=== PATIENT | female | born 1985 | race Caucasian/White ===

== ENCOUNTER 2021-01-28 11:09 | Emergency (ER) | payer MEDICARE, SELFPAY ==
[2021-01-28 11:13] VITALS: BP 116/69; PULSE 72; RESP 16; TEMP 36.6; O2SAT 100; BMI 24.5
--- NOTE | 2021-01-28 11:20 | ECG_ITS ---
Test Reason : cp Blood Pressure : / mmHG Vent. Rate : 057 BPM Atrial Rate : 057 BPM P-R Int : 178 ms QRS Dur : 120 ms QT Int : 482 ms P-R-T Axes : 035 061 063 degrees QTc Int : 469 ms Sinus bradycardia Non-specific intra-ventricular conduction delay Minimal voltage criteria for LVH, may be normal variant ( Spearman product ) Borderline ECG No previous ECGs available Referred By: Bozena Kinney Electronically Signed By:KENNETH BOLTON MD
[2021-01-28 12:08] LABS: COVID-19 Test Negative (Negative); IDNOW Serial# 9DD0AD1C
[2021-01-28 12:39] LABS: Amphetamine Screen Urine Not Detected (Not Detect); Barbiturates, Urine Not Detected (Not Detect); Benzodiazepines Screen Urine Not Detected (Not Detect); Cannabinoid Screen Urine Not Detected (Not Detect); Cocaine Screen Urine POSITIVE (Not Detect); Fentanyl, urine POSITIVE (Not Detect); Opiate Screen Urine Not Detected (Not Detect); Phencyclidine Screen Urine Not Detected (Not Detect)
--- NOTE | 2021-01-28 13:01 | ED_ITS ---
HPI - Medical Clearance General Chief complaint: Medical Clearance Stated complaint: medical clearance Time Seen by Provider: 01/28/21 11:20 Source: patient Mode of arrival: ambulatory History of Present Illness HPI Narrative: 35-year-old female presenting to the ED for medical clearance to return to her snf/program s/p leaving yesterday and using cocaine. Reports smoking about 1 g of cocaine. Denies other illicit substances and ETOH. Reports feeling fatigued at present secondary to staying out all night. Denies CP/SOB, abdominal pain, nausea/vomiting MD complaint: medical clearance requested Onset (ago): hour(s) Related Information Allergies Allergy/AdvReac Type Severity Reaction Status Date / Time No Known Allergies Allergy Unverified 11/29/19 19:31 [No Known Allergies*] Review of Systems Review of Systems: Constitutional: No Fever, No Chills, +fatigue ENT/Mouth: No Ear Pain, No Nasal Congestion, No Sinus Pain, No sore throat Cardiovascular: No Chest Pain, No SOB Respiratory: No Cough Gastrointestinal: No Nausea, No Vomiting, No Diarrhea, No Constipation, No Abdominal pain Genitourinary: No Dysuria, No Urinary Frequency, No Hematuria Musculoskeletal: No joint pain, No Myalgias, No Joint Swelling Skin: No Skin Lesions, No rash Neuro: No Weakness, No Numbness Yes all other systems are reviewed and are negative [facility] Past Medical History Attestation statement: The following information was validated with the patient. Social History Social History Advance Directives: No Advance Directives Information Provided: No Patient : No Physical Exam Vital Signs: Vital Signs: Last Vital Signs Temp 97.8 F 01/28/21 11:13 Pulse 72 01/28/21 11:13 Resp 16 01/28/21 11:13 BP 116/69 01/28/21 11:13 Pulse Ox 100 01/28/21 11:13 Body Mass Index 24.5 Const: General: cooperative, healthy appearing and no acute distress Orientation/consciousness: patient oriented x3 Limitations: no limitations HENMT: Head: Yes normal to inspection Ears: hearing grossly normal bilaterally General nose exam: Normal external nose present Face and sinus: Yes normal facial exam Eyes: General: appearance normal, both eyes and all related structures Pupils: Equal, round and reactive pupils present EOM: EOMs intact bilaterally Neck: Neck: Yes normal visual inspection, Yes no meningeal signs and Yes trachea midline Resp: Effort & Inspection: normal respiratory effort Auscultation: clear to auscultation bilaterally, no rales, no rhonchi and no wheezes Cardio: Rate: regular rate Heart sounds: S1 normal heart sound present and S2 normal heart sound present GI: Inspection: Yes normal to inspection Palpation (GI): Soft to palpation, nontender, no guarding and not rigid Skin: Rashes: no rashes Wounds: no wounds Neuro: General: patient oriented x3 and no meningeal signs Cranial nerves: Yes Equal, round and reactive pupils present Gait exam (Neuro): Normal gait present Extrem: General: Yes normal to inspection MDM - Medical Clearance MDM Narrative Medical decision making narrative: 35-year-old female presenting to the ED for medical clearance to return to her snf/program s/p leaving yesterday and using cocaine. On exam vital signs stable, NAD/nontoxic, lungs CTA, abdomen soft/nontender. Will obtain EKG, Trejo, and drug screen Medical Records Attestation: I reviewed the patient's medical records. Lab Data Attestation: I reviewed the patient's lab results. Labs: Lab Results 01/28/21 01/28/21 Range/Units 11:45 12:13 Urine Opiates Screen Not Detected (Not Detect) Urine Fentanyl Screen POSITIVE H (Not Detect) Ur Barbiturates Screen Not Detected (Not Detect) Ur Phencyclidine Scrn Not Detected (Not Detect) Ur Amphetamines Screen Not Detected (Not Detect) U Benzodiazepines Scrn Not Detected (Not Detect) Urine Cocaine Screen POSITIVE H (Not Detect) U Marijuana (THC) Screen Not Detected (Not Detect) COVID-19 (KATIE) Negative (Negative) COVID-19 Clin Com See Note ECG Data Attestation: I personally reviewed and interpreted this ECG as follows: ECG interpretation date: 01/28/21 ECG interpretation time: 11:51 Interpretation: EKG sinus bradycardia rate of 57. QTC 469. Nonischemic/no STEMI. IL interval 178 Discharge Plan Discharge Clinical Impression: Substance abuse, Normal exam Patient Disposition: Home, Self-Care Instructions: Normal Exam (ED), Polysubstance Abuse (ED) Additional Instructions: You are medically clear to go back to your snf You tested negative for COVID-19 Your drug screen was positive for cocaine and fentanyl Please do not use drugs or drink alcoholic until you Please follow-up with your doctor Referrals: Physician,None [Primary Care Provider] - 2 days
== END 2021-01-28 13:43 | disposition home or self-care (01) ==
PROVIDERS: Physician Assistant; Emergency Provider Emergency Medicine
DX: Z02.2 Encounter for examination for admission to residential institution (principal); F14.10 Cocaine abuse, uncomplicated; Z20.822 Contact with and (suspected) exposure to COVID-19
CPT/HCPCS: 36415; 80307; 87635; 93005; 99284

== ENCOUNTER 2021-05-20 14:35 | Emergency (ER) | payer MEDICARE, SELFPAY ==
--- NOTE | ~2021-05-20 | XR_ITS ---
EXAMINATION: XR HAND, RIGHT CLINICAL INFORMATION: Acute on chronic pain COMPARISON: None TECHNIQUE: PA, lateral, and oblique views of the right hand. FINDINGS: The bones and soft tissues are normal. No fracture. Alignment is anatomic. Joint spaces are maintained. No erosions or soft tissue calcifications. There is a 7 mm linear radiopaque density overlying the distal ulna of unclear etiology. XR/XR hand RT 2V IMPRESSION: 7 mm linear radiopaque density overlying the distal ulna. This is of unclear etiology. Recommend clinical correlation.
[2021-05-20 14:36] VITALS: BP 115/78; PULSE 71; RESP 19; TEMP 36.6; O2SAT 98; BMI 25.2
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
== END 2021-05-20 15:52 | disposition home or self-care (01) ==
PROVIDERS: Emergency Provider Emergency Medicine
DX: M79.641 Pain in right hand (principal); G89.29 Other chronic pain
CPT/HCPCS: 73120; 99283

== ENCOUNTER 2021-07-01 12:22 | Emergency (ER) | payer OTHER, SELFPAY ==
[2021-07-01 12:42] VITALS: BP 139/86; PULSE 100; O2SAT 99
[2021-07-01 13:00] VITALS: BP 100/69; PULSE 71; RESP 17; TEMP 36.7; O2SAT 96; BMI 23.8
--- NOTE | 2021-07-01 13:41 | ED.GENADULT ---
HPI - General Adult General Chief complaint: General Medical Stated complaint: ? choked on hamburger/overdose/ seizure Time Seen by Provider: 07/01/21 13:35 Source: patient and EMS Mode of arrival: EMS Limitations: no limitations History of Present Illness HPI narrative: Patient is a 36 year old female presenting to the emergency department today after a seizure. Patient states that she was eating a hamburger when she had a seizure. EMS states that they gave the patient narcan and she awoke immediately. Patient states that she has a history of seizures and is supposed to be taking seizure medication. 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 Patent states that she now feels fine and does not want further evaluation. Patient denies any dizziness, lightheadedness, abdominal pain, nausea, vomiting, fever, chills, blurry vision, double vision, loss of vision, chest pain, difficulty breathing, shortness of breath, back pain, night sweats, pain with urination, increased urinary frequency, increased urinary urgency, blood in her urine or stool, syncope or a near syncopal episode, recent trauma or falls, bowel incontinence, bladder incontinence, bowel retention, bladder retention, or any other complaints at this time. Related Data Previous Rx's Medication Instructions Recorded acetaminophen 500 mg tablet 500 mg PO Q6H PRN #20 tab 05/20/21 (Tylenol Extra Strength) ibuprofen 800 mg tablet 800 mg PO Q8H PRN #14 tab 05/20/21 levetiracetam 500 mg tablet 500 mg PO BID 30 Days #60 tab 07/01/21 (Keppra) Allergies Allergy/AdvReac Type Severity Reaction Status Date / Time No Known Allergies Allergy Unverified 11/29/19 19:31 [No Known Allergies*] Review of Systems Constitutional: Constitutional: Reports no additional constitutional complaints, Denies chills, Denies fever(s) and Denies night sweats Eyes: Eyes: Reports no additional eye complaints, Denies blurry vision, Denies change in vision, Denies diplopia, Denies eye discharge, Denies loss of vision and Denies eye pain ENT: Denies dizziness Cardiovascular: Cardiovascular: Reports no additional cardiovascular complaints, Denies chest pain, Denies lightheadedness, Denies Loss of Consciousness and Denies dyspnea Respiratory: Respiratory: Reports no additional respiratory complaints and Denies dyspnea Gastrointestinal: Gastrointestinal: Reports no additional gastrointestinal complaints, Denies abdominal pain, Denies melena, Denies hematochezia, Denies change in bowel habits and Denies change in stool character Genitourinary: Genitourinary: Denies hematuria, Denies urinary frequency, Denies dysuria, Denies urinary incontinence, Denies urinary hesitancy and Denies urinary urgency Musculoskeletal: Musculoskeletal: Reports no additional musculoskeletal complaints, Denies numbness and Denies tingling Neurologic: Denies dizziness, Denies loss of vision, Denies numbness and Denies tingling Psychiatric: Psychiatric: Reports no additional psychiatric complaints Endocrine: Endocrine: Reports no additional endocrine complaints Hematologic/Lymphatic: Hematologic/Lymphatic: Reports no additional hematologic/lymphatic complaints Allergic/Immunologic: Allergic/Immunologic: Reports no additional allergic/immunologic complaints PMFSH Past Medical History Attestation statement: The following information was validated with the patient. Source: old records reviewed Medical History ADHD Bipolar 1 disorder Depression Depression Social History Social History Advance Directives: No Advance Directives Information Provided: No Patient : No Physical Exam ED Vital Signs: Vital Signs - 24 hr 07/01/21 13:00 Temperature 98.1 F Pulse Rate 71 Respiratory Rate 17 Blood Pressure 100/69 Pulse Oximetry 96 BMI result Body Mass Index 23.8 Const General: cooperative, no acute distress, alert and awake Nutritional Appearance: well nourished Orientation/consciousness: patient oriented x3 Limitations: no limitations [facility] Head: Yes normal to inspection and Yes atraumatic Ears: hearing grossly normal bilaterally and external ears normal General nose exam: Normal external nose present, no nasal discharge noted and no epistaxis Face and sinus: Yes normal facial exam, No abrasion and No laceration Mouth: Normal oral and palatal mucosa present, no drooling and no muffled voice Eyes General: appearance normal, both eyes and all related structures Periorbital: periorbital findings normal Eyelids: Yes eyelids normal Conjunctivae: conjunctivae normal Pupils: Equal, round and reactive pupils present EOM: EOMs intact bilaterally Neck Neck: Yes normal visual inspection, Yes full ROM and Yes no lymphadenopathy Chest Chest palpation & inspection: normal inspection of the chest Resp Effort & Inspection: normal respiratory effort and able to speak in complete sentences Auscultation: clear to auscultation bilaterally Cardio Rate: regular rate Rhythm: regular rhythm GI Inspection: Yes normal to inspection Neuro General: patient oriented x3 and moves all extremities Cranial nerves: Yes Equal, round and reactive pupils present Cognition (Neuro): normal cognition Motor exam (neuro): 5/5 motor strength present throughout Sensory Exam: Normal double simultaneous stimulation for sensation Coordination: [id number]-[id number] test normal Extrem General: Yes normal to inspection, Yes full ROM and Yes capillary refill normal Psych Appearance: grossly normal Mental Status: mental status grossly normal Affect: normal affect Attitude: cooperative Thought process: Normal thought process present Thought content: Normal thought content present Insight: Good insight present (Psych) Medical Decision Making MDM Narrative Medical decision making narrative: Patient is a 36 year old female presenting to the emergency department today after a seizure. Patient's physical exam was unremarkable, including a normal neurologic exam. Patient's refused any type of work up, narcan, or a CARE team/BHN consult. Patient did request tylenol for some dental pain she's been having. I explained my physical exam findings to the patient. I answered all questions asked by the patient. I stressed the importance of the patient taking her medication as prescribed. I stressed the importance of the patient following up with her primary care provider. I stressed the importance of the patient returning to the emergency department immediately if her symptoms were to worsen or if she were to develop any dizziness, shortness of breath, difficulty breathing, chest pain, blurry vision, loss of vision, nausea, vomiting, abdominal pain, fever, chills, back pain, or any other complaints. Patient verbalized agreement and understanding with this treatment plan and discharge. Differential Diagnosis Differential Diagnosis: seizure, opioid overdose Medical Records Medical records reviewed: Yes I reviewed the patient's medical records. Discharge Plan Discharge Clinical Impression: Seizure, Opioid abuse Patient Disposition: Home, Self-Care Instructions: Epilepsy (DC) Additional Instructions: Follow up with your primary care provider. Return to the emergency department immediately if your symptoms worsen or if you develop any dizziness, shortness of breath, difficulty breathing, chest pain, blurry vision, loss of vision, nausea, vomiting, abdominal pain, fever, chills, back pain, or any other complaints. Prescriptions: New levetiracetam [Keppra] 500 mg tablet 500 mg PO BID 30 Days Qty: 60 0RF No Action ibuprofen 800 mg tablet 800 mg PO Q8H PRN (Reason: pain) Qty: 14 0RF acetaminophen [Tylenol Extra Strength] 500 mg tablet 500 mg PO Q6H PRN (Reason: pain or fever) Qty: 20 0RF Referrals: Yuliana Ortega MD [Physician] - (Follow up with a neurologist for continuation of seizure care. ) Physician,None [Primary Care Provider] - (Follow up with your PCP. ) Interventions: ED Discharge Assessment Last Done: 07/01/21 14:00 Discharge Date/Time: 07/01/21 14:00 Print Language: Burkinan
[2021-07-01] MEDS: Acetaminophen 325 MG TABLET 650 MG PO (13:55)
== END 2021-07-01 14:00 | disposition home or self-care (01) ==
PROVIDERS: Emergency Provider Emergency Medicine
DX: R56.9 Unspecified convulsions (principal); F11.10 Opioid abuse, uncomplicated; Z79.899 Other long term (current) drug therapy
CPT/HCPCS: 99283; 99284

== ENCOUNTER 2021-07-14 07:30 | Emergency (ER) | payer OTHER, SELFPAY ==
[2021-07-14 07:41] VITALS: BP 110/70; BP 115/58; PULSE 84; PULSE 90; RESP 16; TEMP 37; O2SAT 94; BMI 23.5
--- NOTE | 2021-07-14 07:48 | ED.SEIZURE ---
HPI - Seizure General Chief Complaint: ETOH/Substance Use Stated Complaint: DRUG USE,? SZ, ALERT AND ORIENTED PER EMS Time Seen by Provider: 07/14/21 07:47 Source: patient Mode of arrival: EMS Limitations: no limitations History of Present Illness HPI Narrative: missed her methadone dose this am didn't take seizure meds this AM walked to clinic with a girl this morning thought she was doing cocaine but then ?seizure vs something in cocaine MD complaint: possible seizure (also used cocaine but thinks something was in it) Onset (ago): minute(s) (prior to arrival ) Description of Episode: loss of consciousness -: second(s) Witnessed: Yes - by Bystander Trauma: No Seizure History: Yes Place: Outdoors Possible Precipitating Event: drug use and medication Associated symptoms: denies other symptoms Treatments prior to arrival: none Related Data Home Medications Medication Instructions Recorded Confirmed methadone 10 mg/mL oral concentrate 131 mg PO DAILY 07/14/21 07/14/21 Previous Rx's Medication Instructions Recorded acetaminophen 500 mg tablet 500 mg PO Q6H PRN #20 tab 05/20/21 (Tylenol Extra Strength) ibuprofen 800 mg tablet 800 mg PO Q8H PRN #14 tab 05/20/21 levetiracetam 500 mg tablet 500 mg PO BID 30 Days #60 tab 07/01/21 (Keppra) Allergies Allergy/AdvReac Type Severity Reaction Status Date / Time No Known Allergies Allergy Verified 07/14/21 07:46 [No Known Allergies*] Review of Systems Review of Systems: Constitutional : No Weight loss, No Fever, No Chills, No Fatigue, No Malaise ENT/Mouth : No sore throat, No Rhinorrhea Eyes: No Eye Pain, No Swelling, No Redness Cardiovascular : No Chest Pain, No SOB, No Dyspnea on Exertion, No Orthopnea, No Edema, No Palpitations Respiratory : No Cough, No Sputum, No Wheezing Gastrointestinal : No Nausea, No Vomiting, No Diarrhea, No Constipation, No abdominal Pain, No Hematochezia, No Melena Genitourinary : No Dysuria, No Urinary Frequency, No Hematuria, Musculoskeletal : No joint pain, No Myalgias, No Joint Swelling Skin : No Skin Lesions, No rash Neuro : No Weakness, No Numbness, No Dizziness, No Headache, possible seizure activity Psych : No Anxiety/Panic, No Depression Heme/Lymph: No Bruising, No Bleeding,No Lymphadenopathy Endocrine : No Polyuria, No Polydipsia All other systems reviewed and are negative [facility] Past Medical History Attestation statement: The following information was validated with the patient. Medical History ADHD Bipolar 1 disorder Depression Depression Seizure disorder Social History Social History (Updated 07/14/21 @ 08:25 by Imani Ruiz DO) Patient Tobacco Use Status: Never used Tobacco Use of substances other than those prescribed or required for medical reasons: No Substance Use Type: Crack/Cocaine Advance Directives: No Advance Directives Information Provided: No Physical Exam Vital Signs: Vital Signs: Last Vital Signs Temp 98.6 F 07/14/21 07:41 Pulse 58 07/14/21 09:49 Resp 18 07/14/21 09:49 BP 100/49 L 07/14/21 09:58 Pulse Ox 95 07/14/21 09:49 BMI result Body Mass Index 23.5 Appearance: Oriented X3. No acute distress. Somnolent and at times falls asleep during interview - easily woken to name Eyes: Pinpoint ENT: Pharynx normal. Neck: Normal inspection. Neck supple. CVS: Normal heart rate and rhythm. Pulses normal. Respiratory: No respiratory distress. Breath sounds normal. Abdomen: Soft and nontender. Skin: Skin warm and dry. Normal skin color. Normal skin turgor. Extremities: No lower extremity edema. No calf ttp Neuro: Oriented X 3. No motor deficit. No sensory deficit. Course Course Course Narrative: awake and alert walking around drinking MDM - Seizure MDM Narrative Medical decision making narrative: 36 yo female with hx of seizures getting tapered off wellbutrin, missed oxcarbamazepine dose this AM, here with c/o using with a friend on way to methadone clinic this AM thought it was cocaine possible seizure vs overdose no narcan given.Will dose with her seizure med this AM. observe and once more awake will give her her methadone dose. She declines suboxone/methadone or SUDE evaluation at this time. No SI. Discharge Plan Discharge Clinical Impression: Seizure Patient Disposition: Home, Self-Care Instructions: Recurrent Seizures in Adults (ED) Additional Instructions: return to ED for any worsening symptoms or concerns please follow up with your doctor to discuss your seizures and wellbutrin dosing - you were given your oxcarbazepine dose in the ED this morning you were given your methadone in the emergency department today Prescriptions: No Action levetiracetam [Keppra] 500 mg tablet 500 mg PO BID 30 Days Qty: 60 0RF ibuprofen 800 mg tablet 800 mg PO Q8H PRN (Reason: pain) Qty: 14 0RF acetaminophen [Tylenol Extra Strength] 500 mg tablet 500 mg PO Q6H PRN (Reason: pain or fever) Qty: 20 0RF methadone 10 mg/mL Concentrate 131 mg PO DAILY 0RF
[2021-07-14] MEDS: OXcarbazepine 300 MG TABLET 600 MG PO (08:30)
[2021-07-14 08:33] VITALS: BP 106/65; PULSE 68; RESP 18; O2SAT 93
[2021-07-14 08:35] VITALS: PULSE 67
[2021-07-14 09:49] VITALS: BP 88/46; PULSE 58; RESP 18; O2SAT 95
[2021-07-14 09:58] VITALS: BP 100/49
--- NOTE | 2021-07-14 10:55 | MHC.RECOVSUP ---
? Reason for consult:Recovery support o Current location:ED6 o Identified substance use concern:Cocaine/Heroin - Support ? Intervention: o MAT started or to be started o Harm reduction discussion ? Plan: o Follow up tomorrow o Patient to follow up with H after discharge ? 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
[2021-07-14] MEDS: methADONE HCl 20 MG/2 ML ORAL.CONC 130 MG PO (11:21)
== END 2021-07-14 11:45 | disposition home or self-care (01) ==
PROVIDERS: Emergency Provider Emergency Medicine
DX: R56.9 Unspecified convulsions (principal); F14.10 Cocaine abuse, uncomplicated; Z79.899 Other long term (current) drug therapy
CPT/HCPCS: 99283; 99285

== ENCOUNTER 2023-05-18 18:48 | Emergency (ER) | payer MEDICAID, SELFPAY ==
[2023-05-18 19:03] VITALS: BP 113/56; BP 120/76; PULSE 78; PULSE 85; RESP 18; TEMP 37.5; O2SAT 95; O2SAT 96; BMI 22.5
[2023-05-18 19:31] LABS: MANUAL DIFF FLAG NO
[2023-05-18 19:36] LABS: Basophils Percent Auto 0.2 % (0-2); Eosinophils Absolute Auto 0.1 X10*3/uL (0.0-0.4); Eosinophils Percent Auto 1.5 % (0-4); Hematocrit 33.7 % (37.0-47.0); Hemoglobin 10.9 g/dl (12.0-16.0); Imm Gran Abs Auto 0.02 X10*3/uL (0.00-0.03); Imm Gran Pct Auto 0.2 % (0.0-0.4); Lymphocytes Absolute Auto 3.5 X10*3/uL (1.2-4.9); Mean Corpuscular HGB Conc 32.3 g/dl (31.0-35.0); Mean Corpuscular Hemoglobin 27.1 pg (27.0-33.0); Mean Corpuscular Volume 83.8 fL (80.0-98.0); Mean Platelet Volume 8.8 fL (9.4-12.3); Monocytes Absolute Auto 0.7 X10*3/uL (0.1-1.2); Monocytes Percent Auto 8.9 % (2-11); Neutrophils Absolute Auto 3.7 x10*3/uL (2.0-8.3); Neutrophils Percent Auto 46.2 % (45-73); Platelet Count 298 X10*3/uL (160-400); Red Blood Count 4.02 X10*6/uL (4.20-5.50); Red Cell Distribution Width 13.4 % (11.0-16.0)
[2023-05-18 19:45] LABS: Amphetamine Screen Urine Not Detected (Not Detect); Barbiturates, Urine Not Detected (Not Detect); Benzodiazepines Screen Urine Not Detected (Not Detect); Cannabinoid Screen Urine Not Detected (Not Detect); Cocaine Screen Urine POSITIVE (Not Detect); Fentanyl, urine POSITIVE (Not Detect); Opiate Screen Urine POSITIVE (Not Detect); Phencyclidine Screen Urine Not Detected (Not Detect); UPreg QC Valid YES; Urine Pregnancy NEGATIVE (NEGATIVE)
[2023-05-18 19:48] LABS: IDNOW Serial# 08D9AD1C
[2023-05-18 19:49] LABS: COVID-19 Test Negative (Negative)
[2023-05-18 19:55] LABS: Alanine Aminotransferase 26 U/L (0-31); Albumin Level 3.9 g/dL (3.5-5.0); Alkaline Phosphatase 76 U/L (39-117); Anion Gap 13 (12-20); Aspartate Amino Transferase 23 U/L (5-31); Bilirubin Total 0.2 mg/dL (0.0-1.0); Blood Urea Nitrogen 21 mg/dL (9-16); Calcium 9.1 mg/dL (8.4-10.2); Carbon Dioxide 30 mmol/L (22-29); Chloride 101 mmol/L (96-108); Creatinine Clr Calc Pharmacy 100.4; Estimated Glomerular Filt Rate > 60; Ethanol < 10 mg/dL; Glucose Random 100 mg/dL (60-115); Potassium 3.6 mmol/L (3.3-5.1); Sodium 140 mmol/L (135-145); Total Protein 8.1 g/dL (6.5-8.0)
[2023-05-18 19:55] LABS: Appearance Urine Cloudy; Color Urine Yellow; Glucose Urine UA Negative (Negative); Leukocyte Esterase Urine Moderate (2+) (Negative); Nitrite Urine Negative (Negative); Specific Gravity - Urine >= 1.030 (1.005-1.025); UMIC TRIGGER UACC YES; Urine Blood Negative (Negative); Urine Ketones Trace mg/dL (Negative); Urine Protein 30 (1+) mg/dL (Neg-Trace)
[2023-05-18 19:57] LABS: Acetaminophen LAB < 3 mcg/mL (<30); Salicylate < 5.0 mg/dL (15-30)
[2023-05-18 20:07] LABS: Bacteria Urine None Seen (None Seen); Calcium Oxalate Crystals Urine Present; RBC Urine 0-2 /HPF (0-2); UACC Culture Trigger YES
--- NOTE | 2023-05-18 20:25 | ED_ITS ---
HPI - Psych General Chief Complaint: Psychiatric Symptoms Stated Complaint: SI, REQUESTING DETOX Time Seen by Provider: 05/18/23 19:12 Source: patient Mode of arrival: ambulatory Limitations: no limitations History of Present Illness HPI Narrative: Patient homeless with history of depression substance abuse used cocaine and heroin been feeling very depressed suicidal intent to use bunch of heroin denies any hallucination or delusions feels that she does not want to come to the hospital but today she was feeling very bad that is why she wanted to come to the hospital patient usually snorts 3-4 bundles of heroin a day today she used only 2 bundles feels anxious Related Data Home Medications Medication Instructions Recorded Confirmed methadone 10 mg/mL oral concentrate 131 mg PO DAILY 07/14/21 07/14/21 Previous Rx's Medication Instructions Recorded acetaminophen 500 mg tablet 500 mg PO Q6H PRN pain or fever 05/20/21 (Tylenol Extra Strength) #20 tabs ibuprofen 800 mg tablet 800 mg PO Q8H PRN pain #14 tabs 05/20/21 levetiracetam 500 mg tablet 500 mg PO BID 1 month #60 tabs 07/01/21 (Keppra) Allergies Allergy/AdvReac Type Severity Reaction Status Date / Time No Known Allergies Allergy Verified 07/14/21 07:46 [No Known Allergies*] Review of Systems 2 Review of Systems: Yes all other systems are reviewed and are negative [facility] Past Medical History Medical History Seizure disorder ADHD Bipolar 1 disorder Depression Depression Social History Social History Patient Tobacco Use Status: Never used Tobacco Substance Use Type: Crack/Cocaine Advance Directives: No Advance Directives Information Provided: No Physical Exam 2 Vital Signs: Vital Signs: Last Vital Signs Temp 99.5 F 05/18/23 19:03 Pulse 85 05/18/23 19:03 Resp 18 05/18/23 19:03 BP 113/56 L 05/18/23 19:03 Pulse Ox 95 05/18/23 19:03 O2 Del Method Room Air 05/18/23 19:03 BMI result Body Mass Index 22.5 Appearance: Alert. Oriented X3. No acute distress. Eyes: PERRLA, ENT: Pharynx normal. Oral Mucosa moist Neck: Normal inspection. Neck supple. CVS: Normal heart rate and rhythm. Pulses normal. Respiratory: No respiratory distress. Equal air entry bilateral, no wheezing/rales/rhonchi Abdomen: Soft and nontender. Bowel sounds are present, no mass palpable, no CVA tenderness Skin: Skin warm and dry. Normal skin color. Normal skin turgor. Extremities: No lower extremity edema. No calf tenderness IVDA track tan++ Psych; feels depressed, tearful Neuro: Oriented X 3. No motor deficit. No sensory deficit.No cerebellar signs , cranial nerves II-XII intact Medical Decision Making Medical Decision Making [facility] Narrative: Patient depression with polysubstance abuse sleeping in the ER waiting for care team involved for evaluation Differential Diagnosis Differential Diagnoses: The differential diagnosis associated with the presentation includes Lab Data [facility] Lab Attestation statement: I reviewed the patient's lab results. 05/18/23 19:19 05/18/23 19:19 Labs: Lab Results 05/18/23 05/18/23 05/18/23 Range/Units 19:06 19:17 19:19 WBC 8.0 (4.8-10.8) X10*3/uL RBC 4.02 L (4.20-5.50) X10*6/uL Hgb 10.9 L (12.0-16.0) g/dl Hct 33.7 L (37.0-47.0) % MCV 83.8 (80.0-98.0) fL MCH 27.1 (27.0-33.0) pg MCHC 32.3 (31.0-35.0) g/dl RDW 13.4 (11.0-16.0) % Plt Count 298 (160-400) X10*3/uL MPV 8.8 L (9.4-12.3) fL Immature Gran % (Auto) 0.2 (0.0-0.4) % Neut % (Auto) 46.2 (45-73) % Lymph % (Auto) 43.0 H (20-40) % [place] % (Auto) 8.9 (2-11) % Eos % (Auto) 1.5 (0-4) % Baso % (Auto) 0.2 (0-2) % Lymph # (Auto) 3.5 (1.2-4.9) X10*3/uL [place] # (Auto) 0.7 (0.1-1.2) X10*3/uL Eos # (Auto) 0.1 (0.0-0.4) X10*3/uL Baso # (Auto) 0.0 (0.0-0.2) X10*3/uL Abs Immat Gran (auto) 0.02 (0.00-0.03) X10*3/uL Absolute Neuts (auto) 3.7 (2.0-8.3) x10*3/uL Absolute Nucleated RBC 0.000 (0.0-0.012) X10*3/uL Nucleated RBC % (auto) 0.0 (0.0-0.2) /100WBC Hold Purple Top SEE NOTE Sodium 140 (135-145) mmol/L Potassium 3.6 (3.3-5.1) mmol/L Chloride 101 (96-108) mmol/L Carbon Dioxide 30 H (22-29) mmol/L Anion Gap 13 (12-20) BUN 21 H (9-16) mg/dL Creatinine 0.69 (0.5-1.4) mg/dL Estim Creat Clear Calc 100.4 Estimated GFR > 60 Random Glucose 100 (60-115) mg/dL Calcium 9.1 (8.4-10.2) mg/dL Total Bilirubin 0.2 (0.0-1.0) mg/dL AST 23 (5-31) U/L ALT 26 (0-31) U/L Alkaline Phosphatase 76 (39-117) U/L Total Protein 8.1 H (6.5-8.0) g/dL Albumin 3.9 (3.5-5.0) g/dL Urine Color Yellow Urine Appearance Cloudy Urine pH 5.0 (5.0-9.0) Ur Specific [place] >= 1.030 H (1.005-1.025) Urine Protein 30 (1+) H (Neg-Trace) mg/dL Urine Glucose (UA) Negative (Negative) mg/dL Urine Ketones Trace (Negative) mg/dL Urine Blood Negative (Negative) Urine Nitrite Negative (Negative) Ur Leukocyte Esterase Moderate (2+) H (Negative) Urine RBC 0-2 (0-2) /HPF Urine WBC 11-20 (0-5) /HPF Ur Squamous Epith Cells 3-5 (0-2) /HPF Calcium Oxalate Crystal Present Urine Bacteria None Seen (None Seen) Hyaline Casts 3-5 (0-2) /LPF Urine Test NEGATIVE (NEGATIVE) Salicylates < 5.0 L (15-30) mg/dL Urine Opiates Screen POSITIVE H (Not Detect) Urine Fentanyl Screen POSITIVE H (Not Detect) Acetaminophen < 3 (<30) mcg/mL Ur Barbiturates Screen Not Detected (Not Detect) Ur Phencyclidine Scrn Not Detected (Not Detect) Ur Amphetamines Screen Not Detected (Not Detect) U Benzodiazepines Scrn Not Detected (Not Detect) Urine Cocaine Screen POSITIVE H (Not Detect) U Marijuana (THC) Screen Not Detected (Not Detect) Ethyl Alcohol < 10 mg/dL COVID-19 (KATIE) Negative (Negative) COVID-19 Clin Com See Note Discharge Plan Discharge Clinical Impression: Depression, Polysubstance abuse Patient Disposition: Still a Patient Prescriptions: No Action levetiracetam [Keppra] 500 mg tablet 500 mg PO BID 30 Days Qty: 60 0RF ibuprofen 800 mg tablet 800 mg PO Q8H PRN (Reason: pain) Qty: 14 0RF acetaminophen [Tylenol Extra Strength] 500 mg tablet 500 mg PO Q6H PRN (Reason: pain or fever) Qty: 20 0RF methadone 10 mg/mL Concentrate 131 mg PO DAILY Interventions: [place]-Suicide Risk Severity Scale Last Done: 05/18/23 20:27
--- NOTE | 2023-05-18 20:54 | MHC.CARE ---
CARE Team attempted to meet with the pt, however, she could not participate in an assessment at this time. Pt was sleeping, could not open her eyes, speech was soft and low, and she could not put two words together. CARE Team will attempt to meet with the pt at a later time in the evening.
--- NOTE | 2023-05-18 23:21 | MHC.CARE ---
CARE Team made a second attempt to meet with the pt. She was still sleeping and not rouseable at this time. Pt requested that t/w come back later for the assessment after she has had more time to rest.
== END 2023-05-19 08:37 | disposition home or self-care (01) ==
PROVIDERS: Internal Medicine; Emergency Provider Emergency Medicine
DX: F33.9 Major depressive disorder, recurrent, unspecified (principal); F11.10 Opioid abuse, uncomplicated; F14.10 Cocaine abuse, uncomplicated; Z11.52 Encounter for screening for COVID-19
CPT/HCPCS: 36415; 80053; 80143; 80179; 80307; 81001; 81025; 85025; 87086; 87635; 99284

== ENCOUNTER 2023-12-26 21:10 | Inpatient (IN) | payer MEDICAID, SELFPAY ==
--- NOTE | ~2023-12-26 | CT_ITS ---
EXAMINATION: CT ABDOMEN AND PELVIS WITHOUT CONTRAST CLINICAL INFORMATION: Elevated creatinine and hematuria COMPARISON: None available. TECHNIQUE: Multidetector volumetric imaging was performed from the superior aspect of the liver through the pubic symphysis. Sagittal and coronal reformatted images were obtained on the technologist's workstation. This CT examination was performed using dose optimization techniques as appropriate, variously including the following: *Automated exposure control *Adjustment of mA and/or kV according to patient size (this includes techniques or standardized protocols for targeted exams where dose is matched to indication/reason for exam; i.e. extremities or head) *Use of iterative reconstruction technique DLP: 369 mGy-cm FINDINGS: LUNG BASES: Minor bibasilar linear opacities or atelectasis and subpleural scarring. I cannot exclude an early pneumonia. Follow-up advised. LIVER, GALLBLADDER, AND BILIARY TREE: The liver is prominent. No focal mass or intrahepatic biliary dilatation. The gallbladder is unremarkable with no evidence of radiopaque gallstones, gallbladder wall thickening, or obvious pericholecystic inflammatory changes. PANCREAS: Unremarkable. SPLEEN: Unremarkable. ADRENAL GLANDS: Unremarkable. KIDNEYS AND URETERS: There appears to be slight distention of the right collecting system in the right kidney does appear to be slightly engorged. I do not see a calculus or perinephric collection or mass. Left kidney unremarkable. No evidence for calcifications along the course of the ureters. The bladder however is quite distended. Consideration should be given to a follow-up ultrasound after the patient voids, with special attention to the right kidney. BLADDER: Distended. No focal mass seen. GASTROINTESTINAL TRACT: Large stool burden in the colon. No bowel obstruction or right or left lower quadrant inflammatory change. The vermiform appendix is not clearly seen. ABDOMINAL WALL: No significant hernia is appreciated. LYMPH NODES: Normal. VASCULAR: Unremarkable. PELVIC VISCERA: Unremarkable. OSSEOUS STRUCTURES: Hemangioma of bone observed L1. CT/CT abdomen pelvis wo IV con IMPRESSION: Slight distention of the right collecting system. Distended bladder. Recommend follow-up after voiding.. I would recommend a follow-up chest x-ray to exclude an early pneumonia. Fleischner guidelines were followed. Electronically signed by: Ken Alarcon MD 12/27/2023 08:21 AM EDT
--- NOTE | ~2023-12-26 | XR_ITS ---
EXAMINATION: XR CHEST 2 VIEW CLINICAL INFORMATION: Cough, question pneumonia COMPARISON: None TECHNIQUE: PA and lateral views of the chest obtained. FINDINGS: There are low lung volumes. Patchy airspace opacities are evident in the right upper lobe. The left lung is clear. There are no pleural effusions. The cardiomediastinal silhouette is normal. XR/XR chest 2V IMPRESSION: Patchy right upper lobe airspace opacities, suspicious for pneumonia. Follow-up is recommended to confirm clearing. Electronically signed by: Cory Larson MD 12/27/2023 09:36 AM EDT
--- NOTE | ~2023-12-26 | CT_ITS ---
EXAMINATION: CT CHEST WITHOUT CONTRAST CLINICAL INFORMATION: History of septic pulmonary emboli with question of recurrence COMPARISON: CT abdomen and pelvis along with chest radiograph yesterday TECHNIQUE: Multidetector volumetric CT imaging of the chest was done. Axial MIP volume rendering provided. Sagittal and coronal reformatted images were obtained. This CT examination was performed using dose optimization techniques as appropriate, variously including the following: *Automated exposure control *Adjustment of mA and/or kV according to patient size (this includes techniques or standardized protocols for targeted exams where dose is matched to indication/reason for exam; i.e. extremities or head) *Use of iterative reconstruction technique DLP: 185 mGy-cm FINDINGS: There is marked respiratory motion artifact limiting evaluation. LUNGS: There is patchy consolidation seen in the right upper lobe. A number of nodular densities are seen in size from under a centimeter to 1.9 cm. No cavitation is seen. MEDIASTINUM: The heart is enlarged. There is mediastinal lymphadenopathy although evaluation is limited by motion artifact lack of IV contrast. CORONARY ARTERY CALCIFICATION: None visualized on this study. PLEURA: A small left pleural effusion is present. There is no right-sided pleural effusion. No pleural mass or thickening. AXILLA: Bilateral axillary lymphadenopathy is seen with the largest nodes measuring about 1.4 cm in short axis dimension. UPPER ABDOMEN: Unremarkable. OSSEOUS STRUCTURES: Unremarkable. Hemangioma is present in the L1 vertebral body. CT/CT chest wo IV con IMPRESSION: 1. Limited exam due to respiratory motion artifact and lack of IV contrast. 2. Patchy consolidation right upper lobe with multiple nodular densities. No cavitary masses are seen. Findings are consistent with pneumonia. I would expect septic emboli to be more bilateral distribution. 3. Mediastinal and axillary lymphadenopathy. 4. Small left pleural effusion. 5. Cardiomegaly. Fleischner guidelines were followed. Electronically signed by: Andrei Sprague MD 12/28/2023 06:09 PM EDT
[2023-12-26 21:39] VITALS: BP 143/85; PULSE 84; RESP 22; TEMP 36.7; O2SAT 97; BMI 21.9
--- NOTE | 2023-12-26 21:56 | PC.NURSE ---
belongings in [place]
--- NOTE | 2023-12-26 22:00 | ED_ITS ---
HPI - General Adult General Chief complaint: Psychiatric Symptoms Stated complaint: crisis Time Seen by Provider: 12/26/23 21:51 Source: patient Mode of arrival: ambulatory Limitations: no limitations History of Present Illness ED Provider: Dr. Karen Ventura HPI narrative: Patient comes to the emergency room complaining of URI symptoms and feeling suicidal. Patient states that she was in ?coma? in [place] no to long ago, then she was sent to rehab, then she left and developed a URI. Patient states that she feels that her depression is getting worse, has plan to OD, feeling suicidal. Related Data Home Medications ?Medication ?Instructions ?Recorded ?Confirmed methadone 10 mg/mL oral concentrate 131 mg PO DAILY 07/14/21 07/14/21 Previous Rx's ?Medication ?Instructions ?Recorded acetaminophen 500 mg tablet 500 mg PO Q6H PRN pain or fever 05/20/21 (Tylenol Extra Strength) #20 tabs ibuprofen 800 mg tablet 800 mg PO Q8H PRN pain #14 tabs 05/20/21 levetiracetam 500 mg tablet 500 mg PO BID 1 month #60 tabs 07/01/21 (Keppra) Allergies Allergy/AdvReac Type Severity Reaction Status Date / Time No Known Allergies Allergy Verified 12/26/23 21:52 [No Known Allergies*] Review of Systems 2 Review of Systems: Constitutional : No Weight loss, No Fever, No Chills, No Night Sweats, complaining of fatigue and generalized malaise ENT/Mouth : No Hearing loss, No Ear Pain, No Nasal Congestion, No Sinus Pain, No Hoarseness, complaining of sore throat, No Rhinorrhea, No Swallowing Difficulty Eyes: No Eye Pain, No Swelling, No Redness, No Foreign Body, No Discharge, No Vision Changes Cardiovascular : No Chest Pain, No SOB, No Dyspnea on Exertion, No Orthopnea, No Edema, No Palpitations Respiratory : No Cough, No Sputum, No Wheezing, No Smoke Exposure, No Dyspnea Gastrointestinal : No Nausea, No Vomiting, No Diarrhea, No Constipation, No abdominal Pain, No Hematochezia, No Melena Genitourinary : no irregular bleeding, No Dysuria, No Urinary Frequency, No Hematuria, No Urinary Incontinence, No Urgency, No Flank Pain, No Urinary Flow Changes, No Hesitancy Musculoskeletal : No joint pain, No Myalgias, No Joint Swelling Skin : No Skin Lesions, No rash Neuro : No Weakness, No Numbness, No Paresthesias, No Loss of Consciousness, No Dizziness, No Headache Psych : Complaining of anxiety, depression, polysubstance abuse, SI planning to overdose Heme/Lymph: No Bruising, No Bleeding,No Lymphadenopathy Endocrine : No Polyuria, No Polydipsia, No Temperature Intolerance PMFSH Past Medical History Medical History Seizure disorder ADHD Bipolar 1 disorder Depression Depression Social History Social History Patient Tobacco Use Status: Never used Tobacco Substance Use Type: Crack/Cocaine Advance Directives: No Advance Directives Information Provided: No Do you have a plan to hurt others: No Plan Physical Exam ED Vital Signs: Vital Signs - 24 hr 12/26/23 21:39 12/27/23 01:03 12/27/23 03:16 Temperature 98.1 F 98.0 F Pulse Rate 84 70 87 Respiratory Rate 22 H 16 13 Blood Pressure 143/85 H 132/79 Pulse Oximetry 97 98 Oxygen Delivery Method Room Air Room Air BMI result Body Mass Index 21.9 Const Other: Appearance: Alert. Oriented X3. Crying Eyes: Pupils equal, round and reactive to light. ENT: Pharynx normal. Neck: Normal inspection. Neck supple. No lymph nodes noted. No crepitus CVS: Normal heart rate and rhythm. Pulses normal. Normal S1 and S2 Respiratory: No respiratory distress. Breath sounds normal. No Wheezing. No rales Abdomen: Soft and nontender. No rigidity. No distention. Skin: Skin warm and dry. Normal skin color. Normal skin turgor. Extremities: No lower extremity edema. No Lacerations. No Rash Neuro: Oriented X 3. No motor deficit. No sensory deficit. Moving all extremities. No slurred speech. CN 2 through 12 grossly intact Psych: calm, crying, cooperative Course Course Course Narrative: -records from [facility] have been requested -all of patient's labs pending -patient is on a Section 12 -care team consult pending Medications Administered Discontinued Medications Generic Name Dose Route Start Last Admin Trade Name Freq PRN Reason Stop Dose Admin Cefuroxime Axetil 250 mg 12/27/23 02:08 12/27/23 02:15 Cefuroxime Axetil 250 Mg Tablet PO 12/27/23 02:09 250 mg ONCE ONE Administration Sodium Chloride 1,000 mls @ 999 mls/hr 12/27/23 02:06 12/27/23 03:17 Ns IVCONT 12/27/23 03:06 Infused .Q1H1M ONE Infusion Lorazepam 2 mg 12/27/23 00:53 12/27/23 01:17 Lorazepam 1 Mg Tablet PO 12/27/23 00:54 2 mg ONCE ONE Administration Medical Decision Making Medical Decision Making [facility] Narrative: My interpretation of labs: Patient's hematology shows shows a hemoglobin of 8.8, slightly a bit lower than usual. Patient denies GI bleed. Patient has had anemia in the past. Creatinine shows to be a bit elevated, 1.64, baseline usually less than 1.0. Patient received IV fluids, creatinine was rechecked and unfortunately the creatinine actually increased. Patient is sleeping comfortably. On arrival, patient was very agitated, needed Ativan. -received records from [facility], patient was seen there yesterday, received IV fluids, seems that no labs were done? -patient has questionably a UTI, there is blood in the urine. Given the results of the urinalysis and an elevated creatinine, we will ordered a CT scan to rule out a kidney stone causing an obstruction. -I discussed the patient with Dr. Jimenez. Patient being admitted Differential Diagnosis Differential Diagnoses: The differential diagnosis associated with the presentation includes (Anxiety, depression, viral URI, strep pharyngitis, viral pharyngitis, polysubstance abuse) Admission/Observation Consideration of admission/observation: Escalation of care including admission/observation considered (Patient is on a section 12 waiting to be seen by the care team.) Lab Data 12/26/23 22:51 12/27/23 04:04 Labs: Lab Results 12/26/23 12/26/23 12/27/23 Range/Units 22:29 22:51 00:51 WBC 7.7 (4.8-10.8) X10*3/uL RBC 2.98 L D (4.20-5.50) X10*6/uL Hgb 8.8 L (12.0-16.0) g/dl Hct 26.2 L D (37.0-47.0) % MCV 87.9 (80.0-98.0) fL MCH 29.5 (27.0-33.0) pg MCHC 33.6 (31.0-35.0) g/dl RDW 15.0 (11.0-16.0) % Plt Count 223 D (160-400) X10*3/uL MPV 9.2 L (9.4-12.3) fL Immature Gran % (Auto) 0.3 (0.0-0.4) % Neut % (Auto) 52.5 (45-73) % Lymph % (Auto) 40.8 H (20-40) % [place] % (Auto) 5.2 (2-11) % Eos % (Auto) 0.9 (0-4) % Baso % (Auto) 0.3 (0-2) % Lymph # (Auto) 3.1 (1.2-4.9) X10*3/uL [place] # (Auto) 0.4 (0.1-1.2) X10*3/uL Eos # (Auto) 0.1 (0.0-0.4) X10*3/uL Baso # (Auto) 0.0 (0.0-0.2) X10*3/uL Abs Immat Gran (auto) 0.02 (0.00-0.03) X10*3/uL Absolute Neuts (auto) 4.0 (2.0-8.3) x10*3/uL Absolute Nucleated RBC 0.000 (0.0-0.012) X10*3/uL Nucleated RBC % (auto) 0.0 (0.0-0.2) /100WBC Sodium 140 (135-145) mmol/L Potassium 3.6 (3.3-5.1) mmol/L Chloride 107 (96-108) mmol/L Carbon Dioxide 22 (22-29) mmol/L Anion Gap 15 (12-20) BUN 31 H (9-16) mg/dL Creatinine 1.64 H (0.5-1.4) mg/dL Estim Creat Clear Calc 36.7 Estimated GFR 35 Random Glucose 70 (60-115) mg/dL Calcium 8.3 L D (8.4-10.2) mg/dL Magnesium 1.9 (1.6-2.6) mg/dL Total Bilirubin 0.2 (0.0-1.0) mg/dL Direct Bilirubin < 0.2 (0.0-0.5) mg/dL AST 19 (5-31) U/L ALT 23 (0-31) U/L Alkaline Phosphatase 89 (39-117) U/L Total Protein 8.0 (6.5-8.0) g/dL Albumin 3.7 (3.5-5.0) g/dL Beta HCG, Quant < 2 mIU/mL Urine Color Yellow Urine Appearance Clear Urine pH 5.5 (5.0-9.0) Ur Specific [place] 1.010 (1.005-1.025) Urine Protein 100 (2+) H (Neg-Trace) mg/dL Urine Glucose (UA) Negative (Negative) mg/dL Urine Ketones Negative (Negative) mg/dL Urine Blood Large (3+) H (Negative) Urine Nitrite Negative (Negative) Ur Leukocyte Esterase Small (1+) H (Negative) Urine RBC >20 H (0-2) /HPF Urine WBC 11-20 H (0-5) /HPF Ur Squamous Epith Cells 3-5 (0-2) /HPF Urine Bacteria None Seen (None Seen) Hyaline Casts 0-2 (0-2) /LPF Urine Opiates Screen (Not Detect) Ur Buprenorphine Scrn (Not Detect) ng/mL Ur Oxycodone Screen (Not Detect) ng/mL Urine Methadone Screen (Not Detect) ng/mL Urine Fentanyl Screen (Not Detect) Ur Barbiturates Screen (Not Detect) Ur Phencyclidine Scrn (Not Detect) Ur Amphetamines Screen (Not Detect) U Benzodiazepines Scrn (Not Detect) Urine Cocaine Screen (Not Detect) U Marijuana (THC) Screen (Not Detect) Ethyl Alcohol < 10 mg/dL Influenza Type A (PCR) NEGATIVE (Negative) Influenza Type B (PCR) NEGATIVE (Negative) RSV RNA Qual (PCR) NEGATIVE (Negative) SARS-CoV-2 RNA (RT-PCR) NEGATIVE (Negative) S. pyogenes GrpA JACKIE Negative (Negative) 12/27/23 12/27/23 Range/Units 00:53 04:04 WBC (4.8-10.8) X10*3/uL RBC (4.20-5.50) X10*6/uL Hgb (12.0-16.0) g/dl Hct (37.0-47.0) % MCV (80.0-98.0) fL MCH (27.0-33.0) pg MCHC (31.0-35.0) g/dl RDW (11.0-16.0) % Plt Count (160-400) X10*3/uL MPV (9.4-12.3) fL Immature Gran % (Auto) (0.0-0.4) % Neut % (Auto) (45-73) % Lymph % (Auto) (20-40) % [place] % (Auto) (2-11) % Eos % (Auto) (0-4) % Baso % (Auto) (0-2) % Lymph # (Auto) (1.2-4.9) X10*3/uL [place] # (Auto) (0.1-1.2) X10*3/uL Eos # (Auto) (0.0-0.4) X10*3/uL Baso # (Auto) (0.0-0.2) X10*3/uL Abs Immat Gran (auto) (0.00-0.03) X10*3/uL Absolute Neuts (auto) (2.0-8.3) x10*3/uL Absolute Nucleated RBC (0.0-0.012) X10*3/uL Nucleated RBC % (auto) (0.0-0.2) /100WBC Sodium 140 (135-145) mmol/L Potassium 4.0 (3.3-5.1) mmol/L Chloride 112 H (96-108) mmol/L Carbon Dioxide 20 L (22-29) mmol/L Anion Gap 12 (12-20) BUN 32 H (9-16) mg/dL Creatinine 2.01 H (0.5-1.4) mg/dL Estim Creat Clear Calc 30.0 Estimated GFR 28 Random Glucose 96 (60-115) mg/dL Calcium 8.0 L (8.4-10.2) mg/dL Magnesium (1.6-2.6) mg/dL Total Bilirubin (0.0-1.0) mg/dL Direct Bilirubin (0.0-0.5) mg/dL AST (5-31) U/L ALT (0-31) U/L Alkaline Phosphatase (39-117) U/L Total Protein (6.5-8.0) g/dL Albumin (3.5-5.0) g/dL Beta HCG, Quant mIU/mL Urine Color Urine Appearance Urine pH (5.0-9.0) Ur Specific [place] (1.005-1.025) Urine Protein (Neg-Trace) mg/dL Urine Glucose (UA) (Negative) mg/dL Urine Ketones (Negative) mg/dL Urine Blood (Negative) Urine Nitrite (Negative) Ur Leukocyte Esterase (Negative) Urine RBC (0-2) /HPF Urine WBC (0-5) /HPF Ur Squamous Epith Cells (0-2) /HPF Urine Bacteria (None Seen) Hyaline Casts (0-2) /LPF Urine Opiates Screen POSITIVE H (Not Detect) Ur Buprenorphine Scrn Not Detected (Not Detect) ng/mL Ur Oxycodone Screen Not Detected (Not Detect) ng/mL Urine Methadone Screen Positive H (Not Detect) ng/mL Urine Fentanyl Screen POSITIVE H (Not Detect) Ur Barbiturates Screen Not Detected (Not Detect) Ur Phencyclidine Scrn Not Detected (Not Detect) Ur Amphetamines Screen Not Detected (Not Detect) U Benzodiazepines Scrn Not Detected (Not Detect) Urine Cocaine Screen POSITIVE H (Not Detect) U Marijuana (THC) Screen Not Detected (Not Detect) Ethyl Alcohol mg/dL Influenza Type A (PCR) (Negative) Influenza Type B (PCR) (Negative) RSV RNA Qual (PCR) (Negative) SARS-CoV-2 RNA (RT-PCR) (Negative) S. pyogenes GrpA JACKIE (Negative) Discharge Plan Discharge Clinical Impression: Suicidal ideation, CHELITA (acute kidney injury), UTI (urinary tract infection) Patient Disposition: Admitted As Inpatient Prescriptions: No Action levetiracetam [Keppra] 500 mg tablet 500 mg PO BID 30 Days Qty: 60 0RF ibuprofen 800 mg tablet 800 mg PO Q8H PRN (Reason: pain) Qty: 14 0RF acetaminophen [Tylenol Extra Strength] 500 mg tablet 500 mg PO Q6H PRN (Reason: pain or fever) Qty: 20 0RF methadone 10 mg/mL Concentrate 131 mg PO DAILY Interventions: [place]-Suicide Risk Severity Scale Last Done: 12/27/23 01:03 Print Language: [place]ian
--- NOTE | 2023-12-26 22:15 | PC.NURSE ---
2 IV attempts for lab work, pt yelling at RNs that we are hurting her and to stop. aware
[2023-12-26 22:44] LABS: IDNOW Serial# 6674DD1D; Strep A Nucleic Acid Negative (Negative)
[2023-12-26 22:56] LABS: MANUAL DIFF FLAG NO
[2023-12-26 22:58] LABS: Basophils Percent Auto 0.3 % (0-2); Eosinophils Absolute Auto 0.1 X10*3/uL (0.0-0.4); Eosinophils Percent Auto 0.9 % (0-4); Hematocrit 26.2 % (37.0-47.0); Hemoglobin 8.8 g/dl (12.0-16.0); Imm Gran Abs Auto 0.02 X10*3/uL (0.00-0.03); Imm Gran Pct Auto 0.3 % (0.0-0.4); Lymphocytes Absolute Auto 3.1 X10*3/uL (1.2-4.9); Lymphocytes Percent Auto 40.8 % (20-40); Mean Corpuscular HGB Conc 33.6 g/dl (31.0-35.0); Mean Corpuscular Hemoglobin 29.5 pg (27.0-33.0); Mean Corpuscular Volume 87.9 fL (80.0-98.0); Mean Platelet Volume 9.2 fL (9.4-12.3); Monocytes Absolute Auto 0.4 X10*3/uL (0.1-1.2); Monocytes Percent Auto 5.2 % (2-11); Neutrophils Percent Auto 52.5 % (45-73); Platelet Count 223 X10*3/uL (160-400); Red Blood Count 2.98 X10*6/uL (4.20-5.50); White Blood Count 7.7 X10*3/uL (4.8-10.8)
[2023-12-26 23:12] LABS: Influenza A PCR NEGATIVE (Negative); Influenza B PCR NEGATIVE (Negative); Resp Syncy Virus RNA Qual PCR NEGATIVE (Negative); SARS COV2 PCR INHOUSE NEGATIVE (Negative)
[2023-12-26 23:19] LABS: Alanine Aminotransferase 23 U/L (0-31); Albumin Level 3.7 g/dL (3.5-5.0); Alkaline Phosphatase 89 U/L (39-117); Anion Gap 15 (12-20); Aspartate Amino Transferase 19 U/L (5-31); Bilirubin Direct < 0.2 mg/dL (0.0-0.5); Bilirubin Total 0.2 mg/dL (0.0-1.0); Blood Urea Nitrogen 31 mg/dL (9-16); Calcium 8.3 mg/dL (8.4-10.2); Carbon Dioxide 22 mmol/L (22-29); Chloride 107 mmol/L (96-108); Creatinine Clr Calc Pharmacy 36.7; Estimated Glomerular Filt Rate 35; Ethanol < 10 mg/dL; Glucose Random 70 mg/dL (60-115); HCG Quantitative < 2 mIU/mL; Magnesium 1.9 mg/dL (1.6-2.6); Potassium 3.6 mmol/L (3.3-5.1); Sodium 140 mmol/L (135-145)
--- NOTE | 2023-12-27 00:35 | PC.NURSE ---
attempt IV access again, pt yelling at staff, aware. pt given charley yu to drink per request. pt demanding ativan and methadone MD aware
[2023-12-27 00:59] LABS: Appearance Urine Clear; Color Urine Yellow; Glucose Urine UA Negative (Negative); Leukocyte Esterase Urine Small (1+) (Negative); Nitrite Urine Negative (Negative); PH 5.5 (5.0-9.0); UMIC TRIGGER UACC YES; Urine Blood Large (3+) (Negative); Urine Ketones Negative (Negative); Urine Protein 100 (2+) mg/dL (Neg-Trace)
[2023-12-27 01:03] VITALS: BP 132/79; PULSE 70; RESP 16; TEMP 36.7; O2SAT 98
[2023-12-27 01:08] LABS: Amphetamine Screen Urine Not Detected (Not Detect); Barbiturates, Urine Not Detected (Not Detect); Benzodiazepines Screen Urine Not Detected (Not Detect); Buprenorphine Scr Not Detected (Not Detect); Cannabinoid Screen Urine Not Detected (Not Detect); Cocaine Screen Urine POSITIVE (Not Detect); Fentanyl, urine POSITIVE (Not Detect); Methadone Screen, Urine Positive (Not Detect); Opiate Screen Urine POSITIVE (Not Detect); Oxycodone Screen Urine Not Detected (Not Detect); Phencyclidine Screen Urine Not Detected (Not Detect)
[2023-12-27 01:11] LABS: Bacteria Urine None Seen (None Seen); Hyaline Casts Urine 0-2 /LPF (0-2); RBC Urine >20 /HPF (0-2); UACC Culture Trigger YES
[2023-12-27] MEDS: LORazepam 1 MG TABLET 2 MG PO (01:17)
--- NOTE | 2023-12-27 01:35 | PC.NURSE ---
US IV 20g L upper arm
[2023-12-27] MEDS: 0.9 % Sodium Chloride 1,000 ML 999 ML IVCONT (02:15)
[2023-12-27] MEDS: cefuroxime axetiL 250 MG TABLET PO (02:15)
[2023-12-27 03:16] VITALS: PULSE 87; RESP 13
[2023-12-27 04:32] LABS: Anion Gap 12 (12-20); Blood Urea Nitrogen 32 mg/dL (9-16); Carbon Dioxide 20 mmol/L (22-29); Chloride 112 mmol/L (96-108); Estimated Glomerular Filt Rate 28; Glucose Random 96 mg/dL (60-115); Sodium 140 mmol/L (135-145)
[2023-12-27 06:24] VITALS: BP 126/77; PULSE 70; RESP 15; TEMP 36.8; O2SAT 97
--- NOTE | 2023-12-27 06:38 | PC.NURSE ---
walked pt to bathroom, slightly unsteady on feet
--- NOTE | 2023-12-27 06:57 | PC.NURSE ---
Resumed care of patient at 0700, she is currently resting comfortably at this time, awaiting careteam at this time. Pt call drake within reach. 1:[address]
--- NOTE | 2023-12-27 09:48 | MHC.RECOVRN ---
Met with pt in ED17 after pt reported to RN hx methadone and requesting methadone dose. Pt sitting in bed, awake, alert, engages in conversation, appears diaphoretic. Pt reports she had been receiving methadone, 100 mg x 4 months, while at [facility] and [facility]. Pt reports she last received 100 mg on 12/18. Pt reports she was not connected with an OTP so had a recurrence this past week. Pt reports she had been using 4-5 bundles heroin/fentanyl, INH, as well as cocaine, IV, 2-3 grams daily. Pt reports she presented to [facility] ED yesterday to receive methadone, however, was only dosed with 30 mg. Pt reports she would like to restart methadone and titrate back to 100 mg. Pt reports current withdrawal symptoms including loose stool, hot/cold flashes, and restlessness. Pt denies other questions or concerns at this time. Discussed with RN and ED provider.
--- NOTE | 2023-12-27 09:52 | PM.IMHP ---
History of Present Illness Date of Service: 12/27/23 Attending physician on admission: Wai Fuentes Chief Complaint: cough, SI 38-year-old female with a past medical history significant for seizure disorder, ADHD, bipolar 1,IVDU, MSSA bacteremia, endocarditis, septic pulmonary embolism, who presented to the ED last night with cough x1 week and suicidal ideation with a plan to OD. She describes her cough is nonproductive but has lost her voice. No fever or sick contacts. Does report chills. Does not wish to talk as she does not feel well. Minimal history given. Review of Systems Review of Systems: Minimally obtained as patient does not wish to talk because she does not feel well. Constitutional: Constitutional: Reports chills and Denies fever(s) ENT: Denies nasal congestion and Denies nasal discharge Cardiovascular: Cardiovascular: Denies rapid heart rate and Denies leg edema Respiratory: Respiratory: Reports cough Gastrointestinal: Gastrointestinal: Denies melena, Denies hematochezia, Denies constipation, Denies diarrhea, Denies nausea and Denies hematemesis Genitourinary: Genitourinary: Denies dysuria Integumentary/Breasts: Skin/Breast: Denies rash Psychiatric: Psychiatric: Reports depression and Reports suicidal ideation [facility] Medical History (Updated 12/27/23 @ 10:20 by Daja Sanon PA-C) Septic pulmonary embolism MSSA bacteremia Seizure disorder ADHD Bipolar 1 disorder Depression Depression Functional capacity: independent ambulation Social History Patient Tobacco Use Status: Never used Tobacco Smoked in Last 30 Days: Yes Use of substances other than those prescribed or required for medical reasons: Refusing to respond Substance Use Type: Crack/Cocaine Advance Directives: No Advance Directives Information Provided: No Do you have a plan to hurt others: No Plan Patient : No Meds Allergies Allergy/AdvReac Type Severity Reaction Status Date / Time No Known Allergies Allergy Verified 12/26/23 21:52 [No Known Allergies*] Home Medications ?Medication ?Instructions ?Recorded ?Confirmed ?Last Taken ?Type methadone 10 mg/mL oral concentrate 131 mg PO DAILY 07/14/21 07/14/21 Unknown History Physical Exam Vital Signs and Narrative: Vital Signs: Last Vital Signs Temp 98.3 F 12/27/23 06:24 Pulse 70 12/27/23 06:24 Resp 15 12/27/23 06:24 BP 126/77 12/27/23 06:24 Pulse Ox 97 12/27/23 06:24 O2 Del Method Room Air 12/27/23 06:24 BMI result Body Mass Index 21.9 General: AOx3, diaphoretic, lying in position, whispering due to loss of voice, states multiple times she does not want to talk Resp: CTA bilaterally CVS: S1, S2, RRR Skin: Warm, diaphoretic Extremities: No edema Psych: Depressed affect Results Labs 12/26/23 22:51 12/27/23 04:04 Labs: Laboratory Results - last 24 hr 12/26/23 12/26/23 12/27/23 22:29 22:51 00:51 MCV 87.9 MCH 29.5 MCHC 33.6 RDW 15.0 Plt Count 223 D MPV 9.2 L Immature Gran % (Auto) 0.3 Neut % (Auto) 52.5 Lymph % (Auto) 40.8 H [place] % (Auto) 5.2 Eos % (Auto) 0.9 Baso % (Auto) 0.3 Lymph # (Auto) 3.1 [place] # (Auto) 0.4 Eos # (Auto) 0.1 Baso # (Auto) 0.0 Abs Immat Gran (auto) 0.02 Absolute Neuts (auto) 4.0 Absolute Nucleated RBC 0.000 Nucleated RBC % (auto) 0.0 Anion Gap 15 Estim Creat Clear Calc 36.7 Estimated GFR 35 Random Glucose 70 Calcium 8.3 L D Magnesium 1.9 Total Bilirubin 0.2 Direct Bilirubin < 0.2 AST 19 ALT 23 Alkaline Phosphatase 89 Total Protein 8.0 Albumin 3.7 Beta HCG, Quant < 2 Urine Color Yellow Urine Appearance Clear Urine pH 5.5 Ur Specific [place] 1.010 Urine Protein 100 (2+) H Urine Glucose (UA) Negative Urine Ketones Negative Urine Blood Large (3+) H Urine Nitrite Negative Ur Leukocyte Esterase Small (1+) H Urine RBC >20 H Urine WBC 11-20 H Ur Squamous Epith Cells 3-5 Urine Bacteria None Seen Hyaline Casts 0-2 Urine Opiates Screen Ur Buprenorphine Scrn Ur Oxycodone Screen Urine Methadone Screen Urine Fentanyl Screen Ur Barbiturates Screen Ur Phencyclidine Scrn Ur Amphetamines Screen U Benzodiazepines Scrn Urine Cocaine Screen U Marijuana (THC) Screen Ethyl Alcohol < 10 Influenza Type A (PCR) NEGATIVE Influenza Type B (PCR) NEGATIVE RSV RNA Qual (PCR) NEGATIVE SARS-CoV-2 RNA (RT-PCR) NEGATIVE S. pyogenes GrpA JACKIE Negative 12/27/23 12/27/23 00:53 04:04 MCV MCH MCHC RDW Plt Count MPV Immature Gran % (Auto) Neut % (Auto) Lymph % (Auto) [place] % (Auto) Eos % (Auto) Baso % (Auto) Lymph # (Auto) [place] # (Auto) Eos # (Auto) Baso # (Auto) Abs Immat Gran (auto) Absolute Neuts (auto) Absolute Nucleated RBC Nucleated RBC % (auto) Anion Gap 12 Estim Creat Clear Calc 30.0 Estimated GFR 28 Random Glucose 96 Calcium 8.0 L Magnesium Total Bilirubin Direct Bilirubin AST ALT Alkaline Phosphatase Total Protein Albumin Beta HCG, Quant Urine Color Urine Appearance Urine pH Ur Specific [place] Urine Protein Urine Glucose (UA) Urine Ketones Urine Blood Urine Nitrite Ur Leukocyte Esterase Urine RBC Urine WBC Ur Squamous Epith Cells Urine Bacteria Hyaline Casts Urine Opiates Screen POSITIVE H Ur Buprenorphine Scrn Not Detected Ur Oxycodone Screen Not Detected Urine Methadone Screen Positive H Urine Fentanyl Screen POSITIVE H Ur Barbiturates Screen Not Detected Ur Phencyclidine Scrn Not Detected Ur Amphetamines Screen Not Detected U Benzodiazepines Scrn Not Detected Urine Cocaine Screen POSITIVE H U Marijuana (THC) Screen Not Detected Ethyl Alcohol Influenza Type A (PCR) Influenza Type B (PCR) RSV RNA Qual (PCR) SARS-CoV-2 RNA (RT-PCR) S. pyogenes GrpA JACKIE Imaging Radiologist's Impressions: Impressions Abdomen/Pelvis CT 12/27/23 05:38 IMPRESSION: Slight distention of the right collecting system. Distended bladder. Recommend follow-up after voiding.. I would recommend a follow-up chest x-ray to exclude an early pneumonia. Fleischner guidelines were followed. Electronically signed by: Ken Alarcon MD 12/27/2023 08:21 AM EDT Chest X-Ray 12/27/23 09:20 IMPRESSION: Patchy right upper lobe airspace opacities, suspicious for pneumonia. Follow-up is recommended to confirm clearing. Electronically signed by: Cory Larson MD 12/27/2023 09:36 AM EDT RP Assessment and Plan (1) Pneumonia: Status: Acute (2) CHELITA (acute kidney injury): Status: Acute (3) Suicidal ideation: Status: Acute Plan 38-year-old female with a past medical history significant for seizure disorder, ADHD, bipolar 1, IVDU, MSSA bacteremia, endocarditis, septic pulmonary emboli, who presented to the ED last night with cough x1 week and suicidal ideation with a plan to OD. In ED w/u significant for possible septic pulmonary emboli given hx. Urine cx also pending. pneumonia vs septic pulmonary emboli - lactate and blood cx x2 pending - chest CT pending - CXR with ? RUL pneumonia - no leukocytosis - RSV/COVID/flu negative - continue ceftriaxone, add doxy CHELITA - LR 100ml/hr - monitor CMP - urine cx pending hx of seizure disorder - last seizure years ago per pt, no meds at home mood disorder/SI - CARE team consult in IVDU - continue methadone 40mg QD per recovery clinician full code VTE prophy: penumoboots and lovenox Pt with pnuemonia vs recurrence of septic pulmonary emboli due to hx of MSSA bacteremia and IVDU, complicated by an CHELITA and SI requiring IV abx, fluids and monitoring, therefore will need admission for at least 2 midnights stay. Quality Stroke Does the patient have a stroke diagnosis?: No VTE Prior VTE?: No VTE Risk Level:: Medical - moderate - high VTE Device Contraindication: N/A - Device Ordered VTE Drug Contraindication: N/A - Med Ordered
--- NOTE | 2023-12-27 10:13 | ECG_ITS ---
Test Reason : multiple qt prolonging meds Blood Pressure : / mmHG Vent. Rate : 076 BPM Atrial Rate : 076 BPM P-R Int : 162 ms QRS Dur : 106 ms QT Int : 404 ms P-R-T Axes : 044 003 072 degrees QTc Int : 454 ms Normal sinus rhythm Minimal voltage criteria for LVH, may be normal variant ( [place] product ) Borderline ECG When compared with ECG of 28-JAN-2021 11:51, No significant changes seen Referred By: Daja Sanon Electronically Signed By:MICHEAL MENDES
--- NOTE | 2023-12-27 10:38 | MHC.RECOVRN ---
Called Tammie ([facility]) to find [facility], per nursing there is not a record of pt.
[2023-12-27] MEDS: methADONE HCl 20 MG/2 ML ORAL.CONC 40 MG PO (10:48)
[2023-12-27] MEDS: Enoxaparin Sodium 30 MG/0.3 ML SYRINGE SUBCUT (10:49)
--- NOTE | 2023-12-27 11:16 | PHA.MEDREC ---
Pharmacy Consult ? Medication Reconciliation Pharmacy has completed the medication reconciliation. Using med list from [facility] and [facility] spoke to patient to confirm meds. Notably, pt says she gets methadone from [facility] but they don't have a record of her. Pt also states they take trazodone and ativan but these weren't on their med list.
[2023-12-27] MEDS: Azithromycin 500 MG in 0.9 % Sodium Chloride 250 ML 125 MG IV (11:20)
[2023-12-27] MEDS: cefTRIAXone sodium 1 GM VIAL IVPUSH (11:20)
[2023-12-27] MEDS: Lactated Ringers 1,000 ML 100 ML IVCONT (11:21)
[2023-12-27] MEDS: LORazepam 2 MG/ML VIAL 0.5 MG IVPUSH (12:05)
--- NOTE | 2023-12-27 12:10 | PC.NURSE ---
patient stating she is aggrivated that she is so uncomfortable. asked for coffee, multiple snacks provided and breakfast this morning with lunch tray on the way. patient hyperverbal and constantly requesting things. Pt recieved IV ativan per request and is angry its only 0.5mg MD made aware. Patient reports aches and pains generalized. will continue to monitor. Pt remains on 1:1 observation for SI.
[2023-12-27 12:17] LABS: Estimated Average Glucose 82 mg/dL; Hemoglobin A1C 58.4384 umol/L; Hemoglobin A1c % 4.5 % (<6.0); Total Hemoglobin (HGBA1C) 2273.1537 umol/L
--- NOTE | 2023-12-27 13:20 | PM.EVENT ---
Event Note Date of Service: 12/27/23 Event Note: pt with worsening anxiety and agitation, withdrawing from opiates. nurse reports COWs score 7. pt reports 2mg lorazepam at home but unable to find in [place] [facility]. increased lorazepam to 1mg PO Q6H PRN for anxiety and addiction med consult put in. Time Spent With Patient Time: Total time managing care of this patient today ____ minutes.
[2023-12-27] MEDS: LORazepam 0.5 MG TABLET PO (13:31)
--- NOTE | 2023-12-27 14:12 | PC.NURSE ---
called [facility] for patient methadone hx. [facility] 5th floor ANA Matias confirms last dose with them of 12/19/23 100mg prior to discharge with a last dose letter for clinic. patient states she went to program and brought her letter to [facility] clinic in [place] who has been having issues getting information that need to provide pt her methadone. patient stated yesterday d/t the delay she had to go to [facility] ER to obtain methadone dose because clinic was taking too long to verify and she relapsed as well.
[2023-12-27] MEDS: Doxycycline Hyclate 100 MG in 0.9 % Sodium Chloride 250 ML 166.67 MG IV ×2 (14:52→22:49)
[2023-12-27 15:09] VITALS: BP 129/74; PULSE 80; RESP 18; TEMP 36.7; O2SAT 96
[2023-12-27 15:22] VITALS: BMI 22.7
--- NOTE | 2023-12-27 15:38 | HO.SKINPHOTO ---
Location: right leg Location: left leg
[2023-12-27 16:00] VITALS: PULSE 80
[2023-12-27] MEDS: Sevelamer Carbonate Tablet 800 MG TABLET PO (17:09)
[2023-12-27] MEDS: hydrOXYzine HCL 25 MG TABLET PO (17:09)
[2023-12-27 17:42] LABS: Glucose, Whole Blood 125 mg/dL (60-115)
[2023-12-27] MEDS: LORazepam 1 MG TABLET PO (18:10)
[2023-12-27] MEDS: methADONE HCl 20 MG/2 ML ORAL.CONC PO (18:11)
[2023-12-27 19:08] VITALS: BP 139/67; PULSE 77; RESP 17; TEMP 37.1; O2SAT 97
[2023-12-27 19:24] LABS: Glucose, Whole Blood 114 mg/dL (60-115)
[2023-12-27] MEDS: levETIRAcetam 500 MG TABLET PO (20:34)
[2023-12-27] MEDS: Acetaminophen 325 MG TABLET 650 MG PO (22:50)
[2023-12-28] MEDS: Lactated Ringers 1,000 ML 100 ML IVCONT ×3 (00:52→23:11)
[2023-12-28 03:45] VITALS: BP 156/88; PULSE 67; RESP 20; TEMP 36; O2SAT 99
[2023-12-28] MEDS: LORazepam 1 MG TABLET PO ×3 (03:52→18:03)
[2023-12-28 06:28] LABS: MANUAL DIFF FLAG NO
[2023-12-28 06:40] LABS: Basophils Percent Auto 0.5 % (0-2); Eosinophils Absolute Auto 0.1 X10*3/uL (0.0-0.4); Eosinophils Percent Auto 1.9 % (0-4); Hematocrit 25.8 % (37.0-47.0); Hemoglobin 7.9 g/dl (12.0-16.0); Imm Gran Abs Auto 0.02 X10*3/uL (0.00-0.03); Imm Gran Pct Auto 0.4 % (0.0-0.4); Lymphocytes Absolute Auto 3.3 X10*3/uL (1.2-4.9); Lymphocytes Percent Auto 58.5 % (20-40); Mean Corpuscular HGB Conc 30.6 g/dl (31.0-35.0); Mean Corpuscular Hemoglobin 28.6 pg (27.0-33.0); Mean Corpuscular Volume 93.5 fL (80.0-98.0); Mean Platelet Volume 9.5 fL (9.4-12.3); Monocytes Absolute Auto 0.3 X10*3/uL (0.1-1.2); Neutrophils Absolute Auto 1.9 x10*3/uL (2.0-8.3); Neutrophils Percent Auto 32.7 % (45-73); Platelet Count 247 X10*3/uL (160-400); Red Blood Count 2.76 X10*6/uL (4.20-5.50); Red Cell Distribution Width 14.9 % (11.0-16.0); White Blood Count 5.7 X10*3/uL (4.8-10.8)
[2023-12-28 06:53] LABS: Anion Gap 11 (12-20); Blood Urea Nitrogen 36 mg/dL (9-16); Calcium 8.2 mg/dL (8.4-10.2); Carbon Dioxide 21 mmol/L (22-29); Chloride 114 mmol/L (96-108); Creatinine Clr Calc Pharmacy 38.6; Estimated Glomerular Filt Rate 37; Glucose Random 77 mg/dL (60-115); Potassium 4.5 mmol/L (3.3-5.1); Sodium 141 mmol/L (135-145)
[2023-12-28 07:16] LABS: Glucose, Whole Blood 89 mg/dL (60-115)
[2023-12-28 07:25] VITALS: BP 126/65; PULSE 69; RESP 16; TEMP 36; O2SAT 98
[2023-12-28] MEDS: levETIRAcetam 500 MG TABLET PO ×2 (07:51→20:20)
[2023-12-28] MEDS: Sevelamer Carbonate Tablet 800 MG TABLET PO ×3 (07:51→15:59)
[2023-12-28] MEDS: Thiamine HCL 100 MG TABLET PO (07:51)
[2023-12-28] MEDS: methADONE HCl 20 MG/2 ML ORAL.CONC 40 MG PO (07:53)
[2023-12-28 08:00] VITALS: PULSE 69
[2023-12-28] MEDS: hydrOXYzine HCL 25 MG TABLET PO ×3 (08:21→21:37)
--- NOTE | 2023-12-28 08:29 | PC.NURSE ---
Pt. is crying, agitated, stating she needs her Methadone 100mg not the 40mg ordered, MD notified and addiction is been asked to come see the pt. Previous report there were no indication of 100mg Methadone she's claiming, this Nurse to look more into it.
--- NOTE | 2023-12-28 08:48 | PC.NURSE ---
Addendum entered by En Wood RN 12/28/23 08:48: Addiction Med RN messaged to come see patient r/t mathadone use. Original Note: Pt being emotional and irrational behavior, security called to come see patient.
[2023-12-28] MEDS: methADONE HCl 20 MG/2 ML ORAL.CONC 30 MG PO ×2 (08:56→12:21)
--- NOTE | 2023-12-28 09:06 | MHC.CLN ---
NUTRITION REVIEW OF WEIGHT HX SHOWS WEIGHT LOSS X 7 MONTHS -7.8%, APPROX 11#. WEIGHT LOSS NOT SIGNIFICANT.
[2023-12-28] MEDS: Enoxaparin Sodium 30 MG/0.3 ML SYRINGE SUBCUT (10:20)
[2023-12-28] MEDS: cefTRIAXone sodium 1 GM VIAL IVPUSH (10:22)
[2023-12-28] MEDS: Doxycycline Hyclate 100 MG in 0.9 % Sodium Chloride 250 ML 166.67 MG IV ×2 (10:31→23:37)
--- NOTE | 2023-12-28 10:38 | PC.NURSE ---
Pt continues to be irrational and irratic emotional. Security called again and Addiction team called.
[2023-12-28 10:59] LABS: Glucose, Whole Blood 100 mg/dL (60-115)
--- NOTE | 2023-12-28 11:17 | P.PNIM_ITS ---
Subjective Subjective Date of Service: 12/28/23 Interval History: pt tearful and agitated beside with security present multiple times already this morning cough has improved very anxious minimal hx given from pt as she only wanted to discuss her methadone, did not answer questions asked states that she was taking 100mg methadone and relapsed as her rx was not continued after rehab discharge Review of Systems limited due to mental status Cardiovascular Cardiovascular: Denies chest pain Respiratory Respiratory: Reports cough Integumentary/Breasts Skin/Breast: Denies rash Psychiatric Psychiatric: Reports anxiety and Reports irritability Physical Exam 2 Vital Signs: Vital Signs: Last Vital Signs Temp 96.8 F 12/28/23 07:25 Pulse 69 12/28/23 07:25 Resp 16 12/28/23 07:25 BP 126/65 12/28/23 07:25 Pulse Ox 98 12/28/23 07:25 O2 Del Method Room Air 12/28/23 07:25 BMI result Body Mass Index 22.7 General: AOx3, crying Resp: CTA bilaterally CVS: RRR, +murmur Skin: Warm, diaphoretic Extremities: No edema Psych: Anxious, hyperfixated on methadone dose, agitated Objective Data Active Medications Acetaminophen (Acetaminophen 325 Mg Tablet) 650 mg PO Q6H PRN PRN Reason: Pain, Mild (Pain Scale 1-3), fever or headache Last Admin: 12/27/23 22:50 Dose: 650 mg Documented By: LEN Comments: per pt request Calcium Carbonate (Calcium Carbonate 750 Mg Tab.Chew) 750 mg PO Q4H PRN PRN Reason: Heartburn Ceftriaxone Sodium (Ceftriaxone Sodium 1 Gm Vial) 1 gm IVPUSH Q24H [facility] Last Admin: 12/28/23 10:22 Dose: 1 gm Documented By: COOKIE Enoxaparin Sodium (Enoxaparin Sodium 30 Mg/0.3 Ml Syringe) 30 mg SUBCUT Q24H [facility] Last Admin: 12/28/23 10:20 Dose: 30 mg Documented By: COOKIE Hydroxyzine HCl (Hydroxyzine Hcl 25 Mg Tablet) 25 mg PO Q6H PRN PRN Reason: Anxiety Last Admin: 12/28/23 08:21 Dose: 25 mg Documented By: COOKIE Lactated Ringer's (Lr) 1,000 mls @ 100 mls/hr IVCONT .Q10H [facility] Last Infusion: 12/28/23 09:27 Dose: 100 mls/hr Documented By: COOKIE Doxycycline Hyclate 100 mg/ (Sodium Chloride) 250 mls @ 166.67 mls/hr IV Q12H [facility] Last Admin: 12/28/23 10:31 Dose: 166.67 mls/hr Documented By: COOKIE Levetiracetam (Levetiracetam 500 Mg Tablet) 500 mg PO BID [facility] Last Admin: 12/28/23 07:51 Dose: 500 mg Documented By: COOKIE Lorazepam (Lorazepam 1 Mg Tablet) 1 mg PO Q6H PRN PRN Reason: Anxiety Last Admin: 12/28/23 10:20 Dose: 1 mg Documented By: COOKIE Magnesium Hydroxide (Milk Of Magnesia 30 Ml Oral.Susp) 30 ml PO DAILY PRN PRN Reason: Constipation Melatonin (Melatonin 3 Mg Tablet) 6 mg PO BEDTIME PRN PRN Reason: Insomnia Methadone HCl (Methadone Hcl 20 Mg/2 Ml Oral.Conc) 40 mg PO DAILY [facility] Last Admin: 12/28/23 07:53 Dose: 40 mg Documented By: COOKIE Co-signed By: LUIS Polyethylene Glycol (Polyethylene Glycol 3350 17 Gm Powd.Pack) 17 gm PO DAILY [facility] Last Admin: 12/28/23 07:59 Dose: Not Given Documented By: COOKIE Non-Admin Reason: Patient Refused Senna (Sennosides 8.6 Mg Tablet) 8.6 mg PO DAILY [facility] Last Admin: 12/28/23 07:59 Dose: Not Given Documented By: COOKIE Non-Admin Reason: Patient Refused Sevelamer Carbonate (Sevelamer Carbonate Tablet 800 Mg Tablet) 800 mg PO TIDAC [facility] Last Admin: 12/28/23 07:51 Dose: 800 mg Documented By: COOKIE Sodium Chloride (0.9 % Sodium Chloride Flush 3 Ml Syringe) 3 ml IVFLUSH QSHIFT [facility] Last Admin: 12/28/23 07:52 Dose: Not Given Documented By: COOKIE Non-Admin Reason: IV Running Thiamine HCl (Thiamine Hcl 100 Mg Tablet) 100 mg PO DAILY [facility] Last Admin: 12/28/23 07:51 Dose: 100 mg Documented By: COOKIE Labs 12/28/23 05:56 12/28/23 05:56 Labs: Laboratory Results - last 24 hr 12/26/23 12/27/23 12/27/23 22:51 17:07 19:19 MCV MCH MCHC RDW Plt Count MPV Immature Gran % (Auto) Neut % (Auto) Lymph % (Auto) [place] % (Auto) Eos % (Auto) Baso % (Auto) Lymph # (Auto) [place] # (Auto) Eos # (Auto) Baso # (Auto) Abs Immat Gran (auto) Absolute Neuts (auto) Absolute Nucleated RBC Nucleated RBC % (auto) Anion Gap Estim Creat Clear Calc Estimated GFR POC Glucose 125 H 114 Random Glucose Estimat Average Glucose 82 Hemoglobin A1c % 4.5 Calcium 12/28/23 12/28/23 12/28/23 05:56 07:12 10:56 MCV 93.5 D MCH 28.6 MCHC 30.6 L RDW 14.9 Plt Count 247 MPV 9.5 Immature Gran % (Auto) 0.4 Neut % (Auto) 32.7 L Lymph % (Auto) 58.5 H [place] % (Auto) 6.0 Eos % (Auto) 1.9 Baso % (Auto) 0.5 Lymph # (Auto) 3.3 [place] # (Auto) 0.3 Eos # (Auto) 0.1 Baso # (Auto) 0.0 Abs Immat Gran (auto) 0.02 Absolute Neuts (auto) 1.9 L Absolute Nucleated RBC 0.000 Nucleated RBC % (auto) 0.0 Anion Gap 11 L Estim Creat Clear Calc 38.6 Estimated GFR 37 POC Glucose 89 100 Random Glucose 77 Estimat Average Glucose Hemoglobin A1c % Calcium 8.2 L Microbiology Microbiology Results: Microbiology 12/27/23 Unknown Urine Culture - Final Urine clean catch - Clean Catch Midstream No growth. Assessment and Plan (1) Pneumonia: Status: Acute (2) IVDU (intravenous drug user): Status: Acute (3) CHELITA (acute kidney injury): Status: Acute (4) Opiate withdrawal: Status: Acute Plan pneumonia vs septic pulmonary emboli - lactate normal, blood cx x2 pending - has not yet had chest CT, refusing until she gets more methadone and ativan. discussed the importance - CXR with ? RUL pneumonia - no leukocytosis - RSV/COVID/flu negative - continue ceftriaxone, add doxy CHELITA - LR 100ml/hr - Cr improving - urine cx negative hx of seizure disorder - last seizure years ago per pt - continue keppra mood disorder/SI - plan per CARE team IVDU - plan per addiction med, increased methadone dose full code VTE prophy: penumoboots and lovenox Pt with pneumonia vs recurrence of septic pulmonary emboli due to hx of MSSA bacteremia and IVDU in active opioid withdrawal, complicated by an CHELITA and SI still requiring IV abx, fluids and monitoring. still needs further w/u for pulmonary issues but pt is refusing. will require continued care with admission. Quality Stroke Does the patient have a stroke diagnosis?: No VTE Prior VTE?: No VTE Risk Level:: Medical - moderate - high VTE Device Contraindication: N/A - Device Ordered VTE Drug Contraindication: N/A - Med Ordered
--- NOTE | 2023-12-28 11:40 | PC.NURSE ---
Pt extremely disruptive, emotional and irrational at the start of the shift today. Security called on patient twice for disrupting the unit and screaming. Pt is unable to educate at this time. Requesting different doses of methadone, 100mg, 130mg, 135mg. Unable to provide proof of last dose and local facilities have no record that they can send. Addiction team notified and provider. Pt narc seeking for controlled substances. Unable to console. Refusing scans as ordered from provider. Obsessing about receiving controlled subspaces, History of IVDU. Sitter at bedside for SI. Lead BEHAVIORAL HEALTH AIDE tech also witness patients irrational and disruptive behavior.
[2023-12-28] MEDS: Acetaminophen 325 MG TABLET 650 MG PO ×2 (12:21→20:19)
--- NOTE | 2023-12-28 13:21 | PC.NURSE ---
Pt. continues to be argumentative, pick and choose care, yelling, refusing CT scan ordered, stating we don't know what we are doing, crying all at the same time. Unredirectable.
--- NOTE | 2023-12-28 13:23 | MHC.CM.PN ---
CM MET WITH PT AT BEDSIDE. PT AGITATED/TEARFUL AND UNWILLING TO PARTICIPATE FULLY WITH CM ASSESSMENT. UNCLEAR OF WHERE PT LIVES/STATES SHE CAME FROM [facility] BUT HADN'T STAYED THERE YET? PT STATES SHE HAS NO PCP OR HCP. DECLINED FURTHER QUESTIONS UNTIL HER MEDICATION WAS STRAIGHTENED OUT 1:1 SITTER AT BEDSIDE. CM WILL CONTINUE TO FOLLOW AND ASSESS FURTHER ONCE PT IS MORE STABILIZED.
--- NOTE | 2023-12-28 13:28 | PC.NURSE ---
Attempt to educate patient about why she is in the hospital, however she is inconsolable. Pt is rambling and not listening. Papers printed and handed to the patient because she is unable to understand verbal communications at this time.
--- NOTE | 2023-12-28 13:47 | PM.EVENT ---
Event Note Date of Service: 12/28/23 Event Note: multiple communications with addicition med and nursing staff today regarding pt's agitation has been refusing chest CT and requested to talk to provider. when I went to see pt she was on the phone and arguing with the nurse and did not want to get off. eventually she hung up and wanted to argue about her methadone dose again. reassured her this his been taken care of. discussed the importance of the CT again. she is agreeable now. nurse was notified. Time Spent With Patient Time: Total time managing care of this patient today ____ minutes.
--- NOTE | 2023-12-28 15:15 | HO.ADDICTPRO ---
Subjective Subjective Date of Service: 12/28/23 Reason For Visit: pneumonia, SI Interim History: Patient medically admitted with pneumonia Consult requested as patient was restarted on methadone, but dose still needed to be titrated to outpatient dose. RN notes show dose has been verified at 100mg with last dose administered on 12/18. She received 60mg yesterday (12/26) and 70mg today. Patient crying and very emotional when expressing her frustration related to methadone dosing. She did not understand why she could not get 100mg as she previously had been. This health underwriter allowed patient to share frustrations, then provided some clarity around this decision, mainly that after that many days with no methadone, we restart at a lower dose, but can usually titrate back up much more quickly based on how she handles the titration. Patient verbalized understanding. She was quite hysterical when sharing what occurred prior to hospitalization, so it was difficult to follow the details. She was awake, alert, restless, anxious, tearful. She reported overall body aches and pain No sedation noted following 70mg dose. Review of Systems Acute medical concerns: Yes Review of Systems Constitutional: Reports as per HPI Mental Status Exam Mental Status Exam Level of Consciousness: Restless Patient Behavior: Talkative and Crying Diagnostics Vital Signs (24Hr): Vital Signs - 24 hr 12/27/23 19:08 12/28/23 03:45 12/28/23 07:25 Temperature 98.7 F 96.8 F 96.8 F Pulse Rate 77 67 69 Respiratory Rate 17 20 16 Blood Pressure 139/67 156/88 H 126/65 Pulse Oximetry 97 99 98 Oxygen Delivery Method Room Air Room Air Room Air BMI result Body Mass Index 22.7 Labs 12/28/23 05:56 12/28/23 05:56 Labs: Laboratory Results - last 48 hr 12/26/23 12/26/23 12/27/23 22:29 22:51 00:51 WBC 7.7 RBC 2.98 L D Hgb 8.8 L Hct 26.2 L D MCV 87.9 MCH 29.5 MCHC 33.6 RDW 15.0 Plt Count 223 D MPV 9.2 L Immature Gran % (Auto) 0.3 Neut % (Auto) 52.5 Lymph % (Auto) 40.8 H Rogers % (Auto) 5.2 Eos % (Auto) 0.9 Baso % (Auto) 0.3 Lymph # (Auto) 3.1 Rogers # (Auto) 0.4 Eos # (Auto) 0.1 Baso # (Auto) 0.0 Abs Immat Gran (auto) 0.02 Absolute Neuts (auto) 4.0 Absolute Nucleated RBC 0.000 Nucleated RBC % (auto) 0.0 Sodium 140 Potassium 3.6 Chloride 107 Carbon Dioxide 22 Anion Gap 15 BUN 31 H Creatinine 1.64 H Estim Creat Clear Calc 36.7 Estimated GFR 35 POC Glucose Random Glucose 70 Estimat Average Glucose 82 Hemoglobin A1c % 4.5 Lactic Acid Calcium 8.3 L D Magnesium 1.9 Total Bilirubin 0.2 Direct Bilirubin < 0.2 AST 19 ALT 23 Alkaline Phosphatase 89 Total Protein 8.0 Albumin 3.7 Beta HCG, Quant < 2 Urine Color Yellow Urine Appearance Clear Urine pH 5.5 Ur Specific [place] 1.010 Urine Protein 100 (2+) H Urine Glucose (UA) Negative Urine Ketones Negative Urine Blood Large (3+) H Urine Nitrite Negative Ur Leukocyte Esterase Small (1+) H Urine RBC >20 H Urine WBC 11-20 H Ur Squamous Epith Cells 3-5 Urine Bacteria None Seen Hyaline Casts 0-2 Urine Opiates Screen Ur Buprenorphine Scrn Ur Oxycodone Screen Urine Methadone Screen Urine Fentanyl Screen Ur Barbiturates Screen Ur Phencyclidine Scrn Ur Amphetamines Screen U Benzodiazepines Scrn Urine Cocaine Screen U Marijuana (THC) Screen Ethyl Alcohol < 10 Influenza Type A (PCR) NEGATIVE Influenza Type B (PCR) NEGATIVE RSV RNA Qual (PCR) NEGATIVE SARS-CoV-2 RNA (RT-PCR) NEGATIVE S. pyogenes GrpA JACKIE Negative 12/27/23 12/27/23 12/27/23 00:53 04:04 10:46 WBC RBC Hgb Hct MCV MCH MCHC RDW Plt Count MPV Immature Gran % (Auto) Neut % (Auto) Lymph % (Auto) Rogers % (Auto) Eos % (Auto) Baso % (Auto) Lymph # (Auto) Rogers # (Auto) Eos # (Auto) Baso # (Auto) Abs Immat Gran (auto) Absolute Neuts (auto) Absolute Nucleated RBC Nucleated RBC % (auto) Sodium 140 Potassium 4.0 Chloride 112 H Carbon Dioxide 20 L Anion Gap 12 BUN 32 H Creatinine 2.01 H Estim Creat Clear Calc 30.0 Estimated GFR 28 POC Glucose Random Glucose 96 Estimat Average Glucose Hemoglobin A1c % Lactic Acid 2.0 Calcium 8.0 L Magnesium Total Bilirubin Direct Bilirubin AST ALT Alkaline Phosphatase Total Protein Albumin Beta HCG, Quant Urine Color Urine Appearance Urine pH Ur Specific [place] Urine Protein Urine Glucose (UA) Urine Ketones Urine Blood Urine Nitrite Ur Leukocyte Esterase Urine RBC Urine WBC Ur Squamous Epith Cells Urine Bacteria Hyaline Casts Urine Opiates Screen POSITIVE H Ur Buprenorphine Scrn Not Detected Ur Oxycodone Screen Not Detected Urine Methadone Screen Positive H Urine Fentanyl Screen POSITIVE H Ur Barbiturates Screen Not Detected Ur Phencyclidine Scrn Not Detected Ur Amphetamines Screen Not Detected U Benzodiazepines Scrn Not Detected Urine Cocaine Screen POSITIVE H U Marijuana (THC) Screen Not Detected Ethyl Alcohol Influenza Type A (PCR) Influenza Type B (PCR) RSV RNA Qual (PCR) SARS-CoV-2 RNA (RT-PCR) S. pyogenes GrpA JACKIE 12/27/23 12/27/23 12/28/23 17:07 19:19 05:56 WBC 5.7 RBC 2.76 L Hgb 7.9 L Hct 25.8 L MCV 93.5 D MCH 28.6 MCHC 30.6 L RDW 14.9 Plt Count 247 MPV 9.5 Immature Gran % (Auto) 0.4 Neut % (Auto) 32.7 L Lymph % (Auto) 58.5 H Rogers % (Auto) 6.0 Eos % (Auto) 1.9 Baso % (Auto) 0.5 Lymph # (Auto) 3.3 Rogers # (Auto) 0.3 Eos # (Auto) 0.1 Baso # (Auto) 0.0 Abs Immat Gran (auto) 0.02 Absolute Neuts (auto) 1.9 L Absolute Nucleated RBC 0.000 Nucleated RBC % (auto) 0.0 Sodium 141 Potassium 4.5 Chloride 114 H Carbon Dioxide 21 L Anion Gap 11 L BUN 36 H Creatinine 1.56 H Estim Creat Clear Calc 38.6 Estimated GFR 37 POC Glucose 125 H 114 Random Glucose 77 Estimat Average Glucose Hemoglobin A1c % Lactic Acid Calcium 8.2 L Magnesium Total Bilirubin Direct Bilirubin AST ALT Alkaline Phosphatase Total Protein Albumin Beta HCG, Quant Urine Color Urine Appearance Urine pH Ur Specific [place] Urine Protein Urine Glucose (UA) Urine Ketones Urine Blood Urine Nitrite Ur Leukocyte Esterase Urine RBC Urine WBC Ur Squamous Epith Cells Urine Bacteria Hyaline Casts Urine Opiates Screen Ur Buprenorphine Scrn Ur Oxycodone Screen Urine Methadone Screen Urine Fentanyl Screen Ur Barbiturates Screen Ur Phencyclidine Scrn Ur Amphetamines Screen U Benzodiazepines Scrn Urine Cocaine Screen U Marijuana (THC) Screen Ethyl Alcohol Influenza Type A (PCR) Influenza Type B (PCR) RSV RNA Qual (PCR) SARS-CoV-2 RNA (RT-PCR) S. pyogenes GrpA JACKIE 12/28/23 12/28/23 07:12 10:56 WBC RBC Hgb Hct MCV MCH MCHC RDW Plt Count MPV Immature Gran % (Auto) Neut % (Auto) Lymph % (Auto) Rogers % (Auto) Eos % (Auto) Baso % (Auto) Lymph # (Auto) Rogers # (Auto) Eos # (Auto) Baso # (Auto) Abs Immat Gran (auto) Absolute Neuts (auto) Absolute Nucleated RBC Nucleated RBC % (auto) Sodium Potassium Chloride Carbon Dioxide Anion Gap BUN Creatinine Estim Creat Clear Calc Estimated GFR POC Glucose 89 100 Random Glucose Estimat Average Glucose Hemoglobin A1c % Lactic Acid Calcium Magnesium Total Bilirubin Direct Bilirubin AST ALT Alkaline Phosphatase Total Protein Albumin Beta HCG, Quant Urine Color Urine Appearance Urine pH Ur Specific [place] Urine Protein Urine Glucose (UA) Urine Ketones Urine Blood Urine Nitrite Ur Leukocyte Esterase Urine RBC Urine WBC Ur Squamous Epith Cells Urine Bacteria Hyaline Casts Urine Opiates Screen Ur Buprenorphine Scrn Ur Oxycodone Screen Urine Methadone Screen Urine Fentanyl Screen Ur Barbiturates Screen Ur Phencyclidine Scrn Ur Amphetamines Screen U Benzodiazepines Scrn Urine Cocaine Screen U Marijuana (THC) Screen Ethyl Alcohol Influenza Type A (PCR) Influenza Type B (PCR) RSV RNA Qual (PCR) SARS-CoV-2 RNA (RT-PCR) S. pyogenes GrpA JACKIE Imaging Radiology Impressions: ITS Impressions Abdomen/Pelvis CT 12/27/23 05:38 IMPRESSION: Slight distention of the right collecting system. Distended bladder. Recommend follow-up after voiding.. I would recommend a follow-up chest x-ray to exclude an early pneumonia. Fleischner guidelines were followed. Electronically signed by: Ken Alarcon MD 12/27/2023 08:21 AM EDT Chest X-Ray 12/27/23 09:20 IMPRESSION: Patchy right upper lobe airspace opacities, suspicious for pneumonia. Follow-up is recommended to confirm clearing. Electronically signed by: Cory Larson MD 12/27/2023 09:36 AM EDT RP Medications Medications Current Medications Acetaminophen (Acetaminophen 325 Mg Tablet) 650 mg PO Q6H PRN PRN Reason: Pain, Mild (Pain Scale 1-3), fever or headache Last Admin: 12/28/23 12:21 Dose: 650 mg Calcium Carbonate (Calcium Carbonate 750 Mg Tab.Chew) 750 mg PO Q4H PRN PRN Reason: Heartburn Ceftriaxone Sodium (Ceftriaxone Sodium 1 Gm Vial) 1 gm IVPUSH Q24H [facility] Last Admin: 12/28/23 10:22 Dose: 1 gm Enoxaparin Sodium (Enoxaparin Sodium 30 Mg/0.3 Ml Syringe) 30 mg SUBCUT Q24H [facility] Last Admin: 12/28/23 10:20 Dose: 30 mg Hydroxyzine HCl (Hydroxyzine Hcl 25 Mg Tablet) 25 mg PO Q6H PRN PRN Reason: Anxiety Last Admin: 12/28/23 08:21 Dose: 25 mg Lactated Ringer's (Lr) 1,000 mls @ 100 mls/hr IVCONT .Q10H [facility] Last Infusion: 12/28/23 12:27 Dose: 100 mls/hr Doxycycline Hyclate 100 mg/ (Sodium Chloride) 250 mls @ 166.67 mls/hr IV Q12H [facility] Last Infusion: 12/28/23 12:27 Dose: Infused Levetiracetam (Levetiracetam 500 Mg Tablet) 500 mg PO BID [facility] Last Admin: 12/28/23 07:51 Dose: 500 mg Lorazepam (Lorazepam 1 Mg Tablet) 1 mg PO Q6H PRN PRN Reason: Anxiety Last Admin: 12/28/23 10:20 Dose: 1 mg Magnesium Hydroxide (Milk Of Magnesia 30 Ml Oral.Susp) 30 ml PO DAILY PRN PRN Reason: Constipation Melatonin (Melatonin 3 Mg Tablet) 6 mg PO BEDTIME PRN PRN Reason: Insomnia Methadone HCl (Methadone Hcl 20 Mg/2 Ml Oral.Conc) 100 mg PO DAILY@0800 [facility] Polyethylene Glycol (Polyethylene Glycol 3350 17 Gm Powd.Pack) 17 gm PO DAILY [facility] Last Admin: 12/28/23 07:59 Dose: Not Given Senna (Sennosides 8.6 Mg Tablet) 8.6 mg PO DAILY [facility] Last Admin: 12/28/23 07:59 Dose: Not Given Sevelamer Carbonate (Sevelamer Carbonate Tablet 800 Mg Tablet) 800 mg PO TIDAC [facility] Last Admin: 12/28/23 12:21 Dose: 800 mg Sodium Chloride (0.9 % Sodium Chloride Flush 3 Ml Syringe) 3 ml IVFLUSH QSHIFT [facility] Last Admin: 12/28/23 07:52 Dose: Not Given Thiamine HCl (Thiamine Hcl 100 Mg Tablet) 100 mg PO DAILY [facility] Last Admin: 12/28/23 07:51 Dose: 100 mg Allergies Allergies Allergy/AdvReac Type Severity Reaction Status Date / Time No Known Allergies Allergy Verified 12/26/23 21:52 [No Known Allergies*] Assessment & Plan Assessment & Plan (1) Opioid use disorder: Status: Acute Code(s): F11.90 - Opioid use, unspecified, uncomplicated Assessment and Plan: methadone dose back to 100mg daily 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
[2023-12-28 15:17] VITALS: BP 141/74; PULSE 69; RESP 16; TEMP 36.5; O2SAT 97
[2023-12-28 16:00] VITALS: PULSE 69
[2023-12-28 16:15] LABS: Glucose, Whole Blood 100 mg/dL (60-115)
--- NOTE | 2023-12-28 16:18 | PC.NURSE ---
Education that patient was given, she threw away in the trash.
[2023-12-28 19:39] VITALS: BP 147/85; PULSE 73; RESP 16; TEMP 36.6; O2SAT 96
[2023-12-28 19:49] LABS: Glucose, Whole Blood 110 mg/dL (60-115)
[2023-12-28] MEDS: Melatonin 3 MG TABLET 6 MG PO (20:18)
[2023-12-28] MEDS: Benzonatate 100 MG CAPSULE 200 MG PO (21:37)
[2023-12-29] MEDS: LORazepam 1 MG TABLET PO ×4 (00:17→22:26)
[2023-12-29 01:10] VITALS: PULSE 71
[2023-12-29 04:00] VITALS: BP 140/77; PULSE 69; RESP 14; TEMP 36.4; O2SAT 98
[2023-12-29] MEDS: Benzonatate 100 MG CAPSULE 200 MG PO ×2 (05:20→18:03)
[2023-12-29] MEDS: hydrOXYzine HCL 25 MG TABLET PO ×2 (05:21→18:32)
[2023-12-29] MEDS: Acetaminophen 325 MG TABLET 650 MG PO ×2 (05:21→18:04)
[2023-12-29 07:03] VITALS: BP 131/84; PULSE 71; RESP 16; TEMP 36.4; O2SAT 97
[2023-12-29 07:07] LABS: Glucose, Whole Blood 82 mg/dL (60-115)
[2023-12-29] MEDS: methADONE HCl 20 MG/2 ML ORAL.CONC 100 MG PO (07:59)
[2023-12-29] MEDS: Thiamine HCL 100 MG TABLET PO (08:02)
[2023-12-29] MEDS: Sennosides 8.6 MG TABLET PO (08:02)
[2023-12-29] MEDS: levETIRAcetam 500 MG TABLET PO ×2 (08:02→20:02)
[2023-12-29] MEDS: Sevelamer Carbonate Tablet 800 MG TABLET PO ×3 (08:02→15:57)
[2023-12-29 10:03] LABS: MANUAL DIFF FLAG NO
[2023-12-29 10:18] LABS: Anion Gap 14 (12-20); Blood Urea Nitrogen 45 mg/dL (9-16); Calcium 8.6 mg/dL (8.4-10.2); Carbon Dioxide 21 mmol/L (22-29); Chloride 110 mmol/L (96-108); Creatinine Clr Calc Pharmacy 39.1; Estimated Glomerular Filt Rate 38; Glucose Random 97 mg/dL (60-115); Potassium 4.5 mmol/L (3.3-5.1); Sodium 140 mmol/L (135-145)
[2023-12-29 10:28] LABS: Basophils Percent Auto 0.3 % (0-2); Eosinophils Absolute Auto 0.2 X10*3/uL (0.0-0.4); Eosinophils Percent Auto 2.9 % (0-4); Hematocrit 23.2 % (37.0-47.0); Hemoglobin 7.8 g/dl (12.0-16.0); Imm Gran Abs Auto 0.07 X10*3/uL (0.00-0.03); Lymphocytes Percent Auto 58.1 % (20-40); Mean Corpuscular HGB Conc 33.6 g/dl (31.0-35.0); Mean Corpuscular Volume 92.1 fL (80.0-98.0); Mean Platelet Volume 9.5 fL (9.4-12.3); Monocytes Absolute Auto 0.4 X10*3/uL (0.1-1.2); Monocytes Percent Auto 5.1 % (2-11); Neutrophils Absolute Auto 2.3 x10*3/uL (2.0-8.3); Neutrophils Percent Auto 32.6 % (45-73); Platelet Count 280 X10*3/uL (160-400); Red Blood Count 2.52 X10*6/uL (4.20-5.50); Red Cell Distribution Width 14.6 % (11.0-16.0); White Blood Count 6.9 X10*3/uL (4.8-10.8)
--- NOTE | 2023-12-29 10:51 | HO.PM.IMPN ---
Subjective Subjective Date of Service: 12/29/23 Interval History: pt feeling better, mood much better, no agitation or issues overnight. cough has improved but still chest congestion. tired as brittani just got methadone dose. no abd pain, fever, chills, nausea. Constitutional Constitutional: Denies chills and Denies fever(s) Eyes Eyes: Denies change in vision ENT Ears, Nose, Mouth, and Throat: Denies nasal congestion and Denies nasal discharge Cardiovascular Cardiovascular: Denies chest pain and Denies dyspnea Respiratory Respiratory: Reports chest congestion, Reports cough and Denies dyspnea Gastrointestinal Gastrointestinal: Denies diarrhea, Denies nausea and Denies vomiting Genitourinary Genitourinary: Denies dysuria Integumentary/Breasts Skin/Breast: Denies rash Physical Exam Vital Signs: Vital Signs: Last Vital Signs Temp 97.6 F 12/29/23 07:03 Pulse 71 12/29/23 07:03 Resp 16 12/29/23 07:03 BP 131/84 12/29/23 07:03 Pulse Ox 97 12/29/23 07:03 O2 Del Method Room Air 12/29/23 07:03 BMI result Body Mass Index 22.7 General: AOx3, no acute distress, slightly drowsy but easily arrousable Resp: rhonchi bilaterally CVS: RRR, +murmur GI: +BS, NT, no distention Skin: Warm, dry Extremities: No edema Psych: Appropriate affect Objective Data Active Medications Acetaminophen (Acetaminophen 325 Mg Tablet) 650 mg PO Q6H PRN PRN Reason: Pain, Mild (Pain Scale 1-3), fever or headache Last Admin: 12/29/23 05:21 Dose: 650 mg Documented By: GURJIT Benzonatate (Benzonatate 100 Mg Capsule) 200 mg PO TID PRN PRN Reason: Cough Last Admin: 12/29/23 05:20 Dose: 200 mg Documented By: GURJIT Calcium Carbonate (Calcium Carbonate 750 Mg Tab.Chew) 750 mg PO Q4H PRN PRN Reason: Heartburn Ceftriaxone Sodium (Ceftriaxone Sodium 1 Gm Vial) 1 gm IVPUSH Q24H [facility] Last Admin: 12/28/23 10:22 Dose: 1 gm Documented By: COOKIE Enoxaparin Sodium (Enoxaparin Sodium 30 Mg/0.3 Ml Syringe) 30 mg SUBCUT Q24H [facility] Last Admin: 12/28/23 10:20 Dose: 30 mg Documented By: COOKIE Hydroxyzine HCl (Hydroxyzine Hcl 25 Mg Tablet) 25 mg PO Q6H PRN PRN Reason: Anxiety Last Admin: 12/29/23 05:21 Dose: 25 mg Documented By: GURJIT Lactated Ringer's (Lr) 1,000 mls @ 100 mls/hr IVCONT .Q10H [facility] Last Admin: 12/28/23 23:11 Dose: 100 mls/hr Documented By: GURJIT Doxycycline Hyclate 100 mg/ (Sodium Chloride) 250 mls @ 166.67 mls/hr IV Q12H [facility] Last Infusion: 12/29/23 01:09 Dose: Infused Documented By: GURJIT Levetiracetam (Levetiracetam 500 Mg Tablet) 500 mg PO BID [facility] Last Admin: 12/29/23 08:02 Dose: 500 mg Documented By: NINA Lorazepam (Lorazepam 1 Mg Tablet) 1 mg PO Q6H PRN PRN Reason: Anxiety Last Admin: 12/29/23 08:02 Dose: 1 mg Documented By: NINA Magnesium Hydroxide (Milk Of Magnesia 30 Ml Oral.Susp) 30 ml PO DAILY PRN PRN Reason: Constipation Melatonin (Melatonin 3 Mg Tablet) 6 mg PO BEDTIME PRN PRN Reason: Insomnia Last Admin: 12/28/23 20:18 Dose: 6 mg Documented By: GURJIT Methadone HCl (Methadone Hcl 20 Mg/2 Ml Oral.Conc) 100 mg PO DAILY@0800 [facility] Last Admin: 12/29/23 07:59 Dose: 100 mg Documented By: NINA Co-signed By: LING Polyethylene Glycol (Polyethylene Glycol 3350 17 Gm Powd.Pack) 17 gm PO DAILY [facility] Last Admin: 12/29/23 08:05 Dose: Not Given Documented By: NINA Non-Admin Reason: Patient Refused Senna (Sennosides 8.6 Mg Tablet) 8.6 mg PO DAILY [facility] Last Admin: 12/29/23 08:02 Dose: 8.6 mg Documented By: NINA Sevelamer Carbonate (Sevelamer Carbonate Tablet 800 Mg Tablet) 800 mg PO TIDAC [facility] Last Admin: 12/29/23 08:02 Dose: 800 mg Documented By: NINA Sodium Chloride (0.9 % Sodium Chloride Flush 3 Ml Syringe) 3 ml IVFLUSH QSHIFT [facility] Last Admin: 12/29/23 08:04 Dose: Not Given Documented By: NINA Non-Admin Reason: IV Running Thiamine HCl (Thiamine Hcl 100 Mg Tablet) 100 mg PO DAILY [facility] Last Admin: 12/29/23 08:02 Dose: 100 mg Documented By: NINA Labs 12/29/23 09:38 12/29/23 09:38 Labs: Laboratory Results - last 24 hr 12/28/23 12/28/23 12/28/23 10:56 16:10 19:41 MCV MCH MCHC RDW Plt Count MPV Immature Gran % (Auto) Neut % (Auto) Lymph % (Auto) [place] % (Auto) Eos % (Auto) Baso % (Auto) Lymph # (Auto) [place] # (Auto) Eos # (Auto) Baso # (Auto) Abs Immat Gran (auto) Absolute Neuts (auto) Absolute Nucleated RBC Nucleated RBC % (auto) Anion Gap Estim Creat Clear Calc Estimated GFR POC Glucose 100 100 110 Random Glucose Calcium 12/29/23 12/29/23 06:57 09:38 MCV 92.1 MCH 31.0 MCHC 33.6 RDW 14.6 Plt Count 280 MPV 9.5 Immature Gran % (Auto) 1.0 H Neut % (Auto) 32.6 L Lymph % (Auto) 58.1 H [place] % (Auto) 5.1 Eos % (Auto) 2.9 Baso % (Auto) 0.3 Lymph # (Auto) 4.0 [place] # (Auto) 0.4 Eos # (Auto) 0.2 Baso # (Auto) 0.0 Abs Immat Gran (auto) 0.07 H Absolute Neuts (auto) 2.3 Absolute Nucleated RBC 0.000 Nucleated RBC % (auto) 0.0 Anion Gap 14 Estim Creat Clear Calc 39.1 Estimated GFR 38 POC Glucose 82 Random Glucose 97 Calcium 8.6 Microbiology Microbiology Results: Microbiology 12/27/23 10:46 Blood Culture - Preliminary Blood - Venous No growth after 24 hours. 12/27/23 10:46 Blood Culture - Preliminary Blood - Venous No growth after 24 hours. 12/27/23 Unknown Urine Culture - Final Urine clean catch - Clean Catch Midstream No growth. Assessment and Plan (1) Pneumonia: Status: Acute (2) CHELITA (acute kidney injury): Status: Acute (3) Opiate withdrawal: Status: Acute Plan pneumonia - lactate normal, blood cx x2 no growth x48 hours - chest CT - pneumonia, no septic pulm emboli - CBC stable - RSV/COVID/flu negative - continue ceftriaxone, add doxy CHELITA - LR 100ml/hr - Cr improved - urine cx negative hx of seizure disorder - last seizure years ago per pt - continue keppra mood disorder/SI - plan per CARE team IVDU - plan per addiction med, increased methadone dose full code VTE prophy: penumoboots and lovenox Pt with pneumonia and CHELITA complicated by a hx of septic pulmonary emboli due to hx of MSSA bacteremia and endocarditis. initially came to ED with SI, consult in with CARE team to discuss need for inpt psych. will continue care with admission for now. Quality Stroke Does the patient have a stroke diagnosis?: No VTE Prior VTE?: No VTE Risk Level:: Medical - moderate - high VTE Device Contraindication: N/A - Device Ordered VTE Drug Contraindication: N/A - Med Ordered
[2023-12-29] MEDS: cefTRIAXone sodium 1 GM VIAL IVPUSH (11:06)
[2023-12-29] MEDS: Enoxaparin Sodium 30 MG/0.3 ML SYRINGE SUBCUT (11:20)
[2023-12-29 11:38] LABS: Glucose, Whole Blood 64 mg/dL (60-115)
[2023-12-29] MEDS: Doxycycline Hyclate 100 MG in 0.9 % Sodium Chloride 250 ML 166.67 MG IV ×2 (12:26→22:26)
--- NOTE | 2023-12-29 13:10 | HO.WOUND ---
Wound Consult: Initial 38yr old?female admitted to [facility] on 12/27/23 - See progress notes and H&P for detailed history.? Wound consult placed for Bilateral Lower Leg wounds.? Patient agreeable to assessment and photo documentation.? Patient is very sleepy easily arousable but quickly returns to sleep. The wounds appears to be abrasions and suspect some are related to injections sites. All sites are stable and intact scabs noted. No s/s of infection at this time, no drainage, no fluctuance, no erythema noted. Discussed with direct care nurse no topical interventions are needed at this time. The right Achilles area is noted for a dry stable scab - the patient was able to report this is from friction in her shoe and pervious blister formation. There is no need for a topical dressing at this time however should patient return to wearing the same shoes recommend protecting with dressing such as hydroclloid or bandaid to protect from friction and opening of wound bed. No topical wound care recommendations needed at this time. Left Leg Right Heel Right Leg Right Posterior leg
[2023-12-29] MEDS: Lactated Ringers 1,000 ML 100 ML IVCONT ×2 (13:11→22:57)
--- NOTE | 2023-12-29 13:32 | PC.NURSE ---
D/C Sitter per provider for SI, Care team cleared patient from SI.
--- NOTE | 2023-12-29 14:47 | PM.EVENT ---
Event Note Date of Service: 12/29/23 Event Note: care team cleared pt for discharge. went to speak to pt regarding discharge and she told me that she would hurt herself if she leaves and she [facility] her [facility] health. spoke with care team, Trupti, again and she suggested INPT LOC and will discharge to psych when a bed becomes available. Time Spent With Patient Time: Total time managing care of this patient today ____ minutes.
[2023-12-29 15:35] VITALS: BP 117/62; PULSE 74; RESP 20; TEMP 36.9; O2SAT 96
[2023-12-29 16:43] LABS: Glucose, Whole Blood 94 mg/dL (60-115)
[2023-12-29 19:18] VITALS: BP 140/98; PULSE 82; RESP 20; TEMP 37.4; O2SAT 97
[2023-12-29 19:58] LABS: Glucose, Whole Blood 112 mg/dL (60-115)
[2023-12-29] MEDS: Melatonin 3 MG TABLET 6 MG PO (20:02)
[2023-12-30] MEDS: Benzonatate 100 MG CAPSULE 200 MG PO (01:05)
[2023-12-30] MEDS: Acetaminophen 325 MG TABLET 650 MG PO ×2 (01:06→07:58)
[2023-12-30 03:35] VITALS: BP 148/84; PULSE 69; RESP 16; TEMP 36.4; O2SAT 95
[2023-12-30] MEDS: LORazepam 1 MG TABLET PO ×2 (05:16→13:11)
[2023-12-30 07:23] VITALS: BP 146/94; PULSE 72; RESP 16; TEMP 36.5; O2SAT 98
[2023-12-30 07:46] LABS: Glucose, Whole Blood 75 mg/dL (60-115)
[2023-12-30] MEDS: Sennosides 8.6 MG TABLET PO (08:02)
[2023-12-30] MEDS: Thiamine HCL 100 MG TABLET PO (08:02)
[2023-12-30] MEDS: levETIRAcetam 500 MG TABLET PO (08:02)
[2023-12-30] MEDS: methADONE HCl 20 MG/2 ML ORAL.CONC 100 MG PO (08:02)
[2023-12-30] MEDS: Lactated Ringers 1,000 ML 100 ML IVCONT (08:03)
[2023-12-30] MEDS: Sevelamer Carbonate Tablet 800 MG TABLET PO ×2 (08:03→10:32)
--- NOTE | 2023-12-30 09:39 | P.PNIM_ITS ---
Subjective Subjective Date of Service: 12/30/23 Interval History: pt feeling better, mood much better, no agitation or issues overnight. cough and chest congestion improved. new sore throat and body aches. no abd pain, fever, chills, nausea. Constitutional Constitutional: Reports body ache(s), Denies chills and Denies fever(s) Eyes Eyes: Denies change in vision ENT Ears, Nose, Mouth, and Throat: Denies nasal congestion, Denies nasal discharge and Reports sore throat Cardiovascular Cardiovascular: Denies chest pain and Denies dyspnea Respiratory Respiratory: Denies dyspnea Gastrointestinal Gastrointestinal: Denies constipation, Denies diarrhea, Denies nausea and Denies vomiting Genitourinary Genitourinary: Denies dysuria Musculoskeletal Musculoskeletal: Reports myalgias Integumentary/Breasts Skin/Breast: Denies rash Psychiatric Psychiatric: Reports anxiety and Reports depression Physical Exam 2 Vital Signs: Vital Signs: Last Vital Signs Temp 97.7 F 12/30/23 07:23 Pulse 72 12/30/23 07:23 Resp 16 12/30/23 07:23 BP 146/94 H 12/30/23 07:23 Pulse Ox 98 12/30/23 07:23 O2 Del Method Room Air 12/30/23 07:23 BMI result Body Mass Index 22.7 General: AOx3, no acute distress, laying comfortably Resp: CTA bilaterally, no wheezing or rhonchi CVS: RRR, +murmur Skin: Warm, dry Extremities: No edema Psych: depressed affect Objective Data Active Medications Acetaminophen (Acetaminophen 325 Mg Tablet) 650 mg PO Q6H PRN PRN Reason: Pain, Mild (Pain Scale 1-3), fever or headache Last Admin: 12/30/23 07:58 Dose: 650 mg Documented By: JOSH Benzonatate (Benzonatate 100 Mg Capsule) 200 mg PO TID PRN PRN Reason: Cough Last Admin: 12/30/23 01:05 Dose: 200 mg Documented By: GURJIT Calcium Carbonate (Calcium Carbonate 750 Mg Tab.Chew) 750 mg PO Q4H PRN PRN Reason: Heartburn Ceftriaxone Sodium (Ceftriaxone Sodium 1 Gm Vial) 1 gm IVPUSH Q24H NAGA Last Admin: 12/29/23 11:06 Dose: 1 gm Documented By: NINA Doxycycline Monohydrate (Doxycycline Monohydrate 100 Mg Capsule) 100 mg PO Q12H [facility] Enoxaparin Sodium (Enoxaparin Sodium 30 Mg/0.3 Ml Syringe) 30 mg SUBCUT Q24H [facility] Last Admin: 12/29/23 11:20 Dose: 30 mg Documented By: NINA Hydroxyzine HCl (Hydroxyzine Hcl 25 Mg Tablet) 25 mg PO Q6H PRN PRN Reason: Anxiety Last Admin: 12/29/23 18:32 Dose: 25 mg Documented By: NINA Lactated Ringer's (Lr) 1,000 mls @ 100 mls/hr IVCONT .Q10H [facility] Last Admin: 12/30/23 08:03 Dose: 100 mls/hr Documented By: KATIE Levetiracetam (Levetiracetam 500 Mg Tablet) 500 mg PO BID [facility] Last Admin: 12/30/23 08:02 Dose: 500 mg Documented By: JOSH Lorazepam (Lorazepam 1 Mg Tablet) 1 mg PO Q6H PRN PRN Reason: Anxiety Last Admin: 12/30/23 05:16 Dose: 1 mg Documented By: GURJIT Magnesium Hydroxide (Milk Of Magnesia 30 Ml Oral.Susp) 30 ml PO DAILY PRN PRN Reason: Constipation Melatonin (Melatonin 3 Mg Tablet) 6 mg PO BEDTIME PRN PRN Reason: Insomnia Last Admin: 12/29/23 20:02 Dose: 6 mg Documented By: GURJIT Methadone HCl (Methadone Hcl 20 Mg/2 Ml Oral.Conc) 100 mg PO DAILY@0800 [facility] Last Admin: 12/30/23 08:02 Dose: 100 mg Documented By: AKTIE Co-signed By: NINA Polyethylene Glycol (Polyethylene Glycol 3350 17 Gm Powd.Pack) 17 gm PO DAILY [facility] Last Admin: 12/30/23 08:04 Dose: Not Given Documented By: JOSH Non-Admin Reason: Patient Refused Senna (Sennosides 8.6 Mg Tablet) 8.6 mg PO DAILY [facility] Last Admin: 12/30/23 08:02 Dose: 8.6 mg Documented By: JOSH Sevelamer Carbonate (Sevelamer Carbonate Tablet 800 Mg Tablet) 800 mg PO TIDAC [facility] Last Admin: 12/30/23 08:03 Dose: 800 mg Documented By: JOSH Sodium Chloride (0.9 % Sodium Chloride Flush 3 Ml Syringe) 3 ml IVFLUSH QSHIFT [facility] Last Admin: 12/30/23 09:13 Dose: Not Given Documented By: KATIE Non-Admin Reason: IV Running Thiamine HCl (Thiamine Hcl 100 Mg Tablet) 100 mg PO DAILY [facility] Last Admin: 12/30/23 08:02 Dose: 100 mg Documented By: JOSH Labs 12/30/23 10:47 12/30/23 10:47 Labs: Laboratory Results - last 24 hr 12/29/23 12/29/23 12/29/23 09:38 11:17 16:34 MCV 92.1 MCH 31.0 MCHC 33.6 RDW 14.6 Plt Count 280 MPV 9.5 Immature Gran % (Auto) 1.0 H Neut % (Auto) 32.6 L Lymph % (Auto) 58.1 H [place] % (Auto) 5.1 Eos % (Auto) 2.9 Baso % (Auto) 0.3 Lymph # (Auto) 4.0 [place] # (Auto) 0.4 Eos # (Auto) 0.2 Baso # (Auto) 0.0 Abs Immat Gran (auto) 0.07 H Absolute Neuts (auto) 2.3 Absolute Nucleated RBC 0.000 Nucleated RBC % (auto) 0.0 Anion Gap 14 Estim Creat Clear Calc 39.1 Estimated GFR 38 POC Glucose 64 94 Random Glucose 97 Calcium 8.6 12/29/23 12/30/23 19:49 07:29 MCV MCH MCHC RDW Plt Count MPV Immature Gran % (Auto) Neut % (Auto) Lymph % (Auto) [place] % (Auto) Eos % (Auto) Baso % (Auto) Lymph # (Auto) [place] # (Auto) Eos # (Auto) Baso # (Auto) Abs Immat Gran (auto) Absolute Neuts (auto) Absolute Nucleated RBC Nucleated RBC % (auto) Anion Gap Estim Creat Clear Calc Estimated GFR POC Glucose 112 75 Random Glucose Calcium Microbiology Microbiology Results: Microbiology 12/27/23 10:46 Blood Culture - Preliminary Blood - Venous No growth after 48 hours. 12/27/23 10:46 Blood Culture - Preliminary Blood - Venous No growth after 48 hours. Assessment and Plan (1) Pneumonia: Status: Acute (2) CHELITA (acute kidney injury): Status: Acute (3) Opioid use disorder: Status: Acute (4) Suicidal ideation: Status: Acute Plan pneumonia - lactate normal, blood cx x2 no growth x48 hours - chest CT - pneumonia, no septic pulm emboli - CBC stable - RSV/COVID/flu negative - switch to PO doxy and ceftin CHELITA - Cr improved, baseline CKD stage 3B - urine cx negative - d/c IVF hx of seizure disorder - last seizure years ago per pt - continue keppra mood disorder/SI - plan per CARE team - awaiting psych bed IVDU - plan per addiction med - continue methadone anemia - stable - possibly related to recent hospital stay at [facility] and/or 3B CKD, no obvious bleeding sources - monitor CBC again tomorrow then in 1 week or PRN full code VTE prophy: penumoboots and lovenox Pt with pneumonia and CHELITA complicated by a hx of septic pulmonary emboli due to hx of MSSA bacteremia and endocarditis. initially came to ED with SI. treated with IV abx and fluids, medically cleared to transfer to psych, awaiting bed. Quality Stroke Does the patient have a stroke diagnosis?: No VTE Prior VTE?: No VTE Risk Level:: Medical - moderate - high VTE Device Contraindication: N/A - Device Ordered VTE Drug Contraindication: N/A - Med Ordered
[2023-12-30] MEDS: Doxycycline Monohydrate 100 MG CAPSULE PO (10:29)
[2023-12-30] MEDS: Enoxaparin Sodium 30 MG/0.3 ML SYRINGE SUBCUT (10:32)
[2023-12-30] MEDS: cefuroxime axetiL 500 MG TABLET PO (10:32)
[2023-12-30 11:10] LABS: MANUAL DIFF FLAG NO
[2023-12-30 11:12] LABS: Basophils Percent Auto 0.6 % (0-2); Eosinophils Absolute Auto 0.2 X10*3/uL (0.0-0.4); Hematocrit 24.1 % (37.0-47.0); Hemoglobin 7.7 g/dl (12.0-16.0); Imm Gran Pct Auto 1.5 % (0.0-0.4); Lymphocytes Absolute Auto 3.2 X10*3/uL (1.2-4.9); Lymphocytes Percent Auto 47.2 % (20-40); Mean Corpuscular Hemoglobin 28.9 pg (27.0-33.0); Mean Corpuscular Volume 90.6 fL (80.0-98.0); Mean Platelet Volume 9.1 fL (9.4-12.3); Monocytes Absolute Auto 0.4 X10*3/uL (0.1-1.2); Monocytes Percent Auto 6.1 % (2-11); Neutrophils Absolute Auto 2.8 x10*3/uL (2.0-8.3); Neutrophils Percent Auto 41.6 % (45-73); Platelet Count 266 X10*3/uL (160-400); Red Blood Count 2.66 X10*6/uL (4.20-5.50); Red Cell Distribution Width 14.7 % (11.0-16.0); White Blood Count 6.7 X10*3/uL (4.8-10.8)
[2023-12-30 11:16] LABS: Glucose, Whole Blood 107 mg/dL (60-115)
[2023-12-30 11:33] LABS: Anion Gap 13 (12-20); Blood Urea Nitrogen 41 mg/dL (9-16); Calcium 8.7 mg/dL (8.4-10.2); Carbon Dioxide 25 mmol/L (22-29); Chloride 108 mmol/L (96-108); Creatinine Clr Calc Pharmacy 38.8; Estimated Glomerular Filt Rate 37; Glucose Random 107 mg/dL (60-115); Potassium 4.1 mmol/L (3.3-5.1); Sodium 142 mmol/L (135-145)
--- NOTE | 2023-12-30 11:49 | MHC.CM.PN ---
PER MD ROUNDS, PT IS MEDICALLY READY TO DC PT WILL BE TRANSFERRED TO [facility] ONCE A BED IS SECURED BY THE CARE TEAM
--- NOTE | 2023-12-30 12:45 | P.DS_ITS ---
DS: Providers Provider Date of Service: 12/30/23 Date of admission: 12/27/23 10:06 Date of discharge: 12/30/23 Primary care physician: None Physician Consults: 12/26/23 22:20 Consult to Care Team Routine Comment: Reason for consultation: si, polysubstance abuse 12/27/23 13:19 Addiction Medicine Routine Consulting Provider: Addiction Covering Reason for consultation: opiate withdrawal Has provider been notified: No 12/27/23 15:30 Consult to Care Team Routine Comment: Reason for consultation: IVDU 12/29/23 10:48 Consult to Care Team Routine Comment: Reason for consultation: pt came with SI, medically cleared DS: Transfer Hospital Acceptance Reason for Transfer: M5 adult psych Name of Facility[place] [facility] [place] Accepting Provider: Dr Vinny Nichole DS: Diagnosis Discharge Diagnosis (1) Pneumonia: Status: Acute (2) CHELITA (acute kidney injury): Status: Acute (3) Opioid use disorder: Status: Acute (4) Suicidal ideation: Status: Acute DS: Summary Hospital Course Hospital Course: Admission: 38-year-old female with a past medical history significant for seizure disorder, ADHD, bipolar 1,IVDU, MSSA bacteremia, endocarditis, septic pulmonary embolism, who presented to the ED last night with cough x1 week and suicidal ideation with a plan to OD. She describes her cough is nonproductive but has lost her voice. No fever or sick contacts. Does report chills. Does not wish to talk as she does not feel well. Minimal history given. Hospital course: Patient presented with worsening and suicidal ideation, when admitted diagnosed with pneumonia and CHELITA, treated with ceftriaxone and doxycycline for pneumonia and IV fluids for CHELITA. After initial admission was having difficulties with periodic withdrawal. Methadone dose was clarified and she was brought back up to her regular dose and has not had any further issues with withdrawal. Was also very agitated but again has improved with receiving her methadone. She has improved overall the last few days. No respiratory difficulty. Lungs clear and she feels stable medically. When discussing discharge patient reported that when she leaves she will likely harm herself. This was discussed with care team. Given SI and depression decision was made to admit to adult Psychiatry for inpatient management. We will continue doxycycline 100 mg b.i.d. x3 days and Ceftin 500 mg b.i.d. x3 days to complete treatment for community-acquired pneumonia. Hemoglobin and hematocrit low however stable. Creatinine stable. Patient does have stage IIIB CKD. Also recent hospital stay at [facility]. Status at Discharge Functional status at discharge: independent ambulation Overall status at discharge: patient is progressing back to baseline Time Attestation Discharge Coordination Time (in mins): 45 mins Quality: Safe Use of Opioids Does Pt have an Active Cancer Diagnosis on the Problem List?: No Quality: Stroke Does the patient have a stroke diagnosis?: No Physical Exam Vital Signs: Vital Signs: Last Vital Signs Temp 97.7 F 12/30/23 07:23 Pulse 72 12/30/23 07:23 Resp 16 12/30/23 07:23 BP 146/94 H 12/30/23 07:23 Pulse Ox 98 12/30/23 07:23 O2 Del Method Room Air 12/30/23 07:23 BMI result Body Mass Index 22.7 General: AOx3, no acute distress Resp: CTA bilaterally CVS: RRR, +murmur Skin: Warm, dry Extremities: No edema Psych: Appropriate affect DS: Data Data Completed and Pending Labs on day of discharge: Laboratory Results - last 24 hr 12/29/23 12/29/23 12/30/23 16:34 19:49 07:29 WBC RBC Hgb Hct MCV MCH MCHC RDW Plt Count MPV Immature Gran % (Auto) Neut % (Auto) Lymph % (Auto) [place] % (Auto) Eos % (Auto) Baso % (Auto) Lymph # (Auto) [place] # (Auto) Eos # (Auto) Baso # (Auto) Abs Immat Gran (auto) Absolute Neuts (auto) Absolute Nucleated RBC Nucleated RBC % (auto) Sodium Potassium Chloride Carbon Dioxide Anion Gap BUN Creatinine Estim Creat Clear Calc Estimated GFR POC Glucose 94 112 75 Random Glucose Calcium 12/30/23 12/30/23 10:47 11:12 WBC 6.7 RBC 2.66 L Hgb 7.7 L Hct 24.1 L MCV 90.6 MCH 28.9 MCHC 32.0 RDW 14.7 Plt Count 266 MPV 9.1 L Immature Gran % (Auto) 1.5 H Neut % (Auto) 41.6 L Lymph % (Auto) 47.2 H [place] % (Auto) 6.1 Eos % (Auto) 3.0 Baso % (Auto) 0.6 Lymph # (Auto) 3.2 [place] # (Auto) 0.4 Eos # (Auto) 0.2 Baso # (Auto) 0.0 Abs Immat Gran (auto) 0.10 H Absolute Neuts (auto) 2.8 Absolute Nucleated RBC 0.000 Nucleated RBC % (auto) 0.0 Sodium 142 Potassium 4.1 Chloride 108 Carbon Dioxide 25 Anion Gap 13 BUN 41 H Creatinine 1.55 H Estim Creat Clear Calc 38.8 Estimated GFR 37 POC Glucose 107 Random Glucose 107 Calcium 8.7 Preliminary micro results at discharge 12/27/23 10:46 Blood Culture - Preliminary Blood - Venous No growth after 48 hours. 12/27/23 10:46 Blood Culture - Preliminary Blood - Venous No growth after 48 hours. Discharge Plan Discharge Anticipated Discharge Date/Time: 12/30/23 12:30 Patient Disposition: Xfer Psychiatric Hosp Discharge Diagnosis: pneumonia, CHELITA, SI, depression, ROSANNA Referrals: Physician,Unknown J [Physician] - 1 Week Discharge Medications: New doxycycline monohydrate 100 mg Capsule 100 mg PO Q12H Qty: 6 0RF cefuroxime axetil 500 mg Tablet 500 mg PO Q12H Qty: 6 0RF Continued levetiracetam [Keppra] 500 mg tablet 500 mg PO BID 30 Days Qty: 60 0RF methadone 10 mg/mL Concentrate 100 mg PO DAILY sennosides [senna] 8.6 mg Tablet 8.6 mg PO DAILY polyethylene glycol 3350 17 gram Powder In Packet 17 g PO DAILY thiamine HCl (vitamin B1) 100 mg Tablet 100 mg PO DAILY insulin lispro 100 unit/mL Solution 1 sliding scale dose SUBCUT USEASDIRECTD sevelamer carbonate 800 mg Tablet 800 mg PO TIDAC Rx Instructions: must administer with a meal/food Discharge Orders: Discharge Order (Routine); Ordered 12/30/23 Ordered By: Daja Sanon Diet: Regular diet Activity on Discharge: As tolerated Stand Alone Forms: Patient Portal Discharge page Print Language: Indonesian Care Plan Goals: recovery from pneumonia and address mental health Health Concerns: pneumonia, CHELITA, SI, depression, ROSANNA Plan of Treatment: take ceftin 500mg BID x3 days take doxycycline 100mg BID x3 days encourage PO fluids check CBC and BMP tomorrow, then again in 1 week or PRN admit to adult psych for SI/depression Assessment: see above Patient Instructions: Acute Kidney Injury (GEN), Community Acquired Pneumonia (GEN), Relaxation and Meditation (GEN), Polysubstance Abuse (ED), Breathing Techniques (GEN), Suicide Prevention (GEN)
--- NOTE | 2024-01-21 00:13 | PC.NURSE ---
12/29/2023 0521 Patient requested Tylenol for a pain assessment of 5. Administered medication per patient request
== END 2023-12-30 14:09 | DRG 139 ==
LOC: HO.ED 12-27 09:51 → HO.EDOVER 12-27 10:17 → HO.S3 12-27 14:27
PROVIDERS: Emergency Medicine; Family Medicine; Admitting Provider Physician Assistant; Emergency Provider Emergency Medicine Emergency Medical Services; Visit Provider Physician Assistant
DX: J18.9 Pneumonia, unspecified organism (principal); N17.9 Acute kidney failure, unspecified; D63.1 Anemia in chronic kidney disease; R45.851 Suicidal ideations; G40.909 Epilepsy, unspecified, not intractable, without status epilepticus; F11.23 Opioid dependence with withdrawal; F17.210 Nicotine dependence, cigarettes, uncomplicated; N18.32 Chronic kidney disease, stage 3b; F32.A Depression, unspecified; F39 Unspecified mood [affective] disorder; Z20.822 Contact with and (suspected) exposure to COVID-19; Z59.02 Unsheltered homelessness; Z71.6 Tobacco abuse counseling; Z79.4 Long term (current) use of insulin; Z79.899 Other long term (current) drug therapy
CPT/HCPCS: 0241U; 36415; 71046; 71250; 74176; 80048; 80076; 80307; 81001; 81003; 82947; 83036; 83605; 83735; 84702; 85025; 87040; 87086; 87651; 93005; 99285; J0456; J0696; J1650; J2060; J7120; S9485

== ENCOUNTER 2023-12-27 10:06 | Outpatient (BNV) | payer MEDICAID, SELFPAY | END 2023-12-27 10:13 | PROVIDERS: Admitting Provider Physician Assistant; Emergency Provider Emergency Medicine Emergency Medical Services; Visit Provider Internal Medicine | DX: E87.5 Hyperkalemia (principal) | CPT/HCPCS: 93010 ==

== ENCOUNTER → 2023-12-27 10:06 | Outpatient (BNV) | payer MEDICAID, SELFPAY | PROVIDERS: Admitting Provider Physician Assistant; Emergency Provider Emergency Medicine Emergency Medical Services; Visit Provider Physician Assistant | DX: J18.9 Pneumonia, unspecified organism (principal); F19.90 Other psychoactive substance use, unspecified, uncomplicated; N17.9 Acute kidney failure, unspecified; F11.93 Opioid use, unspecified with withdrawal | CPT/HCPCS: 99222; 99232; 99239; 99499 ==

== ENCOUNTER → 2023-12-27 10:06 | Outpatient (BNV) | payer MEDICAID, SELFPAY | PROVIDERS: Admitting Provider Physician Assistant; Emergency Provider Emergency Medicine Emergency Medical Services; Visit Provider Nurse Practitioner Psychiatric/Mental Health | DX: F11.90 Opioid use, unspecified, uncomplicated (principal) | CPT/HCPCS: 99232 ==

== ENCOUNTER 2023-12-30 14:15 | Inpatient (IN) | payer OTHER, SELFPAY ==
--- NOTE | ~2023-12-30 | CT_ITS ---
EXAMINATION: CT ABDOMEN AND PELVIS WITHOUT CONTRAST CLINICAL INFORMATION: Abdominal pain and distention. COMPARISON: December 27, 2023 TECHNIQUE: Multidetector volumetric imaging was performed from the superior aspect of the liver through the pubic symphysis. Sagittal and coronal reformatted images were obtained on the technologist's workstation. This CT examination was performed using dose optimization techniques as appropriate, variously including the following: *Automated exposure control *Adjustment of mA and/or kV according to patient size (this includes techniques or standardized protocols for targeted exams where dose is matched to indication/reason for exam; i.e. extremities or head) *Use of iterative reconstruction technique DLP: 433 mGy-cm FINDINGS: LUNG BASES: Small left pleural effusion and dependent atelectasis. LIVER, GALLBLADDER, AND BILIARY TREE: The noncontrast liver measures 21.3 cm in sagittal dimension. No biliary ductal dilatation is present. The gallbladder is contracted. PANCREAS: Unremarkable. SPLEEN: Enlarged. Measures 13.5 cm in sagittal dimension. ADRENAL GLANDS: No adrenal mass. KIDNEYS AND URETERS: The right kidney appears slightly edematous with fullness of the collecting system. No hydronephrosis or perinephric fluid collection. BLADDER: Unremarkable. GASTROINTESTINAL TRACT: Gastric distention. Marked fecal retention in the colon. No small bowel obstruction. Appendix is within normal limits. ABDOMINAL WALL: No significant hernia is appreciated. LYMPH NODES: Enlarged bilateral inguinal lymph nodes. Right inguinal lymph node 1.3 x 1.6 cm. Left inguinal lymph node measures 1.0 x 1.5 cm. 1.2 x 1.9 cm. Left lymph node measures 1.4 x 2.1 cm. Enlarged left external iliac lymph node measures 2.6 x 2.0 cm. Enlarged right external iliac lymph node measures 2.1 x 1.2 cm. VASCULAR: Normal caliber abdominal aorta. PELVIC VISCERA: Unremarkable. OSSEOUS STRUCTURES: No destructive bone lesions. Multiple vertebral body hemangiomas are suspected. CT/CT abdomen pelvis wo IV con IMPRESSION: Enlarged bilateral inguinal and external iliac lymph nodes. Hepatosplenomegaly. No change and slightly edematous right kidney with fullness of the collecting system. Severe constipation. Gastric distention. Small left pleural effusion and dependent atelectasis. The possibility of a lymphoproliferative disorder should be considered. Electronically signed by: Denilson Drake MD 01/05/2024 11:10 AM EDT [facility]
[2023-12-30 14:40] VITALS: BP 126/87; PULSE 88; RESP 14; TEMP 36.4; O2SAT 96; BMI 20.5
[2023-12-30] MEDS: LORazepam 1 MG TABLET PO ×2 (15:10→20:48)
[2023-12-30] MEDS: Acetaminophen 325 MG TABLET 650 MG PO (16:44)
[2023-12-30] MEDS: Sevelamer Carbonate Tablet 800 MG TABLET PO (17:40)
[2023-12-30] MEDS: cefuroxime axetiL 500 MG TABLET PO (17:40)
[2023-12-30] MEDS: Doxycycline Monohydrate 100 MG CAPSULE PO (17:40)
[2023-12-30 18:07] LABS: UPreg QC Valid YES; Urine Pregnancy NEGATIVE (NEGATIVE)
--- NOTE | 2023-12-30 18:35 | PC.ADMIT ---
Pt admitted to [facility] on a CV from [place] [address] medical unit after undergoing treatment for pneumonia and CHELITA. During medical admission pt endorsed SI with plan to overdose on medications. On arrival to unit pt denied SI, and stated I don't want to . I just need help with my meds. Pt's mood is labile. Pt anxious and irritable. Pt had low frustration tolerance during admission process, and did not participate in the majority of the admission process. Pt expressed that she was unhappy with the appearance of the unit, and the lack of television in her room. Pt stated I sleep in crack houses so I am not that picky but stated I don't know how I am going to be able to stay here. Pt also focused on belief that she is not medically clear and should not have left the medical unit. Pt also reported she recognized several peers on the unit from the streets and felt triggered by seeing them on the unit. Pt is currently unhoused and has a long history with substance use that includes heroin and cocaine. Pt stated I shoot cocaine and I smoke dope . Per report, pt was recently at [facility] for endocarditis and sepsis. Pt stated she was admitted there for weeks and added I was even in a coma. Pt stated she was then discharged to [facility]. From there, pt stated she was sent to [facility] in [place]. Pt stated she left [facility] after one day due to not being able to obtain her Methadone from the clinic. Pt stated she presented to the clinic with her last dose letter, however pt stated the clinic informed her they needed more documentation including an EKG. Pt stated she became frustrated, left, and instead of returning to [facility], she returned to the streets and smoked dope and shot cocaine . Pt then presented to [facility] on 12/26 with c/o URI sx and was admitted to [place] [address] for pneumonia and CHELITA. Pt continues on PO antibiotics. Orders in place to continue with POC QID to start at HS. Urine test obtained and was negative. Pt denied ETOH use and said No I never drink, ever. Pt denied smoking cigarettes, but reported daily vape use. Pt declined NRT, however prn orders in place. Smoking cessation consult ordered. Pt declined Influenza vaccine. Tox screen positive for opiates, methadone, fentanyl, and cocaine. Methadone dose currently at 100mg after several doses increases on [place] [address]. Pt has a diagnosis hx that includes CKD, seizure DO, ADHD, and Bipolar 1. Pt identified joint Health Care Proxys that include her father En Joyner and her aunt Cassia Joyner. Pt signed releases for both and spoke to aunt on arrival. Pt placed on 15 minute checks.
[2023-12-30 20:00] VITALS: BP 138/79; PULSE 71; TEMP 2.7; TEMP 36.8; O2SAT 95
[2023-12-30 20:35] LABS: Glucose, Whole Blood 105 mg/dL (60-115)
[2023-12-30] MEDS: levETIRAcetam 500 MG TABLET PO (20:48)
[2023-12-30] MEDS: chlorproMAZINE HCl 25 MG TABLET 50 MG PO (20:49)
[2023-12-31] MEDS: Doxycycline Monohydrate 100 MG CAPSULE PO ×2 (06:31→17:45)
[2023-12-31] MEDS: cefuroxime axetiL 500 MG TABLET PO ×2 (06:31→17:45)
[2023-12-31] MEDS: LORazepam 1 MG TABLET PO ×3 (06:34→16:22)
[2023-12-31 08:00] VITALS: TEMP 36.9
[2023-12-31] MEDS: methADONE HCl 20 MG/2 ML ORAL.CONC 100 MG PO (08:07)
[2023-12-31 08:19] LABS: Glucose, Whole Blood 70 mg/dL (60-115)
[2023-12-31] MEDS: levETIRAcetam 500 MG TABLET PO ×2 (08:49→20:28)
[2023-12-31] MEDS: Thiamine HCL 100 MG TABLET PO (08:49)
[2023-12-31] MEDS: Sennosides 8.6 MG TABLET PO (08:49)
[2023-12-31] MEDS: Acetaminophen 325 MG TABLET 650 MG PO ×2 (08:49→14:17)
[2023-12-31] MEDS: Sevelamer Carbonate Tablet 800 MG TABLET PO ×3 (08:49→17:45)
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
[2023-12-31 12:28] LABS: Glucose, Whole Blood 128 mg/dL (60-115)
[2023-12-31 14:18] LABS: MANUAL DIFF FLAG NO
[2023-12-31 14:21] LABS: Basophils Percent Auto 0.3 % (0-2); Eosinophils Absolute Auto 0.2 X10*3/uL (0.0-0.4); Eosinophils Percent Auto 2.4 % (0-4); Hematocrit 26.2 % (37.0-47.0); Hemoglobin 8.4 g/dl (12.0-16.0); Imm Gran Abs Auto 0.15 X10*3/uL (0.00-0.03); Imm Gran Pct Auto 2.1 % (0.0-0.4); Lymphocytes Absolute Auto 2.8 X10*3/uL (1.2-4.9); Lymphocytes Percent Auto 38.8 % (20-40); Mean Corpuscular HGB Conc 32.1 g/dl (31.0-35.0); Mean Corpuscular Hemoglobin 29.4 pg (27.0-33.0); Mean Corpuscular Volume 91.6 fL (80.0-98.0); Mean Platelet Volume 8.6 fL (9.4-12.3); Monocytes Absolute Auto 0.5 X10*3/uL (0.1-1.2); Monocytes Percent Auto 6.8 % (2-11); Neutrophils Absolute Auto 3.6 x10*3/uL (2.0-8.3); Neutrophils Percent Auto 49.6 % (45-73); Platelet Count 322 X10*3/uL (160-400); Red Blood Count 2.86 X10*6/uL (4.20-5.50); Red Cell Distribution Width 14.7 % (11.0-16.0); White Blood Count 7.2 X10*3/uL (4.8-10.8)
[2023-12-31 14:32] LABS: Estimated Average Glucose 85 mg/dL; Hemoglobin A1C 59.9637 umol/L; Hemoglobin A1c % 4.6 % (<6.0); Total Hemoglobin (HGBA1C) 2196.2403 umol/L
[2023-12-31 14:35] LABS: Alanine Aminotransferase 16 U/L (0-31); Albumin Level 3.8 g/dL (3.5-5.0); Alkaline Phosphatase 84 U/L (39-117); Anion Gap 14 (12-20); Aspartate Amino Transferase 17 U/L (5-31); Bilirubin Total 0.2 mg/dL (0.0-1.0); Blood Urea Nitrogen 41 mg/dL (9-16); Calcium 9.3 mg/dL (8.4-10.2); Carbon Dioxide 26 mmol/L (22-29); Chloride 105 mmol/L (96-108); Cholesterol 192 mg/dL (<200); Creatinine Clr Calc Pharmacy 42.5; Estimated Glomerular Filt Rate 34; Glucose Random 97 mg/dL (60-115); HDL Cholesterol 59 mg/dL (>40); LDL Cholesterol Calculated 95 mg/dL (<100); Sodium 140 mmol/L (135-145); Total Protein 8.5 g/dL (6.5-8.0); Triglycerides 191 mg/dL (<150)
[2023-12-31 17:38] LABS: Glucose, Whole Blood 94 mg/dL (60-115)
[2023-12-31] MEDS: hydrOXYzine HCL 25 MG TABLET PO (18:49)
[2023-12-31] MEDS: chlorproMAZINE HCl 25 MG TABLET PO (18:49)
[2023-12-31 20:00] VITALS: BP 119/55; PULSE 78; TEMP 36.9; O2SAT 95
[2023-12-31] MEDS: chlorproMAZINE HCl 25 MG TABLET 50 MG PO (20:28)
[2023-12-31] MEDS: traZODone HCL 50 MG TABLET PO (20:28)
[2023-12-31 20:37] LABS: Glucose, Whole Blood 94 mg/dL (60-115)
[2024-01-01] MEDS: cefuroxime axetiL 500 MG TABLET PO ×2 (06:27→15:52)
[2024-01-01] MEDS: Doxycycline Monohydrate 100 MG CAPSULE PO ×2 (06:27→15:53)
[2024-01-01] MEDS: LORazepam 1 MG TABLET PO ×2 (06:35→12:54)
[2024-01-01] MEDS: methADONE HCl 20 MG/2 ML ORAL.CONC 100 MG PO (07:34)
[2024-01-01 07:50] LABS: Glucose, Whole Blood 108 mg/dL (60-115)
[2024-01-01 08:00] VITALS: BP 122/87; PULSE 101; RESP 14; TEMP 37.1; O2SAT 97
[2024-01-01 08:41] LABS: MANUAL DIFF FLAG NO
[2024-01-01 08:50] LABS: Basophils Percent Auto 0.5 % (0-2); Eosinophils Absolute Auto 0.2 X10*3/uL (0.0-0.4); Eosinophils Percent Auto 2.5 % (0-4); Hematocrit 29.5 % (37.0-47.0); Hemoglobin 9.4 g/dl (12.0-16.0); Imm Gran Abs Auto 0.24 X10*3/uL (0.00-0.03); Lymphocytes Absolute Auto 3.5 X10*3/uL (1.2-4.9); Lymphocytes Percent Auto 43.9 % (20-40); Mean Corpuscular HGB Conc 31.9 g/dl (31.0-35.0); Mean Corpuscular Hemoglobin 29.7 pg (27.0-33.0); Mean Corpuscular Volume 93.1 fL (80.0-98.0); Mean Platelet Volume 8.7 fL (9.4-12.3); Monocytes Absolute Auto 0.6 X10*3/uL (0.1-1.2); Neutrophils Absolute Auto 3.4 x10*3/uL (2.0-8.3); Neutrophils Percent Auto 43.1 % (45-73); Platelet Count 337 X10*3/uL (160-400); Red Blood Count 3.17 X10*6/uL (4.20-5.50); Red Cell Distribution Width 14.6 % (11.0-16.0); White Blood Count 7.9 X10*3/uL (4.8-10.8)
[2024-01-01] MEDS: Thiamine HCL 100 MG TABLET PO (08:52)
[2024-01-01] MEDS: Sevelamer Carbonate Tablet 800 MG TABLET PO ×3 (08:52→17:34)
[2024-01-01] MEDS: levETIRAcetam 500 MG TABLET PO ×2 (08:52→20:12)
--- NOTE | 2024-01-01 09:03 | HO.PSYCHPN ---
Subjective Subjective Date of Service: 01/01/24 Reason For Visit: depression/SI Subjective Notes: Conditional Voluntary Healthcare Proxy: No Guardianship: No Medical Problems Affecting Mental Status: No Interim History: Labile, with agitation, poor STM and medication focused. Several meetings with pt. I cannot stand being sick, and until you get it right, we will be changing things . Reports she is at 137 mg baseline with Methadone and is only at 100 mg. Increased to 105 mg. Reports Adderall she has taken for years and is not being offered this. 10mgXR initiated with some improvement in presentation. Ativan changed to Klonopin Wellbutrin to begin 01/01. A difficult day for pt, however, with significant improvement since admit 12/29. I am glad you think so. Needs almost constant intervention today. Medication Compliance: Yes Side effects from medications: No Attending Groups: No Review of Systems Acute medical concerns: No Daily labs Improving CBC BUN, Creatinine still high but with mild improvement-thus no Gabapentin until this is stabilized. Pt demanding 800 mg tid. Education provided several times. Medical Review of Systems: unchanged Review of Systems Review of Systems feeling discomfort with low methadone dosing Mental Status Exam Mental Status Exam Patient Appearance: Fatigued and Disheveled Patient Orientation: Person, Place, Time and Situation Level of Consciousness: Restless and Alert Patient Behavior: Talkative, Anxious, Fearful, Fatigued, Distractible and Crying Mood Description: Labile Affect Description: Labile Patient Cognition Impaired: No Ability to Follow Directions: Good Speech Pattern: Perseverating, Spontaneous Speech, Rapid and Pressured Hallucinations: None Delusions: Paranoid Ideation Perceptual Disturbances: Depersonalization and Derealization Thought Process: Rumination Thought Content: positive for Circumstantial, positive for Perseveration, positive for Preoccupation and positive for Suicidal Ideation Depressive Symptoms: Increased Fatigue, Thoughts of /Suicide and Difficulty Concentrating Abnormal Motor Activity Signs and Symptoms: Restlessness Judgement: Poor Diagnostics Vital Signs (24Hr): Vital Signs - 24 hr 12/31/23 20:00 Temperature 98.4 F Pulse Rate 78 Blood Pressure 119/55 L Pulse Oximetry 95 Oxygen Delivery Method Room Air BMI result Body Mass Index 20.5 Labs 01/01/24 08:26 01/01/24 08:26 Labs: Laboratory Results - last 48 hr 12/30/23 12/30/23 12/31/23 17:50 20:30 08:15 WBC RBC Hgb Hct MCV MCH MCHC RDW Plt Count MPV Immature Gran % (Auto) Neut % (Auto) Lymph % (Auto) [place] % (Auto) Eos % (Auto) Baso % (Auto) Lymph # (Auto) [place] # (Auto) Eos # (Auto) Baso # (Auto) Abs Immat Gran (auto) Absolute Neuts (auto) Absolute Nucleated RBC Nucleated RBC % (auto) Sodium Potassium Chloride Carbon Dioxide Anion Gap BUN Creatinine Estim Creat Clear Calc Estimated GFR POC Glucose 105 70 Random Glucose Estimat Average Glucose Hemoglobin A1c % Calcium Total Bilirubin AST ALT Alkaline Phosphatase Total Protein Albumin Triglycerides Cholesterol LDL Cholesterol, Calc HDL Cholesterol Urine Test NEGATIVE 12/31/23 12/31/23 12/31/23 12:11 14:13 17:34 WBC 7.2 RBC 2.86 L Hgb 8.4 L Hct 26.2 L MCV 91.6 MCH 29.4 MCHC 32.1 RDW 14.7 Plt Count 322 MPV 8.6 L Immature Gran % (Auto) 2.1 H Neut % (Auto) 49.6 Lymph % (Auto) 38.8 [place] % (Auto) 6.8 Eos % (Auto) 2.4 Baso % (Auto) 0.3 Lymph # (Auto) 2.8 [place] # (Auto) 0.5 Eos # (Auto) 0.2 Baso # (Auto) 0.0 Abs Immat Gran (auto) 0.15 H Absolute Neuts (auto) 3.6 Absolute Nucleated RBC 0.000 Nucleated RBC % (auto) 0.0 Sodium 140 Potassium 5.0 D Chloride 105 Carbon Dioxide 26 Anion Gap 14 BUN 41 H Creatinine 1.68 H Estim Creat Clear Calc 42.5 Estimated GFR 34 POC Glucose 128 H 94 Random Glucose 97 Estimat Average Glucose 85 Hemoglobin A1c % 4.6 Calcium 9.3 D Total Bilirubin 0.2 AST 17 ALT 16 Alkaline Phosphatase 84 Total Protein 8.5 H Albumin 3.8 Triglycerides 191 H Cholesterol 192 LDL Cholesterol, Calc 95 HDL Cholesterol 59 Urine Test 12/31/23 01/01/24 01/01/24 20:33 07:46 08:26 WBC 7.9 RBC 3.17 L Hgb 9.4 L Hct 29.5 L MCV 93.1 MCH 29.7 MCHC 31.9 RDW 14.6 Plt Count 337 MPV 8.7 L Immature Gran % (Auto) 3.0 H Neut % (Auto) 43.1 L Lymph % (Auto) 43.9 H [place] % (Auto) 7.0 Eos % (Auto) 2.5 Baso % (Auto) 0.5 Lymph # (Auto) 3.5 [place] # (Auto) 0.6 Eos # (Auto) 0.2 Baso # (Auto) 0.0 Abs Immat Gran (auto) 0.24 H Absolute Neuts (auto) 3.4 Absolute Nucleated RBC 0.000 Nucleated RBC % (auto) 0.0 Sodium Potassium Chloride Carbon Dioxide Anion Gap BUN Creatinine Estim Creat Clear Calc Estimated GFR POC Glucose 94 108 Random Glucose Estimat Average Glucose Hemoglobin A1c % Calcium Total Bilirubin AST ALT Alkaline Phosphatase Total Protein Albumin Triglycerides Cholesterol LDL Cholesterol, Calc HDL Cholesterol Urine Test Medications Medications Current Medications Acetaminophen (Acetaminophen 325 Mg Tablet) 650 mg PO Q6H PRN PRN Reason: Headache/Pain Mild Scale (1-3) Last Admin: 12/31/23 14:17 Dose: 650 mg Al Hydroxide/Mg Hydroxide (Magnesium Hydrox/Alum Hydrox 30 Ml Oral.Susp) 30 ml PO Q6H PRN PRN Reason: Heartburn/Nausea Cefuroxime Axetil (Cefuroxime Axetil 500 Mg Tablet) 500 mg PO Q12H NAGA Stop: 01/02/24 18:01 Last Admin: 01/01/24 06:27 Dose: 500 mg Chlorpromazine HCl (Chlorpromazine Hcl 25 Mg Tablet) 50 mg PO BEDTIME NAGA Last Admin: 12/31/23 20:28 Dose: 50 mg Chlorpromazine HCl (Chlorpromazine Hcl 25 Mg Tablet) 25 mg PO Q4H PRN PRN Reason: agitation Last Admin: 12/31/23 18:49 Dose: 25 mg Doxycycline Monohydrate (Doxycycline Monohydrate 100 Mg Capsule) 100 mg PO Q12H NAGA Stop: 01/02/24 18:01 Last Admin: 01/01/24 06:27 Dose: 100 mg Glucose (Glucose Gel 15 Gm Gel..Gram.) 15 gm PO Q15M PRN; Protocol PRN Reason: per Hypoglycemia Standing Ord. Hydroxyzine HCl (Hydroxyzine Hcl 25 Mg Tablet) 25 mg PO Q6H PRN PRN Reason: Anxiety Last Admin: 12/31/23 18:49 Dose: 25 mg Insulin Human Lispro (Insulin Lispro 100 Unit/Ml 3 Ml Vial) 0 unit SUBCUT QIDACHS [facility]; Protocol Last Admin: 01/01/24 07:57 Dose: Not Given Levetiracetam (Levetiracetam 500 Mg Tablet) 500 mg PO BID [facility] Last Admin: 01/01/24 08:52 Dose: 500 mg Lorazepam (Lorazepam 1 Mg Tablet) 1 mg PO Q4H PRN PRN Reason: Anxiety Last Admin: 01/01/24 06:35 Dose: 1 mg Magnesium Hydroxide (Milk Of Magnesia 30 Ml Oral.Susp) 30 ml PO DAILY PRN PRN Reason: Constipation Melatonin (Melatonin 3 Mg Tablet) 3 mg PO BEDTIME PRN PRN Reason: Insomnia Methadone HCl (Methadone Hcl 20 Mg/2 Ml Oral.Conc) 100 mg PO DAILY@0800 [facility] Last Admin: 01/01/24 07:34 Dose: 100 mg Nicotine (Nicotine 21 Mg Patch.Td24) 21 mg TRANSDERMA DAILY PRN PRN Reason: smoking cessation Nicotine Polacrilex (Nicotine Polacrilex 2 Mg Gum) 4 mg BUCCAL Q2H PRN PRN Reason: Nicotine Cravings Polyethylene Glycol (Polyethylene Glycol 3350 17 Gm Powd.Pack) 17 gm PO DAILY [facility] Last Admin: 01/01/24 08:54 Dose: Not Given Senna (Sennosides 8.6 Mg Tablet) 8.6 mg PO DAILY [facility] Last Admin: 01/01/24 08:54 Dose: Not Given Sevelamer Carbonate (Sevelamer Carbonate Tablet 800 Mg Tablet) 800 mg PO TIDAC [facility] Last Admin: 01/01/24 08:52 Dose: 800 mg Thiamine HCl (Thiamine Hcl 100 Mg Tablet) 100 mg PO DAILY [facility] Last Admin: 01/01/24 08:52 Dose: 100 mg Trazodone HCl (Trazodone Hcl 50 Mg Tablet) 50 mg PO BEDTIME MRX1 PRN PRN Reason: Insomnia Last Admin: 12/31/23 20:28 Dose: 50 mg Allergies Allergies Allergy/AdvReac Type Severity Reaction Status Date / Time No Known Allergies Allergy Verified 12/26/23 21:52 [No Known Allergies*] Assessment & Plan Assessment & Plan (1) Opioid use disorder: Status: Acute Code(s): F11.90 - Opioid use, unspecified, uncomplicated (2) Cocaine use disorder: Status: Acute Code(s): F14.10 - Cocaine abuse, uncomplicated (3) Bipolar disorder: Status: Acute Code(s): F31.9 - Bipolar disorder, unspecified (4) PTSD (post-traumatic stress disorder): Status: Acute Code(s): F43.10 - Post-traumatic stress disorder, unspecified Plan Opiate Use Disorder, Cocaine Use Disorder, PTSD, Bipolar Disorder, ADHD with recent pneumonia, CHELITA. Plan: Admit, CV, 15 minute checks Collateral contact Addiction Medicine Consult- pt on 100 mg Methadone daily, reports it should be 137 mg Daily labs, cbcd, bmp, monitor for medication re-introduction B12, Folate, TSH, Iron Profile Chlorpromazine 50 mg HS and 25 mg prn 12/31: Increase Methadone to 110 mg daily 01/01. No evidence of sedation today. Adderall XR 10 mg daily. Will reassess on 01/02 for increase DC Ativan Klonopin 1 mg bid Wellbutrin 75 mg to begin 01/01 Daily labs JUNO signed for [facility] Reason for continued inpatient stay Substantial Risk for: rapid decompensation and med/psych decompensation Time Spent With Patient Time: Total time managing care of this patient today ____ minutes.
[2024-01-01 09:05] LABS: Anion Gap 14 (12-20); Blood Urea Nitrogen 49 mg/dL (9-16); Calcium 9.2 mg/dL (8.4-10.2); Carbon Dioxide 21 mmol/L (22-29); Chloride 106 mmol/L (96-108); Creatinine Clr Calc Pharmacy 44.1; Estimated Glomerular Filt Rate 36; Glucose Random 129 mg/dL (60-115); Iron 73 mcg/dL (30-160); Percent Iron Saturation 33 % (15-50); Sodium 136 mmol/L (135-145); Total Iron Binding Capacity 224 mcg/dL (228-428); Unsaturated Iron Binding 151 ug/dL
[2024-01-01 09:20] LABS: Thyroid Stimulating Hormone 1.68 uIU/mL (0.32-4.0)
[2024-01-01 09:34] LABS: Folate 9.4 ng/mL (> or = 4.0); Vitamin B12 521 pg/mL (200-900)
[2024-01-01] MEDS: Dextroamphetamine/Amphetamine XR 10 MG CAP.ER.24H PO (10:32)
[2024-01-01] MEDS: methADONE HCl 20 MG/2 ML ORAL.CONC 5 MG PO (11:28)
--- NOTE | 2024-01-01 11:31 | PM.EVENT ---
Event Note Date of Service: 01/01/24 Event Note: Addiction consult placed for methadone dose titration Chart reviewed, patient reporting previous methadone dose was 137mg. She is unsure where she recieved that dose --[facility] OTP or inpatient unit RN note from 12/30 noted that patient appeared sedated. Requested RN today document level of sedation (if any) throughout the day Will assess patient in AM (Tuesday) Time Spent With Patient Time: Total time managing care of this patient today ____ minutes.
[2024-01-01 12:22] LABS: Glucose, Whole Blood 224 mg/dL (60-115)
[2024-01-01] MEDS: Insulin Lispro 100 UNIT/ML 3 ML VIAL SUBCUT (12:55)
[2024-01-01] MEDS: Perphenazine 2 MG TABLET PO ×2 (15:56→20:19)
[2024-01-01 17:35] LABS: Glucose, Whole Blood 89 mg/dL (60-115)
[2024-01-01 20:00] VITALS: BP 113/60; PULSE 80; RESP 16; TEMP 36.4; O2SAT 96
[2024-01-01] MEDS: chlorproMAZINE HCl 25 MG TABLET 50 MG PO (20:12)
[2024-01-01] MEDS: traZODone HCL 50 MG TABLET PO (20:12)
[2024-01-01] MEDS: clonazePAM 1 MG TABLET PO (20:12)
[2024-01-01 20:15] LABS: Glucose, Whole Blood 84 mg/dL (60-115)
[2024-01-01 20:15] LABS: Glucose, Whole Blood 57 mg/dL (60-115)
[2024-01-01] MEDS: Acetaminophen 325 MG TABLET 650 MG PO (20:18)
--- NOTE | 2024-01-02 | ECG_ITS ---
Test Reason : HYPERKALEMIA Blood Pressure : / mmHG Vent. Rate : 083 BPM Atrial Rate : 083 BPM P-R Int : 154 ms QRS Dur : 100 ms QT Int : 386 ms P-R-T Axes : 041 -09 066 degrees QTc Int : 453 ms Normal sinus rhythm Minimal voltage criteria for LVH, may be normal variant ( [place] product ) Borderline ECG When compared with ECG of 27-DEC-2023 10:30, No significant change was found Referred By: Vinny Nichole Electronically Signed By:Jame Rudolph
[2024-01-02] MEDS: methADONE HCl 20 MG/2 ML ORAL.CONC 110 MG PO (07:39)
[2024-01-02 08:00] VITALS: BP 117/76; PULSE 105; RESP 18; TEMP 36.1; O2SAT 98
[2024-01-02 08:16] LABS: Glucose, Whole Blood 91 mg/dL (60-115)
[2024-01-02] MEDS: buPROPion HCL 75 MG TABLET PO (08:16)
[2024-01-02] MEDS: clonazePAM 1 MG TABLET PO ×2 (08:16→19:56)
[2024-01-02] MEDS: Sevelamer Carbonate Tablet 800 MG TABLET PO ×3 (08:18→16:43)
[2024-01-02] MEDS: Doxycycline Monohydrate 100 MG CAPSULE PO ×2 (08:18→14:37)
[2024-01-02] MEDS: Thiamine HCL 100 MG TABLET PO (08:18)
[2024-01-02] MEDS: levETIRAcetam 500 MG TABLET PO ×2 (08:18→19:55)
[2024-01-02] MEDS: cefuroxime axetiL 500 MG TABLET PO ×2 (08:18→14:36)
[2024-01-02] MEDS: Dextroamphetamine/Amphetamine XR 10 MG CAP.ER.24H PO (08:19)
[2024-01-02 08:29] LABS: MANUAL DIFF FLAG NO
[2024-01-02 08:32] LABS: Basophils Absolute Auto 0.1 X10*3/uL (0.0-0.2); Basophils Percent Auto 0.6 % (0-2); Eosinophils Absolute Auto 0.2 X10*3/uL (0.0-0.4); Eosinophils Percent Auto 1.8 % (0-4); Hematocrit 32.9 % (37.0-47.0); Hemoglobin 10.5 g/dl (12.0-16.0); Imm Gran Abs Auto 0.38 X10*3/uL (0.00-0.03); Imm Gran Pct Auto 4.2 % (0.0-0.4); Lymphocytes Absolute Auto 4.1 X10*3/uL (1.2-4.9); Lymphocytes Percent Auto 44.7 % (20-40); Mean Corpuscular HGB Conc 31.9 g/dl (31.0-35.0); Mean Corpuscular Hemoglobin 30.3 pg (27.0-33.0); Mean Corpuscular Volume 94.8 fL (80.0-98.0); Mean Platelet Volume 9.2 fL (9.4-12.3); Monocytes Absolute Auto 0.6 X10*3/uL (0.1-1.2); Monocytes Percent Auto 6.3 % (2-11); Neutrophils Absolute Auto 3.9 x10*3/uL (2.0-8.3); Neutrophils Percent Auto 42.4 % (45-73); Platelet Count 325 X10*3/uL (160-400); Red Blood Count 3.47 X10*6/uL (4.20-5.50); Red Cell Distribution Width 14.9 % (11.0-16.0); White Blood Count 9.1 X10*3/uL (4.8-10.8)
[2024-01-02 08:54] LABS: Alanine Aminotransferase 19 U/L (0-31); Albumin Level 3.9 g/dL (3.5-5.0); Alkaline Phosphatase 86 U/L (39-117); Anion Gap 15 (12-20); Aspartate Amino Transferase 21 U/L (5-31); Bilirubin Total 0.2 mg/dL (0.0-1.0); Blood Urea Nitrogen 54 mg/dL (9-16); Calcium 9.7 mg/dL (8.4-10.2); Carbon Dioxide 22 mmol/L (22-29); Chloride 105 mmol/L (96-108); Creatinine Clr Calc Pharmacy 52.2; Estimated Glomerular Filt Rate 43; Glucose Random 83 mg/dL (60-115); Potassium 5.5 mmol/L (3.3-5.1); Sodium 136 mmol/L (135-145); Total Protein 9.1 g/dL (6.5-8.0)
[2024-01-02] MEDS: Acetaminophen 325 MG TABLET 650 MG PO ×2 (09:15→16:43)
[2024-01-02 09:22] LABS: HBc Num1 0.14 S/CO (0.00-0.79); HBsAGNum1 0.34 S/CO (0.00-0.99); Hepatitis A Antibody IgM 0.17 Index (0-0.79); Hepatitis B Core Antibody Nonreactive (Nonreactive); Hepatitis B Surface Antigen Negative (Negative); ~HepC Num1 15.97 S/CO (0.00-0.79); ~Hepatitis A Antibody IgM Nonreactive (Nonreactive); ~Hepatitis C Antibody Reactive (Nonreactive)
--- NOTE | 2024-01-02 09:40 | P.PNPSI_ITS ---
Subjective Subjective Date of Service: 01/02/24 Reason For Visit: depression/SI Interim History: Met with patient; discussed with team; reviewed chart pt emotional, sometimes tearful, saying she feels overwhelmed. Pt is verbose and with mildly pressured speech. She talks about challenge of last 4 months which include dealing w/ mulitple serious illness treated at [facility], including endocarditis. She says she used to be sober, even for several years and wants methadone increased; also asks for Adderall to be increased. Focusing Machine Operator tried to assess for hx of Bipolar do, which she carries. Pt could not identify any discrete manic episodes and instead talked about mood lability that is situational triggered, flares daily and resolves on it's own within minutes to an hour. Pt has tried lithium in past, but did not tolerate it; seem no other hx of mood stabilizers Mental Status Exam Mental Status Exam Patient Appearance: Fatigued and Disheveled Patient Orientation: Person, Place, Time and Situation Level of Consciousness: Restless and Alert Patient Behavior: Talkative, Anxious, Fearful, Fatigued, Distractible and Crying Mood Description: Labile Affect Description: Labile Patient Cognition Impaired: No Ability to Follow Directions: Good Speech Pattern: Perseverating, Spontaneous Speech, Rapid and Pressured Hallucinations: None Delusions: Paranoid Ideation Perceptual Disturbances: Depersonalization and Derealization Thought Process: Rumination Thought Content: positive for Circumstantial, positive for Perseveration, positive for Preoccupation and positive for Suicidal Ideation Depressive Symptoms: Increased Fatigue, Thoughts of /Suicide and Difficulty Concentrating Abnormal Motor Activity Signs and Symptoms: Restlessness Judgement and Insight: impaired Diagnostics Vital Signs (24Hr): Vital Signs - 24 hr 01/01/24 20:00 Temperature 97.5 F Pulse Rate 80 Respiratory Rate 16 Blood Pressure 113/60 Pulse Oximetry 96 Oxygen Delivery Method Room Air BMI result Body Mass Index 20.5 Labs 01/02/24 08:01 01/02/24 08:01 Labs: Laboratory Results - last 48 hr 12/31/23 12/31/23 12/31/23 12:11 14:13 17:34 WBC 7.2 RBC 2.86 L Hgb 8.4 L Hct 26.2 L MCV 91.6 MCH 29.4 MCHC 32.1 RDW 14.7 Plt Count 322 MPV 8.6 L Immature Gran % (Auto) 2.1 H Neut % (Auto) 49.6 Lymph % (Auto) 38.8 [place] % (Auto) 6.8 Eos % (Auto) 2.4 Baso % (Auto) 0.3 Lymph # (Auto) 2.8 [place] # (Auto) 0.5 Eos # (Auto) 0.2 Baso # (Auto) 0.0 Abs Immat Gran (auto) 0.15 H Absolute Neuts (auto) 3.6 Absolute Nucleated RBC 0.000 Nucleated RBC % (auto) 0.0 Sodium 140 Potassium 5.0 D Chloride 105 Carbon Dioxide 26 Anion Gap 14 BUN 41 H Creatinine 1.68 H Estim Creat Clear Calc 42.5 Estimated GFR 34 POC Glucose 128 H 94 Random Glucose 97 Estimat Average Glucose 85 Hemoglobin A1c % 4.6 Calcium 9.3 D Iron TIBC % Saturation Unsat Iron Binding Total Bilirubin 0.2 AST 17 ALT 16 Alkaline Phosphatase 84 Total Protein 8.5 H Albumin 3.8 Triglycerides 191 H Cholesterol 192 LDL Cholesterol, Calc 95 HDL Cholesterol 59 Vitamin B12 Folate TSH 12/31/23 01/01/24 01/01/24 20:33 07:46 08:26 WBC 7.9 RBC 3.17 L Hgb 9.4 L Hct 29.5 L MCV 93.1 MCH 29.7 MCHC 31.9 RDW 14.6 Plt Count 337 MPV 8.7 L Immature Gran % (Auto) 3.0 H Neut % (Auto) 43.1 L Lymph % (Auto) 43.9 H [place] % (Auto) 7.0 Eos % (Auto) 2.5 Baso % (Auto) 0.5 Lymph # (Auto) 3.5 [place] # (Auto) 0.6 Eos # (Auto) 0.2 Baso # (Auto) 0.0 Abs Immat Gran (auto) 0.24 H Absolute Neuts (auto) 3.4 Absolute Nucleated RBC 0.000 Nucleated RBC % (auto) 0.0 Sodium 136 Potassium 5.0 Chloride 106 Carbon Dioxide 21 L Anion Gap 14 BUN 49 H Creatinine 1.62 H Estim Creat Clear Calc 44.1 Estimated GFR 36 POC Glucose 94 108 Random Glucose 129 H Estimat Average Glucose Hemoglobin A1c % Calcium 9.2 Iron 73 TIBC 224 L % Saturation 33 Unsat Iron Binding 151 Total Bilirubin AST ALT Alkaline Phosphatase Total Protein Albumin Triglycerides Cholesterol LDL Cholesterol, Calc HDL Cholesterol Vitamin B12 521 Folate 9.4 TSH 1.68 01/01/24 01/01/24 01/01/24 12:17 17:30 19:54 WBC RBC Hgb Hct MCV MCH MCHC RDW Plt Count MPV Immature Gran % (Auto) Neut % (Auto) Lymph % (Auto) [place] % (Auto) Eos % (Auto) Baso % (Auto) Lymph # (Auto) [place] # (Auto) Eos # (Auto) Baso # (Auto) Abs Immat Gran (auto) Absolute Neuts (auto) Absolute Nucleated RBC Nucleated RBC % (auto) Sodium Potassium Chloride Carbon Dioxide Anion Gap BUN Creatinine Estim Creat Clear Calc Estimated GFR POC Glucose 224 H 89 57 L* Random Glucose Estimat Average Glucose Hemoglobin A1c % Calcium Iron TIBC % Saturation Unsat Iron Binding Total Bilirubin AST ALT Alkaline Phosphatase Total Protein Albumin Triglycerides Cholesterol LDL Cholesterol, Calc HDL Cholesterol Vitamin B12 Folate TSH 01/01/24 01/02/24 01/02/24 20:07 08:01 08:12 WBC 9.1 RBC 3.47 L Hgb 10.5 L Hct 32.9 L MCV 94.8 MCH 30.3 MCHC 31.9 RDW 14.9 Plt Count 325 MPV 9.2 L Immature Gran % (Auto) 4.2 H Neut % (Auto) 42.4 L Lymph % (Auto) 44.7 H [place] % (Auto) 6.3 Eos % (Auto) 1.8 Baso % (Auto) 0.6 Lymph # (Auto) 4.1 [place] # (Auto) 0.6 Eos # (Auto) 0.2 Baso # (Auto) 0.1 Abs Immat Gran (auto) 0.38 H Absolute Neuts (auto) 3.9 Absolute Nucleated RBC 0.000 Nucleated RBC % (auto) 0.0 Sodium 136 Potassium 5.5 H Chloride 105 Carbon Dioxide 22 Anion Gap 15 BUN 54 H Creatinine 1.37 Estim Creat Clear Calc 52.2 Estimated GFR 43 POC Glucose 84 91 Random Glucose 83 Estimat Average Glucose Hemoglobin A1c % Calcium 9.7 Iron TIBC % Saturation Unsat Iron Binding Total Bilirubin 0.2 AST 21 ALT 19 Alkaline Phosphatase 86 Total Protein 9.1 H Albumin 3.9 Triglycerides Cholesterol LDL Cholesterol, Calc HDL Cholesterol Vitamin B12 Folate TSH Medications Medications Current Medications Acetaminophen (Acetaminophen 325 Mg Tablet) 650 mg PO Q6H PRN PRN Reason: Headache/Pain Mild Scale (1-3) Last Admin: 01/02/24 09:15 Dose: 650 mg Al Hydroxide/Mg Hydroxide (Magnesium Hydrox/Alum Hydrox 30 Ml Oral.Susp) 30 ml PO Q6H PRN PRN Reason: Heartburn/Nausea Amphetamine/Dextroamphetamine (Dextroamphetamine/Amphetamine Xr 10 Mg Cap.Er.24h) 10 mg PO DAILY COUNT [facility]CLUDES [facility] Last Admin: 01/02/24 08:19 Dose: 10 mg Bupropion HCl (Bupropion Hcl 75 Mg Tablet) 75 mg PO DAILY COUNT INCLUDES [facility] Last Admin: 01/02/24 08:16 Dose: 75 mg Cefuroxime Axetil (Cefuroxime Axetil 500 Mg Tablet) 500 mg PO BID@0800,1400 COUNT INCLUDES [facility] Last Admin: 01/02/24 08:18 Dose: 500 mg Chlorpromazine HCl (Chlorpromazine Hcl 25 Mg Tablet) 50 mg PO BEDTIME COUNT INCLUDES [facility] Last Admin: 01/01/24 20:12 Dose: 50 mg Clonazepam (Clonazepam 1 Mg Tablet) 1 mg PO BID COUNT INCLUDES [facility] Last Admin: 01/02/24 08:16 Dose: 1 mg Doxycycline Monohydrate (Doxycycline Monohydrate 100 Mg Capsule) 100 mg PO BID@0800,1400 COUNT [facility]CLUDES [facility] Last Admin: 01/02/24 08:18 Dose: 100 mg Glucose (Glucose Gel 15 Gm Gel..Gram.) 15 gm PO Q15M PRN; Protocol PRN Reason: per Hypoglycemia Standing Ord. Hydroxyzine HCl (Hydroxyzine Hcl 25 Mg Tablet) 25 mg PO Q6H PRN PRN Reason: Anxiety Last Admin: 12/31/23 18:49 Dose: 25 mg Insulin Human Lispro (Insulin Lispro 100 Unit/Ml 3 Ml Vial) 0 unit SUBCUT QIDACHS COUNT INCLUDES THE [facility]; Protocol Last Admin: 01/02/24 08:15 Dose: Not Given Levetiracetam (Levetiracetam 500 Mg Tablet) 500 mg PO BID COUNT INCLUDES [facility] Last Admin: 01/02/24 08:18 Dose: 500 mg Magnesium Hydroxide (Milk Of Magnesia 30 Ml Oral.Susp) 30 ml PO DAILY PRN PRN Reason: Constipation Melatonin (Melatonin 3 Mg Tablet) 3 mg PO BEDTIME PRN PRN Reason: Insomnia Methadone HCl (Methadone Hcl 20 Mg/2 Ml Oral.Conc) 110 mg PO DAILY@0800 COUNT INCLUDES [facility] Last Admin: 01/02/24 07:39 Dose: 110 mg Nicotine (Nicotine 21 Mg Patch.Td24) 21 mg TRANSDERMA DAILY PRN PRN Reason: smoking cessation Nicotine Polacrilex (Nicotine Polacrilex 2 Mg Gum) 4 mg BUCCAL Q2H PRN PRN Reason: Nicotine Cravings Perphenazine (Perphenazine 2 Mg Tablet) 2 mg PO TID PRN PRN Reason: agitation, Last Admin: 01/01/24 20:19 Dose: 2 mg Polyethylene Glycol (Polyethylene Glycol 3350 17 Gm Powd.Pack) 17 gm PO DAILY COUNT INCLUDES [facility] Last Admin: 01/02/24 08:19 Dose: Not Given Senna (Sennosides 8.6 Mg Tablet) 8.6 mg PO DAILY COUNT INCLUDES [facility] Last Admin: 01/02/24 08:19 Dose: Not Given Sevelamer Carbonate (Sevelamer Carbonate Tablet 800 Mg Tablet) 800 mg PO TIDAC COUNT INCLUDES THE [facility] Last Admin: 01/02/24 08:18 Dose: 800 mg Thiamine HCl (Thiamine Hcl 100 Mg Tablet) 100 mg PO DAILY COUNT INCLUDES [facility] Last Admin: 01/02/24 08:18 Dose: 100 mg Trazodone HCl (Trazodone Hcl 50 Mg Tablet) 50 mg PO BEDTIME MRX1 PRN PRN Reason: Insomnia Last Admin: 01/01/24 20:12 Dose: 50 mg Allergies Allergies Allergy/AdvReac Type Severity Reaction Status Date / Time No Known Allergies Allergy Verified 12/26/23 21:52 [No Known Allergies*] Assessment & Plan Assessment & Plan (1) Bipolar disorder: Status: Acute Code(s): F31.9 - Bipolar disorder, unspecified (2) Opioid use disorder: Status: Acute Code(s): F11.90 - Opioid use, unspecified, uncomplicated (3) PTSD (post-traumatic stress disorder): Status: Acute Code(s): F43.10 - Post-traumatic stress disorder, unspecified (4) Cocaine use disorder: Status: Acute Code(s): F14.10 - Cocaine abuse, uncomplicated Plan HPI: 38 yo female, admitted from medicine, history of Opiate Use Disorder, Cocaine Use Disorder, Bipolar Disorder, depressed with SI, Pneumonia, Acute Kidney Injury, Seizure Disorder, ADHD, MSSA bacteremia, Endocarditis, Septic Pulmonary Embolism. Pt is labile and a poor historian. She reports relapse due to being unable to receive methadone prior to admission. Reports being clean for 4 months [employer]. Reports recent admit to [facility] in coma due to endocarditis, sepsis. Told she may which has caused significant anxiety. 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 She relapsed on 12/25, left [facility] and continues treatment with [facility]. Pt reports my methadone should be 137, I need gabapentin 800 mg tid (unable to initiate as Creatinine is increased today). I am worried I could , I need to cut all of the unhealthy people out of my life . I have never been as sick as this . I hate taking meds . I cannot focus on doing an intake until you do all of this to correct the meds. Hospital course: On admission, Labile, with agitation, poor STM and medication focused. 12/31 Several meetings with pt. I cannot stand being sick, and until you get it right, we will be changing things . Reports she is at 137 mg baseline with Methadone and is only at 100 mg. Increased to 105 mg. -Reports Adderall she has taken for years and is not being offered this. 10mgXR initiated with some improvement in presentation. -Ativan changed to Klonopin -Wellbutrin to begin 01/01. -A difficult day for pt, however, with significant improvement since admit 12/29. I am glad you think so. 01/01 pt emotional, sometimes tearful, saying she feels overwhelmed. Pt is verbose and with mildly pressured speech. She talks about challenge of last 4 months which include dealing w/ mulitple serious illness treated at [facility], including endocarditis. She says she used to be sober, even for several years and wants methadone increased; also asks for Adderall to be increased. Focusing Machine Operator tried to assess for hx of Bipolar do, which she carries. Pt could not identify any discrete manic episodes and instead talked about mood lability that is situational triggered, flares daily and resolves on it's own within minutes to an hour. Pt has tried lithium in past, but did not tolerate it; seem no other hx of mood stabilizers Reviewed labs: Hyperkalemic; possibly hemodialysis; EKG shows mildly increased height T-waves however consistent with patients most recent EKG; KS interval < 200; reviewed with Cardiology who agreed hemolysis cause of elevated K lab value and no Peaked T waves on EKG H&H improved and remains stabilized Creatinine WNL HIV nonreactive Hep C reactive; will get follow-up labs Plan: Admit, CV, 15 minute checks Addiction Medicine Consult- pt on 100 mg Methadone daily, reports it should be 137 mg Chlorpromazine 50 mg HS and 25 mg prn Increase Methadone to 110 mg daily 01/01. No evidence of sedation today. started on Adderall XR 10 mg daily. Will reassess on 01/02 for increase DC Ativan Started on Klonopin 1 mg bid Started on Wellbutrin 75 mg to begin on 01/01 Patient educated on: diagnosis, medication risk/benefits, substance abuse, therapeutic strategies and medical condition Informed Consent: understands and further education needed Reason for continued inpatient stay Substantial Risk for: inability to function Time Spent With Patient Time: Total time managing care of this patient today ____ minutes.
[2024-01-02 09:53] LABS: HIV AB/AG Nonreactive (Nonreactive); HIV Num 1 0.07 S/CO (0.00-0.99)
[2024-01-02 09:59] LABS: HBS Num1 137.03 mIU/mL (0-7.99); ~Hepatitis B Surface Antibody REACTIVE (Nonreactive)
--- NOTE | 2024-01-02 10:58 | P.PNADD_ITS ---
Subjective Subjective Date of Service: 01/02/24 Reason For Visit: depression/SI Interim History: Patient seen in follow up on unit. consult requested to address methadone dose titration. Patient seen on M5. She is awake, alert, pleasant and engaged in interview. Methadone dose increased from 100mg to 110mg --with 110mg dose started today (01/01) Patient appears comfortable, somewhat pressured and tangential, but easily redirectable. She reports that she would like to return to her previous dose of 137mg, or somewhere around the 130's' . She states she was last on this dose (137mg) over a year ago, but identifies this dose with her Diagnostics Vital Signs (24Hr): Vital Signs - 24 hr 01/01/24 20:00 01/02/24 08:00 Temperature 97.5 F 97 F Pulse Rate 80 105 H Respiratory Rate 16 18 Blood Pressure 113/60 117/76 Pulse Oximetry 96 98 Oxygen Delivery Method Room Air Room Air BMI result Body Mass Index 20.5 Labs 01/04/24 08:44 01/05/24 09:44 Labs: Laboratory Results - last 48 hr 12/31/23 12/31/23 12/31/23 12:11 14:13 17:34 WBC 7.2 RBC 2.86 L Hgb 8.4 L Hct 26.2 L MCV 91.6 MCH 29.4 MCHC 32.1 RDW 14.7 Plt Count 322 MPV 8.6 L Immature Gran % (Auto) 2.1 H Neut % (Auto) 49.6 Lymph % (Auto) 38.8 [place] % (Auto) 6.8 Eos % (Auto) 2.4 Baso % (Auto) 0.3 Lymph # (Auto) 2.8 [place] # (Auto) 0.5 Eos # (Auto) 0.2 Baso # (Auto) 0.0 Abs Immat Gran (auto) 0.15 H Absolute Neuts (auto) 3.6 Absolute Nucleated RBC 0.000 Nucleated RBC % (auto) 0.0 Sodium 140 Potassium 5.0 D Chloride 105 Carbon Dioxide 26 Anion Gap 14 BUN 41 H Creatinine 1.68 H Estim Creat Clear Calc 42.5 Estimated GFR 34 POC Glucose 128 H 94 Random Glucose 97 Estimat Average Glucose 85 Hemoglobin A1c % 4.6 Calcium 9.3 D Iron TIBC % Saturation Unsat Iron Binding Total Bilirubin 0.2 AST 17 ALT 16 Alkaline Phosphatase 84 Total Protein 8.5 H Albumin 3.8 Triglycerides 191 H Cholesterol 192 LDL Cholesterol, Calc 95 HDL Cholesterol 59 Vitamin B12 Folate TSH Hepatitis A IgM Ab Hep Bs Antigen Hep Bs Antibody Hep B Core Total Ab Hepatitis C Ab (EIA) HIV 1&2 Ab/P24 Ag 4thGn 12/31/23 01/01/24 01/01/24 20:33 07:46 08:26 WBC 7.9 RBC 3.17 L Hgb 9.4 L Hct 29.5 L MCV 93.1 MCH 29.7 MCHC 31.9 RDW 14.6 Plt Count 337 MPV 8.7 L Immature Gran % (Auto) 3.0 H Neut % (Auto) 43.1 L Lymph % (Auto) 43.9 H [place] % (Auto) 7.0 Eos % (Auto) 2.5 Baso % (Auto) 0.5 Lymph # (Auto) 3.5 [place] # (Auto) 0.6 Eos # (Auto) 0.2 Baso # (Auto) 0.0 Abs Immat Gran (auto) 0.24 H Absolute Neuts (auto) 3.4 Absolute Nucleated RBC 0.000 Nucleated RBC % (auto) 0.0 Sodium 136 Potassium 5.0 Chloride 106 Carbon Dioxide 21 L Anion Gap 14 BUN 49 H Creatinine 1.62 H Estim Creat Clear Calc 44.1 Estimated GFR 36 POC Glucose 94 108 Random Glucose 129 H Estimat Average Glucose Hemoglobin A1c % Calcium 9.2 Iron 73 TIBC 224 L % Saturation 33 Unsat Iron Binding 151 Total Bilirubin AST ALT Alkaline Phosphatase Total Protein Albumin Triglycerides Cholesterol LDL Cholesterol, Calc HDL Cholesterol Vitamin B12 521 Folate 9.4 TSH 1.68 Hepatitis A IgM Ab Hep Bs Antigen Hep Bs Antibody Hep B Core Total Ab Hepatitis C Ab (EIA) HIV 1&2 Ab/P24 Ag 4thGn 01/01/24 01/01/24 01/01/24 12:17 17:30 19:54 WBC RBC Hgb Hct MCV MCH MCHC RDW Plt Count MPV Immature Gran % (Auto) Neut % (Auto) Lymph % (Auto) [place] % (Auto) Eos % (Auto) Baso % (Auto) Lymph # (Auto) [place] # (Auto) Eos # (Auto) Baso # (Auto) Abs Immat Gran (auto) Absolute Neuts (auto) Absolute Nucleated RBC Nucleated RBC % (auto) Sodium Potassium Chloride Carbon Dioxide Anion Gap BUN Creatinine Estim Creat Clear Calc Estimated GFR POC Glucose 224 H 89 57 L* Random Glucose Estimat Average Glucose Hemoglobin A1c % Calcium Iron TIBC % Saturation Unsat Iron Binding Total Bilirubin AST ALT Alkaline Phosphatase Total Protein Albumin Triglycerides Cholesterol LDL Cholesterol, Calc HDL Cholesterol Vitamin B12 Folate TSH Hepatitis A IgM Ab Hep Bs Antigen Hep Bs Antibody Hep B Core Total Ab Hepatitis C Ab (EIA) HIV 1&2 Ab/P24 Ag 4thGn 01/01/24 01/02/24 01/02/24 20:07 08:01 08:12 WBC 9.1 RBC 3.47 L Hgb 10.5 L Hct 32.9 L MCV 94.8 MCH 30.3 MCHC 31.9 RDW 14.9 Plt Count 325 MPV 9.2 L Immature Gran % (Auto) 4.2 H Neut % (Auto) 42.4 L Lymph % (Auto) 44.7 H [place] % (Auto) 6.3 Eos % (Auto) 1.8 Baso % (Auto) 0.6 Lymph # (Auto) 4.1 [place] # (Auto) 0.6 Eos # (Auto) 0.2 Baso # (Auto) 0.1 Abs Immat Gran (auto) 0.38 H Absolute Neuts (auto) 3.9 Absolute Nucleated RBC 0.000 Nucleated RBC % (auto) 0.0 Sodium 136 Potassium 5.5 H Chloride 105 Carbon Dioxide 22 Anion Gap 15 BUN 54 H Creatinine 1.37 Estim Creat Clear Calc 52.2 Estimated GFR 43 POC Glucose 84 91 Random Glucose 83 Estimat Average Glucose Hemoglobin A1c % Calcium 9.7 Iron TIBC % Saturation Unsat Iron Binding Total Bilirubin 0.2 AST 21 ALT 19 Alkaline Phosphatase 86 Total Protein 9.1 H Albumin 3.9 Triglycerides Cholesterol LDL Cholesterol, Calc HDL Cholesterol Vitamin B12 Folate TSH Hepatitis A IgM Ab Nonreactive Hep Bs Antigen Negative Hep Bs Antibody REACTIVE Hep B Core Total Ab Nonreactive Hepatitis C Ab (EIA) Reactive H HIV 1&2 Ab/P24 Ag 4thGn Nonreactive Medications Medications Current Medications Acetaminophen (Acetaminophen 325 Mg Tablet) 650 mg PO Q6H PRN PRN Reason: Headache/Pain Mild Scale (1-3) Last Admin: 01/02/24 09:15 Dose: 650 mg Al Hydroxide/Mg Hydroxide (Magnesium Hydrox/Alum Hydrox 30 Ml Oral.Susp) 30 ml PO Q6H PRN PRN Reason: Heartburn/Nausea Amphetamine/Dextroamphetamine (Dextroamphetamine/Amphetamine Xr 10 Mg Cap.Er.24h) 10 mg PO DAILY [facility] Last Admin: 01/02/24 08:19 Dose: 10 mg Bupropion HCl (Bupropion Hcl 75 Mg Tablet) 75 mg PO DAILY [facility] Last Admin: 01/02/24 08:16 Dose: 75 mg Cefuroxime Axetil (Cefuroxime Axetil 500 Mg Tablet) 500 mg PO BID@0800,1400 [facility] Last Admin: 01/02/24 08:18 Dose: 500 mg Chlorpromazine HCl (Chlorpromazine Hcl 25 Mg Tablet) 50 mg PO BEDTIME [facility] Last Admin: 01/01/24 20:12 Dose: 50 mg Clonazepam (Clonazepam 1 Mg Tablet) 1 mg PO BID [facility] Last Admin: 01/02/24 08:16 Dose: 1 mg Doxycycline Monohydrate (Doxycycline Monohydrate 100 Mg Capsule) 100 mg PO BID@0800,1400 [facility] Last Admin: 01/02/24 08:18 Dose: 100 mg Glucose (Glucose Gel 15 Gm Gel..Gram.) 15 gm PO Q15M PRN; Protocol PRN Reason: per Hypoglycemia Standing Ord. Hydroxyzine HCl (Hydroxyzine Hcl 25 Mg Tablet) 25 mg PO Q6H PRN PRN Reason: Anxiety Last Admin: 12/31/23 18:49 Dose: 25 mg Insulin Human Lispro (Insulin Lispro 100 Unit/Ml 3 Ml Vial) 0 unit SUBCUT QIDACHS [facility]; Protocol Last Admin: 01/02/24 08:15 Dose: Not Given Levetiracetam (Levetiracetam 500 Mg Tablet) 500 mg PO BID [facility] Last Admin: 01/02/24 08:18 Dose: 500 mg Magnesium Hydroxide (Milk Of Magnesia 30 Ml Oral.Susp) 30 ml PO DAILY PRN PRN Reason: Constipation Melatonin (Melatonin 3 Mg Tablet) 3 mg PO BEDTIME PRN PRN Reason: Insomnia Methadone HCl (Methadone Hcl 20 Mg/2 Ml Oral.Conc) 110 mg PO DAILY@0800 [facility] Last Admin: 01/02/24 07:39 Dose: 110 mg Nicotine (Nicotine 21 Mg Patch.Td24) 21 mg TRANSDERMA DAILY PRN PRN Reason: smoking cessation Nicotine Polacrilex (Nicotine Polacrilex 2 Mg Gum) 4 mg BUCCAL Q2H PRN PRN Reason: Nicotine Cravings Perphenazine (Perphenazine 2 Mg Tablet) 2 mg PO TID PRN PRN Reason: agitation, Last Admin: 01/01/24 20:19 Dose: 2 mg Polyethylene Glycol (Polyethylene Glycol 3350 17 Gm Powd.Pack) 17 gm PO DAILY [facility] Last Admin: 01/02/24 08:19 Dose: Not Given Senna (Sennosides 8.6 Mg Tablet) 8.6 mg PO DAILY [facility] Last Admin: 01/02/24 08:19 Dose: Not Given Sevelamer Carbonate (Sevelamer Carbonate Tablet 800 Mg Tablet) 800 mg PO TIDAC [facility] Last Admin: 01/02/24 08:18 Dose: 800 mg Thiamine HCl (Thiamine Hcl 100 Mg Tablet) 100 mg PO DAILY [facility] Last Admin: 01/02/24 08:18 Dose: 100 mg Trazodone HCl (Trazodone Hcl 50 Mg Tablet) 50 mg PO BEDTIME MRX1 PRN PRN Reason: Insomnia Last Admin: 01/01/24 20:12 Dose: 50 mg Allergies Allergies Allergy/AdvReac Type Severity Reaction Status Date / Time No Known Allergies Allergy Verified 12/26/23 21:52 [No Known Allergies*] Assessment & Plan Assessment & Plan (1) Opioid use disorder: Status: Acute Code(s): F11.90 - Opioid use, unspecified, uncomplicated Assessment and Plan: * EKG prior to next increase * next dose increase should be in 3 days if warranted * encouraged patient to try and avoid focusing on dose and focus on how she is feeling as well as building additional recovery supports * encouraged to attend Recovery groups on unit Total time managing care of this patient today ____ minutes.
[2024-01-02 14:36] VITALS: BP 144/77
[2024-01-02] MEDS: cloNIDine HCL 0.1 MG TABLET PO ×2 (14:36→19:55)
[2024-01-02 18:36] LABS: Glucose, Whole Blood 92 mg/dL (60-115)
[2024-01-02 19:43] VITALS: BP 108/59; PULSE 74; TEMP 36.3; O2SAT 97
[2024-01-02] MEDS: chlorproMAZINE HCl 25 MG TABLET 50 MG PO (19:55)
[2024-01-02] MEDS: methADONE HCl 20 MG/2 ML ORAL.CONC 10 MG PO (19:56)
[2024-01-02 20:39] LABS: Glucose, Whole Blood 126 mg/dL (60-115)
[2024-01-03] MEDS: Acetaminophen 325 MG TABLET 650 MG PO ×3 (04:15→19:06)
[2024-01-03] MEDS: methADONE HCl 20 MG/2 ML ORAL.CONC 115 MG PO (07:50)
[2024-01-03 08:00] VITALS: BP 110/58; PULSE 78; RESP 16; TEMP 36.6; O2SAT 97
[2024-01-03 08:26] LABS: Glucose, Whole Blood 72 mg/dL (60-115)
[2024-01-03] MEDS: Sevelamer Carbonate Tablet 800 MG TABLET PO ×3 (09:18→17:32)
[2024-01-03] MEDS: levETIRAcetam 500 MG TABLET PO ×2 (09:18→20:49)
[2024-01-03] MEDS: cefuroxime axetiL 500 MG TABLET PO ×2 (09:18→14:37)
[2024-01-03] MEDS: Doxycycline Monohydrate 100 MG CAPSULE PO ×2 (09:18→14:37)
[2024-01-03] MEDS: clonazePAM 1 MG TABLET PO ×2 (09:18→20:49)
[2024-01-03] MEDS: Thiamine HCL 100 MG TABLET PO (09:18)
[2024-01-03] MEDS: Dextroamphetamine/Amphetamine XR 5 MG CAP.ER.24H 15 MG PO (09:18)
[2024-01-03] MEDS: buPROPion HCL 75 MG TABLET PO (09:18)
[2024-01-03] MEDS: Perphenazine 2 MG TABLET PO (10:45)
--- NOTE | 2024-01-03 10:52 | HO.PSYCHPN ---
Subjective Subjective Date of Service: 01/03/24 Reason For Visit: depression/SI Subjective Notes: Conditional Voluntary Healthcare Proxy: No Guardianship: No Medical Problems Affecting Mental Status: No Interim History: I want to be a person again. Denies SI, HI, AH, VH Improving. Visits from the community stopped today as contraband was brought in twice (vaping). 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 I am sorry. Methadone titration, Adderall titration. Review of mood stabilizers. Will DC Chlorpromazine and being Olanzapine at HS. Medication Compliance: Yes Side effects from medications: No Attending Groups: Intermittent Review of Systems Acute medical concerns: No Medical Review of Systems: unchanged Review of Systems Review of Systems Yes all other systems are reviewed and are negative Mental Status Exam Mental Status Exam Patient Appearance: Appropriate Patient Orientation: Person, Place, Time and Situation Level of Consciousness: Alert Patient Behavior: Talkative, Anxious and Distractible Mood Description: Labile Affect Description: Labile Patient Cognition Impaired: No Ability to Follow Directions: Good Speech Pattern: Perseverating and Spontaneous Speech Hallucinations: None Delusions: Not Present Perceptual Disturbances: Depersonalization and Derealization Thought Process: Rumination Thought Content: positive for Circumstantial and positive for Perseveration Depressive Symptoms: Difficulty Concentrating Judgement: Fair Judgement and Insight: impaired Diagnostics Vital Signs (24Hr): Vital Signs - 24 hr 01/02/24 14:36 01/02/24 19:43 01/03/24 08:00 Temperature 97.3 F 97.9 F Pulse Rate 74 78 Respiratory Rate 16 Blood Pressure 144/77 H 108/59 L 110/58 L Pulse Oximetry 97 97 Oxygen Delivery Method Room Air Room Air BMI result Body Mass Index 20.5 Labs 01/02/24 08:01 01/02/24 08:01 Labs: Laboratory Results - last 48 hr 01/01/24 01/01/24 01/01/24 12:17 17:30 19:54 WBC RBC Hgb Hct MCV MCH MCHC RDW Plt Count MPV Immature Gran % (Auto) Neut % (Auto) Lymph % (Auto) [place] % (Auto) Eos % (Auto) Baso % (Auto) Lymph # (Auto) [place] # (Auto) Eos # (Auto) Baso # (Auto) Abs Immat Gran (auto) Absolute Neuts (auto) Absolute Nucleated RBC Nucleated RBC % (auto) Sodium Potassium Chloride Carbon Dioxide Anion Gap BUN Creatinine Estim Creat Clear Calc Estimated GFR POC Glucose 224 H 89 57 L* Random Glucose Calcium Total Bilirubin AST ALT Alkaline Phosphatase Total Protein Albumin Hepatitis A IgM Ab Hep Bs Antigen Hep Bs Antibody Hep B Core Total Ab Hepatitis C Ab (EIA) HIV 1&2 Ab/P24 Ag 4thGn 01/01/24 01/02/24 01/02/24 20:07 08:01 08:12 WBC 9.1 RBC 3.47 L Hgb 10.5 L Hct 32.9 L MCV 94.8 MCH 30.3 MCHC 31.9 RDW 14.9 Plt Count 325 MPV 9.2 L Immature Gran % (Auto) 4.2 H Neut % (Auto) 42.4 L Lymph % (Auto) 44.7 H [place] % (Auto) 6.3 Eos % (Auto) 1.8 Baso % (Auto) 0.6 Lymph # (Auto) 4.1 [place] # (Auto) 0.6 Eos # (Auto) 0.2 Baso # (Auto) 0.1 Abs Immat Gran (auto) 0.38 H Absolute Neuts (auto) 3.9 Absolute Nucleated RBC 0.000 Nucleated RBC % (auto) 0.0 Sodium 136 Potassium 5.5 H Chloride 105 Carbon Dioxide 22 Anion Gap 15 BUN 54 H Creatinine 1.37 Estim Creat Clear Calc 52.2 Estimated GFR 43 POC Glucose 84 91 Random Glucose 83 Calcium 9.7 Total Bilirubin 0.2 AST 21 ALT 19 Alkaline Phosphatase 86 Total Protein 9.1 H Albumin 3.9 Hepatitis A IgM Ab Nonreactive Hep Bs Antigen Negative Hep Bs Antibody REACTIVE Hep B Core Total Ab Nonreactive Hepatitis C Ab (EIA) Reactive H HIV 1&2 Ab/P24 Ag 4thGn Nonreactive 01/02/24 01/02/24 01/03/24 12:18 20:36 08:21 WBC RBC Hgb Hct MCV MCH MCHC RDW Plt Count MPV Immature Gran % (Auto) Neut % (Auto) Lymph % (Auto) [place] % (Auto) Eos % (Auto) Baso % (Auto) Lymph # (Auto) [place] # (Auto) Eos # (Auto) Baso # (Auto) Abs Immat Gran (auto) Absolute Neuts (auto) Absolute Nucleated RBC Nucleated RBC % (auto) Sodium Potassium Chloride Carbon Dioxide Anion Gap BUN Creatinine Estim Creat Clear Calc Estimated GFR POC Glucose 92 126 H 72 Random Glucose Calcium Total Bilirubin AST ALT Alkaline Phosphatase Total Protein Albumin Hepatitis A IgM Ab Hep Bs Antigen Hep Bs Antibody Hep B Core Total Ab Hepatitis C Ab (EIA) HIV 1&2 Ab/P24 Ag 4thGn Medications Medications Current Medications Acetaminophen (Acetaminophen 325 Mg Tablet) 650 mg PO Q6H PRN PRN Reason: Headache/Pain Mild Scale (1-3) Last Admin: 01/03/24 04:15 Dose: 650 mg Al Hydroxide/Mg Hydroxide (Magnesium Hydrox/Alum Hydrox 30 Ml Oral.Susp) 30 ml PO Q6H PRN PRN Reason: Heartburn/Nausea Amphetamine/Dextroamphetamine (Dextroamphetamine/Amphetamine Xr 5 Mg Cap.Er.24h) 15 mg PO DAILY [facility] Last Admin: 01/03/24 09:18 Dose: 15 mg Benzocaine (Throat Lozenge, Medicated Lozenge) 1 lozenge MUCOUS MEM Q2H PRN PRN Reason: Sore Throat Benzocaine (Benzocaine 20 % Oral Gel 9 Gm Tube) 1 appl MUCOUS MEM QID PRN; Protocol PRN Reason: Mouth Sore Pain Bupropion HCl (Bupropion Hcl 75 Mg Tablet) 75 mg PO DAILY [facility] Last Admin: 01/03/24 09:18 Dose: 75 mg Cefuroxime Axetil (Cefuroxime Axetil 500 Mg Tablet) 500 mg PO BID@0800,1400 [facility] Last Admin: 01/03/24 09:18 Dose: 500 mg Chlorpromazine HCl (Chlorpromazine Hcl 25 Mg Tablet) 50 mg PO BEDTIME [facility] Last Admin: 01/02/24 19:55 Dose: 50 mg Clonazepam (Clonazepam 1 Mg Tablet) 1 mg PO BID [facility] Last Admin: 01/03/24 09:18 Dose: 1 mg Clonidine HCl (Clonidine Hcl 0.1 Mg Tablet) 0.1 mg PO BEDTIME [facility]; Protocol Last Admin: 01/02/24 19:55 Dose: 0.1 mg Doxycycline Monohydrate (Doxycycline Monohydrate 100 Mg Capsule) 100 mg PO BID@0800,1400 [facility] Last Admin: 01/03/24 09:18 Dose: 100 mg Glucose (Glucose Gel 15 Gm Gel..Gram.) 15 gm PO Q15M PRN; Protocol PRN Reason: per Hypoglycemia Standing Ord. Hydroxyzine HCl (Hydroxyzine Hcl 25 Mg Tablet) 25 mg PO Q6H PRN PRN Reason: Anxiety Last Admin: 12/31/23 18:49 Dose: 25 mg Insulin Human Lispro (Insulin Lispro 100 Unit/Ml 3 Ml Vial) 0 unit SUBCUT QIDACHS [facility]; Protocol Last Admin: 01/03/24 08:33 Dose: Not Given Levetiracetam (Levetiracetam 500 Mg Tablet) 500 mg PO BID [facility] Last Admin: 01/03/24 09:18 Dose: 500 mg Magnesium Hydroxide (Milk Of Magnesia 30 Ml Oral.Susp) 30 ml PO DAILY PRN PRN Reason: Constipation Melatonin (Melatonin 3 Mg Tablet) 3 mg PO BEDTIME PRN PRN Reason: Insomnia Methadone HCl (Methadone Hcl 20 Mg/2 Ml Oral.Conc) 115 mg PO DAILY@0800 [facility] Last Admin: 01/03/24 07:50 Dose: 115 mg Nicotine (Nicotine 21 Mg Patch.Td24) 21 mg TRANSDERMA DAILY PRN PRN Reason: smoking cessation Nicotine Polacrilex (Nicotine Polacrilex 2 Mg Gum) 4 mg BUCCAL Q2H PRN PRN Reason: Nicotine Cravings Perphenazine (Perphenazine 2 Mg Tablet) 2 mg PO TID PRN PRN Reason: agitation, Last Admin: 01/03/24 10:45 Dose: 2 mg Polyethylene Glycol (Polyethylene Glycol 3350 17 Gm Powd.Pack) 17 gm PO DAILY [facility] Last Admin: 01/03/24 09:19 Dose: Not Given Senna (Sennosides 8.6 Mg Tablet) 8.6 mg PO DAILY [facility] Last Admin: 01/03/24 09:19 Dose: Not Given Sevelamer Carbonate (Sevelamer Carbonate Tablet 800 Mg Tablet) 800 mg PO TIDAC [facility] Last Admin: 01/03/24 09:18 Dose: 800 mg Thiamine HCl (Thiamine Hcl 100 Mg Tablet) 100 mg PO DAILY [facility] Last Admin: 01/03/24 09:18 Dose: 100 mg Trazodone HCl (Trazodone Hcl 50 Mg Tablet) 50 mg PO BEDTIME MRX1 PRN PRN Reason: Insomnia Last Admin: 01/01/24 20:12 Dose: 50 mg Allergies Allergies Allergy/AdvReac Type Severity Reaction Status Date / Time No Known Allergies Allergy Verified 12/26/23 21:52 [No Known Allergies*] Assessment & Plan Assessment & Plan (1) Bipolar disorder: Status: Acute Code(s): F31.9 - Bipolar disorder, unspecified (2) Opioid use disorder: Status: Acute Code(s): F11.90 - Opioid use, unspecified, uncomplicated (3) PTSD (post-traumatic stress disorder): Status: Acute Code(s): F43.10 - Post-traumatic stress disorder, unspecified (4) Cocaine use disorder: Status: Acute Code(s): F14.10 - Cocaine abuse, uncomplicated Plan HPI: 38 yo female, admitted from medicine, history of Opiate Use Disorder, Cocaine Use Disorder, Bipolar Disorder, depressed with SI, Pneumonia, Acute Kidney Injury, Seizure Disorder, ADHD, MSSA bacteremia, Endocarditis, Septic Pulmonary Embolism. Pt is labile and a poor historian. She reports relapse due to being unable to receive methadone prior to admission. 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 Reports recent admit to [facility] in coma due to endocarditis, sepsis. Told she may which has caused significant anxiety. 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 She relapsed on 12/25, left [facility] and continues treatment with [facility]. Pt reports my methadone should be 137, I need gabapentin 800 mg tid (unable to initiate as Creatinine is increased today). I am worried I could , I need to cut all of the unhealthy people out of my life . I have never been as sick as this . I hate taking meds . I cannot focus on doing an intake until you do all of this to correct the meds. Hospital course: On admission, Labile, with agitation, poor STM and medication focused. 12/31 Several meetings with pt. I cannot stand being sick, and until you get it right, we will be changing things . Reports she is at 137 mg baseline with Methadone and is only at 100 mg. Increased to 105 mg. -Reports Adderall she has taken for years and is not being offered this. 10mgXR initiated with some improvement in presentation. -Ativan changed to Klonopin -Wellbutrin to begin 01/01. -A difficult day for pt, however, with significant improvement since admit 12/29. I am glad you think so. 01/01 pt emotional, sometimes tearful, saying she feels overwhelmed. Pt is verbose and with mildly pressured speech. She talks about challenge of last 4 months which include dealing w/ mulitple serious illness treated at [facility], including endocarditis. She says she used to be sober, even for several years and wants methadone increased; also asks for Adderall to be increased. Ticket Printer tried to assess for hx of Bipolar do, which she carries. Pt could not identify any discrete manic episodes and instead talked about mood lability that is situational triggered, flares daily and resolves on it's own within minutes to an hour. Pt has tried lithium in past, but did not tolerate it; seem no other hx of mood stabilizers. 01/02: DC Perphenazine Olanzapine 10 mg HS Increase Methadone to 120 mg 01/03 Increase Adderall to 20 mg 01/03. CBCD, CMP Await records from [facility] Reviewed labs: Hyperkalemic; possibly hemodialysis; EKG shows mildly increased height T-waves however consistent with patients most recent EKG; [place] interval < 200; reviewed with Cardiology who agreed hemolysis cause of elevated K lab value and no Peaked T waves on EKG H&H improved and remains stabilized Creatinine WNL HIV nonreactive Hep C reactive; will get follow-up labs Plan: Admit, CV, 15 minute checks Addiction Medicine Consult- pt on 100 mg Methadone daily, reports it should be 137 mg Chlorpromazine 50 mg HS and 25 mg prn Increase Methadone to 110 mg daily 01/01. No evidence of sedation today. started on Adderall XR 10 mg daily. Will reassess on 01/02 for increase DC Ativan Started on Klonopin 1 mg bid Started on Wellbutrin 75 mg to begin on 01/01 Reason for continued inpatient stay Substantial Risk for: rapid decompensation Time Spent With Patient Time: Total time managing care of this patient today ____ minutes.
[2024-01-03 12:04] LABS: Glucose, Whole Blood 99 mg/dL (60-115)
[2024-01-03] MEDS: Benzocaine 20 % Oral Gel 9 GM TUBE 1 APPL MUCOUS MEM (14:58)
[2024-01-03] MEDS: Perphenazine 4 MG TABLET PO (15:08)
[2024-01-03 17:18] LABS: Glucose, Whole Blood 113 mg/dL (60-115)
[2024-01-03 17:24] VITALS: BMI 21.6
[2024-01-03] MEDS: hydrOXYzine HCL 25 MG TABLET PO (19:06)
[2024-01-03 20:00] VITALS: BP 117/60; PULSE 74; TEMP 35.9; O2SAT 98
[2024-01-03 20:47] LABS: Glucose, Whole Blood 95 mg/dL (60-115)
[2024-01-03] MEDS: cloNIDine HCL 0.1 MG TABLET PO (20:49)
[2024-01-03] MEDS: traZODone HCL 100 MG TABLET PO (20:49)
[2024-01-03] MEDS: OLANZapine 10 MG TABLET PO (20:49)
[2024-01-04] MEDS: methADONE HCl 20 MG/2 ML ORAL.CONC 120 MG PO (07:43)
[2024-01-04 08:00] VITALS: BP 127/69; PULSE 84; RESP 16; TEMP 36.2; O2SAT 100
[2024-01-04 08:06] LABS: Glucose, Whole Blood 94 mg/dL (60-115)
[2024-01-04] MEDS: Sevelamer Carbonate Tablet 800 MG TABLET PO ×3 (08:47→17:39)
[2024-01-04] MEDS: buPROPion HCL 75 MG TABLET PO (08:47)
[2024-01-04] MEDS: levETIRAcetam 500 MG TABLET PO ×2 (08:47→20:34)
[2024-01-04] MEDS: clonazePAM 1 MG TABLET PO ×2 (08:47→20:34)
[2024-01-04] MEDS: Thiamine HCL 100 MG TABLET PO (08:48)
[2024-01-04] MEDS: Dextroamphetamine/Amphetamine XR 10 MG CAP.ER.24H 20 MG PO (08:48)
[2024-01-04] MEDS: Benzocaine 20 % Oral Gel 9 GM TUBE 1 APPL MUCOUS MEM ×2 (08:51→16:24)
[2024-01-04 08:54] LABS: MANUAL DIFF FLAG NO
[2024-01-04 08:58] LABS: Basophils Percent Auto 0.5 % (0-2); Eosinophils Absolute Auto 0.2 X10*3/uL (0.0-0.4); Hematocrit 31.4 % (37.0-47.0); Hemoglobin 9.7 g/dl (12.0-16.0); Imm Gran Abs Auto 0.41 X10*3/uL (0.00-0.03); Imm Gran Pct Auto 4.8 % (0.0-0.4); Lymphocytes Absolute Auto 3.6 X10*3/uL (1.2-4.9); Mean Corpuscular HGB Conc 30.9 g/dl (31.0-35.0); Mean Platelet Volume 9.2 fL (9.4-12.3); Monocytes Absolute Auto 0.6 X10*3/uL (0.1-1.2); Monocytes Percent Auto 7.3 % (2-11); Neutrophils Absolute Auto 3.6 x10*3/uL (2.0-8.3); Neutrophils Percent Auto 42.4 % (45-73); Platelet Count 339 X10*3/uL (160-400); Red Blood Count 3.34 X10*6/uL (4.20-5.50); Red Cell Distribution Width 14.9 % (11.0-16.0); White Blood Count 8.5 X10*3/uL (4.8-10.8)
[2024-01-04 09:27] LABS: Alanine Aminotransferase 25 U/L (0-31); Albumin Level 3.8 g/dL (3.5-5.0); Alkaline Phosphatase 84 U/L (39-117); Anion Gap 14 (12-20); Aspartate Amino Transferase 26 U/L (5-31); Bilirubin Total 0.2 mg/dL (0.0-1.0); Blood Urea Nitrogen 60 mg/dL (9-16); Calcium 9.8 mg/dL (8.4-10.2); Carbon Dioxide 23 mmol/L (22-29); Chloride 108 mmol/L (96-108); Creatinine Clr Calc Pharmacy 52.5; Estimated Glomerular Filt Rate 42; Glucose Random 116 mg/dL (60-115); Potassium 4.9 mmol/L (3.3-5.1); Sodium 140 mmol/L (135-145); Total Protein 8.6 g/dL (6.5-8.0)
[2024-01-04 12:25] LABS: Glucose, Whole Blood 120 mg/dL (60-115)
[2024-01-04] MEDS: Dextroamphetamine/Amphetamine XR 10 MG CAP.ER.24H PO (12:31)
--- NOTE | 2024-01-04 13:11 | HO.PSYCHPN ---
Subjective Subjective Date of Service: 01/04/24 Reason For Visit: depression/SI Subjective Notes: Conditional Voluntary Healthcare Proxy: No Guardianship: No Medical Problems Affecting Mental Status: No Interim History: Continues with lability of mood, reports feeling unwell, irritable, forgetful and medicine seeking. Overall, since admission, improved, however it is taking time. Methadone to 125 for 01/04 and will hold at that dose Adderall XR hold at 20 am. 10pm Tolerating Olanzapine Seen by hospitalist team x 2- ongoing BUN, Creatining elevations-encouraged to push fluids, repeat urine culture. Nephrology to consult, Constipation and will need OP lymph node biopsy post DC to rule out lymphoproliferative disorder. Discussed feeling very guilty about having friends bring in vaping materials. Concerned that we believe she is a criminal. Discussed and offered education and reassurance. Medication Compliance: Yes Side effects from medications: No Attending Groups: Intermittent Review of Systems as noted above Review of Systems: as noted above Review of Systems Review of Systems refer to HPI Mental Status Exam Mental Status Exam Patient Appearance: Appropriate Patient Orientation: Person, Place, Time and Situation Level of Consciousness: Alert Patient Behavior: Talkative, Anxious and Distractible Mood Description: Labile Affect Description: Labile Patient Cognition Impaired: No Ability to Follow Directions: Good Speech Pattern: Perseverating and Spontaneous Speech Hallucinations: None Delusions: Not Present Perceptual Disturbances: Depersonalization and Derealization Thought Process: Rumination Thought Content: positive for Circumstantial and positive for Perseveration Depressive Symptoms: Difficulty Concentrating Judgement: Fair Judgement and Insight: impaired Diagnostics Vital Signs (24Hr): Vital Signs - 24 hr 01/03/24 20:00 01/04/24 08:00 Temperature 96.6 F L 97.2 F Pulse Rate 74 84 Respiratory Rate 16 Blood Pressure 117/60 127/69 Pulse Oximetry 98 100 Oxygen Delivery Method Room Air Room Air BMI result Body Mass Index 21.6 Labs 01/04/24 08:44 01/05/24 09:44 Labs: Laboratory Results - last 48 hr 01/02/24 01/02/24 01/03/24 12:18 20:36 08:21 WBC RBC Hgb Hct MCV MCH MCHC RDW Plt Count MPV Immature Gran % (Auto) Neut % (Auto) Lymph % (Auto) [place] % (Auto) Eos % (Auto) Baso % (Auto) Lymph # (Auto) [place] # (Auto) Eos # (Auto) Baso # (Auto) Abs Immat Gran (auto) Absolute Neuts (auto) Absolute Nucleated RBC Nucleated RBC % (auto) Sodium Potassium Chloride Carbon Dioxide Anion Gap BUN Creatinine Estim Creat Clear Calc Estimated GFR POC Glucose 92 126 H 72 Random Glucose Calcium Total Bilirubin AST ALT Alkaline Phosphatase Total Protein Albumin 01/03/24 01/03/24 01/03/24 12:00 17:12 20:43 WBC RBC Hgb Hct MCV MCH MCHC RDW Plt Count MPV Immature Gran % (Auto) Neut % (Auto) Lymph % (Auto) [place] % (Auto) Eos % (Auto) Baso % (Auto) Lymph # (Auto) [place] # (Auto) Eos # (Auto) Baso # (Auto) Abs Immat Gran (auto) Absolute Neuts (auto) Absolute Nucleated RBC Nucleated RBC % (auto) Sodium Potassium Chloride Carbon Dioxide Anion Gap BUN Creatinine Estim Creat Clear Calc Estimated GFR POC Glucose 99 113 95 Random Glucose Calcium Total Bilirubin AST ALT Alkaline Phosphatase Total Protein Albumin 01/04/24 01/04/24 01/04/24 08:02 08:44 12:21 WBC 8.5 RBC 3.34 L Hgb 9.7 L Hct 31.4 L MCV 94.0 MCH 29.0 MCHC 30.9 L RDW 14.9 Plt Count 339 MPV 9.2 L Immature Gran % (Auto) 4.8 H Neut % (Auto) 42.4 L Lymph % (Auto) 43.0 H [place] % (Auto) 7.3 Eos % (Auto) 2.0 Baso % (Auto) 0.5 Lymph # (Auto) 3.6 [place] # (Auto) 0.6 Eos # (Auto) 0.2 Baso # (Auto) 0.0 Abs Immat Gran (auto) 0.41 H Absolute Neuts (auto) 3.6 Absolute Nucleated RBC 0.000 Nucleated RBC % (auto) 0.0 Sodium 140 Potassium 4.9 Chloride 108 Carbon Dioxide 23 Anion Gap 14 BUN 60 H Creatinine 1.41 H Estim Creat Clear Calc 52.5 Estimated GFR 42 POC Glucose 94 120 H Random Glucose 116 H Calcium 9.8 Total Bilirubin 0.2 AST 26 ALT 25 Alkaline Phosphatase 84 Total Protein 8.6 H Albumin 3.8 Medications Medications Current Medications Acetaminophen (Acetaminophen 325 Mg Tablet) 650 mg PO Q6H PRN PRN Reason: Headache/Pain Mild Scale (1-3) Last Admin: 01/03/24 19:06 Dose: 650 mg Al Hydroxide/Mg Hydroxide (Magnesium Hydrox/Alum Hydrox 30 Ml Oral.Susp) 30 ml PO Q6H PRN PRN Reason: Heartburn/Nausea Amphetamine/Dextroamphetamine (Dextroamphetamine/Amphetamine Xr 10 Mg Cap.Er.24h) 20 mg PO DAILY [facility] Last Admin: 01/04/24 08:48 Dose: 20 mg Amphetamine/Dextroamphetamine (Dextroamphetamine/Amphetamine Xr 10 Mg Cap.Er.24h) 10 mg PO 1300 [facility] Last Admin: 01/04/24 12:31 Dose: 10 mg Benzocaine (Throat Lozenge, Medicated Lozenge) 1 lozenge MUCOUS MEM Q2H PRN PRN Reason: Sore Throat Benzocaine (Benzocaine 20 % Oral Gel 9 Gm Tube) 1 appl MUCOUS MEM QID PRN; Protocol PRN Reason: dental pain Last Admin: 01/04/24 08:51 Dose: 1 appl Bupropion HCl (Bupropion Hcl 75 Mg Tablet) 75 mg PO DAILY [facility] Last Admin: 01/04/24 08:47 Dose: 75 mg Clonazepam (Clonazepam 1 Mg Tablet) 1 mg PO BID [facility] Last Admin: 01/04/24 08:47 Dose: 1 mg Clonidine HCl (Clonidine Hcl 0.1 Mg Tablet) 0.1 mg PO BEDTIME [facility]; Protocol Last Admin: 01/03/24 20:49 Dose: 0.1 mg Glucose (Glucose Gel 15 Gm Gel..Gram.) 15 gm PO Q15M PRN; Protocol PRN Reason: per Hypoglycemia Standing Ord. Hydroxyzine HCl (Hydroxyzine Hcl 25 Mg Tablet) 25 mg PO Q6H PRN PRN Reason: Anxiety Last Admin: 01/03/24 19:06 Dose: 25 mg Insulin Human Lispro (Insulin Lispro 100 Unit/Ml 3 Ml Vial) 0 unit SUBCUT QIDACHS [facility]; Protocol Last Admin: 01/04/24 12:33 Dose: Not Given Levetiracetam (Levetiracetam 500 Mg Tablet) 500 mg PO BID [facility] Last Admin: 01/04/24 08:47 Dose: 500 mg Magnesium Hydroxide (Milk Of Magnesia 30 Ml Oral.Susp) 30 ml PO DAILY PRN PRN Reason: Constipation Melatonin (Melatonin 3 Mg Tablet) 3 mg PO BEDTIME PRN PRN Reason: Insomnia Methadone HCl (Methadone Hcl 20 Mg/2 Ml Oral.Conc) 120 mg PO DAILY@0800 [facility] Last Admin: 01/04/24 07:43 Dose: 120 mg Nicotine (Nicotine 21 Mg Patch.Td24) 21 mg TRANSDERMA DAILY PRN PRN Reason: smoking cessation Nicotine Polacrilex (Nicotine Polacrilex 2 Mg Gum) 4 mg BUCCAL Q2H PRN PRN Reason: Nicotine Cravings Olanzapine (Olanzapine 10 Mg Tablet) 10 mg PO BEDTIME [facility] Last Admin: 01/03/24 20:49 Dose: 10 mg Polyethylene Glycol (Polyethylene Glycol 3350 17 Gm Powd.Pack) 17 gm PO DAILY [facility] Last Admin: 01/04/24 08:48 Dose: Not Given Senna (Sennosides 8.6 Mg Tablet) 8.6 mg PO DAILY [facility] Last Admin: 01/04/24 08:48 Dose: Not Given Sevelamer Carbonate (Sevelamer Carbonate Tablet 800 Mg Tablet) 800 mg PO TIDAC [facility] Last Admin: 01/04/24 12:31 Dose: 800 mg Thiamine HCl (Thiamine Hcl 100 Mg Tablet) 100 mg PO DAILY [facility] Last Admin: 01/04/24 08:48 Dose: 100 mg Trazodone HCl (Trazodone Hcl 100 Mg Tablet) 100 mg PO BEDTIME [facility] Last Admin: 01/03/24 20:49 Dose: 100 mg Allergies Allergies Allergy/AdvReac Type Severity Reaction Status Date / Time No Known Allergies Allergy Verified 12/26/23 21:52 [No Known Allergies*] Assessment & Plan Assessment & Plan (1) Bipolar disorder: Status: Acute Code(s): F31.9 - Bipolar disorder, unspecified (2) Opioid use disorder: Status: Acute Code(s): F11.90 - Opioid use, unspecified, uncomplicated (3) PTSD (post-traumatic stress disorder): Status: Acute Code(s): F43.10 - Post-traumatic stress disorder, unspecified (4) Cocaine use disorder: Status: Acute Code(s): F14.10 - Cocaine abuse, uncomplicated Plan HPI: 38 yo female, admitted from medicine, history of Opiate Use Disorder, Cocaine Use Disorder, Bipolar Disorder, depressed with SI, Pneumonia, Acute Kidney Injury, Seizure Disorder, ADHD, MSSA bacteremia, Endocarditis, Septic Pulmonary Embolism. Pt is labile and a poor historian. She reports relapse due to being unable to receive methadone prior to admission. 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 Reports recent admit to [facility] in coma due to endocarditis, sepsis. Told she may which has caused significant anxiety. 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 She relapsed on 12/25, left [facility] and continues treatment with [facility]. Pt reports my methadone should be 137, I need gabapentin 800 mg tid (unable to initiate as Creatinine is increased today). I am worried I could , I need to cut all of the unhealthy people out of my life . I have never been as sick as this . I hate taking meds . I cannot focus on doing an intake until you do all of this to correct the meds. Hospital course: On admission, Labile, with agitation, poor STM and medication focused. 12/31 Several meetings with pt. I cannot stand being sick, and until you get it right, we will be changing things . Reports she is at 137 mg baseline with Methadone and is only at 100 mg. Increased to 105 mg. -Reports Adderall she has taken for years and is not being offered this. 10mgXR initiated with some improvement in presentation. -Ativan changed to Klonopin -Wellbutrin to begin 01/01. -A difficult day for pt, however, with significant improvement since admit 12/29. I am glad you think so. 01/01 pt emotional, sometimes tearful, saying she feels overwhelmed. Pt is verbose and with mildly pressured speech. She talks about challenge of last 4 months which include dealing w/ mulitple serious illness treated at [facility], including endocarditis. She says she used to be sober, even for several years and wants methadone increased; also asks for Adderall to be increased. Scaffolder tried to assess for hx of Bipolar do, which she carries. Pt could not identify any discrete manic episodes and instead talked about mood lability that is situational triggered, flares daily and resolves on it's own within minutes to an hour. Pt has tried lithium in past, but did not tolerate it; seem no other hx of mood stabilizers. 01/02: DC Perphenazine Olanzapine 10 mg HS Increase Methadone to 120 mg 10/23 Increase Adderall to 20 mg 01/03. CBCD, CMP Await records from [facility] 01/03: Methadone 125 mg 01/04 and hold at this dose Adderall XR 20 mg a.m 10 mg noon and hold at this dose. Reviewed labs: Hyperkalemic; possibly hemodialysis; EKG shows mildly increased height T-waves however consistent with patients most recent EKG; [place] interval < 200; reviewed with Cardiology who agreed hemolysis cause of elevated K lab value and no Peaked T waves on EKG H&H improved and remains stabilized Creatinine WNL HIV nonreactive Hep C reactive; will get follow-up labs Plan: Admit, CV, 15 minute checks Addiction Medicine Consult- pt on 100 mg Methadone daily, reports it should be 137 mg Chlorpromazine 50 mg HS and 25 mg prn Increase Methadone to 110 mg daily 01/01. No evidence of sedation today. started on Adderall XR 10 mg daily. Will reassess on 01/02 for increase DC Ativan Started on Klonopin 1 mg bid Started on Wellbutrin 75 mg to begin on 01/01 Reason for continued inpatient stay Substantial Risk for: rapid decompensation and med/psych decompensation Time Spent With Patient Time: Total time managing care of this patient today ____ minutes.
[2024-01-04] MEDS: Acetaminophen 325 MG TABLET 650 MG PO (13:35)
--- NOTE | 2024-01-04 13:58 | PM.EVENT ---
Event Note Date of Service: 01/04/24 Event Note: Pt with elevated Cr, present throughout hospital stay and now minimally elevated on psych floor. Consult for persistent elevated creatinine and BUN. Creatinine was 2.01 on 12/26, decreasing afterwards down to 1.55. Mild increase on 12/30 to 1.68, back down to normal range of 1.37 on 01/01. Today creatinine is 1.41. Suggested for patient to push PO fluids. there was question of UTI in ED on 12/26, cx was neagtive. will repeat UA/cx to assure. Consider nephrology consult if creatinine continues to rise Time Spent With Patient Time: Total time managing care of this patient today 10 minutes.
[2024-01-04 14:41] LABS: Appearance Urine Clear; Color Urine Yellow; Glucose Urine UA Negative (Negative); Leukocyte Esterase Urine Negative (Negative); Nitrite Urine Negative (Negative); Specific Gravity - Urine 1.015 (1.005-1.025); UMIC TRIGGER UACC YES; Urine Blood Large (3+) (Negative); Urine Ketones Negative (Negative); Urine Protein 100 (2+) mg/dL (Neg-Trace)
[2024-01-04 14:48] LABS: Bacteria Urine None Seen (None Seen); Hyaline Casts Urine 0-2 /LPF (0-2); RBC Urine >20 /HPF (0-2); Squamous Epithelial Cell Urine 0-2 /HPF (0-2); WBC Urine 0-5 /HPF (0-5)
[2024-01-04 17:40] LABS: Glucose, Whole Blood 82 mg/dL (60-115)
--- NOTE | 2024-01-04 18:42 | PC.NURSE ---
Hospitalist consult ordered today for elevated BUN and creatinine. Pt c/o severe abdominal discomfort. Pt's abdomen is round, firm, and distended. Dr. Card - Hospitalist made aware.
--- NOTE | 2024-01-04 19:43 | P.EN_ITS ---
Event Note Date of Service: 01/04/24 Event Note: Patient is a 38-year-old female with a PMH significant for endocarditis, IVDU, CKD 3, hepatitis-C, PTSD, ADHD, and bipolar disorder who is admitted to Psychiatric unit with hospitalist consult for abdominal pain and distention. Patient reports noticed abdominal distention 3 days ago and developed diffuse abdominal pain earlier today. Some nausea but no vomiting. One episode of loose stool 3 days ago, otherwise has been having normal bowel movements with l ast one 3 hours ago. Reports has been eating and drinking normally. Has been voiding normally. Patient reports has a history of hepatitis-C that was treated 2 years ago. Also reports previous umbilical hernia that was surgically repaired. Pt notes has had significant hx of worsening kidney function, including having her kidneys shut down during recent stays at [facility] [place] and at [facility]. Nursing also report question of increased confusion and agitation, the patient appears AO x4 and not clearly encephalopathic. Abdomen is soft but mildly distended and diffusely tender, e specially in periumbilical region and RUQ. Incidental notice of diastasis recti. Will get dry CT of abd/pelvis to r/o acute process Will repeat BMP in the morning to evaluate kidney function and suggest nephrology consult if creatinine is worsening Time Spent With Patient Time: Total time managing care of this patient today ____ minutes.
[2024-01-04 20:00] VITALS: BP 130/77; PULSE 89; RESP 16; TEMP 36.6; O2SAT 99
[2024-01-04] MEDS: cloNIDine HCL 0.1 MG TABLET PO (20:34)
[2024-01-04] MEDS: traZODone HCL 100 MG TABLET PO (20:34)
[2024-01-04] MEDS: OLANZapine 10 MG TABLET PO (20:35)
[2024-01-04 20:45] LABS: Glucose, Whole Blood 103 mg/dL (60-115)
[2024-01-05 07:00] VITALS: BMI 21.3
[2024-01-05 07:40] LABS: Glucose, Whole Blood 116 mg/dL (60-115)
[2024-01-05] MEDS: methADONE HCl 20 MG/2 ML ORAL.CONC 125 MG PO (07:43)
[2024-01-05 08:00] VITALS: BP 113/57; PULSE 82; RESP 18; TEMP 36.7; O2SAT 98
[2024-01-05] MEDS: Dextroamphetamine/Amphetamine XR 10 MG CAP.ER.24H 20 MG PO (08:29)
[2024-01-05] MEDS: Thiamine HCL 100 MG TABLET PO (08:29)
[2024-01-05] MEDS: buPROPion HCL 75 MG TABLET PO (08:29)
[2024-01-05] MEDS: Sennosides 8.6 MG TABLET PO (08:29)
[2024-01-05] MEDS: clonazePAM 1 MG TABLET PO ×2 (08:29→20:16)
[2024-01-05] MEDS: Sevelamer Carbonate Tablet 800 MG TABLET PO ×3 (08:29→16:20)
[2024-01-05] MEDS: levETIRAcetam 500 MG TABLET PO ×2 (08:29→20:17)
[2024-01-05 10:09] LABS: Anion Gap 12 (12-20); Blood Urea Nitrogen 54 mg/dL (9-16); Calcium 9.5 mg/dL (8.4-10.2); Carbon Dioxide 26 mmol/L (22-29); Chloride 106 mmol/L (96-108); Creatinine Clr Calc Pharmacy 47.9; Estimated Glomerular Filt Rate 37; Glucose Random 121 mg/dL (60-115); Potassium 4.8 mmol/L (3.3-5.1); Sodium 139 mmol/L (135-145)
[2024-01-05 11:22] LABS: Ammonia 48 umol/L (13-55)
[2024-01-05] MEDS: Lactulose 20 GM/30 ML SOLUTION 30 GM PO (12:17)
[2024-01-05 12:27] LABS: Glucose, Whole Blood 127 mg/dL (60-115)
--- NOTE | 2024-01-05 12:28 | P.CONNP_ITS ---
History of Present Illness Reason for Consult Consult date: 01/05/24 Chief Complaint Chief complaint: depression/SI History of Present Illness Narrative: Pt is a 38 y/o female with a medical history of IVDU, CKD3, Hep C (viral load low in 2019), septic pulmonary emboli, endocarditis, MSSA bacteremia, PTSD, ADHD, bipolar disorder, seizures, pt reports also recent diagnosis of diabetes. She [place] [facility] [place] for [place], CHELITA and SI. Nephrology consulted for CHELITA Urine tox from 2020, May 2023 and Dec 2023 all positive for cocaine and fentanyl 01/04/24 CT abd/pelvis shows enlarged bilateral inguinal and external iliac lymph nodes (not present on 12/27/23 CT), as well as hepatoplenomegaly. She has a slightly edematous right kidney with fullness in collecting system (no hydro), present/unchanged from 12/27/23 CT. she has a chronic, normocytic anemia since May 2023 (no other blood work done prior in system); platelets normal Urine: dip shows moderate protein (persistent from 12/26, mild protein in May 2023) large amount of blood on dip, microscopy shows >20RBCs present, otherwise bland clean catch from 12/27/23 no growth Creatinine: 05/18/23 0.69 12/26/23 1.64 12/27/23 2.01 12/28/23 1.56 12/31/23 1.68 01/01/24 1.62 01/02/24 1.37 01/04/24 1.41 01/05/24 1.55 pt states she does not see a kidney doctor outside of the hospital patient denies chest pain, shortness of breath she denies rash, though points to many scars on her extremities she reports voiding urine comfortably/regularly reports abdominal pain bilaterally, lower abdomen Denies other complaints/concerns Review of Systems Constitutional: Reports fatigue and Denies headache(s) Denies dizziness and Denies headache(s) Cardiovascular: Denies chest pain, Denies lightheadedness and Denies dyspnea Respiratory: Denies cough and Denies dyspnea Gastrointestinal: Reports abdominal pain, Reports bloating and Reports constipation Genitourinary: Denies hematuria, Denies difficulty voiding, Denies dysuria and Denies flank pain Musculoskeletal: Denies back pain Skin/Breast: Denies rash Denies dizziness and Denies headache(s) Endocrine: Reports fatigue PMFSH Past Medical History Medical History (Updated 01/05/24 @ 12:47 by Ethel Carrillo, CRISTINA, JACQUARD LOOM HEDDLES TIER-BC) PTSD (post-traumatic stress disorder) Bipolar disorder Cocaine use disorder Septic pulmonary embolism MSSA bacteremia Seizure disorder ADHD Bipolar 1 disorder Depression Depression Social History Social History Household Members: None Housing: Homeless Do you presently have visiting nurse or other home services: No Comment: 1:1 sitter Patient Tobacco Use Status: Current everyday Tobacco user Smoked in Last 30 Days: No e-Cigarette/Vaping Use: Currently Using Frequency of e-Cigarette/Vaping Use: Pt reports daily vape use. Patient Interested in Nicotine Replacement: No Patient Given Instructions on How to Stop Smoking: No Use of substances other than those prescribed or required for medical reasons: Yes Substance Use Type: Crack/Cocaine, Heroin and Opiates Substance Use Type Other:: Methadone Substance Use Frequency: Chronic Longstanding Last Used Substance: Just Prior to Admission Currently Displaying Signs/Symptoms of Drug Intoxication Withdrawal: No Spiritual Healthcare Practices: Pt declined to discuss Advance Directives: No (Pt reported HCP) Advance Directives Information Provided: No (Pt reported father En Joyner and Aunt Cassia Joyner joint HCPs) Do you have thoughts of harming others: None Do you have a plan to hurt others: No Plan Recently lost weight without trying: Yes How much weight loss: Unsure Nutrition Risks: No Nutritional Risk : No service: No Sexual orientation: Straight/Heterosexual Meds Allergies Allergy/AdvReac Type Severity Reaction Status Date / Time No Known Allergies Allergy Verified 12/26/23 21:52 [No Known Allergies*] Active Medications: Current Medications Acetaminophen (Acetaminophen 325 Mg Tablet) 650 mg PO Q6H PRN PRN Reason: Headache/Pain Mild Scale (1-3) Last Admin: 01/04/24 13:35 Dose: 650 mg Al Hydroxide/Mg Hydroxide (Magnesium Hydrox/Alum Hydrox 30 Ml Oral.Susp) 30 ml PO Q6H PRN PRN Reason: Heartburn/Nausea Amphetamine/Dextroamphetamine (Dextroamphetamine/Amphetamine Xr 10 Mg Cap.Er.24h) 20 mg PO DAILY NAGA Last Admin: 01/05/24 08:29 Dose: 20 mg Amphetamine/Dextroamphetamine (Dextroamphetamine/Amphetamine Xr 10 Mg Cap.Er.24h) 10 mg PO 1300 [facility] Last Admin: 01/04/24 12:31 Dose: 10 mg Benzocaine (Throat Lozenge, Medicated Lozenge) 1 lozenge MUCOUS MEM Q2H PRN PRN Reason: Sore Throat Benzocaine (Benzocaine 20 % Oral Gel 9 Gm Tube) 1 appl MUCOUS MEM QID PRN; Protocol PRN Reason: dental pain Last Admin: 01/04/24 16:24 Dose: 1 appl Bupropion HCl (Bupropion Hcl 75 Mg Tablet) 75 mg PO DAILY [facility] Last Admin: 01/05/24 08:29 Dose: 75 mg Clonazepam (Clonazepam 1 Mg Tablet) 1 mg PO BID [facility] Last Admin: 01/05/24 08:29 Dose: 1 mg Clonidine HCl (Clonidine Hcl 0.1 Mg Tablet) 0.1 mg PO BEDTIME [facility]; Protocol Last Admin: 01/04/24 20:34 Dose: 0.1 mg Glucose (Glucose Gel 15 Gm Gel..Gram.) 15 gm PO Q15M PRN; Protocol PRN Reason: per Hypoglycemia Standing Ord. Hydroxyzine HCl (Hydroxyzine Hcl 25 Mg Tablet) 25 mg PO Q6H PRN PRN Reason: Anxiety Last Admin: 01/03/24 19:06 Dose: 25 mg Insulin Human Lispro (Insulin Lispro 100 Unit/Ml 3 Ml Vial) 0 unit SUBCUT QIDACHS [facility]; Protocol Last Admin: 01/05/24 12:26 Dose: Not Given Levetiracetam (Levetiracetam 500 Mg Tablet) 500 mg PO BID [facility] Last Admin: 01/05/24 08:29 Dose: 500 mg Magnesium Hydroxide (Milk Of Magnesia 30 Ml Oral.Susp) 30 ml PO DAILY PRN PRN Reason: Constipation Melatonin (Melatonin 3 Mg Tablet) 3 mg PO BEDTIME PRN PRN Reason: Insomnia Methadone HCl (Methadone Hcl 20 Mg/2 Ml Oral.Conc) 125 mg PO DAILY@0800 [facility] Last Admin: 01/05/24 07:43 Dose: 125 mg Nicotine (Nicotine 21 Mg Patch.Td24) 21 mg TRANSDERMA DAILY PRN PRN Reason: smoking cessation Nicotine Polacrilex (Nicotine Polacrilex 2 Mg Gum) 4 mg BUCCAL Q2H PRN PRN Reason: Nicotine Cravings Olanzapine (Olanzapine 10 Mg Tablet) 10 mg PO BEDTIME [facility] Last Admin: 01/04/24 20:35 Dose: 10 mg Polyethylene Glycol (Polyethylene Glycol 3350 17 Gm Powd.Pack) 17 gm PO DAILY [facility] Last Admin: 01/05/24 08:29 Dose: Not Given Senna (Sennosides 8.6 Mg Tablet) 8.6 mg PO DAILY [facility] Last Admin: 01/05/24 08:29 Dose: 8.6 mg Sevelamer Carbonate (Sevelamer Carbonate Tablet 800 Mg Tablet) 800 mg PO TIDAC [facility] Last Admin: 01/05/24 12:17 Dose: 800 mg Thiamine HCl (Thiamine Hcl 100 Mg Tablet) 100 mg PO DAILY [facility] Last Admin: 01/05/24 08:29 Dose: 100 mg Trazodone HCl (Trazodone Hcl 100 Mg Tablet) 100 mg PO BEDTIME [facility] Last Admin: 01/04/24 20:34 Dose: 100 mg Home Medications ?Medication ?Instructions ?Recorded ?Confirmed ?Last Taken ?Type methadone 10 mg/mL oral concentrate 100 mg PO DAILY 07/14/21 12/30/23 12/30/23 History insulin lispro 100 unit/mL 1 sliding scale dose subcut 12/27/23 12/30/23 Unknown History subcutaneous solution USEASDIRECTD polyethylene glycol 3350 17 gram 17 g PO DAILY 12/27/23 12/30/23 12/30/23 History oral powder packet sennosides 8.6 mg tablet (senna) 8.6 mg PO DAILY 12/27/23 12/30/23 12/30/23 History sevelamer carbonate 800 mg tablet 800 mg PO TIDAC 12/27/23 12/30/23 12/30/23 History thiamine HCl (vitamin B1) 100 mg 100 mg PO DAILY 12/27/23 12/30/23 Unknown History tablet Physical Exam Vital Signs: Last Vital Signs Temp 98.1 F 01/05/24 08:00 Pulse 82 01/05/24 08:00 Resp 18 01/05/24 08:00 BP 113/57 L 01/05/24 08:00 Pulse Ox 98 01/05/24 08:00 O2 Del Method Room Air 01/05/24 08:00 BMI result Body Mass Index 21.3 Const General: alert and awake Orientation/consciousness: oriented to person and oriented to place Neck Neck: Yes no JVD Resp Effort & Inspection: able to speak in complete sentences Auscultation: clear to auscultation bilaterally Cardio Jugular venous distension: no JVD Rate: regular rate Rhythm: regular rhythm Heart sounds: S1 normal heart sound present and S2 normal heart sound present GI Inspection: Yes distended Palpation (GI): Tenderness to palpation present (GI) and Ascites present General: Yes no CVA tenderness Back/Spine/Pelvis Back: no CVA tenderness Skin General skin exam: no petechiae and no purpura Rashes: no rashes Neuro General: oriented to person and oriented to place Extrem General: No edema Results Lab Results 01/04/24 08:44 01/05/24 09:44 Lab results: Chemistry 01/04/24 01/05/24 08:44 09:44 Sodium 140 139 Potassium 4.9 4.8 Carbon Dioxide 23 26 BUN 60 H 54 H Creatinine 1.41 H 1.55 H Calcium 9.8 9.5 Hematology 01/04/24 08:44 WBC 8.5 Hgb 9.7 L Plt Count 339 Urinalysis 01/04/24 14:20 Urine Color Yellow Urine Appearance Clear Urine pH 5.0 Ur Specific [place] 1.015 Urine Protein 100 (2+) H Urine Glucose (UA) Negative Urine Ketones Negative Urine Blood Large (3+) H Urine Nitrite Negative Ur Leukocyte Esterase Negative Urine RBC >20 H Urine WBC 0-5 Ur Squamous Epith Cells 0-2 Hyaline Casts 0-2 Assessment and Plan (1) CHELITA (acute kidney injury): Status: Acute (2) Cocaine use disorder: Status: Acute (3) IVDU (intravenous drug user): Status: Acute (4) Proteinuria: Qualifiers: Proteinuria type: persistent Qualified Code(s): R80.1 - Persistent proteinuria, unspecified Status: Acute (5) Hematuria: Qualifiers: Hematuria type: other microscopic Qualified Code(s): R31.29 - Other microscopic hematuria Status: Acute Plan CHELITA with persistent hematuria, proteinuria in setting of IVDU 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
[2024-01-05] MEDS: Dextroamphetamine/Amphetamine XR 10 MG CAP.ER.24H PO (13:06)
[2024-01-05] MEDS: Acetaminophen 325 MG TABLET 650 MG PO (13:07)
[2024-01-05 13:27] LABS: Lactate Dehydrogenase 226 U/L (122-220)
[2024-01-05 14:33] LABS: EOS QC POS YES; EOS Stain Quality OK YES; WBC, Counted 100 CELLS
[2024-01-05 14:34] LABS: EOS Counted 2 CELLS
[2024-01-05 14:47] LABS: Total Protein Urine Random 52 mg/dL (<12)
[2024-01-05] MEDS: Milk of Magnesia 30 ML ORAL.SUSP PO (16:20)
[2024-01-05 17:29] LABS: Glucose, Whole Blood 106 mg/dL (60-115)
--- NOTE | 2024-01-05 18:23 | HO.PSYCHPN ---
Subjective Subjective Date of Service: 01/05/24 Reason For Visit: depression/SI Subjective Notes: Conditional Voluntary Healthcare Proxy: No Guardianship: No Medical Problems Affecting Mental Status: Yes Interim History: Reports back and flank pain, insomnia. Seen by nephrology-pt with CHELITA, hematuria, proteinuria, they suggest daily renal panel, BP, I&O and possible renal biopsy post DC. Ammonia 48. Pt somewhat sedate today. Will hold Methadone titration. Poor STM, anxious, reports depressive sx. Continues with mood improvement since admission. Medication Compliance: Yes Side effects from medications: No Attending Groups: Intermittent Review of Systems Acute medical concerns: No Medical Review of Systems: unchanged Review of Systems Review of Systems as noted in HPI Mental Status Exam Mental Status Exam Patient Appearance: Appropriate Patient Orientation: Person, Place, Time and Situation Level of Consciousness: Alert Patient Behavior: Talkative, Anxious and Distractible Mood Description: Labile Affect Description: Labile Patient Cognition Impaired: No Ability to Follow Directions: Good Speech Pattern: Perseverating and Spontaneous Speech Hallucinations: None Delusions: Not Present Perceptual Disturbances: Depersonalization and Derealization Thought Process: Rumination Thought Content: positive for Circumstantial and positive for Perseveration Depressive Symptoms: Difficulty Concentrating Judgement: Fair Judgement and Insight: impaired Diagnostics Vital Signs (24Hr): Vital Signs - 24 hr 01/04/24 20:00 01/05/24 08:00 Temperature 97.8 F 98.1 F Pulse Rate 89 82 Respiratory Rate 16 18 Blood Pressure 130/77 113/57 L Pulse Oximetry 99 98 Oxygen Delivery Method Room Air Room Air BMI result Body Mass Index 21.3 Labs 01/04/24 08:44 01/05/24 09:44 Labs: Laboratory Results - last 48 hr 01/03/24 01/04/24 01/04/24 20:43 08:02 08:44 WBC 8.5 RBC 3.34 L Hgb 9.7 L Hct 31.4 L MCV 94.0 MCH 29.0 MCHC 30.9 L RDW 14.9 Plt Count 339 MPV 9.2 L Immature Gran % (Auto) 4.8 H Neut % (Auto) 42.4 L Lymph % (Auto) 43.0 H Kendall % (Auto) 7.3 Eos % (Auto) 2.0 Baso % (Auto) 0.5 Lymph # (Auto) 3.6 Kendall # (Auto) 0.6 Eos # (Auto) 0.2 Baso # (Auto) 0.0 Abs Immat Gran (auto) 0.41 H Absolute Neuts (auto) 3.6 Absolute Nucleated RBC 0.000 Nucleated RBC % (auto) 0.0 Sodium 140 Potassium 4.9 Chloride 108 Carbon Dioxide 23 Anion Gap 14 BUN 60 H Creatinine 1.41 H Estim Creat Clear Calc 52.5 Estimated GFR 42 POC Glucose 95 94 Random Glucose 116 H Calcium 9.8 Total Bilirubin 0.2 AST 26 ALT 25 Alkaline Phosphatase 84 Ammonia Lactate Dehydrogenase Total Protein 8.6 H Albumin 3.8 Urine Color Urine Appearance Urine pH Ur Specific [place] Urine Protein Urine Glucose (UA) Urine Ketones Urine Blood Urine Nitrite Ur Leukocyte Esterase Urine RBC Urine WBC Ur Squamous Epith Cells Urine Bacteria Hyaline Casts Urine Eosinophils % U Random Total Protein Urine Creatinine 01/04/24 01/04/24 01/04/24 12:21 14:20 17:36 WBC RBC Hgb Hct MCV MCH MCHC RDW Plt Count MPV Immature Gran % (Auto) Neut % (Auto) Lymph % (Auto) Kendall % (Auto) Eos % (Auto) Baso % (Auto) Lymph # (Auto) Kendall # (Auto) Eos # (Auto) Baso # (Auto) Abs Immat Gran (auto) Absolute Neuts (auto) Absolute Nucleated RBC Nucleated RBC % (auto) Sodium Potassium Chloride Carbon Dioxide Anion Gap BUN Creatinine Estim Creat Clear Calc Estimated GFR POC Glucose 120 H 82 Random Glucose Calcium Total Bilirubin AST ALT Alkaline Phosphatase Ammonia Lactate Dehydrogenase Total Protein Albumin Urine Color Yellow Urine Appearance Clear Urine pH 5.0 Ur Specific [place] 1.015 Urine Protein 100 (2+) H Urine Glucose (UA) Negative Urine Ketones Negative Urine Blood Large (3+) H Urine Nitrite Negative Ur Leukocyte Esterase Negative Urine RBC >20 H Urine WBC 0-5 Ur Squamous Epith Cells 0-2 Urine Bacteria None Seen Hyaline Casts 0-2 Urine Eosinophils % U Random Total Protein Urine Creatinine 01/04/24 01/05/24 01/05/24 20:39 07:36 09:44 WBC RBC Hgb Hct MCV MCH MCHC RDW Plt Count MPV Immature Gran % (Auto) Neut % (Auto) Lymph % (Auto) Kendall % (Auto) Eos % (Auto) Baso % (Auto) Lymph # (Auto) Kendall # (Auto) Eos # (Auto) Baso # (Auto) Abs Immat Gran (auto) Absolute Neuts (auto) Absolute Nucleated RBC Nucleated RBC % (auto) Sodium 139 Potassium 4.8 Chloride 106 Carbon Dioxide 26 Anion Gap 12 BUN 54 H Creatinine 1.55 H Estim Creat Clear Calc 47.9 Estimated GFR 37 POC Glucose 103 116 H Random Glucose 121 H Calcium 9.5 Total Bilirubin AST ALT Alkaline Phosphatase Ammonia Lactate Dehydrogenase 226 H Total Protein Albumin Urine Color Urine Appearance Urine pH Ur Specific [place] Urine Protein Urine Glucose (UA) Urine Ketones Urine Blood Urine Nitrite Ur Leukocyte Esterase Urine RBC Urine WBC Ur Squamous Epith Cells Urine Bacteria Hyaline Casts Urine Eosinophils % U Random Total Protein Urine Creatinine 01/05/24 01/05/24 01/05/24 11:03 12:23 13:24 WBC RBC Hgb Hct MCV MCH MCHC RDW Plt Count MPV Immature Gran % (Auto) Neut % (Auto) Lymph % (Auto) Kendall % (Auto) Eos % (Auto) Baso % (Auto) Lymph # (Auto) Kendall # (Auto) Eos # (Auto) Baso # (Auto) Abs Immat Gran (auto) Absolute Neuts (auto) Absolute Nucleated RBC Nucleated RBC % (auto) Sodium Potassium Chloride Carbon Dioxide Anion Gap BUN Creatinine Estim Creat Clear Calc Estimated GFR POC Glucose 127 H Random Glucose Calcium Total Bilirubin AST ALT Alkaline Phosphatase Ammonia 48 Lactate Dehydrogenase Total Protein Albumin Urine Color Urine Appearance Urine pH Ur Specific [place] Urine Protein Urine Glucose (UA) Urine Ketones Urine Blood Urine Nitrite Ur Leukocyte Esterase Urine RBC Urine WBC Ur Squamous Epith Cells Urine Bacteria Hyaline Casts Urine Eosinophils % 2.0 U Random Total Protein 52 H Urine Creatinine 52.60 01/05/24 17:25 WBC RBC Hgb Hct MCV MCH MCHC RDW Plt Count MPV Immature Gran % (Auto) Neut % (Auto) Lymph % (Auto) Kendall % (Auto) Eos % (Auto) Baso % (Auto) Lymph # (Auto) Kendall # (Auto) Eos # (Auto) Baso # (Auto) Abs Immat Gran (auto) Absolute Neuts (auto) Absolute Nucleated RBC Nucleated RBC % (auto) Sodium Potassium Chloride Carbon Dioxide Anion Gap BUN Creatinine Estim Creat Clear Calc Estimated GFR POC Glucose 106 Random Glucose Calcium Total Bilirubin AST ALT Alkaline Phosphatase Ammonia Lactate Dehydrogenase Total Protein Albumin Urine Color Urine Appearance Urine pH Ur Specific [place] Urine Protein Urine Glucose (UA) Urine Ketones Urine Blood Urine Nitrite Ur Leukocyte Esterase Urine RBC Urine WBC Ur Squamous Epith Cells Urine Bacteria Hyaline Casts Urine Eosinophils % U Random Total Protein Urine Creatinine Imaging Radiology Impressions: ITS Impressions Abdomen/Pelvis CT 01/04/24 20:30 IMPRESSION: Enlarged bilateral inguinal and external iliac lymph nodes. Hepatosplenomegaly. No change and slightly edematous right kidney with fullness of the collecting system. Severe constipation. Gastric distention. Small left pleural effusion and dependent atelectasis. The possibility of a lymphoproliferative disorder should be considered. Electronically signed by: Denilson Drake MD 01/05/2024 11:10 AM EDT RP Medications Medications Current Medications Acetaminophen (Acetaminophen 325 Mg Tablet) 650 mg PO Q6H PRN PRN Reason: Headache/Pain Mild Scale (1-3) Last Admin: 01/05/24 13:07 Dose: 650 mg Al Hydroxide/Mg Hydroxide (Magnesium Hydrox/Alum Hydrox 30 Ml Oral.Susp) 30 ml PO Q6H PRN PRN Reason: Heartburn/Nausea Amphetamine/Dextroamphetamine (Dextroamphetamine/Amphetamine Xr 10 Mg Cap.Er.24h) 20 mg PO DAILY [facility] Last Admin: 01/05/24 08:29 Dose: 20 mg Amphetamine/Dextroamphetamine (Dextroamphetamine/Amphetamine Xr 10 Mg Cap.Er.24h) 10 mg PO 1300 [facility] Last Admin: 01/05/24 13:06 Dose: 10 mg Benzocaine (Throat Lozenge, Medicated Lozenge) 1 lozenge MUCOUS MEM Q2H PRN PRN Reason: Sore Throat Benzocaine (Benzocaine 20 % Oral Gel 9 Gm Tube) 1 appl MUCOUS MEM QID PRN; Protocol PRN Reason: dental pain Last Admin: 01/04/24 16:24 Dose: 1 appl Bupropion HCl (Bupropion Hcl 75 Mg Tablet) 75 mg PO DAILY [facility] Last Admin: 01/05/24 08:29 Dose: 75 mg Clonazepam (Clonazepam 1 Mg Tablet) 1 mg PO BID [facility] Last Admin: 01/05/24 08:29 Dose: 1 mg Clonidine HCl (Clonidine Hcl 0.1 Mg Tablet) 0.1 mg PO BEDTIME [facility]; Protocol Last Admin: 01/04/24 20:34 Dose: 0.1 mg Glucose (Glucose Gel 15 Gm Gel..Gram.) 15 gm PO Q15M PRN; Protocol PRN Reason: per Hypoglycemia Standing Ord. Hydroxyzine HCl (Hydroxyzine Hcl 25 Mg Tablet) 25 mg PO Q6H PRN PRN Reason: Anxiety Last Admin: 01/03/24 19:06 Dose: 25 mg Insulin Human Lispro (Insulin Lispro 100 Unit/Ml 3 Ml Vial) 0 unit SUBCUT QIDACHS [facility]; Protocol Last Admin: 01/05/24 17:28 Dose: Not Given Levetiracetam (Levetiracetam 500 Mg Tablet) 500 mg PO BID [facility] Last Admin: 01/05/24 08:29 Dose: 500 mg Magnesium Hydroxide (Milk Of Magnesia 30 Ml Oral.Susp) 30 ml PO DAILY PRN PRN Reason: Constipation Last Admin: 01/05/24 16:20 Dose: 30 ml Melatonin (Melatonin 3 Mg Tablet) 3 mg PO BEDTIME PRN PRN Reason: Insomnia Methadone HCl (Methadone Hcl 20 Mg/2 Ml Oral.Conc) 125 mg PO DAILY@0800 [facility] Last Admin: 01/05/24 07:43 Dose: 125 mg Nicotine (Nicotine 21 Mg Patch.Td24) 21 mg TRANSDERMA DAILY PRN PRN Reason: smoking cessation Nicotine Polacrilex (Nicotine Polacrilex 2 Mg Gum) 4 mg BUCCAL Q2H PRN PRN Reason: Nicotine Cravings Olanzapine (Olanzapine 10 Mg Tablet) 10 mg PO BEDTIME [facility] Last Admin: 01/04/24 20:35 Dose: 10 mg Polyethylene Glycol (Polyethylene Glycol 3350 17 Gm Powd.Pack) 17 gm PO DAILY [facility] Last Admin: 01/05/24 08:29 Dose: Not Given Senna (Sennosides 8.6 Mg Tablet) 8.6 mg PO DAILY [facility] Last Admin: 01/05/24 08:29 Dose: 8.6 mg Sevelamer Carbonate (Sevelamer Carbonate Tablet 800 Mg Tablet) 800 mg PO TIDAC [facility] Last Admin: 01/05/24 16:20 Dose: 800 mg Thiamine HCl (Thiamine Hcl 100 Mg Tablet) 100 mg PO DAILY [facility] Last Admin: 01/05/24 08:29 Dose: 100 mg Trazodone HCl (Trazodone Hcl 100 Mg Tablet) 100 mg PO BEDTIME [facility] Last Admin: 01/04/24 20:34 Dose: 100 mg Allergies Allergies Allergy/AdvReac Type Severity Reaction Status Date / Time No Known Allergies Allergy Verified 12/26/23 21:52 [No Known Allergies*] Assessment & Plan Assessment & Plan (1) Bipolar disorder: Status: Acute Code(s): F31.9 - Bipolar disorder, unspecified (2) Opioid use disorder: Status: Acute Code(s): F11.90 - Opioid use, unspecified, uncomplicated (3) PTSD (post-traumatic stress disorder): Status: Acute Code(s): F43.10 - Post-traumatic stress disorder, unspecified (4) Cocaine use disorder: Status: Acute Code(s): F14.10 - Cocaine abuse, uncomplicated Plan HPI: 38 yo female, admitted from medicine, history of Opiate Use Disorder, Cocaine Use Disorder, Bipolar Disorder, depressed with SI, Pneumonia, Acute Kidney Injury, Seizure Disorder, ADHD, MSSA bacteremia, Endocarditis, Septic Pulmonary Embolism. Pt is labile and a poor historian. She reports relapse due to being unable to receive methadone prior to admission. Reports being clean for 4 months [employer]. Reports recent admit to [facility] in coma due to endocarditis, sepsis. Told she may which has caused significant anxiety. 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 She relapsed on 12/25, left [facility] and continues treatment with [facility]. Pt reports my methadone should be 137, I need gabapentin 800 mg tid (unable to initiate as Creatinine is increased today). I am worried I could , I need to cut all of the unhealthy people out of my life . I have never been as sick as this . I hate taking meds . I cannot focus on doing an intake until you do all of this to correct the meds. Hospital course: On admission, Labile, with agitation, poor STM and medication focused. 12/31 Several meetings with pt. I cannot stand being sick, and until you get it right, we will be changing things . Reports she is at 137 mg baseline with Methadone and is only at 100 mg. Increased to 105 mg. -Reports Adderall she has taken for years and is not being offered this. 10mgXR initiated with some improvement in presentation. -Ativan changed to Klonopin -Wellbutrin to begin 01/01. -A difficult day for pt, however, with significant improvement since admit 12/29. I am glad you think so. 01/01 pt emotional, sometimes tearful, saying she feels overwhelmed. Pt is verbose and with mildly pressured speech. She talks about challenge of last 4 months which include dealing w/ mulitple serious illness treated at [facility], including endocarditis. She says she used to be sober, even for several years and wants methadone increased; also asks for Adderall to be increased. Gambling Monitor tried to assess for hx of Bipolar do, which she carries. Pt could not identify any discrete manic episodes and instead talked about mood lability that is situational triggered, flares daily and resolves on it's own within minutes to an hour. Pt has tried lithium in past, but did not tolerate it; seem no other hx of mood stabilizers. 01/02: DC Perphenazine Olanzapine 10 mg HS Increase Methadone to 120 mg 01/03 Increase Adderall to 20 mg 01/03. CBCD, CMP Await records from [facility] 01/03: Methadone 125 mg 01/04 and hold at this dose Adderall XR 20 mg a.m 10 mg noon and hold at this dose. 01/04: Continue tx. Reviewed labs: Hyperkalemic; possibly hemodialysis; EKG shows mildly increased height T-waves however consistent with patients most recent EKG; GA interval < 200; reviewed with Cardiology who agreed hemolysis cause of elevated K lab value and no Peaked T waves on EKG H&H improved and remains stabilized Creatinine WNL HIV nonreactive Hep C reactive; will get follow-up labs Plan: Admit, CV, 15 minute checks Addiction Medicine Consult- pt on 100 mg Methadone daily, reports it should be 137 mg Chlorpromazine 50 mg HS and 25 mg prn Increase Methadone to 110 mg daily 01/01. No evidence of sedation today. started on Adderall XR 10 mg daily. Will reassess on 01/02 for increase DC Ativan Started on Klonopin 1 mg bid Started on Wellbutrin 75 mg to begin on 01/01 Reason for continued inpatient stay Substantial Risk for: med/psych decompensation Time Spent With Patient Time: Total time managing care of this patient today ____ minutes.
[2024-01-05 19:43] VITALS: BP 127/73; PULSE 101; RESP 20; TEMP 36.8; O2SAT 97
[2024-01-05] MEDS: OLANZapine 10 MG TABLET PO (20:17)
[2024-01-05] MEDS: cloNIDine HCL 0.1 MG TABLET PO (20:17)
[2024-01-05] MEDS: traZODone HCL 100 MG TABLET PO (20:17)
[2024-01-05] MEDS: hydrOXYzine HCL 25 MG TABLET PO (20:17)
[2024-01-05 22:20] LABS: Glucose, Whole Blood 89 mg/dL (60-115)
[2024-01-06] MEDS: methADONE HCl 20 MG/2 ML ORAL.CONC 125 MG PO (07:53)
[2024-01-06 08:00] VITALS: BP 116/63; PULSE 91; RESP 18; TEMP 36.4; O2SAT 97
[2024-01-06 08:13] LABS: Glucose, Whole Blood 83 mg/dL (60-115)
[2024-01-06] MEDS: levETIRAcetam 500 MG TABLET PO ×2 (08:31→20:08)
[2024-01-06] MEDS: buPROPion HCL 75 MG TABLET PO (08:31)
[2024-01-06] MEDS: Sennosides 8.6 MG TABLET PO (08:31)
[2024-01-06] MEDS: Dextroamphetamine/Amphetamine XR 10 MG CAP.ER.24H 20 MG PO (08:31)
[2024-01-06] MEDS: Thiamine HCL 100 MG TABLET PO (08:31)
[2024-01-06] MEDS: Sevelamer Carbonate Tablet 800 MG TABLET PO ×3 (08:31→17:29)
[2024-01-06] MEDS: clonazePAM 1 MG TABLET PO ×2 (08:31→20:08)
[2024-01-06] MEDS: polyethylene glycoL 3350 17 GM POWD.PACK PO (08:32)
--- NOTE | 2024-01-06 09:00 | PM.PNNEP ---
Subjective Subjective Date of Service: 01/06/24 Interval history: Pt is a 38 y/o female with a medical history of IVDU, CKD3, Hep C (viral load low in 2019), septic pulmonary emboli, endocarditis, MSSA bacteremia, PTSD, ADHD, bipolar disorder, seizures, pt reports also recent diagnosis of diabetes. She had an admission at [facility] 12/26-12/29 for pneumonia, CHELITA and SI. Nephrology consulted for CHELITA Urine tox from 2020, May 2023 and Dec 2023 all positive for cocaine and fentanyl 01/04/24 CT abd/pelvis shows enlarged bilateral inguinal and external iliac lymph nodes (not present on 12/27/23 CT), as well as hepatoplenomegaly. She has a slightly edematous right kidney with fullness in collecting system (no hydro), present/unchanged from 12/27/23 CT. she has a chronic, normocytic anemia since May 2023 (no other blood work done prior in system); platelets normal Urine: dip shows moderate protein (persistent from 12/26, mild protein in May 2023) large amount of blood on dip, microscopy shows >20RBCs present, otherwise bland clean catch from 12/27/23 no growth Creatinine: 05/18/23 0.69 12/26/23 1.64 12/27/23 2.01 12/28/23 1.56 12/31/23 1.68 01/01/24 1.62 01/02/24 1.37 01/04/24 1.41 01/05/24 1.55 1.45 pt states she does not see a kidney doctor outside of the hospital patient denies chest pain, shortness of breath she denies rash, though points to many scars on her extremities she reports voiding urine comfortably/regularly reports abdominal pain bilaterally, lower abdomen, states she is very contipated and taking laxative for this Denies other complaints/concerns Physical Exam Vital Signs: Vital Signs: Last Vital Signs Temp 97.5 F 01/06/24 08:00 Pulse 91 01/06/24 08:00 Resp 18 01/06/24 08:00 BP 116/63 01/06/24 08:00 Pulse Ox 97 01/06/24 08:00 O2 Del Method Room Air 01/06/24 08:00 BMI result Body Mass Index 21.3 Const: General: alert and awake Orientation/consciousness: oriented to person and oriented to place Neck: Neck: Yes no JVD Resp: Effort & Inspection: able to speak in complete sentences Auscultation: clear to auscultation bilaterally Cardio: Jugular venous distension: no JVD Rate: regular rate Rhythm: regular rhythm Heart sounds: S1 normal heart sound present and S2 normal heart sound present GI: Inspection: Yes distended Palpation (GI): Tenderness to palpation present (GI) and Ascites present : General: Yes no CVA tenderness Back/Spine/Pelvis: Back: no CVA tenderness Skin: General skin exam: no petechiae and no purpura Rashes: no rashes Neuro: General: oriented to person and oriented to place Extrem: General: No edema Objective Data Labs 01/04/24 08:44 01/06/24 08:55 Labs: Laboratory Results - last 24 hr 01/05/24 01/05/24 01/05/24 09:44 11:03 12:23 Sodium 139 Potassium 4.8 Chloride 106 Carbon Dioxide 26 Anion Gap 12 BUN 54 H Creatinine 1.55 H Estim Creat Clear Calc 47.9 Estimated GFR 37 POC Glucose 127 H Random Glucose 121 H Calcium 9.5 Ammonia 48 Lactate Dehydrogenase 226 H Total Creatine Kinase Urine Eosinophils % U Random Total Protein Urine Creatinine 01/05/24 01/05/24 01/05/24 13:24 17:25 22:13 Sodium Potassium Chloride Carbon Dioxide Anion Gap BUN Creatinine Estim Creat Clear Calc Estimated GFR POC Glucose 106 89 Random Glucose Calcium Ammonia Lactate Dehydrogenase Total Creatine Kinase Urine Eosinophils % 2.0 U Random Total Protein 52 H Urine Creatinine 52.60 01/06/24 01/06/24 08:10 08:55 Sodium 136 Potassium 4.8 Chloride 104 Carbon Dioxide 24 Anion Gap 13 BUN 40 H Creatinine 1.45 H Estim Creat Clear Calc 51.1 Estimated GFR 40 POC Glucose 83 Random Glucose 116 H Calcium 9.8 Ammonia Lactate Dehydrogenase Total Creatine Kinase 28 Urine Eosinophils % U Random Total Protein Urine Creatinine Microbiology Microbiology Results: Microbiology 01/05/24 13:24 Urine clean catch Urine Culture - Final Procedures Date of Service Date of Service: 01/06/24 Assessment & Plan Assessment and plan (1) Hematuria: Status: Acute (2) Proteinuria: Status: Acute (3) IVDU (intravenous drug user): Status: Acute (4) CHELITA (acute kidney injury): Status: Acute (5) Cocaine use disorder: Status: Acute Plan CHELITA with persistent hematuria, proteinuria in setting of IVDU 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
[2024-01-06 09:26] LABS: Anion Gap 13 (12-20); Blood Urea Nitrogen 40 mg/dL (9-16); Calcium 9.8 mg/dL (8.4-10.2); Carbon Dioxide 24 mmol/L (22-29); Chloride 104 mmol/L (96-108); Creatinine Clr Calc Pharmacy 51.1; Estimated Glomerular Filt Rate 40; Glucose Random 116 mg/dL (60-115); Potassium 4.8 mmol/L (3.3-5.1); Sodium 136 mmol/L (135-145)
--- NOTE | 2024-01-06 10:04 | P.PNPSI_ITS ---
Subjective Subjective Date of Service: 01/06/24 Reason For Visit: depression/SI Subjective Notes: Conditional Voluntary Healthcare Proxy: No Guardianship: No Medical Problems Affecting Mental Status: Yes Interim History: I feel better. Reports feeling bad upon awakening and after Methadone, breakfast, a.m. meds , then OK, good really . Daily meeting with nephrology Reports sleep was very good last night, up x 3 for bathroom use. Talked of her children today, Torie, 11, Carley 9, Kashifa 7 who live with her family. I need to be sober and OK for them. Pt becoming more organized. STM contiues impaired, however, cleared in presentation, and less labile. Medication Compliance: Yes Side effects from medications: No Attending Groups: Intermittent Review of Systems CHELITA Review of Systems Review of Systems Yes all other systems are reviewed and are negative Mental Status Exam Mental Status Exam Patient Appearance: Appropriate Patient Orientation: Person, Place, Time and Situation Level of Consciousness: Alert Patient Behavior: Talkative, Anxious and Distractible Mood Description: Labile Affect Description: Labile Patient Cognition Impaired: No Ability to Follow Directions: Good Speech Pattern: Perseverating and Spontaneous Speech Hallucinations: None Delusions: Not Present Perceptual Disturbances: Depersonalization and Derealization Thought Process: Rumination Thought Content: positive for Circumstantial and positive for Perseveration Depressive Symptoms: Difficulty Concentrating Judgement: Fair Diagnostics Vital Signs (24Hr): Vital Signs - 24 hr 01/05/24 19:43 01/06/24 08:00 Temperature 98.2 F 97.5 F Pulse Rate 101 H 91 Respiratory Rate 20 18 Blood Pressure 127/73 116/63 Pulse Oximetry 97 97 Oxygen Delivery Method Room Air Room Air BMI result Body Mass Index 21.3 Labs 01/04/24 08:44 01/06/24 08:55 Labs: Laboratory Results - last 48 hr 01/04/24 01/04/24 01/04/24 12:21 14:20 17:36 Sodium Potassium Chloride Carbon Dioxide Anion Gap BUN Creatinine Estim Creat Clear Calc Estimated GFR POC Glucose 120 H 82 Random Glucose Calcium Ammonia Lactate Dehydrogenase Total Creatine Kinase Urine Color Yellow Urine Appearance Clear Urine pH 5.0 Ur Specific [place] 1.015 Urine Protein 100 (2+) H Urine Glucose (UA) Negative Urine Ketones Negative Urine Blood Large (3+) H Urine Nitrite Negative Ur Leukocyte Esterase Negative Urine RBC >20 H Urine WBC 0-5 Ur Squamous Epith Cells 0-2 Urine Bacteria None Seen Hyaline Casts 0-2 Urine Eosinophils % U Random Total Protein Urine Creatinine 01/04/24 01/05/24 01/05/24 20:39 07:36 09:44 Sodium 139 Potassium 4.8 Chloride 106 Carbon Dioxide 26 Anion Gap 12 BUN 54 H Creatinine 1.55 H Estim Creat Clear Calc 47.9 Estimated GFR 37 POC Glucose 103 116 H Random Glucose 121 H Calcium 9.5 Ammonia Lactate Dehydrogenase 226 H Total Creatine Kinase Urine Color Urine Appearance Urine pH Ur Specific [place] Urine Protein Urine Glucose (UA) Urine Ketones Urine Blood Urine Nitrite Ur Leukocyte Esterase Urine RBC Urine WBC Ur Squamous Epith Cells Urine Bacteria Hyaline Casts Urine Eosinophils % U Random Total Protein Urine Creatinine 01/05/24 01/05/24 01/05/24 11:03 12:23 13:24 Sodium Potassium Chloride Carbon Dioxide Anion Gap BUN Creatinine Estim Creat Clear Calc Estimated GFR POC Glucose 127 H Random Glucose Calcium Ammonia 48 Lactate Dehydrogenase Total Creatine Kinase Urine Color Urine Appearance Urine pH Ur Specific [place] Urine Protein Urine Glucose (UA) Urine Ketones Urine Blood Urine Nitrite Ur Leukocyte Esterase Urine RBC Urine WBC Ur Squamous Epith Cells Urine Bacteria Hyaline Casts Urine Eosinophils % 2.0 U Random Total Protein 52 H Urine Creatinine 52.60 01/05/24 01/05/24 01/06/24 17:25 22:13 08:10 Sodium Potassium Chloride Carbon Dioxide Anion Gap BUN Creatinine Estim Creat Clear Calc Estimated GFR POC Glucose 106 89 83 Random Glucose Calcium Ammonia Lactate Dehydrogenase Total Creatine Kinase Urine Color Urine Appearance Urine pH Ur Specific [place] Urine Protein Urine Glucose (UA) Urine Ketones Urine Blood Urine Nitrite Ur Leukocyte Esterase Urine RBC Urine WBC Ur Squamous Epith Cells Urine Bacteria Hyaline Casts Urine Eosinophils % U Random Total Protein Urine Creatinine 01/06/24 08:55 Sodium 136 Potassium 4.8 Chloride 104 Carbon Dioxide 24 Anion Gap 13 BUN 40 H Creatinine 1.45 H Estim Creat Clear Calc 51.1 Estimated GFR 40 POC Glucose Random Glucose 116 H Calcium 9.8 Ammonia Lactate Dehydrogenase Total Creatine Kinase 28 Urine Color Urine Appearance Urine pH Ur Specific [place] Urine Protein Urine Glucose (UA) Urine Ketones Urine Blood Urine Nitrite Ur Leukocyte Esterase Urine RBC Urine WBC Ur Squamous Epith Cells Urine Bacteria Hyaline Casts Urine Eosinophils % U Random Total Protein Urine Creatinine Imaging Radiology Impressions: ITS Impressions Abdomen/Pelvis CT 01/04/24 20:30 IMPRESSION: Enlarged bilateral inguinal and external iliac lymph nodes. Hepatosplenomegaly. No change and slightly edematous right kidney with fullness of the collecting system. Severe constipation. Gastric distention. Small left pleural effusion and dependent atelectasis. The possibility of a lymphoproliferative disorder should be considered. Electronically signed by: Denilson Drake MD 01/05/2024 11:10 AM EDT Medications Medications Current Medications Acetaminophen (Acetaminophen 325 Mg Tablet) 650 mg PO Q6H PRN PRN Reason: Headache/Pain Mild Scale (1-3) Last Admin: 01/05/24 13:07 Dose: 650 mg Al Hydroxide/Mg Hydroxide (Magnesium Hydrox/Alum Hydrox 30 Ml Oral.Susp) 30 ml PO Q6H PRN PRN Reason: Heartburn/Nausea Amphetamine/Dextroamphetamine (Dextroamphetamine/Amphetamine Xr 10 Mg Cap.Er.24h) 20 mg PO DAILY [facility] Last Admin: 01/06/24 08:31 Dose: 20 mg Amphetamine/Dextroamphetamine (Dextroamphetamine/Amphetamine Xr 10 Mg Cap.Er.24h) 10 mg PO 1300 [facility] Last Admin: 01/05/24 13:06 Dose: 10 mg Benzocaine (Throat Lozenge, Medicated Lozenge) 1 lozenge MUCOUS MEM Q2H PRN PRN Reason: Sore Throat Benzocaine (Benzocaine 20 % Oral Gel 9 Gm Tube) 1 appl MUCOUS MEM QID PRN; Protocol PRN Reason: dental pain Last Admin: 01/04/24 16:24 Dose: 1 appl Bupropion HCl (Bupropion Hcl 75 Mg Tablet) 75 mg PO DAILY [facility] Last Admin: 01/06/24 08:31 Dose: 75 mg Clonazepam (Clonazepam 1 Mg Tablet) 1 mg PO BID [facility] Last Admin: 01/06/24 08:31 Dose: 1 mg Clonidine HCl (Clonidine Hcl 0.1 Mg Tablet) 0.1 mg PO BEDTIME [facility]; Protocol Last Admin: 01/05/24 20:17 Dose: 0.1 mg Glucose (Glucose Gel 15 Gm Gel..Gram.) 15 gm PO Q15M PRN; Protocol PRN Reason: per Hypoglycemia Standing Ord. Hydroxyzine HCl (Hydroxyzine Hcl 25 Mg Tablet) 25 mg PO Q6H PRN PRN Reason: Anxiety Last Admin: 01/05/24 20:17 Dose: 25 mg Insulin Human Lispro (Insulin Lispro 100 Unit/Ml 3 Ml Vial) 0 unit SUBCUT QIDACHS [facility]; Protocol Last Admin: 01/06/24 08:15 Dose: Not Given Levetiracetam (Levetiracetam 500 Mg Tablet) 500 mg PO BID [facility] Last Admin: 01/06/24 08:31 Dose: 500 mg Magnesium Hydroxide (Milk Of Magnesia 30 Ml Oral.Susp) 30 ml PO DAILY PRN PRN Reason: Constipation Last Admin: 01/05/24 16:20 Dose: 30 ml Melatonin (Melatonin 3 Mg Tablet) 3 mg PO BEDTIME PRN PRN Reason: Insomnia Methadone HCl (Methadone Hcl 20 Mg/2 Ml Oral.Conc) 125 mg PO DAILY@0800 [facility] Last Admin: 01/06/24 07:53 Dose: 125 mg Nicotine (Nicotine 21 Mg Patch.Td24) 21 mg TRANSDERMA DAILY PRN PRN Reason: smoking cessation Nicotine Polacrilex (Nicotine Polacrilex 2 Mg Gum) 4 mg BUCCAL Q2H PRN PRN Reason: Nicotine Cravings Olanzapine (Olanzapine 10 Mg Tablet) 10 mg PO BEDTIME [facility] Last Admin: 01/05/24 20:17 Dose: 10 mg Polyethylene Glycol (Polyethylene Glycol 3350 17 Gm Powd.Pack) 17 gm PO DAILY [facility] Last Admin: 01/06/24 08:32 Dose: 17 gm Senna (Sennosides 8.6 Mg Tablet) 8.6 mg PO DAILY [facility] Last Admin: 01/06/24 08:31 Dose: 8.6 mg Sevelamer Carbonate (Sevelamer Carbonate Tablet 800 Mg Tablet) 800 mg PO TIDAC [facility] Last Admin: 01/06/24 08:31 Dose: 800 mg Thiamine HCl (Thiamine Hcl 100 Mg Tablet) 100 mg PO DAILY [facility] Last Admin: 01/06/24 08:31 Dose: 100 mg Trazodone HCl (Trazodone Hcl 100 Mg Tablet) 100 mg PO BEDTIME [facility] Last Admin: 01/05/24 20:17 Dose: 100 mg Allergies Allergies Allergy/AdvReac Type Severity Reaction Status Date / Time No Known Allergies Allergy Verified 12/26/23 21:52 [No Known Allergies*] Assessment & Plan Assessment & Plan (1) CHELITA (acute kidney injury): Status: Acute Code(s): N17.9 - Acute kidney failure, unspecified (2) Cocaine use disorder: Status: Acute Code(s): F14.10 - Cocaine abuse, uncomplicated (3) PTSD (post-traumatic stress disorder): Status: Acute Code(s): F43.10 - Post-traumatic stress disorder, unspecified (4) Bipolar disorder: Status: Acute Code(s): F31.9 - Bipolar disorder, unspecified (5) Opioid use disorder: Status: Acute Code(s): F11.90 - Opioid use, unspecified, uncomplicated Plan 01/05 Increase Wellbutrin to 150 mg a.m. Increase Methadone to 130 mg a.m. Patient educated on: medication risk/benefits and therapeutic strategies Reason for continued inpatient stay Substantial Risk for: rapid decompensation and med/psych decompensation Time Spent With Patient Time: Total time managing care of this patient today ____ minutes.
[2024-01-06] MEDS: Milk of Magnesia 30 ML ORAL.SUSP PO (12:07)
[2024-01-06] MEDS: Dextroamphetamine/Amphetamine XR 10 MG CAP.ER.24H PO (13:29)
[2024-01-06 20:00] VITALS: BP 111/58; PULSE 79; TEMP 36.1; O2SAT 99
[2024-01-06] MEDS: OLANZapine 10 MG TABLET PO (20:07)
[2024-01-06] MEDS: Acetaminophen 325 MG TABLET 650 MG PO (20:08)
[2024-01-06 20:10] VITALS: BP 111/58
[2024-01-06] MEDS: cloNIDine HCL 0.1 MG TABLET PO (20:10)
[2024-01-06] MEDS: traZODone HCL 100 MG TABLET PO (20:10)
[2024-01-07] MEDS: Acetaminophen 325 MG TABLET 650 MG PO ×2 (03:56→20:39)
[2024-01-07] MEDS: methADONE HCl 20 MG/2 ML ORAL.CONC 130 MG PO (08:01)
[2024-01-07 08:18] VITALS: BP 135/69; PULSE 104; RESP 16; TEMP 36.2; O2SAT 97
[2024-01-07] MEDS: levETIRAcetam 500 MG TABLET PO ×2 (09:06→20:01)
[2024-01-07] MEDS: Sevelamer Carbonate Tablet 800 MG TABLET PO ×3 (09:07→17:07)
[2024-01-07] MEDS: Dextroamphetamine/Amphetamine XR 10 MG CAP.ER.24H 20 MG PO (09:07)
[2024-01-07] MEDS: Sennosides 8.6 MG TABLET PO (09:07)
[2024-01-07] MEDS: clonazePAM 1 MG TABLET PO ×2 (09:07→20:01)
[2024-01-07] MEDS: buPROPion HCL 75 MG TABLET 150 MG PO (09:07)
[2024-01-07] MEDS: Thiamine HCL 100 MG TABLET PO (09:07)
[2024-01-07] MEDS: polyethylene glycoL 3350 17 GM POWD.PACK PO (09:08)
--- NOTE | 2024-01-07 11:02 | HO.PSYCHPN ---
Subjective Subjective Date of Service: 01/07/24 Reason For Visit: depression/SI Interim History: Patient reports she is feeling depressed today. She is labile. Poor sleep. Ankle swelling. Abdominal discomfort. Somewhat pressured. Overinclusive. Circumstantial. Continues meeting with nephrology Overall more organized. Denies SI. Review of Systems Review of Systems as noted in HPI Yes all other systems are reviewed and are negative Constitutional: Reports fatigue and Denies headache(s) Denies dizziness and Denies headache(s) Cardiovascular: Denies chest pain, Denies lightheadedness and Denies dyspnea Respiratory: Denies cough and Denies dyspnea Gastrointestinal: Reports abdominal pain, Reports bloating and Reports constipation Musculoskeletal: Denies back pain Skin/Breast: Denies rash Denies dizziness and Denies headache(s) Endocrine: Reports fatigue Mental Status Exam Mental Status Exam Patient Appearance: Appropriate Patient Orientation: Person, Place, Time and Situation Level of Consciousness: Alert Patient Behavior: Talkative, Anxious and Distractible Mood Description: Labile Affect Description: Labile Patient Cognition Impaired: No Ability to Follow Directions: Good Speech Pattern: Perseverating and Spontaneous Speech Diagnostics Vital Signs (24Hr): Vital Signs - 24 hr 01/06/24 20:00 01/06/24 20:10 01/07/24 08:18 Temperature 96.9 F 97.2 F Pulse Rate 79 104 H Respiratory Rate 16 Blood Pressure 111/58 L 111/58 L 135/69 Pulse Oximetry 99 97 Oxygen Delivery Method Room Air Room Air BMI result Body Mass Index 21.3 Labs 01/04/24 08:44 01/06/24 08:55 Labs: Laboratory Results - last 48 hr 01/05/24 01/05/24 01/05/24 09:44 11:03 12:23 Sodium Potassium Chloride Carbon Dioxide Anion Gap BUN Creatinine Estim Creat Clear Calc Estimated GFR POC Glucose 127 H Random Glucose Calcium Ammonia 48 Lactate Dehydrogenase 226 H Total Creatine Kinase Urine Eosinophils % U Random Total Protein Urine Creatinine 01/05/24 01/05/24 01/05/24 13:24 17:25 22:13 Sodium Potassium Chloride Carbon Dioxide Anion Gap BUN Creatinine Estim Creat Clear Calc Estimated GFR POC Glucose 106 89 Random Glucose Calcium Ammonia Lactate Dehydrogenase Total Creatine Kinase Urine Eosinophils % 2.0 U Random Total Protein 52 H Urine Creatinine 52.60 01/06/24 01/06/24 08:10 08:55 Sodium 136 Potassium 4.8 Chloride 104 Carbon Dioxide 24 Anion Gap 13 BUN 40 H Creatinine 1.45 H Estim Creat Clear Calc 51.1 Estimated GFR 40 POC Glucose 83 Random Glucose 116 H Calcium 9.8 Ammonia Lactate Dehydrogenase Total Creatine Kinase 28 Urine Eosinophils % U Random Total Protein Urine Creatinine Imaging Radiology Impressions: ITS Impressions Abdomen/Pelvis CT 01/04/24 20:30 IMPRESSION: Enlarged bilateral inguinal and external iliac lymph nodes. Hepatosplenomegaly. No change and slightly edematous right kidney with fullness of the collecting system. Severe constipation. Gastric distention. Small left pleural effusion and dependent atelectasis. The possibility of a lymphoproliferative disorder should be considered. Electronically signed by: Denilson Drake MD 01/05/2024 11:10 AM EDT Medications Medications Current Medications Acetaminophen (Acetaminophen 325 Mg Tablet) 650 mg PO Q6H PRN PRN Reason: Headache/Pain Mild Scale (1-3) Last Admin: 01/07/24 03:56 Dose: 650 mg Al Hydroxide/Mg Hydroxide (Magnesium Hydrox/Alum Hydrox 30 Ml Oral.Susp) 30 ml PO Q6H PRN PRN Reason: Heartburn/Nausea Amphetamine/Dextroamphetamine (Dextroamphetamine/Amphetamine Xr 10 Mg Cap.Er.24h) 20 mg PO DAILY [facility] Last Admin: 01/07/24 09:07 Dose: 20 mg Amphetamine/Dextroamphetamine (Dextroamphetamine/Amphetamine Xr 10 Mg Cap.Er.24h) 10 mg PO 1300 [facility] Last Admin: 01/06/24 13:29 Dose: 10 mg Benzocaine (Throat Lozenge, Medicated Lozenge) 1 lozenge MUCOUS MEM Q2H PRN PRN Reason: Sore Throat Benzocaine (Benzocaine 20 % Oral Gel 9 Gm Tube) 1 appl MUCOUS MEM QID PRN; Protocol PRN Reason: dental pain Last Admin: 01/04/24 16:24 Dose: 1 appl Bupropion HCl (Bupropion Hcl 75 Mg Tablet) 150 mg PO DAILY [facility] Last Admin: 01/07/24 09:07 Dose: 150 mg Clonazepam (Clonazepam 1 Mg Tablet) 1 mg PO BID [facility] Last Admin: 01/07/24 09:07 Dose: 1 mg Clonidine HCl (Clonidine Hcl 0.1 Mg Tablet) 0.1 mg PO BEDTIME [facility]; Protocol Last Admin: 01/06/24 20:10 Dose: 0.1 mg Hydroxyzine HCl (Hydroxyzine Hcl 25 Mg Tablet) 25 mg PO Q6H PRN PRN Reason: Anxiety Last Admin: 01/05/24 20:17 Dose: 25 mg Levetiracetam (Levetiracetam 500 Mg Tablet) 500 mg PO BID [facility] Last Admin: 01/07/24 09:06 Dose: 500 mg Magnesium Hydroxide (Milk Of Magnesia 30 Ml Oral.Susp) 30 ml PO DAILY PRN PRN Reason: Constipation Last Admin: 01/06/24 12:07 Dose: 30 ml Melatonin (Melatonin 3 Mg Tablet) 3 mg PO BEDTIME PRN PRN Reason: Insomnia Methadone HCl (Methadone Hcl 20 Mg/2 Ml Oral.Conc) 130 mg PO DAILY@0800 [facility] Last Admin: 01/07/24 08:01 Dose: 130 mg Nicotine (Nicotine 21 Mg Patch.Td24) 21 mg TRANSDERMA DAILY PRN PRN Reason: smoking cessation Nicotine Polacrilex (Nicotine Polacrilex 2 Mg Gum) 4 mg BUCCAL Q2H PRN PRN Reason: Nicotine Cravings Olanzapine (Olanzapine 10 Mg Tablet) 10 mg PO BEDTIME [facility] Last Admin: 01/06/24 20:07 Dose: 10 mg Polyethylene Glycol (Polyethylene Glycol 3350 17 Gm Powd.Pack) 17 gm PO DAILY [facility] Last Admin: 01/07/24 09:08 Dose: 17 gm Senna (Sennosides 8.6 Mg Tablet) 8.6 mg PO DAILY [facility] Last Admin: 01/07/24 09:07 Dose: 8.6 mg Sevelamer Carbonate (Sevelamer Carbonate Tablet 800 Mg Tablet) 800 mg PO TIDAC [facility] Last Admin: 01/07/24 09:07 Dose: 800 mg Thiamine HCl (Thiamine Hcl 100 Mg Tablet) 100 mg PO DAILY [facility] Last Admin: 01/07/24 09:07 Dose: 100 mg Trazodone HCl (Trazodone Hcl 100 Mg Tablet) 100 mg PO BEDTIME [facility] Last Admin: 01/06/24 20:10 Dose: 100 mg Allergies Allergies Allergy/AdvReac Type Severity Reaction Status Date / Time No Known Allergies Allergy Verified 12/26/23 21:52 [No Known Allergies*] Assessment & Plan Assessment & Plan (1) CHELITA (acute kidney injury): Status: Resolved Code(s): N17.9 - Acute kidney failure, unspecified (2) Cocaine use disorder: Status: Acute Code(s): F14.10 - Cocaine abuse, uncomplicated (3) PTSD (post-traumatic stress disorder): Status: Acute Code(s): F43.10 - Post-traumatic stress disorder, unspecified (4) Bipolar disorder: Status: Acute Code(s): F31.9 - Bipolar disorder, unspecified (5) Opioid use disorder: Status: Acute Code(s): F11.90 - Opioid use, unspecified, uncomplicated Plan 01/05 Increase Wellbutrin to 150 mg a.m. Increase Methadone to 130 mg a.m. 01/06: Continue current management and treatment plan. Reason for continued inpatient stay Substantial Risk for: harm to self, inability to function and rapid decompensation Time Spent With Patient Time: Total time managing care of this patient today ____ minutes.
[2024-01-07] MEDS: Dextroamphetamine/Amphetamine XR 10 MG CAP.ER.24H PO (12:49)
[2024-01-07] MEDS: Milk of Magnesia 30 ML ORAL.SUSP PO (18:22)
[2024-01-07 20:00] VITALS: BP 124/58; PULSE 80; RESP 15; TEMP 36.8; O2SAT 96
[2024-01-07] MEDS: OLANZapine 10 MG TABLET PO (20:01)
[2024-01-07] MEDS: traZODone HCL 100 MG TABLET PO (20:01)
[2024-01-07] MEDS: cloNIDine HCL 0.1 MG TABLET PO (20:02)
[2024-01-08] MEDS: methADONE HCl 20 MG/2 ML ORAL.CONC 130 MG PO (07:43)
[2024-01-08] MEDS: Sennosides 8.6 MG TABLET PO (08:36)
[2024-01-08] MEDS: Dextroamphetamine/Amphetamine XR 10 MG CAP.ER.24H 20 MG PO (08:36)
[2024-01-08] MEDS: levETIRAcetam 500 MG TABLET PO ×2 (08:36→19:19)
[2024-01-08] MEDS: buPROPion HCL 75 MG TABLET 150 MG PO (08:36)
[2024-01-08] MEDS: polyethylene glycoL 3350 17 GM POWD.PACK PO (08:37)
[2024-01-08] MEDS: Sevelamer Carbonate Tablet 800 MG TABLET PO ×3 (08:37→15:28)
[2024-01-08] MEDS: Thiamine HCL 100 MG TABLET PO (08:37)
[2024-01-08] MEDS: clonazePAM 1 MG TABLET PO ×2 (08:37→19:21)
[2024-01-08] MEDS: Benzocaine 20 % Oral Gel 9 GM TUBE 1 APPL MUCOUS MEM (08:46)
[2024-01-08 09:10] VITALS: BP 125/73; PULSE 79; RESP 16; TEMP 36.7; O2SAT 95
--- NOTE | 2024-01-08 11:31 | P.PNPSI_ITS ---
Subjective Subjective Date of Service: 01/08/24 Reason For Visit: depression/SI Interim History: Patient reports she is feeling better today than yesterday. She is less labile. Somewhat pressured. Overinclusive. Circumstantial. Overall more organized. Denies SI. No cravings. Review of Systems Review of Systems as noted in HPI Yes all other systems are reviewed and are negative Constitutional: Reports fatigue and Denies headache(s) Denies dizziness and Denies headache(s) Cardiovascular: Denies chest pain, Denies lightheadedness and Denies dyspnea Respiratory: Denies cough and Denies dyspnea Gastrointestinal: Reports abdominal pain, Reports bloating and Reports constipation Musculoskeletal: Denies back pain Skin/Breast: Denies rash Denies dizziness and Denies headache(s) Endocrine: Reports fatigue Mental Status Exam Mental Status Exam Patient Appearance: Appropriate Patient Orientation: Person, Place, Time and Situation Level of Consciousness: Alert Patient Behavior: Talkative, Anxious and Distractible Mood Description: Labile Affect Description: Labile Patient Cognition Impaired: No Ability to Follow Directions: Good Speech Pattern: Perseverating and Spontaneous Speech Diagnostics Vital Signs (24Hr): Vital Signs - 24 hr 01/07/24 20:00 01/08/24 09:10 Temperature 98.3 F 98.1 F Pulse Rate 80 79 Respiratory Rate 15 16 Blood Pressure 124/58 L 125/73 Pulse Oximetry 96 95 Oxygen Delivery Method Room Air BMI result Body Mass Index 21.3 Labs 01/04/24 08:44 01/06/24 08:55 Imaging Radiology Impressions: ITS Impressions Abdomen/Pelvis CT 01/04/24 20:30 IMPRESSION: Enlarged bilateral inguinal and external iliac lymph nodes. Hepatosplenomegaly. No change and slightly edematous right kidney with fullness of the collecting system. Severe constipation. Gastric distention. Small left pleural effusion and dependent atelectasis. The possibility of a lymphoproliferative disorder should be considered. Electronically signed by: Denilson Drake MD 01/05/2024 11:10 AM EDT Medications Medications Current Medications Acetaminophen (Acetaminophen 325 Mg Tablet) 650 mg PO Q6H PRN PRN Reason: Headache/Pain Mild Scale (1-3) Last Admin: 01/07/24 20:39 Dose: 650 mg Al Hydroxide/Mg Hydroxide (Magnesium Hydrox/Alum Hydrox 30 Ml Oral.Susp) 30 ml PO Q6H PRN PRN Reason: Heartburn/Nausea Amphetamine/Dextroamphetamine (Dextroamphetamine/Amphetamine Xr 10 Mg Cap.Er.24h) 20 mg PO DAILY [facility] Last Admin: 01/08/24 08:36 Dose: 20 mg Amphetamine/Dextroamphetamine (Dextroamphetamine/Amphetamine Xr 10 Mg Cap.Er.24h) 10 mg PO 1300 [facility] Last Admin: 01/07/24 12:49 Dose: 10 mg Benzocaine (Throat Lozenge, Medicated Lozenge) 1 lozenge MUCOUS MEM Q2H PRN PRN Reason: Sore Throat Benzocaine (Benzocaine 20 % Oral Gel 9 Gm Tube) 1 appl MUCOUS MEM QID PRN; Protocol PRN Reason: dental pain Last Admin: 01/08/24 08:46 Dose: 1 appl Bupropion HCl (Bupropion Hcl 75 Mg Tablet) 150 mg PO DAILY [facility] Last Admin: 01/08/24 08:36 Dose: 150 mg Clonazepam (Clonazepam 1 Mg Tablet) 1 mg PO BID [facility] Last Admin: 01/08/24 08:37 Dose: 1 mg Clonidine HCl (Clonidine Hcl 0.1 Mg Tablet) 0.1 mg PO BEDTIME [facility]; Protocol Last Admin: 01/07/24 20:02 Dose: 0.1 mg Hydroxyzine HCl (Hydroxyzine Hcl 25 Mg Tablet) 25 mg PO Q6H PRN PRN Reason: Anxiety Last Admin: 01/05/24 20:17 Dose: 25 mg Levetiracetam (Levetiracetam 500 Mg Tablet) 500 mg PO BID [facility] Last Admin: 01/08/24 08:36 Dose: 500 mg Magnesium Hydroxide (Milk Of Magnesia 30 Ml Oral.Susp) 30 ml PO DAILY PRN PRN Reason: Constipation Last Admin: 01/07/24 18:22 Dose: 30 ml Melatonin (Melatonin 3 Mg Tablet) 3 mg PO BEDTIME PRN PRN Reason: Insomnia Methadone HCl (Methadone Hcl 20 Mg/2 Ml Oral.Conc) 130 mg PO DAILY@0800 [facility] Last Admin: 01/08/24 07:43 Dose: 130 mg Nicotine (Nicotine 21 Mg Patch.Td24) 21 mg TRANSDERMA DAILY PRN PRN Reason: smoking cessation Nicotine Polacrilex (Nicotine Polacrilex 2 Mg Gum) 4 mg BUCCAL Q2H PRN PRN Reason: Nicotine Cravings Olanzapine (Olanzapine 10 Mg Tablet) 10 mg PO BEDTIME [facility] Last Admin: 01/07/24 20:01 Dose: 10 mg Polyethylene Glycol (Polyethylene Glycol 3350 17 Gm Powd.Pack) 17 gm PO DAILY [facility] Last Admin: 01/08/24 08:37 Dose: 17 gm Senna (Sennosides 8.6 Mg Tablet) 8.6 mg PO DAILY [facility] Last Admin: 01/08/24 08:36 Dose: 8.6 mg Sevelamer Carbonate (Sevelamer Carbonate Tablet 800 Mg Tablet) 800 mg PO TIDAC [facility] Last Admin: 01/08/24 08:37 Dose: 800 mg Thiamine HCl (Thiamine Hcl 100 Mg Tablet) 100 mg PO DAILY [facility] Last Admin: 01/08/24 08:37 Dose: 100 mg Trazodone HCl (Trazodone Hcl 100 Mg Tablet) 100 mg PO BEDTIME [facility] Last Admin: 01/07/24 20:01 Dose: 100 mg Allergies Allergies Allergy/AdvReac Type Severity Reaction Status Date / Time No Known Allergies Allergy Verified 12/26/23 21:52 [No Known Allergies*] Assessment & Plan Assessment & Plan (1) CHELITA (acute kidney injury): Status: Resolved Code(s): N17.9 - Acute kidney failure, unspecified (2) Cocaine use disorder: Status: Acute Code(s): F14.10 - Cocaine abuse, uncomplicated (3) PTSD (post-traumatic stress disorder): Status: Acute Code(s): F43.10 - Post-traumatic stress disorder, unspecified (4) Bipolar disorder: Status: Acute Code(s): F31.9 - Bipolar disorder, unspecified (5) Opioid use disorder: Status: Acute Code(s): F11.90 - Opioid use, unspecified, uncomplicated Plan 01/05 Increase Wellbutrin to 150 mg a.m. Increase Methadone to 130 mg a.m. 01/06: Continue current management and treatment plan. 01/07: Continue current management and treatment plan. Reason for continued inpatient stay Substantial Risk for: harm to self, inability to function, rapid decompensation and med/psych decompensation Time Spent With Patient Time: Total time managing care of this patient today ____ minutes.
[2024-01-08] MEDS: Dextroamphetamine/Amphetamine XR 10 MG CAP.ER.24H PO (13:06)
[2024-01-08] MEDS: Acetaminophen 325 MG TABLET 650 MG PO (13:33)
[2024-01-08] MEDS: Milk of Magnesia 30 ML ORAL.SUSP PO (15:28)
[2024-01-08] MEDS: bisacodyL 5 MG TABLET.DR 10 MG PO (19:10)
[2024-01-08 19:15] VITALS: BP 132/74; PULSE 97
[2024-01-08] MEDS: traZODone HCL 100 MG TABLET PO (19:19)
[2024-01-08 19:20] VITALS: BP 132/74
[2024-01-08] MEDS: cloNIDine HCL 0.1 MG TABLET PO (19:20)
[2024-01-08] MEDS: OLANZapine 10 MG TABLET PO (19:20)
[2024-01-08] MEDS: Mineral OiL enema 133 ML ENEMA PR (19:25)
[2024-01-08 20:00] VITALS: BP 122/68; PULSE 95; TEMP 36.6; O2SAT 99
[2024-01-09] MEDS: Acetaminophen 325 MG TABLET 650 MG PO ×2 (04:10→18:45)
[2024-01-09] MEDS: hydrOXYzine HCL 25 MG TABLET PO ×2 (04:10→20:02)
--- NOTE | 2024-01-09 04:13 | PC.NURSE ---
Patient up at 0415 c/o R side pain. Medicated with Tylenol 650 mg and Hydroxyzine. Patient returned to bed. Will continue to monitor.
[2024-01-09] MEDS: methADONE HCl 20 MG/2 ML ORAL.CONC 130 MG PO (07:40)
[2024-01-09 08:00] VITALS: BP 107/58; PULSE 78; RESP 16; TEMP 36.9; O2SAT 96
[2024-01-09] MEDS: Sennosides 8.6 MG TABLET PO (08:26)
[2024-01-09] MEDS: Sevelamer Carbonate Tablet 800 MG TABLET PO ×3 (08:26→17:14)
[2024-01-09] MEDS: buPROPion HCL 75 MG TABLET 150 MG PO (08:26)
[2024-01-09] MEDS: Dextroamphetamine/Amphetamine XR 10 MG CAP.ER.24H 20 MG PO (08:26)
[2024-01-09] MEDS: clonazePAM 1 MG TABLET PO ×2 (08:26→20:03)
[2024-01-09] MEDS: Thiamine HCL 100 MG TABLET PO (08:26)
[2024-01-09] MEDS: levETIRAcetam 500 MG TABLET PO ×2 (08:27→20:03)
[2024-01-09 09:49] LABS: PEU-Protein Creat Ratio Rand 1.111 (0.024-0.184); PEU-Rand. Prot/Creat Ratio 1111 mg/g creat (24-184); PEU-Random Ur. Gamma Globulin 19 %; PEU-Random Urine A1 Globulin 6 %; PEU-Random Urine A2 Globulin 5 %; PEU-Random Urine Albumin 64 %; PEU-Random Urine Beta Globulin 6 %; PEU-Random Urine Creatinine 54 mg/dL (20-275); PEU-Random Urine Protein 60 mg/dL (5-24)
--- NOTE | 2024-01-09 09:57 | HO.PSYCHPN ---
Subjective Subjective Date of Service: 01/09/24 Reason For Visit: depression/SI Subjective Notes: Conditional Voluntary Healthcare Proxy: No Guardianship: No Medical Problems Affecting Mental Status: No Interim History: Reports poor sleep. Team report 7 hours of sleep. Gradual improvement. Memory remains poor for dates, numbers Reports constipation, miralax ordered. Planning discharge for this week-declines transfer to [facility] at this time. Discussed with pt the risks of not attending ongoing treatment, I will look for a program after I am out. Medication Compliance: Yes Side effects from medications: No Attending Groups: Intermittent Review of Systems CHELITA Medical Review of Systems: unchanged Review of Systems Review of Systems CHELITA Constipation Mental Status Exam Mental Status Exam Patient Appearance: Fatigued and Appropriate Patient Orientation: Person, Place, Time and Situation Level of Consciousness: Alert Patient Behavior: Talkative, Cooperative, Confused (at times) and Good Eye Contact Mood Description: Depressed and Labile Affect Description: Flat Patient Cognition Impaired: Yes Ability to Follow Directions: Good Speech Pattern: Perseverating and Spontaneous Speech Memory Description: Episodic Impaired Hallucinations: None Delusions: Not Present Perceptual Disturbances: Depersonalization Thought Process: Distracted, Rumination and Goal Oriented Thought Content: positive for Circumstantial, positive for Goal Oriented, positive for Disorganized (at times) and positive for Suicidal Ideation (denies) Depressive Symptoms: Increased Anxiety, Diff. Making Decisions, Increased Fatigue, Thoughts of /Suicide (denies) and Low Self Esteem Judgement: Fair Diagnostics Vital Signs (24Hr): Vital Signs - 24 hr 01/08/24 19:15 01/08/24 19:20 01/08/24 20:00 Temperature 97.8 F Pulse Rate 97 95 Respiratory Rate Blood Pressure 132/74 132/74 122/68 Pulse Oximetry 99 Oxygen Delivery Method Room Air 01/09/24 08:00 Temperature 98.5 F Pulse Rate 78 Respiratory Rate 16 Blood Pressure 107/58 L Pulse Oximetry 96 Oxygen Delivery Method Room Air BMI result Body Mass Index 21.3 Labs 01/10/24 09:31 01/10/24 09:31 Labs: Laboratory Results - last 48 hr 01/05/24 13:24 U [place] Prot/Creat Ratio 1.111 H Ur Creatinine mg/dL 54 U Total Protein mg/dL 60 H Protein/Creatinin Ratio 1111 H Urine Albumin (%) 64 U Mqang-4-Zrwzmsdy (%) 6 U Kgmef-0-Zepwjzbl (%) 5 U Beta Globulin (%) 6 U Gamma Globulin (%) 19 Urine PEP Interpret Imaging Radiology Impressions: ITS Impressions Abdomen/Pelvis CT 01/04/24 20:30 IMPRESSION: Enlarged bilateral inguinal and external iliac lymph nodes. Hepatosplenomegaly. No change and slightly edematous right kidney with fullness of the collecting system. Severe constipation. Gastric distention. Small left pleural effusion and dependent atelectasis. The possibility of a lymphoproliferative disorder should be considered. Electronically signed by: Denilson Drake MD 01/05/2024 11:10 AM EDT Medications Medications Current Medications Acetaminophen (Acetaminophen 325 Mg Tablet) 650 mg PO Q6H PRN PRN Reason: Headache/Pain Mild Scale (1-3) Last Admin: 01/09/24 04:10 Dose: 650 mg Al Hydroxide/Mg Hydroxide (Magnesium Hydrox/Alum Hydrox 30 Ml Oral.Susp) 30 ml PO Q6H PRN PRN Reason: Heartburn/Nausea Amphetamine/Dextroamphetamine (Dextroamphetamine/Amphetamine Xr 10 Mg Cap.Er.24h) 20 mg PO DAILY [facility] Last Admin: 01/09/24 08:26 Dose: 20 mg Amphetamine/Dextroamphetamine (Dextroamphetamine/Amphetamine Xr 10 Mg Cap.Er.24h) 10 mg PO 1300 [facility] Last Admin: 01/08/24 13:06 Dose: 10 mg Benzocaine (Throat Lozenge, Medicated Lozenge) 1 lozenge MUCOUS MEM Q2H PRN PRN Reason: Sore Throat Benzocaine (Benzocaine 20 % Oral Gel 9 Gm Tube) 1 appl MUCOUS MEM QID PRN; Protocol PRN Reason: dental pain Last Admin: 01/08/24 08:46 Dose: 1 appl Bupropion HCl (Bupropion Hcl 75 Mg Tablet) 150 mg PO DAILY [facility] Last Admin: 01/09/24 08:26 Dose: 150 mg Clonazepam (Clonazepam 1 Mg Tablet) 1 mg PO BID [facility] Last Admin: 01/09/24 08:26 Dose: 1 mg Clonidine HCl (Clonidine Hcl 0.1 Mg Tablet) 0.1 mg PO BEDTIME [facility]; Protocol Last Admin: 01/08/24 19:20 Dose: 0.1 mg Hydroxyzine HCl (Hydroxyzine Hcl 25 Mg Tablet) 25 mg PO Q6H PRN PRN Reason: Anxiety Last Admin: 01/09/24 04:10 Dose: 25 mg Levetiracetam (Levetiracetam 500 Mg Tablet) 500 mg PO BID [facility] Last Admin: 01/09/24 08:27 Dose: 500 mg Magnesium Hydroxide (Milk Of Magnesia 30 Ml Oral.Susp) 30 ml PO DAILY PRN PRN Reason: Constipation Last Admin: 01/08/24 15:28 Dose: 30 ml Melatonin (Melatonin 3 Mg Tablet) 3 mg PO BEDTIME PRN PRN Reason: Insomnia Methadone HCl (Methadone Hcl 20 Mg/2 Ml Oral.Conc) 130 mg PO DAILY@0800 [facility] Last Admin: 01/09/24 07:40 Dose: 130 mg Nicotine (Nicotine 21 Mg Patch.Td24) 21 mg TRANSDERMA DAILY PRN PRN Reason: smoking cessation Nicotine Polacrilex (Nicotine Polacrilex 2 Mg Gum) 4 mg BUCCAL Q2H PRN PRN Reason: Nicotine Cravings Olanzapine (Olanzapine 10 Mg Tablet) 10 mg PO BEDTIME [facility] Last Admin: 01/08/24 19:20 Dose: 10 mg Polyethylene Glycol (Polyethylene Glycol 3350 17 Gm Powd.Pack) 17 gm PO DAILY [facility] Last Admin: 01/09/24 08:28 Dose: Not Given Senna (Sennosides 8.6 Mg Tablet) 8.6 mg PO DAILY [facility] Last Admin: 01/09/24 08:26 Dose: 8.6 mg Sevelamer Carbonate (Sevelamer Carbonate Tablet 800 Mg Tablet) 800 mg PO TIDAC [facility] Last Admin: 01/09/24 08:26 Dose: 800 mg Thiamine HCl (Thiamine Hcl 100 Mg Tablet) 100 mg PO DAILY [facility] Last Admin: 01/09/24 08:26 Dose: 100 mg Trazodone HCl (Trazodone Hcl 100 Mg Tablet) 100 mg PO BEDTIME [facility] Last Admin: 01/08/24 19:19 Dose: 100 mg Allergies Allergies Allergy/AdvReac Type Severity Reaction Status Date / Time No Known Allergies Allergy Verified 12/26/23 21:52 [No Known Allergies*] Assessment & Plan Assessment & Plan (1) CHELITA (acute kidney injury): Status: Resolved Code(s): N17.9 - Acute kidney failure, unspecified (2) Cocaine use disorder: Status: Acute Code(s): F14.10 - Cocaine abuse, uncomplicated (3) PTSD (post-traumatic stress disorder): Status: Acute Code(s): F43.10 - Post-traumatic stress disorder, unspecified (4) Bipolar disorder: Status: Acute Code(s): F31.9 - Bipolar disorder, unspecified (5) Opioid use disorder: Status: Acute Code(s): F11.90 - Opioid use, unspecified, uncomplicated Plan 01/05 Increase Wellbutrin to 150 mg a.m. Increase Methadone to 130 mg a.m. 01/06: Continue current management and treatment plan. 01/07: Continue current management and treatment plan. 01/08: Continue current management and treatment plan. Patient educated on: therapeutic strategies and medical condition Informed Consent: understands Reason for continued inpatient stay Substantial Risk for: med/psych decompensation Time Spent With Patient Time: Total time managing care of this patient today ____ minutes.
--- NOTE | 2024-01-09 11:15 | P.PNNP_ITS ---
Subjective Subjective Date of Service: 01/09/24 Interval history: Pt is a 38 y/o female with a medical history of IVDU, CKD3, Hep C (viral load low in 2019), septic pulmonary emboli, endocarditis, MSSA bacteremia, PTSD, ADHD, bipolar disorder, seizures, pt reports also recent diagnosis of diabetes. She had an admission at [facility] 12/26-12/29 for pneumonia, CHELITA and SI. Nephrology consulted for CHELITA Urine tox from 2020, May 2023 and Dec 2023 all positive for cocaine and fentanyl 01/04/24 CT abd/pelvis shows enlarged bilateral inguinal and external iliac lymph nodes (not present on 12/27/23 CT), as well as hepatoplenomegaly. She has a slightly edematous right kidney with fullness in collecting system (no hydro), present/unchanged from 12/27/23 CT. she has a chronic, normocytic anemia since May 2023 (no other blood work done prior in system); platelets normal Urine: dip shows moderate protein (persistent from 12/26, mild protein in May 2023) large amount of blood on dip, microscopy shows >20RBCs present, otherwise bland clean catch from 12/27/23 no growth Creatinine: 05/18/23 0.69 12/26/23 1.64 12/27/23 2.01 12/28/23 1.56 12/31/23 1.68 01/01/24 1.62 01/02/24 1.37 01/04/24 1.41 01/05/24 1.55 01/05. 1.45 pt states she does not see a kidney doctor outside of the hospital patient denies chest pain, shortness of breath she denies rash, though points to many scars on her extremities she reports voiding urine comfortably/regularly reports abdominal pain bilaterally, lower abdomen, states she is very contipated and taking laxative for this Denies other complaints/concerns Physical Exam 2 Vital Signs: Vital Signs: Last Vital Signs Temp 98.5 F 01/09/24 08:00 Pulse 78 01/09/24 08:00 Resp 16 01/09/24 08:00 BP 107/58 L 01/09/24 08:00 Pulse Ox 96 01/09/24 08:00 O2 Del Method Room Air 01/09/24 08:00 BMI result Body Mass Index 21.3 Const: General: alert and awake Orientation/consciousness: oriented to person and oriented to place Neck: Neck: Yes no JVD Resp: Effort & Inspection: able to speak in complete sentences A uscultation: clear to auscultation bilaterally Cardio: Jugular venous distension: no JVD Rate: regular rate Rhythm: r egular rhythm Heart sounds: S1 normal heart sound present and S2 normal heart sound present GI: Inspection: Yes distended Palpation (GI): Tenderness to palpation present (GI) and Ascites present : General: Yes no CVA tenderness Back/Spine/Pelvis: Back: no CVA tenderness Skin: General skin exam: no petechiae and no purpura Rashes: no rashes Neuro: General: oriented to person and oriented to place Extrem: General: No edema Objective Data Labs 01/04/24 08:44 01/06/24 08:55 Labs: Laboratory Results - last 24 hr 01/05/24 13:24 U [place] Prot/Creat Ratio 1.111 H Ur Creatinine mg/dL 54 U Total Protein mg/dL 60 H Protein/Creatinin Ratio 1111 H Urine Albumin (%) 64 U Xiert-9-Ipipcnxt (%) 6 U Taewr-9-Obbzitpu (%) 5 U Beta Globulin (%) 6 U Gamma Globulin (%) 19 Urine PEP Interpret Microbiology Microbiology Results: Microbiology 01/05/24 13:24 Urine clean catch Urine Culture - Final Procedures Date of Service Date of Service: 01/09/24 Assessment & Plan Assessment and plan (1) Hematuria: Status: Acute (2) Proteinuria: Status: Acute (3) IVDU (intravenous drug user): Status: Acute (4) CHELITA (acute kidney injury): Status: Resolved (5) Cocaine use disorder: Status: Acute Plan CHELITA with persistent hematuria, proteinuria in setting of IVDU 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
[2024-01-09] MEDS: polyethylene glycoL 3350 17 GM POWD.PACK PO (11:22)
[2024-01-09] MEDS: Dextroamphetamine/Amphetamine XR 10 MG CAP.ER.24H PO (13:08)
[2024-01-09 18:56] LABS: Anion Gap 16 (12-20); Blood Urea Nitrogen 48 mg/dL (9-16); Calcium 9.6 mg/dL (8.4-10.2); Carbon Dioxide 26 mmol/L (22-29); Chloride 99 mmol/L (96-108); Creatinine Clr Calc Pharmacy 44.4; Estimated Glomerular Filt Rate 34; Glucose Random 123 mg/dL (60-115); Potassium 4.5 mmol/L (3.3-5.1); Sodium 136 mmol/L (135-145)
[2024-01-09 19:04] LABS: Complement C3 167 mg/dL (83-193)
[2024-01-09 19:48] VITALS: BP 108/60; PULSE 84; TEMP 36.4; O2SAT 99
[2024-01-09] MEDS: cloNIDine HCL 0.1 MG TABLET PO (20:02)
[2024-01-09] MEDS: Melatonin 3 MG TABLET PO (20:03)
[2024-01-09] MEDS: OLANZapine 10 MG TABLET PO (20:03)
[2024-01-09] MEDS: traZODone HCL 100 MG TABLET PO (20:03)
[2024-01-09] MEDS: Milk of Magnesia 30 ML ORAL.SUSP PO (20:06)
[2024-01-09 20:14] LABS: Myeloperoxidase Antibody <1.0 AI; Proteinase 3 PR3 Antibodies <1.0 AI
[2024-01-10] MEDS: Acetaminophen 325 MG TABLET 650 MG PO (06:35)
[2024-01-10] MEDS: methADONE HCl 20 MG/2 ML ORAL.CONC 130 MG PO (07:43)
[2024-01-10 07:58] VITALS: BP 122/68; PULSE 80; RESP 18; TEMP 36.8; O2SAT 98
[2024-01-10] MEDS: buPROPion HCL 75 MG TABLET 150 MG PO (08:19)
[2024-01-10] MEDS: Dextroamphetamine/Amphetamine XR 10 MG CAP.ER.24H 20 MG PO (08:19)
[2024-01-10] MEDS: levETIRAcetam 500 MG TABLET PO ×2 (08:20→18:41)
[2024-01-10] MEDS: Sevelamer Carbonate Tablet 800 MG TABLET PO ×3 (08:20→16:05)
[2024-01-10] MEDS: Sennosides 8.6 MG TABLET PO (08:20)
[2024-01-10] MEDS: polyethylene glycoL 3350 17 GM POWD.PACK PO (08:20)
[2024-01-10] MEDS: Thiamine HCL 100 MG TABLET PO (08:20)
[2024-01-10] MEDS: clonazePAM 1 MG TABLET PO (08:20)
[2024-01-10 09:46] LABS: MANUAL DIFF FLAG NO
[2024-01-10 09:48] LABS: Basophils Percent Auto 0.6 % (0-2); Eosinophils Absolute Auto 0.1 X10*3/uL (0.0-0.4); Eosinophils Percent Auto 1.6 % (0-4); Hematocrit 27.8 % (37.0-47.0); Hemoglobin 8.9 g/dl (12.0-16.0); Imm Gran Abs Auto 0.03 X10*3/uL (0.00-0.03); Imm Gran Pct Auto 0.4 % (0.0-0.4); Lymphocytes Absolute Auto 2.4 X10*3/uL (1.2-4.9); Lymphocytes Percent Auto 34.9 % (20-40); Mean Corpuscular Hemoglobin 29.7 pg (27.0-33.0); Mean Corpuscular Volume 92.7 fL (80.0-98.0); Mean Platelet Volume 9.5 fL (9.4-12.3); Monocytes Absolute Auto 0.6 X10*3/uL (0.1-1.2); Monocytes Percent Auto 8.2 % (2-11); Neutrophils Absolute Auto 3.7 x10*3/uL (2.0-8.3); Neutrophils Percent Auto 54.3 % (45-73); Platelet Count 274 X10*3/uL (160-400); Red Cell Distribution Width 14.6 % (11.0-16.0); White Blood Count 6.9 X10*3/uL (4.8-10.8)
[2024-01-10 10:23] LABS: Alanine Aminotransferase 71 U/L (0-31); Albumin Level 3.7 g/dL (3.5-5.0); Alkaline Phosphatase 93 U/L (39-117); Anion Gap 11 (12-20); Aspartate Amino Transferase 65 U/L (5-31); Bilirubin Total 0.2 mg/dL (0.0-1.0); Blood Urea Nitrogen 48 mg/dL (9-16); Calcium 9.4 mg/dL (8.4-10.2); Carbon Dioxide 29 mmol/L (22-29); Chloride 100 mmol/L (96-108); Creatinine Clr Calc Pharmacy 54.5; Estimated Glomerular Filt Rate 44; Glucose Random 121 mg/dL (60-115); Potassium 4.4 mmol/L (3.3-5.1); Sodium 136 mmol/L (135-145); Total Protein 8.3 g/dL (6.5-8.0)
[2024-01-10 12:48] LABS: Prot Elec - Albumin 3.9 g/dL (3.8-4.8); Prot Elec - Alpha1 0.3 g/dL (0.2-0.3); Prot Elec - Alpha2 0.7 g/dL (0.5-0.9); Prot Elec - Beta 1 0.4 g/dL (0.4-0.6); Prot Elec - Beta 2 0.4 g/dL (0.2-0.5); Prot Elec - Gamma 2.2 g/dL (0.8-1.7); Prot Elec - Total Protein 7.9 g/dL (6.1-8.1)
[2024-01-10] MEDS: Dextroamphetamine/Amphetamine XR 10 MG CAP.ER.24H PO (12:53)
--- NOTE | 2024-01-10 14:08 | PM.EVENT ---
Documented by User: Maddy Neri APRN 01/10/24 14:09 Event Note Date of Service: 01/10/24 Event Note: Reviewed with Dr. Alarcon [phone]. Last covered day 01/11/24 with discharge planned for 01/12/24. Time Spent With Patient Time: Total time managing care of this patient today ____ minutes. Documented by User: Shade Head MD 01/12/24 13:29 Event Note Date of Service: 01/12/24
--- NOTE | 2024-01-10 15:16 | PM.EVENT ---
Event Note Date of Service: 01/10/24 Event Note: Patient is a 38-year-old female with a PMH significant for endocarditis, IVDU, CKD 3, hepatitis-C, PTSD, ADHD, and bipolar disorder who was admitted to [facility] with hospitalist consult for anemia, SOB, and rib pain. Patient is seen and evaluated on the psych unit where she is seen ambulating without difficulty or obvious complaint. Patient denies SOB or difficulty breathing, but complains of right-sided rib pain with no clear alleviating or exacerbating features. Reports tripped over roommate's wheelchair at previous facility some weeks ago, falling on her right side. Unclear exactly when pain started, but imaging since then negative for acute fractures. Pt also reports continued abdominal distension. Has been having 1-2 small bowel movements daily. No SOB, MUNOZ. Nonproductive cough at baseline. Denies fever, chills, N/V. No chest pain/pressure or palpitations. Phical exam: General: AOx3, no acute distress Resp: CTA bilaterally CVS: S1, S2, RRR GI: +BS, abd NT, with some distention Skin: Warm, dry Neuro: Cranial nerves II-XII grossly intact bilaterally. Motor grossly intact bilaterally Extremities: No edema Musculoskeletal: Mild right-sided chest wall tenderness Right-sided chest wall tenderness Likely costochondritis secondary to pneumonia and cough CT of chest, CXR negative for acute fracture or subluxation NSAIDS, Tyelenol for pain Incentive spirometry for possible atelectasis Chronic constipation Pt continues to complain of abd distention, Likely secondary to methadone use Miralax 17g daily, Colace 100mg b.i.d. Encourage fluids, ambulation Anemia H&H 8.9/27.8, in line with current baseline CT of abd/pelvis found enlarged bilateral inguinal and external iliac lymph nodes and hepatosplenomegaly, concerning for possible lymphoproliferative disorder Unclear etiology: CKD 3 vs lymphoproliferative disease F/U outpatient for possible lymph node biopsy CKD 3 Creatinine 1.36, though has been elevated as high as 2.01 on 12/27/2023 while admitted to medicine Recent history of significant CHELITA on CKD 3 Will need follow-up outpatient with Nephrology for additional workup and possible renal biopsy Thank you for allowing us to participate in the care of this patient. Signing off at this time. Please re-consult if any acute complaints or issues arise. Time Spent With Patient Time: Total time managing care of this patient today ____ minutes.
--- NOTE | 2024-01-10 16:09 | HO.PSYCHPN ---
Subjective Subjective Date of Service: 01/10/24 Reason For Visit: depression/SI Subjective Notes: Conditional Voluntary Healthcare Proxy: No Guardianship: No Medical Problems Affecting Mental Status: No Interim History: Pt planning discharge for 01/11. Review of problem list, interventions, plan of care with pt and with insurance reviewer Dr. Alarcon [phone]. 1. Opiate Use Disorder- Methadone with 6 day absence until 12/24. Started with 30 mg to 130 mg titration to today. Pt is at times sedate. Will decrease to 125 mg on 01/10. 2.Bipolar Cgzrzvvidm-DQLG-GSOD. Wellbutrin, Klonopin 1 mg bid to decrease to 0.5 mg bid, Clonidine 0.1 mg hs, Olanzapine 10 mg HS, Trazodone 100 mg hs, Adderall XR 31/12, to decrease to XR 10 mg bid 01/10, XR 10 mg a.m. 01/11 and stop upon discharge. 3. Seizure D/O-Keppra, Klonopin 4. CKD-3- Sevelamer, possible need for renal biopsy, glomerulonephritis, edematous R kidney 5. Anemia 6. Constipation 7. Hepatosplenomegaly, Hep C 8. Enlarge bilateral inguinal/external Iliac Lymph Nodes. ?lymphoproliferative disorder Pt has asked her friend Mike and aunt to come in for a meeting on 01/10 1030am. Today, she reports SOB, rib pain, RBC, H&H are declining. Hospitalist consult ordered. Pt found to have costochondritis, constipation, anemia Pt will not consider CSS. As a result we are in the process of working on a PCP, Renal, GI referral, OP therapy/meds, case mgt, recovery coaching, and methadone clinic Medication Compliance: Yes Side effects from medications: No Attending Groups: Yes Review of Systems Acute medical concerns: No Medical Review of Systems: unchanged Review of Systems Review of Systems as noted Mental Status Exam Mental Status Exam Patient Appearance: Fatigued and Appropriate Patient Orientation: Person, Place, Time and Situation Level of Consciousness: Alert Patient Behavior: Talkative, Cooperative, Confused (at times) and Good Eye Contact Mood Description: Depressed and Labile Affect Description: Flat Patient Cognition Impaired: Yes Ability to Follow Directions: Good Speech Pattern: Perseverating and Spontaneous Speech Memory Description: Episodic Impaired Hallucinations: None Delusions: Not Present Perceptual Disturbances: Depersonalization Thought Process: Distracted, Rumination and Goal Oriented Thought Content: positive for Circumstantial, positive for Goal Oriented, positive for Disorganized (at times) and positive for Suicidal Ideation (denies) Depressive Symptoms: Increased Anxiety, Diff. Making Decisions, Increased Fatigue, Thoughts of /Suicide (denies) and Low Self Esteem Judgement: Fair Diagnostics Vital Signs (24Hr): Vital Signs - 24 hr 01/09/24 19:48 01/10/24 07:58 Temperature 97.6 F 98.3 F Pulse Rate 84 80 Respiratory Rate 18 Blood Pressure 108/60 122/68 Pulse Oximetry 99 98 Oxygen Delivery Method Room Air Room Air BMI result Body Mass Index 21.3 Labs 01/10/24 09:31 01/10/24 09:31 Labs: Laboratory Results - last 48 hr 01/05/24 01/06/24 01/09/24 13:24 08:55 18:13 WBC RBC Hgb Hct MCV MCH MCHC RDW Plt Count MPV Immature Gran % (Auto) Neut % (Auto) Lymph % (Auto) [place] % (Auto) Eos % (Auto) Baso % (Auto) Lymph # (Auto) [place] # (Auto) Eos # (Auto) Baso # (Auto) Abs Immat Gran (auto) Absolute Neuts (auto) Absolute Nucleated RBC Nucleated RBC % (auto) Hold Purple Top SEE NOTE Sodium 136 Potassium 4.5 Chloride 99 Carbon Dioxide 26 Anion Gap 16 BUN 48 H Creatinine 1.67 H Estim Creat Clear Calc 44.4 Estimated GFR 34 Random Glucose 123 H Calcium 9.6 Total Bilirubin AST ALT Alkaline Phosphatase Total Protein Total Protein (PEP) 7.9 Albumin Albumin (PEP) 3.9 Bpfxo-7-Othosfann 0.3 Ygdhf-6-Dwcksysag 0.7 Lqxb-7-Pyfkkkva 0.4 Qtog-7-Ekyluedp 0.4 Gamma Globulins 2.2 H Abnorm Protein Band 1 TNP Abnorm Protein Band 2 TNP Abnorm Protein Band 3 TNP PEP Interpretation SEE NOTE U [place] Prot/Creat Ratio 1.111 H Ur Creatinine mg/dL 54 U Total Protein mg/dL 60 H Protein/Creatinin Ratio 1111 H Urine Albumin (%) 64 U Ttmqi-2-Uywicfyd (%) 6 U Enwwq-3-Ltjwefoy (%) 5 U Beta Globulin (%) 6 U Gamma Globulin (%) 19 U Abnormal Prot Band 1 TNP U Abnormal Prot Band 2 TNP U Abnormal Prot Band 3 TNP Urine PEP Interpret Proteinase 3 (PR3) Ab <1.0 Myeloperoxidase Ab <1.0 Complement C3 167 Complement C4 25 01/10/24 09:31 WBC 6.9 RBC 3.00 L Hgb 8.9 L Hct 27.8 L MCV 92.7 MCH 29.7 MCHC 32.0 RDW 14.6 Plt Count 274 MPV 9.5 Immature Gran % (Auto) 0.4 Neut % (Auto) 54.3 Lymph % (Auto) 34.9 [place] % (Auto) 8.2 Eos % (Auto) 1.6 Baso % (Auto) 0.6 Lymph # (Auto) 2.4 [place] # (Auto) 0.6 Eos # (Auto) 0.1 Baso # (Auto) 0.0 Abs Immat Gran (auto) 0.03 Absolute Neuts (auto) 3.7 Absolute Nucleated RBC 0.000 Nucleated RBC % (auto) 0.0 Hold Purple Top Sodium 136 Potassium 4.4 Chloride 100 Carbon Dioxide 29 Anion Gap 11 L BUN 48 H Creatinine 1.36 Estim Creat Clear Calc 54.5 Estimated GFR 44 Random Glucose 121 H Calcium 9.4 Total Bilirubin 0.2 AST 65 H ALT 71 H Alkaline Phosphatase 93 Total Protein 8.3 H Total Protein (PEP) Albumin 3.7 Albumin (PEP) Emgbt-8-Ymlutcbgp Gzhgu-9-Jfheqdwsw Mvti-3-Ymewrmgq Arjb-8-Shbghzeg Gamma Globulins Abnorm Protein Band 1 Abnorm Protein Band 2 Abnorm Protein Band 3 PEP Interpretation U [place] Prot/Creat Ratio Ur Creatinine mg/dL U Total Protein mg/dL Protein/Creatinin Ratio Urine Albumin (%) U Ddeok-2-Qmxtbzez (%) U Rfitu-1-Tfljbtea (%) U Beta Globulin (%) U Gamma Globulin (%) U Abnormal Prot Band 1 U Abnormal Prot Band 2 U Abnormal Prot Band 3 Urine PEP Interpret Proteinase 3 (PR3) Ab Myeloperoxidase Ab Complement C3 Complement C4 Imaging Radiology Impressions: ITS Impressions Abdomen/Pelvis CT 01/04/24 20:30 IMPRESSION: Enlarged bilateral inguinal and external iliac lymph nodes. Hepatosplenomegaly. No change and slightly edematous right kidney with fullness of the collecting system. Severe constipation. Gastric distention. Small left pleural effusion and dependent atelectasis. The possibility of a lymphoproliferative disorder should be considered. Electronically signed by: Denilson Drake MD 01/05/2024 11:10 AM EDT RP Medications Medications Current Medications Acetaminophen (Acetaminophen 325 Mg Tablet) 650 mg PO Q6H PRN PRN Reason: Headache/Pain Mild Scale (1-3) Last Admin: 01/10/24 06:35 Dose: 650 mg Al Hydroxide/Mg Hydroxide (Magnesium Hydrox/Alum Hydrox 30 Ml Oral.Susp) 30 ml PO Q6H PRN PRN Reason: Heartburn/Nausea Amphetamine/Dextroamphetamine (Dextroamphetamine/Amphetamine Xr 10 Mg Cap.Er.24h) 10 mg PO 0900,1300 [facility] Benzocaine (Throat Lozenge, Medicated Lozenge) 1 lozenge MUCOUS MEM Q2H PRN PRN Reason: Sore Throat Benzocaine (Benzocaine 20 % Oral Gel 9 Gm Tube) 1 appl MUCOUS MEM QID PRN; Protocol PRN Reason: dental pain Last Admin: 01/08/24 08:46 Dose: 1 appl Bupropion HCl (Bupropion Hcl 75 Mg Tablet) 150 mg PO DAILY [facility] Last Admin: 01/10/24 08:19 Dose: 150 mg Clonazepam (Clonazepam 0.5 Mg Tablet) 0.5 mg PO BID [facility] Clonidine HCl (Clonidine Hcl 0.1 Mg Tablet) 0.1 mg PO BEDTIME [facility]; Protocol Last Admin: 01/09/24 20:02 Dose: 0.1 mg Docusate Sodium (Docusate Sodium 100 Mg Capsule) 100 mg PO BID [facility] Hydroxyzine HCl (Hydroxyzine Hcl 25 Mg Tablet) 25 mg PO Q6H PRN PRN Reason: Anxiety Last Admin: 01/09/24 20:02 Dose: 25 mg Levetiracetam (Levetiracetam 500 Mg Tablet) 500 mg PO BID [facility] Last Admin: 01/10/24 08:20 Dose: 500 mg Magnesium Hydroxide (Milk Of Magnesia 30 Ml Oral.Susp) 30 ml PO DAILY PRN PRN Reason: Constipation Last Admin: 01/09/24 20:06 Dose: 30 ml Melatonin (Melatonin 3 Mg Tablet) 3 mg PO BEDTIME PRN PRN Reason: Insomnia Last Admin: 01/09/24 20:03 Dose: 3 mg Methadone HCl (Methadone Hcl 20 Mg/2 Ml Oral.Conc) 130 mg PO DAILY@0800 [facility] Last Admin: 01/10/24 07:43 Dose: 130 mg Nicotine (Nicotine 21 Mg Patch.Td24) 21 mg TRANSDERMA DAILY PRN PRN Reason: smoking cessation Nicotine Polacrilex (Nicotine Polacrilex 2 Mg Gum) 4 mg BUCCAL Q2H PRN PRN Reason: Nicotine Cravings Olanzapine (Olanzapine 10 Mg Tablet) 10 mg PO BEDTIME [facility] Last Admin: 01/09/24 20:03 Dose: 10 mg Polyethylene Glycol (Polyethylene Glycol 3350 17 Gm Powd.Pack) 17 gm PO DAILY [facility] Last Admin: 01/10/24 08:20 Dose: 17 gm Sevelamer Carbonate (Sevelamer Carbonate Tablet 800 Mg Tablet) 800 mg PO TIDAC [facility] Last Admin: 01/10/24 16:05 Dose: 800 mg Thiamine HCl (Thiamine Hcl 100 Mg Tablet) 100 mg PO DAILY [facility] Last Admin: 01/10/24 08:20 Dose: 100 mg Trazodone HCl (Trazodone Hcl 100 Mg Tablet) 100 mg PO BEDTIME [facility] Last Admin: 01/09/24 20:03 Dose: 100 mg Allergies Allergies Allergy/AdvReac Type Severity Reaction Status Date / Time No Known Allergies Allergy Verified 12/26/23 21:52 [No Known Allergies*] Assessment & Plan Assessment & Plan (1) CHELITA (acute kidney injury): Status: Resolved Code(s): N17.9 - Acute kidney failure, unspecified (2) Cocaine use disorder: Status: Acute Code(s): F14.10 - Cocaine abuse, uncomplicated (3) PTSD (post-traumatic stress disorder): Status: Acute Code(s): F43.10 - Post-traumatic stress disorder, unspecified (4) Bipolar disorder: Status: Acute Code(s): F31.9 - Bipolar disorder, unspecified (5) Opioid use disorder: Status: Acute Code(s): F11.90 - Opioid use, unspecified, uncomplicated Plan 01/10/24 -Decrease Methadone to 125 mg -Decrease Klonopin to 0.5 mg bid -Meeting with friend and aunt on 01/10 1030am -Follow medical recommendations as noted. Reason for continued inpatient stay Substantial Risk for: med/psych decompensation Time Spent With Patient Time: Total time managing care of this patient today ____ minutes.
[2024-01-10] MEDS: Benzocaine 20 % Oral Gel 9 GM TUBE 1 APPL MUCOUS MEM (18:39)
[2024-01-10] MEDS: clonazePAM 0.5 MG TABLET PO (18:40)
[2024-01-10] MEDS: traZODone HCL 100 MG TABLET PO (18:40)
[2024-01-10] MEDS: Milk of Magnesia 30 ML ORAL.SUSP PO (18:40)
[2024-01-10] MEDS: Docusate Sodium 100 MG CAPSULE PO (18:40)
[2024-01-10 18:41] VITALS: BP 128/74
[2024-01-10] MEDS: cloNIDine HCL 0.1 MG TABLET PO (18:41)
[2024-01-10] MEDS: OLANZapine 10 MG TABLET PO (18:41)
[2024-01-10 20:00] VITALS: BP 117/60; PULSE 85; TEMP 36.2; O2SAT 96
[2024-01-11] MEDS: Acetaminophen 325 MG TABLET 650 MG PO ×2 (06:52→13:08)
[2024-01-11] MEDS: methADONE HCl 20 MG/2 ML ORAL.CONC 125 MG PO (07:41)
[2024-01-11 08:04] VITALS: BP 120/68; PULSE 85; RESP 18; TEMP 36.8; O2SAT 96
[2024-01-11] MEDS: Docusate Sodium 100 MG CAPSULE PO ×2 (08:15→18:48)
[2024-01-11] MEDS: clonazePAM 0.5 MG TABLET PO ×2 (08:15→18:48)
[2024-01-11] MEDS: Thiamine HCL 100 MG TABLET PO (08:15)
[2024-01-11] MEDS: Sevelamer Carbonate Tablet 800 MG TABLET PO ×3 (08:15→17:20)
[2024-01-11] MEDS: buPROPion HCL 75 MG TABLET 150 MG PO (08:15)
[2024-01-11] MEDS: Dextroamphetamine/Amphetamine XR 10 MG CAP.ER.24H PO ×2 (08:15→13:05)
[2024-01-11] MEDS: levETIRAcetam 500 MG TABLET PO ×2 (08:15→18:48)
[2024-01-11] MEDS: Milk of Magnesia 30 ML ORAL.SUSP PO (10:37)
--- NOTE | 2024-01-11 12:38 | PM.PNNEP ---
Subjective Subjective Date of Service: 01/11/24 Interval history: Pt is a 38 y/o female with a medical history of IVDU, CKD3, Hep C (viral load low in 2019), septic pulmonary emboli, endocarditis, MSSA bacteremia, PTSD, ADHD, bipolar disorder, seizures, pt reports also recent diagnosis of diabetes. She had an admission at [facility] 12/26-12/29 for pneumonia, CHELITA and SI. Nephrology consulted for CHELITA Urine tox from 2020, May 2023 and Dec 2023 all positive for cocaine and fentanyl 01/04/24 CT abd/pelvis shows enlarged bilateral inguinal and external iliac lymph nodes (not present on 12/27/23 CT), as well as hepatosplenomegaly. She has a slightly edematous right kidney with fullness in collecting system (no hydro), present/unchanged from 12/27/23 CT. she has a chronic, normocytic anemia since May 2023 (no other blood work done prior in system); platelets normal Urine: urine prot/cr elevated 1.11 on 01/04 (persistent from 12/26, mild protein in May 2023) large amount of blood on dip, microscopy shows >20RBCs present, otherwise bland clean catch from 12/27/23 no growth Creatinine: 05/18/23 0.69 12/26/23 1.64 12/27/23 2.01 12/28/23 1.56 12/31/23 1.68 01/01/24 1.62 01/02/24 1.37 01/04/24 1.41 01/05/24 1.55 01/05. 1.45 01/09/24 1.67 01/10/24 1.36 pt states she does not see a kidney doctor outside of the hospital patient denies chest pain, shortness of breath she denies rash she reports voiding urine comfortably/regularly reports continued/ongoing constipation/abdominal bloating Denies other complaints/concerns Physical Exam Vital Signs: Vital Signs: Last Vital Signs Temp 98.3 F 01/11/24 08:04 Pulse 85 01/11/24 08:04 Resp 18 01/11/24 08:04 BP 120/68 01/11/24 08:04 Pulse Ox 96 01/11/24 08:04 O2 Del Method Room Air 01/11/24 08:04 BMI result Body Mass Index 21.3 Const: General: alert and awake Orientation/consciousness: oriented to person and oriented to place Neck: Neck: Yes no JVD Resp: Effort & Inspection: able to speak in complete sentences Auscultation: clear to auscultation bilaterally Cardio: Jugular venous distension: no JVD Rate: regular rate Rhythm: regular rhythm Heart sounds: S1 normal heart sound present and S2 normal heart sound present GI: Inspection: Yes distended : General: Yes no CVA tenderness Back/Spine/Pelvis: Back: no CVA tenderness Skin: General skin exam: no petechiae and no purpura Rashes: no rashes Neuro: General: oriented to person and oriented to place Extrem: General: No edema Objective Data Labs 01/10/24 09:31 01/10/24 09:31 Labs: Laboratory Results - last 24 hr 01/06/24 08:55 Total Protein (PEP) 7.9 Albumin (PEP) 3.9 Fgeml-6-Ltgkevyoe 0.3 Nvlkp-2-Ysvrdkwwc 0.7 Gcwz-6-Axycssws 0.4 Tpmo-6-Oamuzvbl 0.4 Gamma Globulins 2.2 H Abnorm Protein Band 1 TNP Abnorm Protein Band 2 TNP Abnorm Protein Band 3 TNP PEP Interpretation SEE NOTE Microbiology Microbiology Results: Microbiology 01/05/24 13:24 Urine clean catch Urine Culture - Final Procedures Date of Service Date of Service: 01/11/24 Assessment & Plan Assessment and plan (1) Hematuria: Status: Acute (2) Proteinuria: Status: Acute (3) IVDU (intravenous drug user): Status: Acute (4) CHELITA (acute kidney injury): Status: Resolved (5) Cocaine use disorder: Status: Acute Plan CHELITA with persistent hematuria, proteinuria in setting of IVDU 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
[2024-01-11] MEDS: polyethylene glycoL 3350 17 GM POWD.PACK PO (13:08)
--- NOTE | 2024-01-11 16:53 | HO.PSYCHPN ---
Subjective Subjective Date of Service: 01/11/24 Reason For Visit: depression/SI Subjective Notes: Conditional Voluntary Healthcare Proxy: No Guardianship: No Medical Problems Affecting Mental Status: No Interim History: Meeting with pt and her friend, Mike [phone] whom she will be living with to review discharge planning. Pt feeling prepared to leave, asking appropriate questions, making appropriate list of tasks to continue her treatment. Friend appears to be a good, stable support. Aunt Cassia joined some of the meeting via phone and appears supportive as well. Pt is aware that klonopin is decreased and Adderall XR is discontinued until she is able to work with her OP team to establish their agreement with regime. Adderall XR has been effective and helpful during pt's admission and she has NOT been med seeking once dosages were properly adjusted. Gabapentin was not restarted due to renal compromise. Medication Compliance: Yes Side effects from medications: No Attending Groups: Yes Review of Systems chelita Medical Review of Systems: unchanged Review of Systems Review of Systems Denies today Mental Status Exam Mental Status Exam Patient Appearance: Appropriate Patient Orientation: Person, Place, Time and Situation Level of Consciousness: Alert Patient Behavior: Talkative, Cooperative and Good Eye Contact Mood Description: Anxious Affect Description: Anxious Patient Cognition Impaired: No Ability to Follow Directions: Good Speech Pattern: Spontaneous Speech Memory Description: Episodic Impaired Hallucinations: None Delusions: Not Present Perceptual Disturbances: Depersonalization Thought Process: Distracted and Goal Oriented Thought Content: positive for Circumstantial, positive for Goal Oriented and positive for Suicidal Ideation (denies) Depressive Symptoms: Increased Anxiety, Diff. Making Decisions, Thoughts of /Suicide (denies) and Low Self Esteem Judgement: Good Diagnostics Vital Signs (24Hr): Vital Signs - 24 hr 01/10/24 18:41 01/10/24 20:00 01/11/24 08:04 Temperature 97.2 F 98.3 F Pulse Rate 85 85 Respiratory Rate 18 Blood Pressure 128/74 117/60 120/68 Pulse Oximetry 96 96 Oxygen Delivery Method Room Air Room Air BMI result Body Mass Index 21.3 Labs 01/10/24 09:31 01/10/24 09:31 Labs: Laboratory Results - last 48 hr 01/06/24 01/09/24 01/10/24 08:55 18:13 09:31 WBC 6.9 RBC 3.00 L Hgb 8.9 L Hct 27.8 L MCV 92.7 MCH 29.7 MCHC 32.0 RDW 14.6 Plt Count 274 MPV 9.5 Immature Gran % (Auto) 0.4 Neut % (Auto) 54.3 Lymph % (Auto) 34.9 [place] % (Auto) 8.2 Eos % (Auto) 1.6 Baso % (Auto) 0.6 Lymph # (Auto) 2.4 [place] # (Auto) 0.6 Eos # (Auto) 0.1 Baso # (Auto) 0.0 Abs Immat Gran (auto) 0.03 Absolute Neuts (auto) 3.7 Absolute Nucleated RBC 0.000 Nucleated RBC % (auto) 0.0 Hold Purple Top SEE NOTE Sodium 136 136 Potassium 4.5 4.4 Chloride 99 100 Carbon Dioxide 26 29 Anion Gap 16 11 L BUN 48 H 48 H Creatinine 1.67 H 1.36 Estim Creat Clear Calc 44.4 54.5 Estimated GFR 34 44 Random Glucose 123 H 121 H Calcium 9.6 9.4 Total Bilirubin 0.2 AST 65 H ALT 71 H Alkaline Phosphatase 93 Total Protein 8.3 H Total Protein (PEP) 7.9 Albumin 3.7 Albumin (PEP) 3.9 Pppxi-1-Klzetwmjz 0.3 Erphr-3-Rlvyhroxj 0.7 Lzfx-9-Tbtzsfcq 0.4 Zdxu-4-Ogasxrcz 0.4 Gamma Globulins 2.2 H Abnorm Protein Band 1 TNP Abnorm Protein Band 2 TNP Abnorm Protein Band 3 TNP PEP Interpretation SEE NOTE Proteinase 3 (PR3) Ab <1.0 Myeloperoxidase Ab <1.0 Complement C3 167 Complement C4 25 Imaging Radiology Impressions: ITS Impressions Abdomen/Pelvis CT 01/04/24 20:30 IMPRESSION: Enlarged bilateral inguinal and external iliac lymph nodes. Hepatosplenomegaly. No change and slightly edematous right kidney with fullness of the collecting system. Severe constipation. Gastric distention. Small left pleural effusion and dependent atelectasis. The possibility of a lymphoproliferative disorder should be considered. Electronically signed by: Denilson Drake MD 01/05/2024 11:10 AM EDT Medications Medications Current Medications Acetaminophen (Acetaminophen 325 Mg Tablet) 650 mg PO Q6H PRN PRN Reason: Headache/Pain Mild Scale (1-3) Last Admin: 01/11/24 13:08 Dose: 650 mg Al Hydroxide/Mg Hydroxide (Magnesium Hydrox/Alum Hydrox 30 Ml Oral.Susp) 30 ml PO Q6H PRN PRN Reason: Heartburn/Nausea Amphetamine/Dextroamphetamine (Dextroamphetamine/Amphetamine Xr 10 Mg Cap.Er.24h) 10 mg PO 0900,1300 [facility] Last Admin: 01/11/24 13:05 Dose: 10 mg Benzocaine (Throat Lozenge, Medicated Lozenge) 1 lozenge MUCOUS MEM Q2H PRN PRN Reason: Sore Throat Benzocaine (Benzocaine 20 % Oral Gel 9 Gm Tube) 1 appl MUCOUS MEM QID PRN; Protocol PRN Reason: dental pain Last Admin: 01/10/24 18:39 Dose: 1 appl Bupropion HCl (Bupropion Hcl 75 Mg Tablet) 150 mg PO DAILY [facility] Last Admin: 01/11/24 08:15 Dose: 150 mg Clonazepam (Clonazepam 0.5 Mg Tablet) 0.5 mg PO BID [facility] Last Admin: 01/11/24 08:15 Dose: 0.5 mg Clonidine HCl (Clonidine Hcl 0.1 Mg Tablet) 0.1 mg PO BEDTIME [facility]; Protocol Last Admin: 01/10/24 18:41 Dose: 0.1 mg Docusate Sodium (Docusate Sodium 100 Mg Capsule) 100 mg PO BID [facility] Last Admin: 01/11/24 08:15 Dose: 100 mg Hydroxyzine HCl (Hydroxyzine Hcl 25 Mg Tablet) 25 mg PO Q6H PRN PRN Reason: Anxiety Last Admin: 01/09/24 20:02 Dose: 25 mg Levetiracetam (Levetiracetam 500 Mg Tablet) 500 mg PO BID [facility] Last Admin: 01/11/24 08:15 Dose: 500 mg Magnesium Hydroxide (Milk Of Magnesia 30 Ml Oral.Susp) 30 ml PO DAILY PRN PRN Reason: Constipation Last Admin: 01/11/24 10:37 Dose: 30 ml Melatonin (Melatonin 3 Mg Tablet) 3 mg PO BEDTIME PRN PRN Reason: Insomnia Last Admin: 01/09/24 20:03 Dose: 3 mg Methadone HCl (Methadone Hcl 20 Mg/2 Ml Oral.Conc) 125 mg PO DAILY@0800 [facility] Last Admin: 01/11/24 07:41 Dose: 125 mg Nicotine (Nicotine 21 Mg Patch.Td24) 21 mg TRANSDERMA DAILY PRN PRN Reason: smoking cessation Nicotine Polacrilex (Nicotine Polacrilex 2 Mg Gum) 4 mg BUCCAL Q2H PRN PRN Reason: Nicotine Cravings Olanzapine (Olanzapine 10 Mg Tablet) 10 mg PO BEDTIME [facility] Last Admin: 01/10/24 18:41 Dose: 10 mg Polyethylene Glycol (Polyethylene Glycol 3350 17 Gm Powd.Pack) 17 gm PO DAILY [facility] Last Admin: 01/11/24 13:08 Dose: 17 gm Sevelamer Carbonate (Sevelamer Carbonate Tablet 800 Mg Tablet) 800 mg PO TIDAC [facility] Last Admin: 01/11/24 10:37 Dose: 800 mg Thiamine HCl (Thiamine Hcl 100 Mg Tablet) 100 mg PO DAILY [facility] Last Admin: 01/11/24 08:15 Dose: 100 mg Trazodone HCl (Trazodone Hcl 100 Mg Tablet) 100 mg PO BEDTIME [facility] Last Admin: 01/10/24 18:40 Dose: 100 mg Allergies Allergies Allergy/AdvReac Type Severity Reaction Status Date / Time No Known Allergies Allergy Verified 12/26/23 21:52 [No Known Allergies*] Assessment & Plan Assessment & Plan (1) CHELITA (acute kidney injury): Status: Resolved Code(s): N17.9 - Acute kidney failure, unspecified (2) Cocaine use disorder: Status: Acute Code(s): F14.10 - Cocaine abuse, uncomplicated (3) PTSD (post-traumatic stress disorder): Status: Acute Code(s): F43.10 - Post-traumatic stress disorder, unspecified (4) Bipolar disorder: Status: Acute Code(s): F31.9 - Bipolar disorder, unspecified Assessment and Plan: 01/10: Discharge 01/11. 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
[2024-01-11 18:47] VITALS: BP 113/58
[2024-01-11] MEDS: cloNIDine HCL 0.1 MG TABLET PO (18:47)
[2024-01-11] MEDS: traZODone HCL 100 MG TABLET PO (18:48)
[2024-01-11] MEDS: OLANZapine 10 MG TABLET PO (18:48)
[2024-01-11 19:55] VITALS: BP 113/58; PULSE 87; RESP 16; TEMP 36.8; O2SAT 96
[2024-01-12] MEDS: Acetaminophen 325 MG TABLET 650 MG PO (04:45)
[2024-01-12 08:00] VITALS: BP 123/67; PULSE 78; TEMP 36.4; O2SAT 97
[2024-01-12] MEDS: methADONE HCl 20 MG/2 ML ORAL.CONC 125 MG PO (08:05)
[2024-01-12] MEDS: clonazePAM 0.5 MG TABLET PO (08:49)
[2024-01-12] MEDS: Thiamine HCL 100 MG TABLET PO (08:49)
[2024-01-12] MEDS: Sevelamer Carbonate Tablet 800 MG TABLET PO (08:49)
[2024-01-12] MEDS: buPROPion HCL 75 MG TABLET 150 MG PO (08:49)
[2024-01-12] MEDS: Dextroamphetamine/Amphetamine XR 10 MG CAP.ER.24H PO (08:49)
[2024-01-12] MEDS: levETIRAcetam 500 MG TABLET PO (08:49)
[2024-01-12] MEDS: Benzocaine 20 % Oral Gel 9 GM TUBE 1 APPL MUCOUS MEM (08:50)
--- NOTE | 2024-01-12 16:23 | PM.PSYDC ---
DS: Providers Provider Date of Service: 01/12/24 Date of admission: 12/30/23 14:15 Date of discharge: 01/12/24 Primary care physician: Unknown Physician Admitting clinician: Maddy Neri Attending physician on admission: [place] Consults: 12/31/23 11:12 Addiction Medicine Routine Consulting Provider: Addiction Covering Reason for consultation: Methadone titration to her baseline 01/04/24 11:27 Consult to Hospitalist Routine Comment: Consulting Provider: Hospitalist Reason For Exam: elevated BUN, Cr, not resolving since transfer 01/10/24 11:52 Consult to Hospitalist Routine Comment: Consulting Provider: Hospitalist Reason For Exam: Inc. anemia; SOB, Rib Pain Attending physician on discharge: Sh[place] Head Discharging clinician: Maddy Neri DS: Diagnosis Discharge Diagnosis (1) IVDU (intravenous drug user): Status: Acute (2) CHELITA (acute kidney injury): Status: Resolved (3) Cocaine use disorder: Status: Acute (4) PTSD (post-traumatic stress disorder): Status: Acute (5) Bipolar disorder: Status: Acute (6) Opioid use disorder: Status: Acute DS: Medications Discharge Medications Home Medications: Previous Rx's ?Medication ?Instructions ?Recorded acetaminophen 325 mg tablet 650 mg (2 x 325 mg) PO Q6H PRN 01/11/24 Headache/Pain Mild Scale (1-3) #60 tabs blood pressure monitor #1 ea 01/11/24 bupropion HCl 75 mg tablet 150 mg (2 x 75 mg) PO DAILY #60 01/11/24 tabs clonazepam 0.5 mg tablet 0.5 mg PO BID #30 tabs 01/11/24 clonidine HCl 0.1 mg tablet 0.1 mg PO BEDTIME #30 tabs 01/11/24 docusate sodium 100 mg capsule 100 mg PO BID #60 caps 01/11/24 levetiracetam 500 mg tablet 500 mg PO BID 1 month #60 tabs 01/11/24 (Keppra) melatonin 3 mg tablet 3 mg PO BEDTIME PRN Insomnia #30 01/11/24 tabs methadone 10 mg/mL oral 125 mg (12.5 mL) PO DAILY@0800 #0 01/11/24 concentrate (Methadose) mL multivitamin 1 tab PO DAILY #30 tabs 01/11/24 olanzapine 10 mg tablet 10 mg PO BEDTIME #30 tabs 01/11/24 polyethylene glycol 3350 17 gram 17 g PO DAILY #30 packets 01/11/24 oral powder packet sennosides 8.6 mg tablet (senna) 8.6 mg PO DAILY #30 tabs 01/11/24 sevelamer carbonate 800 mg tablet 800 mg PO TIDAC #90 tabs 01/11/24 thiamine HCl (vitamin B1) 100 mg 100 mg PO DAILY #30 tabs 01/11/24 tablet trazodone 100 mg tablet 100 mg PO BEDTIME #30 tabs 01/11/24 Mental Status Exam Mental Status Exam Patient Appearance: Appropriate Patient Orientation: Person, Place, Time and Situation Level of Consciousness: Alert Patient Behavior: Talkative, Cooperative and Good Eye Contact Mood Description: Anxious Affect Description: Anxious Patient Cognition Impaired: No Ability to Follow Directions: Good Speech Pattern: Spontaneous Speech Memory Description: Episodic Impaired Hallucinations: None Delusions: Not Present Perceptual Disturbances: Depersonalization Thought Process: Distracted and Goal Oriented Thought Content: positive for Circumstantial, positive for Goal Oriented and positive for Suicidal Ideation (denies) Depressive Symptoms: Increased Anxiety, Diff. Making Decisions, Thoughts of /Suicide (denies) and Low Self Esteem Judgement: Good Data Data Completed and Pending Completed studies during hospitalization [Text1]: 01/05/24 01/05/24 01/05/24 13:24 17:25 22:13 WBC RBC Hgb Hct MCV MCH MCHC RDW Plt Count MPV Immature Gran % (Auto) Neut % (Auto) Lymph % (Auto) [place] % (Auto) Eos % (Auto) Baso % (Auto) Lymph # (Auto) [place] # (Auto) Eos # (Auto) Baso # (Auto) Abs Immat Gran (auto) Absolute Neuts (auto) Absolute Nucleated RBC Nucleated RBC % (auto) Hold Purple Top Sodium Potassium Chloride Carbon Dioxide Anion Gap BUN Creatinine Estim Creat Clear Calc Estimated GFR POC Glucose 106 89 Random Glucose Calcium Total Bilirubin AST ALT Alkaline Phosphatase Total Creatine Kinase Total Protein Total Protein (PEP) Albumin Albumin (PEP) Colhc-7-Kwiovdncw Ewgbe-5-Qughwqbth Cnme-3-Uaoyjcrd Bpdn-1-Eaktcwvz Gamma Globulins Abnorm Protein Band 1 Abnorm Protein Band 2 Abnorm Protein Band 3 PEP Interpretation U [place] Prot/Creat Ratio 1.111 H Ur Creatinine mg/dL 54 U Total Protein mg/dL 60 H Protein/Creatinin Ratio 1111 H Urine Albumin (%) 64 U Lljer-2-Hfouppcn (%) 6 U Qhfld-7-Hkwtubmb (%) 5 U Beta Globulin (%) 6 U Gamma Globulin (%) 19 U Abnormal Prot Band 1 TNP U Abnormal Prot Band 2 TNP U Abnormal Prot Band 3 TNP Urine PEP Interpret Proteinase 3 (PR3) Ab Myeloperoxidase Ab Complement C3 Complement C4 01/06/24 01/06/24 01/09/24 08:10 08:55 18:13 WBC RBC Hgb Hct MCV MCH MCHC RDW Plt Count MPV Immature Gran % (Auto) Neut % (Auto) Lymph % (Auto) [place] % (Auto) Eos % (Auto) Baso % (Auto) Lymph # (Auto) [place] # (Auto) Eos # (Auto) Baso # (Auto) Abs Immat Gran (auto) Absolute Neuts (auto) Absolute Nucleated RBC Nucleated RBC % (auto) Hold Purple Top SEE NOTE Sodium 136 136 Potassium 4.8 4.5 Chloride 104 99 Carbon Dioxide 24 26 Anion Gap 13 16 BUN 40 H 48 H Creatinine 1.45 H 1.67 H Estim Creat Clear Calc 51.1 44.4 Estimated GFR 40 34 POC Glucose 83 Random Glucose 116 H 123 H Calcium 9.8 9.6 Total Bilirubin AST ALT Alkaline Phosphatase Total Creatine Kinase 28 Total Protein Total Protein (PEP) 7.9 Albumin Albumin (PEP) 3.9 Lcvmx-8-Ihskdbhyi 0.3 Wjasn-1-Utbesemiv 0.7 Cetp-7-Bzqznyri 0.4 Cyil-4-Xeloypxn 0.4 Gamma Globulins 2.2 H Abnorm Protein Band 1 TNP Abnorm Protein Band 2 TNP Abnorm Protein Band 3 TNP PEP Interpretation SEE NOTE U [place] Prot/Creat Ratio Ur Creatinine mg/dL U Total Protein mg/dL Protein/Creatinin Ratio Urine Albumin (%) U Asnkc-9-Gsvzknge (%) U Krzhd-0-Lxwlzsbe (%) U Beta Globulin (%) U Gamma Globulin (%) U Abnormal Prot Band 1 U Abnormal Prot Band 2 U Abnormal Prot Band 3 Urine PEP Interpret Proteinase 3 (PR3) Ab <1.0 Myeloperoxidase Ab <1.0 Complement C3 167 Complement C4 25 01/10/24 09:31 WBC 6.9 RBC 3.00 L Hgb 8.9 L Hct 27.8 L MCV 92.7 MCH 29.7 MCHC 32.0 RDW 14.6 Plt Count 274 MPV 9.5 Immature Gran % (Auto) 0.4 Neut % (Auto) 54.3 Lymph % (Auto) 34.9 [place] % (Auto) 8.2 Eos % (Auto) 1.6 Baso % (Auto) 0.6 Lymph # (Auto) 2.4 [place] # (Auto) 0.6 Eos # (Auto) 0.1 Baso # (Auto) 0.0 Abs Immat Gran (auto) 0.03 Absolute Neuts (auto) 3.7 Absolute Nucleated RBC 0.000 Nucleated RBC % (auto) 0.0 Hold Purple Top Sodium 136 Potassium 4.4 Chloride 100 Carbon Dioxide 29 Anion Gap 11 L BUN 48 H Creatinine 1.36 Estim Creat Clear Calc 54.5 Estimated GFR 44 POC Glucose Random Glucose 121 H Calcium 9.4 Total Bilirubin 0.2 AST 65 H ALT 71 H Alkaline Phosphatase 93 Total Creatine Kinase Total Protein 8.3 H Total Protein (PEP) Albumin 3.7 Albumin (PEP) Nnlzy-5-Iqlpzgzup Hqfjw-9-Nozprmleg Anmj-2-Lxicawjk Hzrn-6-Uzbkaflb Gamma Globulins Abnorm Protein Band 1 Abnorm Protein Band 2 Abnorm Protein Band 3 PEP Interpretation U [place] Prot/Creat Ratio Ur Creatinine mg/dL U Total Protein mg/dL Protein/Creatinin Ratio Urine Albumin (%) U Dvjny-5-Zdajjxbe (%) U Tnkdz-6-Ungdmcjr (%) U Beta Globulin (%) U Gamma Globulin (%) U Abnormal Prot Band 1 U Abnormal Prot Band 2 U Abnormal Prot Band 3 Urine PEP Interpret Proteinase 3 (PR3) Ab Myeloperoxidase Ab Complement C3 Complement C4 01/05/24 13:24 Urine clean catch Urine Culture - Final Imaging Diagnostic Imaging Impressions Abdomen/Pelvis CT 01/04/24 20:30 IMPRESSION: Enlarged bilateral inguinal and external iliac lymph nodes. Hepatosplenomegaly. No change and slightly edematous right kidney with fullness of the collecting system. Severe constipation. Gastric distention. Small left pleural effusion and dependent atelectasis. The possibility of a lymphoproliferative disorder should be considered. Electronically signed by: Denilson Drake MD 01/05/2024 11:10 AM EDT DS: Summary Hospital Course Hospital Course: 38 yo female, transfer s/p medical admit for pneumonia, CHELITA admitted for IVDU, Opiate Use Disorder-Methadone Maintenance, Cocaine Use Disorder, Bipolar Disorder, ADHD. Recent hx of [facility] admit for MSSA Bacteremia, Endocarditis, Septic Pulmonary Emboli and resulting coma. Medications were evaluated and adjusted. Pt improved on a regime of Keppra,Klonopin for seizure disorder, Bupropion, Adderall XR for ADHD, Olanzapine, Clonidine for mood regulation. Methadone was titrated during admission. Nephrology followed pt daily and will continue out pt services upon discharge. Pt was offered admission to [facility]. She declined, stating she needed to leave the hospital to attend to personal matters and would continue to call [facility] to request an available bed once these tasks were completed. Team met with pt and her friend, Mike with her aunt Cassia joining via phone to discuss plan of care. Pt will follow up with new PCP assigned by insurance, nephrology team, methadone maintenance and out patient psychiatry. She also will be in contact with [facility] to continue application for admission. Status at Discharge Functional status at discharge: independent ambulation Overall status at discharge: patient is progressing back to baseline Time Spent with Patient Time attestation: Total time managing care of this patient today ____ minutes. Time spent: Greater than 30 minutes Discharge Plan Discharge Anticipated Discharge Date/Time: 01/12/24 12:00 Patient Disposition: Xfer Other Discharge Diagnosis: Bipolar Disorder PTSD ADHD Cocaine Use Disorder Opiate Use Disorder- Methadone IVDU CHELITA Referrals: [facility] [Other] - 01/13/24 7:00 am (Please arrive at 7am or 8am to get your dosing ) [facility]- Dory Nur (Therapy Intake) [Other] - 01/17/24 9:00 am (Please arrive 15 mins prior to the appointment to complete intake paperwork. ) [facility]-Evelyn Denney (Psychiatric Evaluation) [Other] - 01/23/24 10:00 am (Telehealth ) [facility]- Evelyn Denney (Medication Management) [Other] - 02/20/24 10:00 am Jameel Day MD [Physician] - 02/01/24 2:45 pm Discharge Medications: New clonidine HCl 0.1 mg Tablet 0.1 mg PO BEDTIME Qty: 30 0RF Protocol: Hold for SBP< HOLD for SBP < : 90 acetaminophen 325 mg Tablet 650 mg PO Q6H PRN (Reason: Headache/Pain Mild Scale (1-3)) Qty: 60 0RF clonazepam 0.5 mg Tablet 0.5 mg PO BID Qty: 30 0RF olanzapine 10 mg Tablet 10 mg PO BEDTIME Qty: 30 0RF bupropion HCl 75 mg Tablet 150 mg PO DAILY Qty: 60 0RF methadone [Methadose] 10 mg/mL Concentrate 125 mg PO DAILY@0800 Qty: 0 0RF Rx Instructions: Partial Fill upon patient request. melatonin 3 mg Tablet 3 mg PO BEDTIME PRN (Reason: Insomnia) Qty: 30 0RF trazodone 100 mg Tablet 100 mg PO BEDTIME Qty: 30 0RF docusate sodium 100 mg Capsule 100 mg PO BID Qty: 60 0RF multivitamin Tablet 1 tab PO DAILY Qty: 30 0RF (DME) blood pressure monitor Kit See Rx Instructions .Route Qty: 1 0RF Rx Instructions: As directed Continued sennosides [senna] 8.6 mg Tablet 8.6 mg PO DAILY Qty: 30 0RF polyethylene glycol 3350 17 gram Powder In Packet 17 g PO DAILY Qty: 30 0RF levetiracetam [Keppra] 500 mg tablet 500 mg PO BID 30 Days Qty: 60 0RF thiamine HCl (vitamin B1) 100 mg Tablet 100 mg PO DAILY Qty: 30 0RF sevelamer carbonate 800 mg Tablet 800 mg PO TIDAC Qty: 90 0RF Rx Instructions: must administer with a meal/food Discontinued methadone 10 mg/mL Concentrate 100 mg PO DAILY insulin lispro 100 unit/mL Solution 1 sliding scale dose SUBCUT USEASDIRECTD doxycycline monohydrate 100 mg Capsule 100 mg PO Q12H Qty: 6 0RF cefuroxime axetil 500 mg Tablet 500 mg PO Q12H Qty: 6 0RF Discharge Orders: Discharge Order (Routine); Ordered 01/12/24 Ordered By: Maddy Neri Diet: Advance to usual diet Activity on Discharge: As tolerated Stand Alone Forms: Patient Portal Discharge page, Community Support Print Language: Malaysian Care Plan Goals: Abstinence from substances Mood and Behavioral Stabilization Follow up with primary care, [facility] [phone] Follow up with renal team Take medications as directed Attend scheduled appointments Practice good self care Health Concerns: Kidney injury Mood and Behavioral Stabilization Abstinence from substances Plan of Treatment: Attend scheduled appointments Primary Care Physician: [facility] [phone] This practice is assigned by your insurance company. They report they have never met you. They ask that you call them to do a telephone intake so they may schedule your first appt. Take medications as directed Follow treatment recommendations On the in pt unit, Kim did very well on Adderall XR 20 mg a.m. 10 mg XR 1300. Assessment: Pt will live with her friend Mike [phone] Her aunt Cassia is a support as well [phone] Denies SI/HI/AH/VH. No sx of psychosis Has applied to [facility] for admission Discharge Date/Time: 01/12/24 10:55
== END 2024-01-12 10:55 | disposition other institution (70) | DRG 753 ==
PROVIDERS: Nurse Practitioner Family; Psychiatry & Neurology Psychiatry; Student in an Organized Health Care Education/Training Program; Admitting Provider Physician Assistant; Visit Provider Clinical Nurse Specialist Psychiatric/Mental Health, Adult
DX: F31.9 Bipolar disorder, unspecified (principal); N17.9 Acute kidney failure, unspecified; D63.1 Anemia in chronic kidney disease; R45.851 Suicidal ideations; K59.09 Other constipation; F17.210 Nicotine dependence, cigarettes, uncomplicated; E87.5 Hyperkalemia; N18.30 Chronic kidney disease, stage 3 unspecified; B19.20 Unspecified viral hepatitis C without hepatic coma; F14.10 Cocaine abuse, uncomplicated; F11.20 Opioid dependence, uncomplicated; Z71.6 Tobacco abuse counseling; F43.10 Post-traumatic stress disorder, unspecified; F90.9 Attention-deficit hyperactivity disorder, unspecified type; Z59.02 Unsheltered homelessness; Z79.899 Other long term (current) drug therapy
CPT/HCPCS: 36415; 74176; 80048; 80053; 80061; 81001; 81025; 82140; 82550; 82570; 82607; 82746; 82947; 83036; 83540; 83615; 84156; 84165; 84166; 84443; 85025; 85999; 86021; 86160; 86704; 86706; 86709; 86803; 87086; 87340; 87389; 93005

== ENCOUNTER 2023-12-30 14:15 | Outpatient (BNV) | payer MEDICAID, SELFPAY | END 2024-01-02 11:16 | PROVIDERS: Admitting Provider Physician Assistant; Visit Provider Internal Medicine Cardiovascular Disease | DX: E87.5 Hyperkalemia (principal) | CPT/HCPCS: 93010 ==

== ENCOUNTER → 2023-12-30 14:15 | Outpatient (BNV) | payer MEDICAID, SELFPAY | PROVIDERS: Admitting Provider Physician Assistant; Visit Provider Nurse Practitioner Family | DX: R31.29 Other microscopic hematuria (principal); R80.1 Persistent proteinuria, unspecified; F19.90 Other psychoactive substance use, unspecified, uncomplicated; N17.9 Acute kidney failure, unspecified; F14.10 Cocaine abuse, uncomplicated | CPT/HCPCS: 99222; 99231; 99232 ==

== ENCOUNTER → 2023-12-30 14:15 | Outpatient (BNV) | payer MEDICAID, SELFPAY | PROVIDERS: Admitting Provider Physician Assistant; Visit Provider Nurse Practitioner Psychiatric/Mental Health | DX: F11.90 Opioid use, unspecified, uncomplicated (principal) | CPT/HCPCS: 99232; 99499 ==

== ENCOUNTER → 2023-12-30 14:15 | Outpatient (BNV) | payer OTHER, SELFPAY | PROVIDERS: Admitting Provider Physician Assistant; Visit Provider Clinical Nurse Specialist Psychiatric/Mental Health, Adult | DX: F31.4 Bipolar disorder, current episode depressed, severe, without psychotic features (principal); F14.10 Cocaine abuse, uncomplicated; N17.9 Acute kidney failure, unspecified; F43.11 Post-traumatic stress disorder, acute; F11.90 Opioid use, unspecified, uncomplicated | CPT/HCPCS: 99231; 99232; 99499 ==

== ENCOUNTER 2024-01-15 17:42 | Inpatient (IN) | payer MEDICAID, SELFPAY ==
--- NOTE | ~2024-01-15 | CT_ITS ---
EXAMINATION: CT CHEST WITHOUT CONTRAST CLINICAL INFORMATION: Follow-up pneumonia. COMPARISON: Most recent CT chest dated 12/28/2023. TECHNIQUE: Multidetector volumetric CT imaging of the chest was done. Axial MIP volume rendering provided. Sagittal and coronal reformatted images were obtained. This CT examination was performed using dose optimization techniques as appropriate, variously including the following: *Automated exposure control. *Adjustment of mA and/or kV according to patient size (this includes techniques or standardized protocols for targeted exams where dose is matched to indication/reason for exam; i.e. extremities or head). *Use of iterative reconstruction technique. DLP: 98 mGy-cm FINDINGS: WEB SEARCH EVALUATOR: Trace bilateral pleural effusions with bibasilar airspace opacities. LUNGS/PLEURA: Evaluation somewhat limited secondary to respiratory motion. There are areas of linear and nodular opacity within the anterior aspect of the right upper lobe, similar when compared to the prior examination. New bilateral areas of ground-glass airspace opacities throughout the lungs which may be artifactual. Small bilateral pleural effusions, increased on the left and new on the right with adjacent atelectasis versus infiltrates in the lung bases, new when compared to the prior examination. No pneumothorax. MEDIASTINUM: Stable cardiomegaly. No pericardial effusion. No thoracic aortic dilatation. Redemonstration of prominent mediastinal and hilar lymph nodes with the largest precarinal lymph node measuring up to 2.0 x 1.4 cm, similar when compared to the prior examination. Unremarkable thyroid. CORONARY ARTERY CALCIFICATION: None visualized on this study. AXILLA: Redemonstration of bilateral axillary lymph nodes, similar when compared to the prior examination. UPPER ABDOMEN: Unremarkable. OSSEOUS STRUCTURES: Unremarkable. CT/CT chest wo IV con IMPRESSION: 1. Small bilateral pleural effusions, increased on the left and new on the right with adjacent atelectasis versus infiltrates in the lung bases. 2. Linear and nodular opacities within the anterior aspect of the right upper lobe, similar when compared to the prior examination. New bilateral areas of ground-glass airspace opacities which may be artifactual. 3. Stable cardiomegaly. 4. Prominent mediastinal and hilar lymph nodes, similar when compared to the prior examination. Fleischner guidelines were followed. Electronically signed by: Jesse Wu MD 01/18/2024 08:41 PM EST
--- NOTE | ~2024-01-15 | XR_ITS ---
EXAMINATION: Left leg CLINICAL INFORMATION: ivdu, CELLULITIS, ? NEEDLE FB COMPARISON: None. TECHNIQUE: 2 views FINDINGS: No radiopaque foreign body. No air in the soft tissues. Bone and joints are normal. XR/XR tibia fibula LT 2V IMPRESSION: Normal left leg. Electronically signed by: Peña Alanis MD 01/15/2024 08:27 PM EST
[2024-01-15 17:47] VITALS: BP 171/109; PULSE 110; RESP 18; TEMP 36.9; O2SAT 98; BMI 21.8
--- NOTE | 2024-01-15 17:57 | ECG_ITS ---
Test Reason : DEPRESSION Blood Pressure : / mmHG Vent. Rate : 098 BPM Atrial Rate : 098 BPM P-R Int : 184 ms QRS Dur : 116 ms QT Int : 394 ms P-R-T Axes : 066 -17 056 degrees QTc Int : 503 ms Normal sinus rhythm Left atrial enlargement Left ventricular hypertrophy with QRS widening ( [place] product ) Prolonged QT Abnormal ECG When compared with ECG of 02-JAN-2024 11:16, T wave amplitude has decreased in Anterior leads Referred By: Marissa Jiang Electronically Signed By:PRESLEY QIU MD
--- NOTE | 2024-01-15 19:38 | ED.SKABFB ---
HPI - Skin/Abscess/Foreign Bdy General Chief complaint: General Medical Stated complaint: Crisis Time Seen by Provider: 01/15/24 19:10 History of Present Illness ED Provider: URIAH LOCKHART MD HPI narrative: THIRTY-EIGHT FEMALE POLYSUBSTANCE USE DISORDER RECENTLY REPORTS ADHERENCE WITH METHADONE BUT HAD BEGAN INJECTING IV COCAINE MOSTLY IN THE LEGS OVER THE PAST FEW DAYS. SHE WAS HOSPITALIZED UNTIL THE December SINCE THAT TIME SHE HAS DONE MULTIPLE COCAINE INJECTIONS PARTICULARLY IN THE LEFT LEG NOW FEELS REDNESS ALSO IN THE DORSUM OF THE RIGHT HAND. Related Data Previous Rx's ?Medication ?Instructions ?Recorded acetaminophen 325 mg tablet 650 mg (2 x 325 mg) PO Q6H PRN 01/11/24 Headache/Pain Mild Scale (1-3) #60 tabs blood pressure monitor #1 ea 01/11/24 bupropion HCl 75 mg tablet 150 mg (2 x 75 mg) PO DAILY #60 01/11/24 tabs clonazepam 0.5 mg tablet 0.5 mg PO BID #30 tabs 01/11/24 clonidine HCl 0.1 mg tablet 0.1 mg PO BEDTIME #30 tabs 01/11/24 docusate sodium 100 mg capsule 100 mg PO BID #60 caps 01/11/24 levetiracetam 500 mg tablet 500 mg PO BID 1 month #60 tabs 01/11/24 (Keppra) melatonin 3 mg tablet 3 mg PO BEDTIME PRN Insomnia #30 01/11/24 tabs methadone 10 mg/mL oral 125 mg (12.5 mL) PO DAILY@0800 #0 01/11/24 concentrate (Methadose) mL multivitamin 1 tab PO DAILY #30 tabs 01/11/24 olanzapine 10 mg tablet 10 mg PO BEDTIME #30 tabs 01/11/24 polyethylene glycol 3350 17 gram 17 g PO DAILY #30 packets 01/11/24 oral powder packet sennosides 8.6 mg tablet (senna) 8.6 mg PO DAILY #30 tabs 01/11/24 sevelamer carbonate 800 mg tablet 800 mg PO TIDAC #90 tabs 01/11/24 thiamine HCl (vitamin B1) 100 mg 100 mg PO DAILY #30 tabs 01/11/24 tablet trazodone 100 mg tablet 100 mg PO BEDTIME #30 tabs 01/11/24 Allergies Allergy/AdvReac Type Severity Reaction Status Date / Time No Known Allergies Allergy Verified 01/15/24 17:47 [No Known Allergies*] [facility] Past Medical History Medical History PTSD (post-traumatic stress disorder) Bipolar disorder Cocaine use disorder Septic pulmonary embolism MSSA bacteremia Seizure disorder ADHD Bipolar 1 disorder Depression Depression Social History Social History Household Members: None Housing: Homeless Do you presently have visiting nurse or other home services: No Comment: 1:1 sitter Patient Tobacco Use Status: Current everyday Tobacco user e-Cigarette/Vaping Use: Currently Using Substance Use Type: Crack/Cocaine, Heroin and Opiates Advance Directives: No Advance Directives Information Provided: No Do you have a plan to hurt others: No Plan service: No Sexual orientation: Straight/Heterosexual Physical Exam Vital Signs: Vital Signs: Last Vital Signs Temp 98.4 F 01/15/24 20:10 Pulse 72 01/15/24 20:10 Resp 16 01/15/24 20:10 BP 108/51 L 01/15/24 20:10 Pulse Ox 97 01/15/24 20:10 O2 Del Method Room Air 01/15/24 20:10 BMI result Body Mass Index 21.8 Const: Other: EXAM: Gen: Alert, anxious distressed and occasionally tearful Head: Atraumatic Eyes: Anicteric, Normal conjunctiva. ENT: Moist mucosa, no pallor. ? Neck: Supple. Respiratory: Breathing comfortably, No distress.Clear to auscultation bilaterally, symmetric chest expansion, No wheeze, rales, ronchi. Cardiovascular: Regular rate and rhythm. No murmurs or rub. Well perfused periphery, warm extremities. No edema. ? Abdominal: Soft, no objective distension. No palpable masses or obvious organomegaly. No focal tenderness, no guarding, no rebound tenderness or other peritoneal findings. Skin: Left lower extremity pretibial area and anteromedial and anterolateral sidhu with erythema and warmth. Track tan underlying this. No fluctuance. Soft muscular compartments well-perfused distally. Right dorsal hand with swelling tenderness over the dorsal 5th MCP region. Mild erythema medial right calf with 2 x 2 area of darkening/skin necrosis perhaps versus blistering Neuro: Alert. Gross movement of all extremities intact. ? Vital signs: See flowsheet Medications Administered Generic Name Dose Route Start Last Admin Trade Name Freq PRN Reason Stop Dose Admin Lactated Ringer's 1,000 mls @ 999 mls/hr 01/15/24 22:30 01/15/24 22:51 Lr IV 01/15/24 23:30 999 mls/hr .Q1H1M NAGA Administration Discontinued Medications Generic Name Dose Route Start Last Admin Trade Name Freq PRN Reason Stop Dose Admin Ceftriaxone Sodium 1 gm 01/15/24 19:37 01/15/24 20:23 Ceftriaxone Sodium 1 Gm Vial IVPUSH 01/15/24 19:38 1 gm ONCE ONE Administration Vancomycin HCl 1,000 mg/ 270 mls @ 270 mls/hr 01/15/24 19:32 01/15/24 20:25 Sodium Chloride IV 01/15/24 20:31 270 mls/hr ONCE ONE Administration Medical Decision Making Medical Decision Making [facility] Narrative: 38-year-old female with polysubstance use disorder, presenting with relapsing on injecting cocaine particularly in the legs and complains of left lower extremity redness pain all over. No fever. Stable hemodynamics. Clinical suggestion of anterior left leg cellulitis. No evidence of retained needle or subcutaneous gas on x-ray. CRP elevated. Less than of the lab work generally stable and reassuring Lab Data [facility] Lab Attestation statement: I reviewed the patient's lab results. 01/15/24 19:55 01/15/24 19:55 Labs: Lab Results 01/15/24 01/15/24 Range/Units 19:54 19:55 WBC 8.4 (4.8-10.8) X10*3/uL RBC 2.70 L (4.20-5.50) X10*6/uL Hgb 8.0 L (12.0-16.0) g/dl Hct 24.6 L (37.0-47.0) % MCV 91.1 (80.0-98.0) fL MCH 29.6 (27.0-33.0) pg MCHC 32.5 (31.0-35.0) g/dl RDW 14.6 (11.0-16.0) % Plt Count 224 (160-400) X10*3/uL MPV 9.2 L (9.4-12.3) fL Immature Gran % (Auto) 0.4 (0.0-0.4) % Neut % (Auto) 66.8 (45-73) % Lymph % (Auto) 24.9 (20-40) % [place] % (Auto) 7.1 (2-11) % Eos % (Auto) 0.4 (0-4) % Baso % (Auto) 0.4 (0-2) % Lymph # (Auto) 2.1 (1.2-4.9) X10*3/uL [place] # (Auto) 0.6 (0.1-1.2) X10*3/uL Eos # (Auto) 0.0 (0.0-0.4) X10*3/uL Baso # (Auto) 0.0 (0.0-0.2) X10*3/uL Abs Immat Gran (auto) 0.03 (0.00-0.03) X10*3/uL Absolute Neuts (auto) 5.6 (2.0-8.3) x10*3/uL Absolute Nucleated RBC 0.000 (0.0-0.012) X10*3/uL Nucleated RBC % (auto) 0.0 (0.0-0.2) /100WBC ESR 106 H (0-20) MM/HR PT 11.7 (10.9-12.4) SEC INR 1.0 (0.9-1.1) Sodium 138 (135-145) mmol/L Potassium 3.9 (3.3-5.1) mmol/L Chloride 102 (96-108) mmol/L Carbon Dioxide 28 (22-29) mmol/L Anion Gap 12 (12-20) BUN 26 H (9-16) mg/dL Creatinine 1.58 H (0.5-1.4) mg/dL Estim Creat Clear Calc 46.9 Estimated GFR 37 Random Glucose 93 (60-115) mg/dL Calcium 9.4 (8.4-10.2) mg/dL Magnesium 2.1 (1.6-2.6) mg/dL Total Bilirubin 0.2 (0.0-1.0) mg/dL Direct Bilirubin < 0.2 (0.0-0.5) mg/dL AST 74 H (5-31) U/L ALT 102 H (0-31) U/L Alkaline Phosphatase 85 (39-117) U/L Troponin I High Sens 14.2 (<3.5-17.0) ng/L C-Reactive Protein 4.96 H (< or = 0.50) mg/dL C-React Prot High Sens Cancelled Total Protein 8.2 H (6.5-8.0) g/dL Albumin 3.7 (3.5-5.0) g/dL Lipase 23 (8-78) U/L Hold Yellow Top See Note Ethyl Alcohol < 10 mg/dL Independent Interpretation I performed an independent interpretation of an: Plain X-Ray Interpretation: No gas or foreign body External Record Review External record reviewed: Inpatient record and Prior outpatient labs Discharge Plan Discharge Clinical Impression: Cellulitis of left leg Patient Disposition: Admitted As Inpatient Instructions: Cellulitis (ED) Prescriptions: No Action clonidine HCl 0.1 mg Tablet 0.1 mg PO BEDTIME Qty: 30 0RF Protocol: Hold for SBP< HOLD for SBP < : 90 acetaminophen 325 mg Tablet 650 mg PO Q6H PRN (Reason: Headache/Pain Mild Scale (1-3)) Qty: 60 0RF clonazepam 0.5 mg Tablet 0.5 mg PO BID Qty: 30 0RF olanzapine 10 mg Tablet 10 mg PO BEDTIME Qty: 30 0RF bupropion HCl 75 mg Tablet 150 mg PO DAILY Qty: 60 0RF methadone [Methadose] 10 mg/mL Concentrate 125 mg PO DAILY@0800 Qty: 0 0RF Rx Instructions: Partial Fill upon patient request. melatonin 3 mg Tablet 3 mg PO BEDTIME PRN (Reason: Insomnia) Qty: 30 0RF trazodone 100 mg Tablet 100 mg PO BEDTIME Qty: 30 0RF docusate sodium 100 mg Capsule 100 mg PO BID Qty: 60 0RF multivitamin Tablet 1 tab PO DAILY Qty: 30 0RF sennosides [senna] 8.6 mg Tablet 8.6 mg PO DAILY Qty: 30 0RF polyethylene glycol 3350 17 gram Powder In Packet 17 g PO DAILY Qty: 30 0RF levetiracetam [Keppra] 500 mg tablet 500 mg PO BID 30 Days Qty: 60 0RF thiamine HCl (vitamin B1) 100 mg Tablet 100 mg PO DAILY Qty: 30 0RF sevelamer carbonate 800 mg Tablet 800 mg PO TIDAC Qty: 90 0RF Rx Instructions: must administer with a meal/food (DME) blood pressure monitor Kit See Rx Instructions .Route Qty: 1 0RF Rx Instructions: As directed Print Language: Bangladeshi
[2024-01-15 20:01] LABS: MANUAL DIFF FLAG NO
[2024-01-15 20:02] LABS: Basophils Percent Auto 0.4 % (0-2); Eosinophils Percent Auto 0.4 % (0-4); Hematocrit 24.6 % (37.0-47.0); Imm Gran Abs Auto 0.03 X10*3/uL (0.00-0.03); Imm Gran Pct Auto 0.4 % (0.0-0.4); Lymphocytes Absolute Auto 2.1 X10*3/uL (1.2-4.9); Lymphocytes Percent Auto 24.9 % (20-40); Mean Corpuscular HGB Conc 32.5 g/dl (31.0-35.0); Mean Corpuscular Hemoglobin 29.6 pg (27.0-33.0); Mean Corpuscular Volume 91.1 fL (80.0-98.0); Mean Platelet Volume 9.2 fL (9.4-12.3); Monocytes Absolute Auto 0.6 X10*3/uL (0.1-1.2); Monocytes Percent Auto 7.1 % (2-11); Neutrophils Absolute Auto 5.6 x10*3/uL (2.0-8.3); Neutrophils Percent Auto 66.8 % (45-73); Platelet Count 224 X10*3/uL (160-400); Red Cell Distribution Width 14.6 % (11.0-16.0); White Blood Count 8.4 X10*3/uL (4.8-10.8)
[2024-01-15 20:10] VITALS: BP 108/51; PULSE 72; RESP 16; TEMP 36.9; O2SAT 97
[2024-01-15 20:10] LABS: Prothrombin Time 11.7 SEC (10.9-12.4)
[2024-01-15] MEDS: cefTRIAXone sodium 1 GM VIAL IVPUSH (20:23)
[2024-01-15] MEDS: vancomycin HCL 1,000 MG in 0.9 % Sodium Chloride 250 ML 270 MG IV (20:25)
[2024-01-15 20:28] LABS: Troponin-I High Sensitivity 14.2 ng/L (<3.5-17.0)
[2024-01-15 20:39] LABS: Alanine Aminotransferase 102 U/L (0-31); Albumin Level 3.7 g/dL (3.5-5.0); Alkaline Phosphatase 85 U/L (39-117); Anion Gap 12 (12-20); Aspartate Amino Transferase 74 U/L (5-31); Bilirubin Direct < 0.2 mg/dL (0.0-0.5); Bilirubin Total 0.2 mg/dL (0.0-1.0); Blood Urea Nitrogen 26 mg/dL (9-16); Calcium 9.4 mg/dL (8.4-10.2); Carbon Dioxide 28 mmol/L (22-29); Chloride 102 mmol/L (96-108); Creatinine Clr Calc Pharmacy 46.9; Estimated Glomerular Filt Rate 37; Ethanol < 10 mg/dL; Glucose Random 93 mg/dL (60-115); Lipase 23 U/L (8-78); Magnesium 2.1 mg/dL (1.6-2.6); Potassium 3.9 mmol/L (3.3-5.1); Sodium 138 mmol/L (135-145); Total Protein 8.2 g/dL (6.5-8.0)
[2024-01-15 20:49] LABS: Erythrocyte Sedimentation Rate 106 MM/HR (0-20)
[2024-01-15 20:50] LABS: C Reactive Protein 4.96 mg/dL (< or = 0.50)
--- NOTE | 2024-01-15 21:50 | P.HPHOSP_ITS ---
History of Present Illness Date of Service: 01/15/24 Attending physician on admission: Karine Townsend Chief Complaint: Lower leg pain, depression Pt is a 38-year-old female with a PMH significant for?endocarditis, IVDU, CKD 3, hepatitis-C, normocytic anemia, PTSD, ADHD, and bipolar disorder who presents to the ED complaining of lower leg swelling, pain, redness in the setting of IVDU. Patient was recently discharged from Psychiatric unit on 01/11?after a 2 week stay. Patient reports she almost immediately began using again upon discharge, injecting ?a lot of cocaine into both lower legs and hands. Earlier today patient noticed that her left leg was painful and began swelling and turning red. Patient is very tearful during interview and exam, stating that ?I know I am going to if I keep using and ?that is why came in today because I am scared I am going to . Patient reports she feels depressed but denies active or passive SI at this time. Also reports subjective fever and chills, as well as chronic abdominal pain around baseline. Last bowel movement 2-3 days ago. No chest pain/pressure, palpitations. Denies shortness or breath or difficulty breathing. Has been adherent with methadone, but not taking any other home meds. In the ED pt was tachycardic up to 110 and initially hypertensive at 171/109. Labs were significant for ESR of 106, creatinine 1.58, AST 74, ALT 102, and CRP 4.96. No leukocytosis. Normocytic anemia of 8.0/24.6, around baseline. X-ray of left tibia and fibula negative for acute process or osseous changes suggestive of osteomyelitis. EKG demonstrated showed normal sinus rhythm with likely left atrialc enlargement and QT of 503. Pt was treated with vancomycin and ceftriaxone. Pt will be admitted to the hospital for treatment and further evaluation of left leg cellulitis secondary to IVDU. Review of Systems 2 Review of Systems: Negative except for that stated in the HPI Yes all other systems are reviewed and are negative [facility] Medical History PTSD (post-traumatic stress disorder) Bipolar disorder Cocaine use disorder Septic pulmonary embolism MSSA bacteremia Seizure disorder ADHD Bipolar 1 disorder Depression Depression Social History Household Members: None Housing: Homeless Do you presently have visiting nurse or other home services: No Comment: 1:1 sitter Patient Tobacco Use Status: Current everyday Tobacco user e-Cigarette/Vaping Use: Currently Using Substance Use Type: Crack/Cocaine, Heroin and Opiates Advance Directives: No Advance Directives Information Provided: No Do you have a plan to hurt others: No Plan service: No Sexual orientation: Straight/Heterosexual Meds Allergies Allergy/AdvReac Type Severity Reaction Status Date / Time No Known Allergies Allergy Verified 01/15/24 17:47 [No Known Allergies*] Physical Exam 2 Vital Signs and Narrative: Vital Signs: Last Vital Signs Temp 98.4 F 01/15/24 20:10 Pulse 72 01/15/24 20:10 Resp 16 01/15/24 20:10 BP 108/51 L 01/15/24 20:10 Pulse Ox 97 01/15/24 20:10 O2 Del Method Room Air 01/15/24 20:10 BMI result Body Mass Index 21.8 General: AOx3, in no acute distress Resp: CTA bilaterally CVS: S1, S2, RRR GI: +BS, soft with mild distention and diffuse tenderness Skin: Warm, dry Neuro: Cranial nerves II-XII grossly intact bilaterally. Motor grossly intact bilaterally Extremities: Left lower leg swelling and erythema at injection sites. As pictured below. Multiple other track tan and superficial abrasions on lower leg and upper extremites. Psych: Emotionally labile Results Labs 01/15/24 19:55 01/15/24 19:55 Labs: Laboratory Results - last 24 hr 01/15/24 01/15/24 19:54 19:55 MCV 91.1 MCH 29.6 MCHC 32.5 RDW 14.6 Plt Count 224 MPV 9.2 L Immature Gran % (Auto) 0.4 Neut % (Auto) 66.8 Lymph % (Auto) 24.9 [place] % (Auto) 7.1 Eos % (Auto) 0.4 Baso % (Auto) 0.4 Lymph # (Auto) 2.1 [place] # (Auto) 0.6 Eos # (Auto) 0.0 Baso # (Auto) 0.0 Abs Immat Gran (auto) 0.03 Absolute Neuts (auto) 5.6 Absolute Nucleated RBC 0.000 Nucleated RBC % (auto) 0.0 ESR 106 H PT 11.7 INR 1.0 Anion Gap 12 Estim Creat Clear Calc 46.9 Estimated GFR 37 Random Glucose 93 Calcium 9.4 Magnesium 2.1 Total Bilirubin 0.2 Direct Bilirubin < 0.2 AST 74 H ALT 102 H Alkaline Phosphatase 85 Troponin I High Sens 14.2 C-Reactive Protein 4.96 H C-React Prot High Sens Cancelled Total Protein 8.2 H Albumin 3.7 Lipase 23 Hold Yellow Top See Note Ethyl Alcohol < 10 Imaging Radiologist's Impressions: Impressions Tibia/Fibula X-Ray 01/15/24 20:15 IMPRESSION: Normal left leg. Electronically signed by: Peña Alanis MD 01/15/2024 08:27 PM EST RP Assessment and Plan (1) Left leg cellulitis: Status: Acute Plan Pt is a 38-year-old female with a PMH significant for?endocarditis, IVDU, CKD 3, hepatitis-C, normocytic anemia, PTSD, ADHD, and bipolar disorder who presents to the ED complaining of lower leg swelling, pain, redness in the setting of IVDU. Pt will be admitted to the hospital for treatment and further evaluation of left leg cellulitis secondary to IVDU. Left leg cellulitis Secondary to IVDU No sepsis: Tachycardia secondary to cocaine; no fever, tachypnea, or leukocytosis Patient started on broad-spectrum antibiotics in the ED Will treat with vancomycin and ceftriaxone, started 01/15/2024 Follow blood cultures Mood disorder Pt reports feeling very depressed that she is killing herself with her IVDU Presented to the ED in part because of fear that she would if she continued to use in the community Denies current active or passive SI No need for a sitter at this time Care team consult once patient medically cleared for likely inpatient psychiatric hospitalization Continue home mood stabilizers Polysubstance use disorder with IVDU Has been injecting cocaine into legs and hands bilaterally Check tox screen Continue methadone Addiction medicine consult CKD 3 Creatinine 1.58 at time of presentation, baseline around 1.36 We will give 1 L IVF Monitor BMP Needs f/u outpatient with nephrology Chronic constipation Scheduled MiraLax, Colace Hx of seizure disorder Last seizure apparently years ago Not on home meds until last admission Continue Ander Full Code Attending:?Dr. Jimenez DVT Prophylaxis: Lovenox Pt will require a hospitalization of at least two nights for treatment of?left leg cellulitis secondary to IVDU requiring IV antibiotics. Patient will also require care team consultation with likely discharge into inpatient psychiatric care. Quality Stroke Does the patient have a stroke diagnosis?: No VTE Prior VTE?: No VTE Risk Level:: Medical - moderate - high VTE Device Contraindication: Treatment Not Indicated VTE Drug Contraindication: N/A - Med Ordered
[2024-01-15] MEDS: Lactated Ringers 1,000 ML 999 ML IV (22:51)
[2024-01-15 23:09] VITALS: BP 111/71; PULSE 72; RESP 13; TEMP 37.1; O2SAT 98
[2024-01-15 23:12] VITALS: BP 113/55; PULSE 71; RESP 12; TEMP 36.9; O2SAT 97
[2024-01-15] MEDS: OLANZapine 10 MG TABLET PO (23:35)
[2024-01-15] MEDS: Docusate Sodium 100 MG CAPSULE PO (23:35)
[2024-01-15] MEDS: clonazePAM 0.5 MG TABLET PO (23:35)
[2024-01-15] MEDS: Enoxaparin Sodium 40 MG/0.4 ML SYRINGE SUBCUT (23:35)
[2024-01-15] MEDS: traZODone HCL 100 MG TABLET PO (23:35)
[2024-01-15 23:36] VITALS: BP 111/71
[2024-01-15] MEDS: cloNIDine HCL 0.1 MG TABLET PO (23:36)
--- NOTE | 2024-01-15 23:44 | PC.NURSE ---
Took care of care from ANA Gomez, medicated per Mar, positive pedal pluses and cms. Iv fluids complete
[2024-01-16 00:46] VITALS: BP 135/64; PULSE 73; RESP 13; TEMP 37.2; O2SAT 95
--- NOTE | 2024-01-16 01:17 | PC.NURSE ---
pt ate sandwich and drinking well, pt vitals re-assessed
[2024-01-16] MEDS: Acetaminophen 325 MG TABLET 650 MG PO ×2 (01:26→17:47)
--- NOTE | 2024-01-16 01:28 | PC.NURSE ---
medicated for fever.
[2024-01-16] MEDS: 0.9 % Sodium Chloride Flush 3 ML SYRINGE IVFLUSH ×2 (01:29→09:29)
[2024-01-16 02:25] VITALS: BMI 21.2
[2024-01-16 02:28] VITALS: BMI 21.2
--- NOTE | 2024-01-16 03:09 | PC.NURSE ---
Pt arrived from ED via wc; no belongings. Pt ambulated from wc to bed, covered in blankets, wrapped herself up, did not want to answer admissions questions, did not want skin check done. Explained reasoning behind all of these issues to patient. I don't care, leave me alone. All day I've been asked questions, I just want to sleep . Pt was tearful. building components designer to do admission assessment and received same response. Pt declined flu vaccine. She did allow FAMILY PRACTICE DOCTOR to take vitals. Bed alarm is on, call drake within reach.
[2024-01-16 03:14] VITALS: BP 104/56; PULSE 70; RESP 17; TEMP 36.4; O2SAT 94
[2024-01-16 07:39] VITALS: BP 98/49; PULSE 60; TEMP 36.1; O2SAT 93
[2024-01-16] MEDS: vancomycin HCL 500 MG in 0.9 % Sodium Chloride 100 ML 110 MG IV (09:15)
[2024-01-16] MEDS: Docusate Sodium 100 MG CAPSULE PO ×2 (09:17→20:45)
[2024-01-16] MEDS: clonazePAM 0.5 MG TABLET PO ×2 (09:17→20:45)
[2024-01-16] MEDS: polyethylene glycoL 3350 17 GM POWD.PACK PO (09:17)
--- NOTE | 2024-01-16 09:43 | HE.PHANOTE ---
METHADONE CONFIRMATION FORM PATIENT TAKES 125MG FROM [facility]. LAST DOSE 01/14
--- NOTE | 2024-01-16 11:15 | MHC.CM.PN ---
Addendum entered by Ethel Cabrales RN 01/16/24 11:25: CLARIFICATION: MMT AT [facility] PT HAS FOLLOWING APPT: [facility] 01/16 AT 0900AM PSYCH EVAL W/JOAN HERNANDEZ 01/22 AT 10AM TELEHEALTH MED MANAGEMENT W/JOAN HERNANDEZ ON 02/19 10AM TELEHEALTH APPT. Original Note: EMR REVIEWED, PT W/CELLULITIS FROM IVDU, PT HOMELESS, REPORTS SHE WAS STAYING W/FRIENDS HOWEVER HAS NOWHERE TO GO AND WOULD LIKE HELP W/PLACEMENT AND THAT [place] [facility] [place], WENT TO A REHAB AND THEN TO , PT DOES VERIFY MMTP AT [facility] IN [place]. PT VERIFIES SHE DOES NOT HAVE A PCP AND THINKS SHE MAY NEED ONE, PT EDUCATED ON AND DECLINES TO COMPLETE A HCP AT THIS TIME.
--- NOTE | 2024-01-16 11:19 | PHA.MEDREC ---
Addendum entered by Samanta Clark RPh 01/16/24 11:43: Reviewed by [facility]. Confirmed medications match claims history, and we called pharmacy to confirm these medications were picked up. Nursing confirmed pt can be hit or miss, can have some luck at times but she gets agitated easily. She would not confirm meds with [employer] tech. Provider was made aware. Original Note: Pharmacy Consult ? Medication Reconciliation Pharmacy has completed the medication reconciliation. Went to speak to patient and she did not want to answer any questions stating I'm tired, I don't feel good, I don't want to talk right now . I called [facility] pharmacy in [place] since claims has that she filled a bunch of medications there 01/11. I called and confirmed she did picking tech the medications from [facility] 01/11. I went back to try and confirm if the patient is taking those medications, I told her about [facility] and she said I picked those up but I haven't taken anything really in a few days, I only want my Methadone right now I asked her her dosing of the Methadone and she confirmed 125mg daily.
[2024-01-16] MEDS: methADONE HCl 20 MG/2 ML ORAL.CONC 125 MG PO (12:09)
[2024-01-16] MEDS: 0.9 % Sodium Chloride 1,000 ML 100 ML IVCONT ×2 (12:12→22:04)
[2024-01-16] MEDS: Sevelamer Carbonate Tablet 800 MG TABLET PO ×2 (12:16→15:35)
[2024-01-16] MEDS: Multivitamin TABLET 1 TAB PO (12:16)
[2024-01-16] MEDS: levETIRAcetam 500 MG TABLET PO ×2 (12:16→20:44)
[2024-01-16] MEDS: Sennosides 8.6 MG TABLET PO (12:16)
[2024-01-16] MEDS: Thiamine HCL 100 MG TABLET PO (12:16)
[2024-01-16] MEDS: buPROPion HCL 75 MG TABLET 150 MG PO (12:16)
--- NOTE | 2024-01-16 13:57 | MHC.RECOVRN ---
Met with pt in 369 after consult placed to Addiction Medicine for IVDU. Pt had presented to the ED reporting abdominal distention and swollen legs after injection cocaine into extremities. Upon evaluation, pt admitted for left leg cellulitis. Pt laying in bed, awake, alert, easily engages in conversation. Pt reports she had recently been in [facility] x 2 months and then [facility] x 2 months to finish IV antibiotics. Pt reports after dc from [facility] she was back in the area and was eventually admitted to and discharged this past Tuesday. Pt reports she has not taken her health seriously in the past and now comes to the hospital if needed. Pt reports since discharge she has used cocaine, IV, a lot as well as heroin if someone else had it. Pt reports she typically uses heroin INH and cocaine IV. Pt reports she does not use heroin regularly anymore since she is on methadone. Pt currently receives 125 mg through [facility]. Pt reports her dose could go up a little. Reports diaphoresis last night as a result of withdrawal. Pt reports highest dose has been 135 mg. Pt reports pain in her leg as well as abdomen/ ribs. Becomes tearful when telling t/w about pain. Pt denies other questions or concerns for t/w. Notified pts RN of reported pain.
[2024-01-16 15:21] VITALS: BP 104/60; PULSE 84; RESP 18; TEMP 36.4; O2SAT 94
[2024-01-16 15:23] LABS: Amphetamine Screen Urine Not Detected (Not Detect); Barbiturates, Urine Not Detected (Not Detect); Benzodiazepines Screen Urine Not Detected (Not Detect); Buprenorphine Scr Not Detected (Not Detect); Cannabinoid Screen Urine Not Detected (Not Detect); Cocaine Screen Urine POSITIVE (Not Detect); Fentanyl, urine POSITIVE (Not Detect); Methadone Screen, Urine Positive (Not Detect); Opiate Screen Urine POSITIVE (Not Detect); Oxycodone Screen Urine Not Detected (Not Detect); Phencyclidine Screen Urine Not Detected (Not Detect)
[2024-01-16] MEDS: oxyCODONE HCl Immed Release 5 MG TABLET 10 MG PO (15:35)
[2024-01-16] MEDS: HYDROmorphone HCl 1 MG/ML SYRINGE IVPUSH ×2 (17:09→18:34)
[2024-01-16 19:34] LABS: Vancomycin Random 15.1 mcg/mL (15-20)
[2024-01-16 19:35] LABS: Anion Gap 14 (12-20); Blood Urea Nitrogen 19 mg/dL (9-16); Calcium 8.4 mg/dL (8.4-10.2); Carbon Dioxide 24 mmol/L (22-29); Chloride 107 mmol/L (96-108); Estimated Glomerular Filt Rate 39; Glucose Random 106 mg/dL (60-115); Potassium 3.6 mmol/L (3.3-5.1); Sodium 141 mmol/L (135-145)
--- NOTE | 2024-01-16 19:58 | HE.PHANOTE ---
ALLIE Changing dose 1000mg Q24H per trough on higher end after 2 doses. Renal function is trending downwards slightly. Predicted trough 15.6, predicted AUC 545, next trough 11/6 @0600, getting trough after one dose of 1000mg.
[2024-01-16] MEDS: cefTRIAXone sodium 1 GM VIAL IVPUSH (20:39)
[2024-01-16] MEDS: cloNIDine HCL 0.1 MG TABLET PO (20:44)
[2024-01-16] MEDS: traZODone HCL 100 MG TABLET PO (20:45)
[2024-01-16] MEDS: OLANZapine 10 MG TABLET PO (20:46)
[2024-01-16] MEDS: Enoxaparin Sodium 40 MG/0.4 ML SYRINGE SUBCUT (22:55)
[2024-01-16 23:22] VITALS: BP 115/62; PULSE 58; RESP 18; TEMP 36.2; O2SAT 96
[2024-01-17] MEDS: methADONE HCl 20 MG/2 ML ORAL.CONC 125 MG PO (07:19)
[2024-01-17 07:25] VITALS: BP 108/68; PULSE 67; RESP 16; TEMP 36.4; O2SAT 98
[2024-01-17] MEDS: vancomycin HCL 1,000 MG in 0.9 % Sodium Chloride 250 ML 270 MG IV (07:31)
[2024-01-17] MEDS: 0.9 % Sodium Chloride 1,000 ML 100 ML IVCONT ×2 (07:31→20:59)
--- NOTE | 2024-01-17 07:35 | P.PNIM_ITS ---
Subjective Subjective Date of Service: 01/16/24 Interval History: seen on 01/16/24 leg cellulitis Review of Systems leg erythema and pain similar Physical Exam 2 Vital Signs: Vital Signs: Last Vital Signs BMI result Body Mass Index 21.2 vitals reviewed from 01/16/24. General: AOx3, has pains Resp: CTA bilaterally CVS: S1, S2, RRR GI: +BS, soft with mild distention and diffuse tenderness Skin: Warm, dry Neuro: Cranial nerves II-XII grossly intact bilaterally. Motor grossly intact bilaterally Extremities: Left lower leg swelling and erythema at injection sites. Multiple other track tan and superficial abrasions on lower leg and upper extremites- see pic in h&P. Objective Data Active Medications Acetaminophen (Acetaminophen 325 Mg Tablet) 650 mg PO Q6H PRN PRN Reason: Pain, Mild (Pain Scale 1-3), fever or headache Last Admin: 01/16/24 17:47 Dose: 650 mg Documented By: PATT Benzonatate (Benzonatate 100 Mg Capsule) 100 mg PO TID PRN PRN Reason: Cough Bupropion HCl (Bupropion Hcl 75 Mg Tablet) 150 mg PO DAILY [facility] Last Admin: 01/16/24 12:16 Dose: 150 mg Documented By: PATT Calcium Carbonate (Calcium Carbonate 750 Mg Tab.Chew) 750 mg PO Q4H PRN PRN Reason: Heartburn Ceftriaxone Sodium (Ceftriaxone Sodium 1 Gm Vial) 1 gm IVPUSH Q24H [facility] Last Admin: 01/16/24 20:39 Dose: 1 gm Documented By: TAWANDA Clonazepam (Clonazepam 0.5 Mg Tablet) 0.5 mg PO BID [facility] Last Admin: 01/16/24 20:45 Dose: 0.5 mg Documented By: TAWANDA Clonidine HCl (Clonidine Hcl 0.1 Mg Tablet) 0.1 mg PO BEDTIME [facility]; Protocol Last Admin: 01/16/24 20:44 Dose: 0.1 mg Documented By: TAWANDA Docusate Sodium (Docusate Sodium 100 Mg Capsule) 100 mg PO BID [facility] Last Admin: 01/16/24 20:45 Dose: 100 mg Documented By: TAWANDA Enoxaparin Sodium (Enoxaparin Sodium 40 Mg/0.4 Ml Syringe) 40 mg SUBCUT Q24H [facility] Last Admin: 01/16/24 22:55 Dose: 40 mg Documented By: TAWANDA Hydromorphone HCl (Hydromorphone Hcl 1 Mg/Ml Syringe) 1 mg IVPUSH Q3H PRN; Protocol PRN Reason: Pain, Moderate(Pain Scale 4-6) Last Admin: 01/16/24 18:34 Dose: 1 mg Documented By: PATT Sodium Chloride (Ns) 1,000 mls @ 100 mls/hr IVCONT .Q10H [facility] Last Admin: 01/16/24 22:04 Dose: 100 mls/hr Documented By: TAWANDA Vancomycin HCl 1,000 mg/ (Sodium Chloride) 270 mls @ 270 mls/hr IV Q24H [facility] Levetiracetam (Levetiracetam 500 Mg Tablet) 500 mg PO BID [facility] Last Admin: 01/16/24 20:44 Dose: 500 mg Documented By: TAWANDA Magnesium Hydroxide (Milk Of Magnesia 30 Ml Oral.Susp) 30 ml PO DAILY PRN PRN Reason: Constipation Melatonin (Melatonin 3 Mg Tablet) 6 mg PO BEDTIME PRN PRN Reason: Insomnia Melatonin (Melatonin 3 Mg Tablet) 3 mg PO BEDTIME PRN PRN Reason: Insomnia Methadone HCl (Methadone Hcl 20 Mg/2 Ml Oral.Conc) 125 mg PO DAILY@0800 [facility] Last Admin: 01/16/24 12:09 Dose: 125 mg Documented By: PATT Co-signed By: SAQIB Multivitamins/Vitamin C (Multivitamin Tablet) 1 tab PO DAILY [facility] Last Admin: 01/16/24 12:16 Dose: 1 tab Documented By: PATT Olanzapine (Olanzapine 10 Mg Tablet) 10 mg PO BEDTIME [facility] Last Admin: 01/16/24 20:46 Dose: 10 mg Documented By: TAWANDA Pharmacy Consult (Consult Rx Vancomycin Dosing) 1 each MISCELLANE DAILY PRN PRN Reason: Consult order Polyethylene Glycol (Polyethylene Glycol 3350 17 Gm Powd.Pack) 17 gm PO DAILY [facility] Last Admin: 01/16/24 09:17 Dose: 17 gm Documented By: PATT Senna (Sennosides 8.6 Mg Tablet) 8.6 mg PO DAILY [facility] Last Admin: 01/16/24 12:16 Dose: 8.6 mg Documented By: PATT Sevelamer Carbonate (Sevelamer Carbonate Tablet 800 Mg Tablet) 800 mg PO TIDAC [facility] Last Admin: 01/16/24 15:35 Dose: 800 mg Documented By: PATT Sodium Chloride (0.9 % Sodium Chloride Flush 3 Ml Syringe) 3 ml IVFLUSH QSHIFT [facility] Last Admin: 01/17/24 07:09 Dose: Not Given Documented By: PATT Non-Admin Reason: IV Running Thiamine HCl (Thiamine Hcl 100 Mg Tablet) 100 mg PO DAILY [facility] Last Admin: 01/16/24 12:16 Dose: 100 mg Documented By: PATT Trazodone HCl (Trazodone Hcl 100 Mg Tablet) 100 mg PO BEDTIME [facility] Last Admin: 01/16/24 20:45 Dose: 100 mg Documented By: ODRISM Labs 01/15/24 19:55 01/16/24 19:03 Labs: Laboratory Results - last 24 hr 01/16/24 01/16/24 14:41 19:03 Anion Gap 14 Estim Creat Clear Calc 49.0 Estimated GFR 39 Random Glucose 106 Calcium 8.4 D Random Vancomycin 15.1 Urine Opiates Screen POSITIVE H Ur Buprenorphine Scrn Not Detected Ur Oxycodone Screen Not Detected Urine Methadone Screen Positive H Urine Fentanyl Screen POSITIVE H Ur Barbiturates Screen Not Detected Ur Phencyclidine Scrn Not Detected Ur Amphetamines Screen Not Detected U Benzodiazepines Scrn Not Detected Urine Cocaine Screen POSITIVE H U Marijuana (THC) Screen Not Detected Microbiology Microbiology Results: Microbiology 01/15/24 19:54 Blood Culture - Preliminary Blood - Venous No growth after 24 hours. 01/15/24 19:54 Blood Culture - Preliminary Blood - Venous No growth after 24 hours. Blood Culture - Preliminary No growth after 24 hours. Assessment and Plan (1) Cellulitis of left leg: Status: Acute Plan 38-year-old female with a PMH significant for?endocarditis, IVDU, CKD 3, hepatitis-C, normocytic anemia, PTSD, ADHD, and bipolar disorder who presents to the ED complaining of lower leg swelling, pain, redness in the setting of IVDU. Pt will be admitted to the hospital for treatment and further evaluation of left leg cellulitis secondary to IVDU. Left leg cellulitis possible Secondary to IVDU esr 106 and crp 4.96 vanco trough 15.1 on 01/15 0n vancomycin and ceftriaxone, started 01/15/2024 Follow blood cultures Mood disorder Pt reports feeling very depressed that she is killing herself with her IVDU Presented to the ED in part because of fear that she would if she continued to use in the community Denies current active or passive SI No need for a sitter at this time Care team consult once patient medically cleared for likely inpatient psychiatric hospitalization Continue home mood stabilizers Polysubstance use disorder with IVDU Has been injecting cocaine into legs and hands bilaterally Check tox screen positive for opiates,fentanyl, cocaine. Continue methadone Addiction medicine consult CKD 3 Creatinine seems similar , baseline around 1.36 s/p 1 L IVF Monitor BMP will consider nephrology eval. Chronic constipation Scheduled MiraLax, Colace Hx of seizure disorder Last seizure apparently years ago Not on home meds until last admission Continue Keppra Full Code DVT Prophylaxis: Lovenox ongoing need for hospitalization of at least two nights for treatment of?left leg cellulitis secondary to IVDU requiring IV antibiotics. Patient will also require care team consultation with likely discharge into inpatient psychiatric care Quality Stroke Does the patient have a stroke diagnosis?: No VTE Prior VTE?: No VTE Risk Level:: Medical - moderate - high VTE Device Contraindication: Treatment Not Indicated VTE Drug Contraindication: N/A - Med Ordered
--- NOTE | 2024-01-17 07:45 | P.PNIM_ITS ---
Subjective Subjective Date of Service: 01/17/24 Interval History: leg cellulitis some abd pain passing bm's Review of Systems she said has abd pain which is improved after passing bm has leg pains /erythema mild no fevers Physical Exam 2 Vital Signs: Vital Signs: Last Vital Signs Temp 97.5 F 01/17/24 07:25 Pulse 67 01/17/24 07:25 Resp 16 01/17/24 07:25 BP 108/68 01/17/24 07:25 Pulse Ox 98 01/17/24 07:25 O2 Del Method Room Air 01/17/24 07:25 BMI result Body Mass Index 21.2 General: AOx3, has pains Resp: CTA bilaterally CVS: S1, S2, RRR GI: +BS, soft with mild distention and diffuse tenderness Skin: Warm, dry Neuro: Cranial nerves II-XII grossly intact bilaterally. Motor grossly intact bilaterally Extremities: Left lower leg swelling and erythema at injection sites. Multiple other track tan and superficial abrasions on lower leg and upper extremites- see pic in h&P. Objective Data Active Medications Acetaminophen (Acetaminophen 325 Mg Tablet) 650 mg PO Q6H PRN PRN Reason: Pain, Mild (Pain Scale 1-3), fever or headache Last Admin: 01/16/24 17:47 Dose: 650 mg Documented By: PATT Benzonatate (Benzonatate 100 Mg Capsule) 100 mg PO TID PRN PRN Reason: Cough Bupropion HCl (Bupropion Hcl 75 Mg Tablet) 150 mg PO DAILY [facility] Last Admin: 01/16/24 12:16 Dose: 150 mg Documented By: PATT Calcium Carbonate (Calcium Carbonate 750 Mg Tab.Chew) 750 mg PO Q4H PRN PRN Reason: Heartburn Ceftriaxone Sodium (Ceftriaxone Sodium 1 Gm Vial) 1 gm IVPUSH Q24H [facility] Last Admin: 01/16/24 20:39 Dose: 1 gm Documented By: TAWANDA Clonazepam (Clonazepam 0.5 Mg Tablet) 0.5 mg PO BID [facility] Last Admin: 01/16/24 20:45 Dose: 0.5 mg Documented By: TAWANDA Clonidine HCl (Clonidine Hcl 0.1 Mg Tablet) 0.1 mg PO BEDTIME [facility]; Protocol Last Admin: 01/16/24 20:44 Dose: 0.1 mg Documented By: TAWANDA Docusate Sodium (Docusate Sodium 100 Mg Capsule) 100 mg PO BID [facility] Last Admin: 01/16/24 20:45 Dose: 100 mg Documented By: TAWANDA Enoxaparin Sodium (Enoxaparin Sodium 40 Mg/0.4 Ml Syringe) 40 mg SUBCUT Q24H [facility] Last Admin: 01/16/24 22:55 Dose: 40 mg Documented By: TAWANDA Hydromorphone HCl (Hydromorphone Hcl 1 Mg/Ml Syringe) 1 mg IVPUSH Q3H PRN; Protocol PRN Reason: Pain, Moderate(Pain Scale 4-6) Last Admin: 01/16/24 18:34 Dose: 1 mg Documented By: PATT Sodium Chloride (Ns) 1,000 mls @ 100 mls/hr IVCONT .Q10H [facility] Last Admin: 01/16/24 22:04 Dose: 100 mls/hr Documented By: TAWANDA Vancomycin HCl 1,000 mg/ (Sodium Chloride) 270 mls @ 270 mls/hr IV Q24H [facility] Last Admin: 01/17/24 07:31 Dose: 270 mls/hr Levetiracetam (Levetiracetam 500 Mg Tablet) 500 mg PO BID [facility] Last Admin: 01/16/24 20:44 Dose: 500 mg Documented By: TAWANDA Magnesium Hydroxide (Milk Of Magnesia 30 Ml Oral.Susp) 30 ml PO DAILY PRN PRN Reason: Constipation Melatonin (Melatonin 3 Mg Tablet) 6 mg PO BEDTIME PRN PRN Reason: Insomnia Melatonin (Melatonin 3 Mg Tablet) 3 mg PO BEDTIME PRN PRN Reason: Insomnia Methadone HCl (Methadone Hcl 20 Mg/2 Ml Oral.Conc) 125 mg PO DAILY@0800 [facility] Last Admin: 01/16/24 12:09 Dose: 125 mg Documented By: PATT Co-signed By: SAQIB Multivitamins/Vitamin C (Multivitamin Tablet) 1 tab PO DAILY [facility] Last Admin: 01/16/24 12:16 Dose: 1 tab Documented By: PATT Olanzapine (Olanzapine 10 Mg Tablet) 10 mg PO BEDTIME [facility] Last Admin: 01/16/24 20:46 Dose: 10 mg Documented By: TAWANDA Pharmacy Consult (Consult Rx Vancomycin Dosing) 1 each MISCELLANE DAILY PRN PRN Reason: Consult order Polyethylene Glycol (Polyethylene Glycol 3350 17 Gm Powd.Pack) 17 gm PO DAILY [facility] Last Admin: 01/16/24 09:17 Dose: 17 gm Documented By: PATT Senna (Sennosides 8.6 Mg Tablet) 8.6 mg PO DAILY [facility] Last Admin: 01/16/24 12:16 Dose: 8.6 mg Documented By: PATT Sevelamer Carbonate (Sevelamer Carbonate Tablet 800 Mg Tablet) 800 mg PO TIDAC [facility] Last Admin: 01/16/24 15:35 Dose: 800 mg Documented By: PATT Sodium Chloride (0.9 % Sodium Chloride Flush 3 Ml Syringe) 3 ml IVFLUSH QSHIFT [facility] Last Admin: 01/17/24 07:09 Dose: Not Given Documented By: PATT Non-Admin Reason: IV Running Thiamine HCl (Thiamine Hcl 100 Mg Tablet) 100 mg PO DAILY [facility] Last Admin: 01/16/24 12:16 Dose: 100 mg Documented By: PATT Trazodone HCl (Trazodone Hcl 100 Mg Tablet) 100 mg PO BEDTIME [facility] Last Admin: 01/16/24 20:45 Dose: 100 mg Documented By: ODRISM Labs 01/17/24 09:40 01/17/24 09:40 Labs: Laboratory Results - last 24 hr 01/16/24 01/16/24 14:41 19:03 Anion Gap 14 Estim Creat Clear Calc 49.0 Estimated GFR 39 Random Glucose 106 Calcium 8.4 D Random Vancomycin 15.1 Urine Opiates Screen POSITIVE H Ur Buprenorphine Scrn Not Detected Ur Oxycodone Screen Not Detected Urine Methadone Screen Positive H Urine Fentanyl Screen POSITIVE H Ur Barbiturates Screen Not Detected Ur Phencyclidine Scrn Not Detected Ur Amphetamines Screen Not Detected U Benzodiazepines Scrn Not Detected Urine Cocaine Screen POSITIVE H U Marijuana (THC) Screen Not Detected Microbiology Microbiology Results: Microbiology 01/15/24 19:54 Blood Culture - Preliminary Blood - Venous No growth after 24 hours. 01/15/24 19:54 Blood Culture - Preliminary Blood - Venous No growth after 24 hours. Blood Culture - Preliminary No growth after 24 hours. Assessment and Plan (1) Cellulitis of left leg: Status: Acute Plan 38-year-old female with a PMH significant for?endocarditis, IVDU, CKD 3, hepatitis-C, normocytic anemia, PTSD, ADHD, and bipolar disorder who presents to the ED complaining of lower leg swelling, pain, redness in the setting of IVDU. Pt will be admitted to the hospital for treatment and further evaluation of left leg cellulitis secondary to IVDU. Left leg cellulitis possible Secondary to IVDU esr 106 and crp 4.96 vanco trough 15.1 on 01/15 0n vancomycin and ceftriaxone, started 01/15/2024 Follow blood cultures Mood disorder Pt reports feeling very depressed that she is killing herself with her IVDU Presented to the ED in part because of fear that she would if she continued to use in the community Denies current active or passive SI No need for a sitter at this time Care team consult once patient medically cleared for likely inpatient psychiatric hospitalization Continue home mood stabilizers Polysubstance use disorder with IVDU Has been injecting cocaine into legs and hands bilaterally Check tox screen positive for opiates,fentanyl, cocaine. Continue methadone Addiction medicine consult CKD 3 vs patti Creatinine imrpoving s/p 1 L IVF Monitor BMP Chronic constipation passing bm's Scheduled MiraLax, Colace Hx of seizure disorder: Continue Keppra Full Code DVT Prophylaxis: Lovenox ongoing need for hospitalization of at least two nights for treatment of?left leg cellulitis secondary to IVDU requiring IV antibiotics. Patient will also require care team consultation with likely discharge into inpatient psychiatric care Quality Stroke Does the patient have a stroke diagnosis?: No VTE Prior VTE?: No VTE Risk Level:: Medical - moderate - high VTE Device Contraindication: Treatment Not Indicated VTE Drug Contraindication: N/A - Med Ordered
[2024-01-17] MEDS: clonazePAM 0.5 MG TABLET PO ×2 (09:02→21:08)
[2024-01-17] MEDS: Multivitamin TABLET 1 TAB PO (09:02)
[2024-01-17] MEDS: Thiamine HCL 100 MG TABLET PO (09:02)
[2024-01-17] MEDS: Sevelamer Carbonate Tablet 800 MG TABLET PO ×3 (09:02→17:23)
[2024-01-17] MEDS: HYDROmorphone HCl 1 MG/ML SYRINGE IVPUSH ×4 (09:03→20:55)
[2024-01-17] MEDS: buPROPion HCL 75 MG TABLET 150 MG PO (09:03)
[2024-01-17] MEDS: levETIRAcetam 500 MG TABLET PO ×2 (09:03→21:08)
--- NOTE | 2024-01-17 09:11 | P.CNGI_ITS ---
History of Present Illness Data of Consult Service Date: 01/17/24 Requesting physician: Vinicius Case Primary Care Provider: Unknown Physician HPI Reason for consult: abdominal pain 38-year-old female with h/o?endocarditis, IVDU, CKD 3, hepatitis-C, normocytic anemia, PTSD, ADHD, and bipolar disorder who I am seeing for assessment for abdominal pain She initially presented with left leg pain and swelling. She has hx of IVDA and had been injecting cocaine into hands and legs. She noted fevers and chills as well as chronic abdominal pain. She also has constipation. No chest pain/pressure, palpitations. Denies shortness or breath or difficulty breathing. On interview she denied any current abdominal pain as she said she had a good bowel motion and this relived it, she also stated once she eats food and moves her bowels she starts to feel normal. she has distention at baseline which she attributes to prolonged illness from prior endocarditis. She does admit to constipation and going every few days. when she does get abdominal pain can be mild to moderated and in the left flank towards the front and relived by passing stool. She is on methadone as well. She feels her leg pain is the main issue for her right now. she also admits to an pleuritic chest pain on and off for uncertain period of time worse with coughing and deep breathing. she denies melena or rectal bleeding. she does admit to depression but no SI and reuqests further psych assessment. LABS: ESR of 106, creatinine 1.58, AST 74, ALT 102, and CRP 4.96. No leukocytosis. Normocytic anemia of 8.0/24.6, Review of Systems 2 Review of Systems: Constitutional : fever + ENT/Mouth : No sore throat, No Rhinorrhea Eyes: No Swelling, No Redness Cardiovascular : + Chest Pain, No SOB, No Edema Respiratory : + Cough, No Sputum, No Wheezing Gastrointestinal : see HPI Genitourinary : NO Dysuria, No Urinary Frequency, No Hematuria, No Urgency Musculoskeletal : + joint pain, No Myalgias, No Joint Swelling Skin : No Skin Lesions, No rash Neuro : No Weakness, No Numbness, No Dizziness, No Headache Psych : No Anxiety/Panic, + Depression Heme/Lymph: No Bruising, No Lymphadenopathy Endocrine : No Polyuria, No Polydipsia All other systems reviewed and are negative. [facility] Past Medical History Medical History PTSD (post-traumatic stress disorder) Bipolar disorder Cocaine use disorder Septic pulmonary embolism MSSA bacteremia Seizure disorder ADHD Bipolar 1 disorder Depression Depression Family History Pertinent family history: denies FH of colon cancer, IBD Social History Social History Household Members: None Housing: Homeless Do you presently have visiting nurse or other home services: No Alcohol intake: current Alcohol intake frequency: does not drink Comment: 1:1 sitter Patient Tobacco Use Status: Current someday Tobacco user Smoked in Last 30 Days: Yes e-Cigarette/Vaping Use: Currently Using Patient Interested in Nicotine Replacement: No Patient Given Instructions on How to Stop Smoking: No Second Hand Smoke Exposure: No Use of substances other than those prescribed or required for medical reasons: Yes Substance Use Type: Crack/Cocaine and Heroin Substance Use Frequency: Chronic Longstanding Last Used Substance: Hours (ago) Currently Displaying Signs/Symptoms of Drug Intoxication Withdrawal: No Advance Directives: No Advance Directives Information Provided: No Do you have a plan to hurt others: No Plan Recently lost weight without trying: No Patient : No : No service: No Sexual orientation: Straight/Heterosexual Meds Allergies Allergy/AdvReac Type Severity Reaction Status Date / Time No Known Allergies Allergy Verified 01/15/24 17:47 [No Known Allergies*] Active Medications: Current Medications Acetaminophen (Acetaminophen 325 Mg Tablet) 650 mg PO Q6H PRN PRN Reason: Pain, Mild (Pain Scale 1-3), fever or headache Last Admin: 01/16/24 17:47 Dose: 650 mg Benzonatate (Benzonatate 100 Mg Capsule) 100 mg PO TID PRN PRN Reason: Cough Bupropion HCl (Bupropion Hcl 75 Mg Tablet) 150 mg PO DAILY [facility] Last Admin: 01/17/24 09:03 Dose: 150 mg Calcium Carbonate (Calcium Carbonate 750 Mg Tab.Chew) 750 mg PO Q4H PRN PRN Reason: Heartburn Ceftriaxone Sodium (Ceftriaxone Sodium 1 Gm Vial) 1 gm IVPUSH Q24H [facility] Last Admin: 01/16/24 20:39 Dose: 1 gm Clonazepam (Clonazepam 0.5 Mg Tablet) 0.5 mg PO BID [facility] Last Admin: 01/17/24 09:02 Dose: 0.5 mg Clonidine HCl (Clonidine Hcl 0.1 Mg Tablet) 0.1 mg PO BEDTIME [facility]; Protocol Last Admin: 01/16/24 20:44 Dose: 0.1 mg Docusate Sodium (Docusate Sodium 100 Mg Capsule) 100 mg PO BID [facility] Last Admin: 01/17/24 09:07 Dose: Not Given Enoxaparin Sodium (Enoxaparin Sodium 40 Mg/0.4 Ml Syringe) 40 mg SUBCUT Q24H [facility] Last Admin: 01/16/24 22:55 Dose: 40 mg Hydromorphone HCl (Hydromorphone Hcl 1 Mg/Ml Syringe) 1 mg IVPUSH Q3H PRN; Protocol PRN Reason: Pain, Moderate(Pain Scale 4-6) Last Admin: 01/17/24 09:03 Dose: 1 mg Sodium Chloride (Ns) 1,000 mls @ 100 mls/hr IVCONT .Q10H [facility] Last Admin: 01/17/24 07:31 Dose: 100 mls/hr Vancomycin HCl 1,000 mg/ (Sodium Chloride) 270 mls @ 270 mls/hr IV Q24H [facility] Last Infusion: 01/17/24 09:06 Dose: Infused Levetiracetam (Levetiracetam 500 Mg Tablet) 500 mg PO BID [facility] Last Admin: 01/17/24 09:03 Dose: 500 mg Magnesium Hydroxide (Milk Of Magnesia 30 Ml Oral.Susp) 30 ml PO DAILY PRN PRN Reason: Constipation Melatonin (Melatonin 3 Mg Tablet) 6 mg PO BEDTIME PRN PRN Reason: Insomnia Melatonin (Melatonin 3 Mg Tablet) 3 mg PO BEDTIME PRN PRN Reason: Insomnia Methadone HCl (Methadone Hcl 20 Mg/2 Ml Oral.Conc) 125 mg PO DAILY@0800 [facility] Last Admin: 01/17/24 07:19 Dose: 125 mg Multivitamins/Vitamin C (Multivitamin Tablet) 1 tab PO DAILY [facility] Last Admin: 01/17/24 09:02 Dose: 1 tab Olanzapine (Olanzapine 10 Mg Tablet) 10 mg PO BEDTIME [facility] Last Admin: 01/16/24 20:46 Dose: 10 mg Omeprazole (Omeprazole 20 Mg Capsule.Dr) 20 mg PO DAILY@0630 [facility] Pharmacy Consult (Consult Rx Vancomycin Dosing) 1 each MISCELLANE DAILY PRN PRN Reason: Consult order Polyethylene Glycol (Polyethylene Glycol 3350 17 Gm Powd.Pack) 17 gm PO DAILY [facility] Last Admin: 01/17/24 09:06 Dose: Not Given Senna (Sennosides 8.6 Mg Tablet) 8.6 mg PO DAILY [facility] Last Admin: 01/17/24 09:07 Dose: Not Given Sevelamer Carbonate (Sevelamer Carbonate Tablet 800 Mg Tablet) 800 mg PO TIDAC [facility] Last Admin: 01/17/24 09:02 Dose: 800 mg Sodium Chloride (0.9 % Sodium Chloride Flush 3 Ml Syringe) 3 ml IVFLUSH QSHIFT [facility] Last Admin: 01/17/24 07:09 Dose: Not Given Thiamine HCl (Thiamine Hcl 100 Mg Tablet) 100 mg PO DAILY [facility] Last Admin: 01/17/24 09:02 Dose: 100 mg Trazodone HCl (Trazodone Hcl 100 Mg Tablet) 100 mg PO BEDTIME [facility] Last Admin: 01/16/24 20:45 Dose: 100 mg Physical Exam 2 Vital Signs: Vital Signs: Last Vital Signs Temp 97.5 F 01/17/24 07:25 Pulse 67 01/17/24 07:25 Resp 16 01/17/24 07:25 BP 108/68 01/17/24 07:25 Pulse Ox 98 01/17/24 07:25 O2 Del Method Room Air 01/17/24 07:25 BMI result Body Mass Index 21.2 EXAM: GENERAL: The patient is irritable VITAL SIGNS:see workflow HEENT: Nonicteric sclerae, PERRLA, EOMI. Oropharynx clear. Moist mucous membranes. Conjunctivae appear well perfused. No thyroid mass. CHEST: Chest wall is nontender. HEART: Regular rate and rhythm without murmurs. LUNGS: Clear to auscultation bilaterally. ABDOMEN: Soft, positive bowel sounds, nontender, no organomegaly.no flank tenderness- distended and resonant SKIN: No rash, no excessive bruising, petechiae, or purpura. NEUROLOGIC: Cranial nerves II-XII intact without motor/sensory deficit. Psych: irritable, agitated Results Labs 01/17/24 09:40 01/17/24 09:40 Labs: BMP 01/16/24 19:03 Sodium 141 Potassium 3.6 Chloride 107 Carbon Dioxide 24 BUN 19 H Creatinine 1.51 H Calcium 8.4 D Microbiology Microbiology Results: Microbiology 01/15/24 19:54 Blood - Venous Blood Culture - Preliminary No growth after 24 hours. 01/15/24 19:54 Blood - Venous Blood Culture - Preliminary No growth after 24 hours. 01/15/24 19:54 Blood - Venous Blood Culture - Preliminary No growth after 24 hours. Assessment and Plan (1) Cocaine use disorder: Status: Acute Plan 1/ Abdominal pain and distention, relived with passing stool-prob constipation due to medications inlc methadone and olanzapine 2/ chronic anemia stable, prob ACD due to her CKD and cellulitis PLAN: 1/ can add colace, miralax, relistor 2/ if worsening anemia or overt GIB then consider EGD, colo 3/ plueritic chest pain, consider VQ scan to r/o PTE Procedures Date of Service Date of Service: 01/17/24
[2024-01-17 10:05] LABS: Hematocrit 24.3 % (37.0-47.0); Hemoglobin 7.8 g/dl (12.0-16.0); Mean Corpuscular HGB Conc 32.1 g/dl (31.0-35.0); Mean Corpuscular Hemoglobin 30.2 pg (27.0-33.0); Mean Corpuscular Volume 94.2 fL (80.0-98.0); Mean Platelet Volume 9.6 fL (9.4-12.3); Platelet Count 223 X10*3/uL (160-400); Red Blood Count 2.58 X10*6/uL (4.20-5.50); Red Cell Distribution Width 14.6 % (11.0-16.0); White Blood Count 5.6 X10*3/uL (4.8-10.8)
[2024-01-17 10:36] LABS: Alanine Aminotransferase 85 U/L (0-31); Albumin Level 3.1 g/dL (3.5-5.0); Alkaline Phosphatase 80 U/L (39-117); Anion Gap 12 (12-20); Aspartate Amino Transferase 64 U/L (5-31); Bilirubin Direct < 0.2 mg/dL (0.0-0.5); Bilirubin Total 0.2 mg/dL (0.0-1.0); Blood Urea Nitrogen 15 mg/dL (9-16); Calcium 8.8 mg/dL (8.4-10.2); Carbon Dioxide 22 mmol/L (22-29); Chloride 109 mmol/L (96-108); Creatinine Clr Calc Pharmacy 52.9; Estimated Glomerular Filt Rate 42; Glucose Random 106 mg/dL (60-115); Lipase 24 U/L (8-78); Potassium 3.9 mmol/L (3.3-5.1); Sodium 139 mmol/L (135-145); Total Protein 7.2 g/dL (6.5-8.0)
[2024-01-17 10:44] LABS: HBS Num1 143.67 mIU/mL (0-7.99); HBc Num1 0.25 S/CO (0.00-0.79); HBsAGNum1 0.27 S/CO (0.00-0.99); Hepatitis B Core Antibody Nonreactive (Nonreactive); Hepatitis B Surface Antigen Negative (Negative); ~HepC Num1 14.47 S/CO (0.00-0.79); ~Hepatitis A Antibody IgM Nonreactive (Nonreactive); ~Hepatitis B Surface Antibody REACTIVE (Nonreactive); ~Hepatitis C Antibody Reactive (Nonreactive)
[2024-01-17] MEDS: Acetaminophen 325 MG TABLET 650 MG PO ×2 (11:43→18:38)
[2024-01-17 14:58] VITALS: BP 111/62; PULSE 57; RESP 16; TEMP 35.8; O2SAT 95
--- NOTE | 2024-01-17 15:50 | MHC.RECOVRN ---
Attempted to meet with pt to check in and provide support. Pt sleeping, allowed to rest.
[2024-01-17] MEDS: cefTRIAXone sodium 1 GM VIAL IVPUSH (20:57)
[2024-01-17] MEDS: LORazepam 2 MG/ML VIAL 0.5 MG IVPUSH (21:06)
[2024-01-17] MEDS: cloNIDine HCL 0.1 MG TABLET PO (21:07)
[2024-01-17] MEDS: Docusate Sodium 100 MG CAPSULE PO (21:08)
[2024-01-17] MEDS: OLANZapine 10 MG TABLET PO (21:08)
[2024-01-17] MEDS: traZODone HCL 100 MG TABLET PO (21:08)
[2024-01-18] MEDS: HYDROmorphone HCl 1 MG/ML SYRINGE IVPUSH ×7 (00:49→19:50)
[2024-01-18 04:34] VITALS: RESP 18
[2024-01-18] MEDS: methADONE HCl 20 MG/2 ML ORAL.CONC 125 MG PO (07:32)
[2024-01-18] MEDS: Sevelamer Carbonate Tablet 800 MG TABLET PO ×3 (07:34→16:35)
[2024-01-18] MEDS: Omeprazole 20 MG CAPSULE.DR PO (07:34)
[2024-01-18] MEDS: clonazePAM 0.5 MG TABLET PO ×2 (07:34→19:51)
[2024-01-18] MEDS: buPROPion HCL 75 MG TABLET 150 MG PO (07:34)
[2024-01-18] MEDS: polyethylene glycoL 3350 17 GM POWD.PACK PO (07:34)
[2024-01-18] MEDS: Thiamine HCL 100 MG TABLET PO (07:34)
[2024-01-18] MEDS: Sennosides 8.6 MG TABLET PO (07:35)
[2024-01-18] MEDS: levETIRAcetam 500 MG TABLET PO ×2 (07:35→19:51)
[2024-01-18] MEDS: Multivitamin TABLET 1 TAB PO (07:35)
[2024-01-18] MEDS: Acetaminophen 325 MG TABLET 650 MG PO ×2 (07:35→13:45)
[2024-01-18] MEDS: Docusate Sodium 100 MG CAPSULE PO ×2 (07:35→19:51)
[2024-01-18] MEDS: 0.9 % Sodium Chloride 1,000 ML 100 ML IVCONT (07:40)
[2024-01-18] MEDS: vancomycin HCL 1,000 MG in 0.9 % Sodium Chloride 250 ML 270 MG IV (07:40)
[2024-01-18] MEDS: 0.9 % Sodium Chloride Flush 3 ML SYRINGE IVFLUSH ×3 (07:43→19:52)
[2024-01-18 08:00] VITALS: BP 131/78; PULSE 73; RESP 16; TEMP 36; O2SAT 91
[2024-01-18 09:51] VITALS: PULSE 72; RESP 12; TEMP 37.1; O2SAT 95
[2024-01-18 10:56] VITALS: BP 90/50; PULSE 79; RESP 18
--- NOTE | 2024-01-18 11:33 | HO.PM.IMPN ---
Subjective Subjective Date of Service: 01/18/24 Interval History: right chest pain Physical Exam Vital Signs: Vital Signs: Last Vital Signs Temp 98.7 F 01/18/24 09:51 Pulse 79 01/18/24 10:56 Resp 18 01/18/24 10:56 BP 90/50 L 01/18/24 10:56 Pulse Ox 95 01/18/24 09:51 O2 Del Method Room Air 01/18/24 09:51 BMI result Body Mass Index 21.2 EXAM: GENERAL: The patient is irritable VITAL SIGNS:see workflow HEENT: Nonicteric sclerae, PERRLA, EOMI. Oropharynx clear. Moist mucous membranes. Conjunctivae appear well perfused. No thyroid mass. CHEST: Chest wall is nontender. HEART: Regular rate and rhythm without murmurs. LUNGS: Clear to auscultation bilaterally. ABDOMEN: Soft, positive bowel sounds, nontender, no organomegaly.no flank tenderness- distended and resonant SKIN: No rash, no excessive bruising, petechiae, or purpura. NEUROLOGIC: Cranial nerves II-XII intact without motor/sensory deficit. Psych: irritable, agitated Objective Data Active Medications Acetaminophen (Acetaminophen 325 Mg Tablet) 650 mg PO Q6H PRN PRN Reason: Pain, Mild (Pain Scale 1-3), fever or headache Last Admin: 01/18/24 07:35 Dose: 650 mg Documented By: PAULY Benzonatate (Benzonatate 100 Mg Capsule) 100 mg PO TID PRN PRN Reason: Cough Bupropion HCl (Bupropion Hcl 75 Mg Tablet) 150 mg PO DAILY [facility] Last Admin: 01/18/24 07:34 Dose: 150 mg Documented By: PAULY Calcium Carbonate (Calcium Carbonate 750 Mg Tab.Chew) 750 mg PO Q4H PRN PRN Reason: Heartburn Ceftriaxone Sodium (Ceftriaxone Sodium 1 Gm Vial) 1 gm IVPUSH Q24H [facility] Last Admin: 01/17/24 20:57 Dose: 1 gm Documented By: JADON Clonazepam (Clonazepam 0.5 Mg Tablet) 0.5 mg PO BID [facility] Last Admin: 01/18/24 07:34 Dose: 0.5 mg Documented By: PAULY Clonidine HCl (Clonidine Hcl 0.1 Mg Tablet) 0.1 mg PO BEDTIME [facility]; Protocol Last Admin: 01/17/24 21:07 Dose: 0.1 mg Documented By: JADON Docusate Sodium (Docusate Sodium 100 Mg Capsule) 100 mg PO BID [facility] Last Admin: 01/18/24 07:35 Dose: 100 mg Documented By: PAULY Enoxaparin Sodium (Enoxaparin Sodium 40 Mg/0.4 Ml Syringe) 40 mg SUBCUT Q24H [facility] Last Admin: 01/17/24 23:20 Dose: Not Given Documented By: JADON Non-Admin Reason: Patient Refused Hydromorphone HCl (Hydromorphone Hcl 1 Mg/Ml Syringe) 1 mg IVPUSH Q3H PRN; Protocol PRN Reason: Pain, Moderate(Pain Scale 4-6) Last Admin: 01/18/24 10:38 Dose: 1 mg Documented By: PAULY Vancomycin HCl 1,000 mg/ (Sodium Chloride) 270 mls @ 270 mls/hr IV Q24H [facility] Last Infusion: 01/18/24 08:49 Dose: Infused Documented By: PAULY Levetiracetam (Levetiracetam 500 Mg Tablet) 500 mg PO BID [facility] Last Admin: 01/18/24 07:35 Dose: 500 mg Documented By: PAULY Magnesium Hydroxide (Milk Of Magnesia 30 Ml Oral.Susp) 30 ml PO DAILY PRN PRN Reason: Constipation Melatonin (Melatonin 3 Mg Tablet) 6 mg PO BEDTIME PRN PRN Reason: Insomnia Melatonin (Melatonin 3 Mg Tablet) 3 mg PO BEDTIME PRN PRN Reason: Insomnia Methadone HCl (Methadone Hcl 20 Mg/2 Ml Oral.Conc) 125 mg PO DAILY@0800 [facility] Last Admin: 01/18/24 07:32 Dose: 125 mg Documented By: PAULY Co-signed By: LUIS Multivitamins/Vitamin C (Multivitamin Tablet) 1 tab PO DAILY [facility] Last Admin: 01/18/24 07:35 Dose: 1 tab Documented By: PAULY Olanzapine (Olanzapine 10 Mg Tablet) 10 mg PO BEDTIME [facility] Last Admin: 01/17/24 21:08 Dose: 10 mg Documented By: JADON Omeprazole (Omeprazole 20 Mg Capsule.Dr) 20 mg PO DAILY@0630 [facility] Last Admin: 01/18/24 07:34 Dose: 20 mg Documented By: PAULY Pharmacy Consult (Consult Rx Vancomycin Dosing) 1 each MISCELLANE DAILY PRN PRN Reason: Consult order Polyethylene Glycol (Polyethylene Glycol 3350 17 Gm Powd.Pack) 17 gm PO DAILY [facility] Last Admin: 01/18/24 07:34 Dose: 17 gm Documented By: PAULY Senna (Sennosides 8.6 Mg Tablet) 8.6 mg PO DAILY [facility] Last Admin: 01/18/24 07:35 Dose: 8.6 mg Documented By: PAULY Sevelamer Carbonate (Sevelamer Carbonate Tablet 800 Mg Tablet) 800 mg PO TIDAC [facility] Last Admin: 01/18/24 10:38 Dose: 800 mg Documented By: PAULY Sodium Chloride (0.9 % Sodium Chloride Flush 3 Ml Syringe) 3 ml IVFLUSH QSHIFT [facility] Last Admin: 01/18/24 07:43 Dose: 3 ml Documented By: PAULY Thiamine HCl (Thiamine Hcl 100 Mg Tablet) 100 mg PO DAILY [facility] Last Admin: 01/18/24 07:34 Dose: 100 mg Documented By: PAULY Trazodone HCl (Trazodone Hcl 100 Mg Tablet) 100 mg PO BEDTIME [facility] Last Admin: 01/17/24 21:08 Dose: 100 mg Documented By: SEXK Labs 01/17/24 09:40 01/17/24 09:40 Microbiology Microbiology Results: Microbiology 01/15/24 19:54 Blood Culture - Preliminary Blood - Venous No growth after 48 hours. 01/15/24 19:54 Blood Culture - Preliminary Blood - Venous No growth after 48 hours. Blood Culture - Preliminary No growth after 48 hours. Assessment and Plan (1) Cellulitis of left leg: Status: Acute Plan 38F PMH significant for?endocarditis, IVDU, CKD 3, hepatitis-C, normocytic anemia, PTSD, ADHD, and bipolar disorder who presented to the ED complaining of lower leg swelling, pain, redness in the setting of IVDU. Left leg cellulitis possible Secondary to IVDU esr 106 and crp 4.96 vanco trough 15.1 on 01/15 0 vancomycin and ceftriaxone, started 01/15/2024 Follow blood cultures - negative so far Mood disorder Pt reports feeling very depressed that she is killing herself with her IVDU Presented to the ED in part because of fear that she would if she continued to use in the community Denies current active or passive SI No need for a sitter at this time Care team consult once patient medically cleared for likely inpatient psychiatric hospitalization Continue home mood stabilizers Polysubstance use disorder with IVDU Has been injecting cocaine into legs and hands bilaterally Check tox screen positive for opiates,fentanyl, cocaine. Continue methadone Addiction medicine consult right chest pain doubt pe, check CT non contrast, ?PNA CKD 3 vs patti Creatinine imrpoving s/p 1 L IVF Monitor BMP Chronic constipation passing bm's Scheduled MiraLax, Colace Hx of seizure disorder: Continue Keppra Full Code DVT Prophylaxis: Lovenox reason for continued hospitalization:iv abx, awaiting ct results Quality Stroke Does the patient have a stroke diagnosis?: No VTE Prior VTE?: No VTE Risk Level:: Medical - moderate - high VTE Device Contraindication: Treatment Not Indicated VTE Drug Contraindication: N/A - Med Ordered
[2024-01-18 15:24] VITALS: BP 127/74; PULSE 73; RESP 20; TEMP 37.1; O2SAT 94
[2024-01-18] MEDS: OLANZapine 10 MG TABLET PO (19:51)
[2024-01-18] MEDS: cefTRIAXone sodium 1 GM VIAL IVPUSH (19:51)
[2024-01-18] MEDS: traZODone HCL 100 MG TABLET PO (19:52)
[2024-01-18] MEDS: cloNIDine HCL 0.1 MG TABLET PO (19:52)
[2024-01-19] MEDS: HYDROmorphone HCl 1 MG/ML SYRINGE IVPUSH ×7 (00:18→21:53)
[2024-01-19] MEDS: Omeprazole 20 MG CAPSULE.DR PO (06:10)
--- NOTE | 2024-01-19 07:00 | CA_ITS ---
Transthoracic Echocardiogram Patient (Last, First, Middle): Kim Joyner, Gender: Female Date of : 1985 Age: 38 Procedure Date: 01/19/2024 Procedure Type: Transthoracic Echocardiogram [place] [facility] [place]: 170.18 cm Weight: 61.24 kg BSA: 1.71 m2 Heart Rate: 65 bpm BP: 127 / 74 mmHg Skates Operator: LAINEY Wylie MD: Mushtaq Boss MD Building Estimator: Jacky Molina MD Symptoms: cardiomegaly Study Quality: Adequate ECG Rhythm: Sinus Conclusions: - Essentially normal study with mild TR Findings Left Ventricle Normal left ventricular size, thickness, and systolic function. The visually estimated ejection fraction is between 60-65%. Spectral Doppler is indicative of a normal filling pattern. Right Ventricle Normal right ventricular cavity size and systolic function. Atria Both atria are normal in size. There is no evidence of interatrial shunt. Aortic Valve Normal aortic valve structure and function. There is no aortic valve stenosis. There is no aortic valve regurgitation. Mitral Valve Normal mitral valve structure and function. There is trace mitral valve regurgitation. There is no mitral valve stenosis. Pulmonic Valve The pulmonic valve is likely normal. Tricuspid Valve Normal tricuspid valve structure. There is mild tricuspid valve regurgitation. The right ventricular systolic pressure is normal. The right ventricular systolic pressure is 17 mmHg. Normal right atrial pressure. There is no evidence of pulmonary hypertension. Great Vessels All visible segments of the aorta are normal in size. The pulmonary artery was not well visualized. Venous The inferior vena cava is normal in size and collapses greater than 50% with inspiration. Pericardium/Pleural There is no evidence of pericardial effusion. Prior Study Comparison No prior study available for comparison. Measurements 2D Linear Measurements IVSd: 0.95 0.6-0.9/0.6-1.0 cm LVIDd: 5.56 3.9-5.3/4.2-5.9 cm LVIDd Index: 3.25 2.4-3.2/2.2-3.1 cm/m2 LVIDs: 3.74 2.0-3.6 cm LVPWd: 1.13 0.7-1.1 cm LA Diam: 4.40 2.7-3.8/3.0-4.0 cm LAIDs Index: 2.57 1.5-2.3 cm/m2 LV Mass: 285.21 67-162/88-224 g LV Mass Index: 166.79 43-95/49-115 g/m2 LVOT Diam: 2.10 3.0+(-)1.3 cm 2D Systolic Function EF 4C: 58.10 >55% EF 2C: 66.80 >55% Mitral Valve MV Pk E: 0.81 MV PK A: 0.56 MV Decel Time: 257.00 E/A: 1.50 E'Lateral: 12.50 E'Medial: 8.59 E/E' Med: 9.50 E/E' Lat: 6.50 PHT: 75.00 MVA PHT: 2.93 Decel Finney: 3.17 Aortic Valve AoV Pk Kermit: 1.42 AoV Mn Kermit: 1.16 AoV VTI: 0.34 AoV Pk Grad: 8.00 Aov Mn Grad: 6.00 NEEL Cont.VTI: 2.68 LVOT LVOT Pk Kermit: 1.27 LVOT Mn Kermit: 0.92 LVOT VTI: 0.26 LVOT Pk Grad: 6.00 LVOT Mn Grad: 4.00 LVOT Diam: 2.10 LVOT Area: 3.46 Diastolic Function MV Pk E: 0.81 MV Pk A: 0.56 E/A: 1.50 E'Medial: 8.59 E/E' Med: 9.50 E' Laterial: 12.50 E/E' Lat: 6.50 Right Ventricle TAPSE (mm): 23.90 TVS' Kermit: 14.50 Tricuspid Valve TR Pk Kermit: 1.87 TR Pk Grad: 14.00 RA Press: 3.00 RVSP: 17.00 Great Vessels Aorta Sinus of Valsalva: 3.20 2.0-3.5 cm Ao Asc: 3.10 2.1-3.4 cm Ao Arch: 2.90 Pulmonary Valve PV Pk Kermit: 0.94 Peak PV Grad: 4.00 Updated in Other Vendor System with Status of Final Jacky Molina MD electronically signed on 01/19/2024 11:39:50 AM with status of Final
[2024-01-19] MEDS: methADONE HCl 20 MG/2 ML ORAL.CONC 125 MG PO (07:29)
[2024-01-19] MEDS: Multivitamin TABLET 1 TAB PO (07:32)
[2024-01-19] MEDS: Thiamine HCL 100 MG TABLET PO (07:32)
[2024-01-19] MEDS: clonazePAM 0.5 MG TABLET PO ×2 (07:32→21:57)
[2024-01-19] MEDS: levETIRAcetam 500 MG TABLET PO ×2 (07:32→21:58)
[2024-01-19] MEDS: buPROPion HCL 75 MG TABLET 150 MG PO (07:32)
[2024-01-19] MEDS: Sevelamer Carbonate Tablet 800 MG TABLET PO ×3 (07:33→17:39)
[2024-01-19] MEDS: 0.9 % Sodium Chloride Flush 3 ML SYRINGE IVFLUSH ×2 (07:33→21:58)
[2024-01-19 08:00] VITALS: BP 126/86; PULSE 68; RESP 20; TEMP 36.1; O2SAT 92
[2024-01-19 09:39] LABS: Hematocrit 28.3 % (37.0-47.0); Hemoglobin 9.6 g/dl (12.0-16.0); Mean Corpuscular HGB Conc 33.9 g/dl (31.0-35.0); Mean Corpuscular Hemoglobin 30.2 pg (27.0-33.0); Mean Platelet Volume 8.9 fL (9.4-12.3); Platelet Count 264 X10*3/uL (160-400); Red Blood Count 3.18 X10*6/uL (4.20-5.50); White Blood Count 5.7 X10*3/uL (4.8-10.8)
--- NOTE | 2024-01-19 09:43 | HO.PM.IMPN ---
Subjective Subjective Date of Service: 01/19/24 Interval History: right sided chest pain Physical Exam Vital Signs: Vital Signs: Last Vital Signs Temp 97.0 F 01/19/24 08:00 Pulse 68 01/19/24 08:00 Resp 20 01/19/24 08:00 BP 126/86 01/19/24 08:00 Pulse Ox 92 01/19/24 08:00 O2 Del Method Room Air 01/19/24 08:00 BMI result Body Mass Index 21.2 EXAM: GENERAL: The patient is irritable VITAL SIGNS:see workflow HEENT: Nonicteric sclerae, PERRLA, EOMI. Oropharynx clear. Moist mucous membranes. Conjunctivae appear well perfused. No thyroid mass. CHEST: Chest wall is nontender. HEART: Regular rate and rhythm without murmurs. LUNGS: Clear to auscultation bilaterally. ABDOMEN: Soft, positive bowel sounds, nontender, no organomegaly.no flank tenderness- distended and resonant SKIN: No rash, no excessive bruising, petechiae, or purpura. NEUROLOGIC: Cranial nerves II-XII intact without motor/sensory deficit. Psych: irritable, agitated Objective Data Active Medications Acetaminophen (Acetaminophen 325 Mg Tablet) 650 mg PO Q6H PRN PRN Reason: Pain, Mild (Pain Scale 1-3), fever or headache Last Admin: 01/18/24 13:45 Dose: 650 mg Documented By: PAULY Benzonatate (Benzonatate 100 Mg Capsule) 100 mg PO TID PRN PRN Reason: Cough Bupropion HCl (Bupropion Hcl 75 Mg Tablet) 150 mg PO DAILY [facility] Last Admin: 01/19/24 07:32 Dose: 150 mg Documented By: JEANNE Calcium Carbonate (Calcium Carbonate 750 Mg Tab.Chew) 750 mg PO Q4H PRN PRN Reason: Heartburn Ceftriaxone Sodium (Ceftriaxone Sodium 1 Gm Vial) 1 gm IVPUSH Q24H [facility] Last Admin: 01/18/24 19:51 Dose: 1 gm Documented By: JUANA Clonazepam (Clonazepam 0.5 Mg Tablet) 0.5 mg PO BID [facility] Last Admin: 01/19/24 07:32 Dose: 0.5 mg Documented By: JEANNE Clonidine HCl (Clonidine Hcl 0.1 Mg Tablet) 0.1 mg PO BEDTIME [facility]; Protocol Last Admin: 01/18/24 19:52 Dose: 0.1 mg Documented By: JUANA Docusate Sodium (Docusate Sodium 100 Mg Capsule) 100 mg PO BID [facility] Last Admin: 01/19/24 08:13 Dose: Not Given Documented By: JEANNE Non-Admin Reason: Patient Refused Enoxaparin Sodium (Enoxaparin Sodium 40 Mg/0.4 Ml Syringe) 40 mg SUBCUT Q24H [facility] Last Admin: 01/18/24 19:59 Dose: Not Given Documented By: JUANA Non-Admin Reason: Patient Refused Hydromorphone HCl (Hydromorphone Hcl 1 Mg/Ml Syringe) 1 mg IVPUSH Q3H PRN; Protocol PRN Reason: Pain, Moderate(Pain Scale 4-6) Last Admin: 01/19/24 09:19 Dose: 1 mg Documented By: JEANNE Vancomycin HCl 1,000 mg/ (Sodium Chloride) 270 mls @ 270 mls/hr IV Q24H [facility] Last Infusion: 01/18/24 08:49 Dose: Infused Documented By: PAULY Levetiracetam (Levetiracetam 500 Mg Tablet) 500 mg PO BID [facility] Last Admin: 01/19/24 07:32 Dose: 500 mg Documented By: JEANNE Magnesium Hydroxide (Milk Of Magnesia 30 Ml Oral.Susp) 30 ml PO DAILY PRN PRN Reason: Constipation Melatonin (Melatonin 3 Mg Tablet) 6 mg PO BEDTIME PRN PRN Reason: Insomnia Melatonin (Melatonin 3 Mg Tablet) 3 mg PO BEDTIME PRN PRN Reason: Insomnia Methadone HCl (Methadone Hcl 20 Mg/2 Ml Oral.Conc) 125 mg PO DAILY@0800 [facility] Last Admin: 01/19/24 07:29 Dose: 125 mg Documented By: JEANNE Co-signed By: RICH Multivitamins/Vitamin C (Multivitamin Tablet) 1 tab PO DAILY [facility] Last Admin: 01/19/24 07:32 Dose: 1 tab Documented By: JEANNE Olanzapine (Olanzapine 10 Mg Tablet) 10 mg PO BEDTIME [facility] Last Admin: 01/18/24 19:51 Dose: 10 mg Documented By: JUANA Omeprazole (Omeprazole 20 Mg Capsule.Dr) 20 mg PO DAILY@0630 [facility] Last Admin: 01/19/24 06:10 Dose: 20 mg Documented By: JUANA Pharmacy Consult (Consult Rx Vancomycin Dosing) 1 each MISCELLANE DAILY PRN PRN Reason: Consult order Polyethylene Glycol (Polyethylene Glycol 3350 17 Gm Powd.Pack) 17 gm PO DAILY [facility] Last Admin: 01/19/24 08:14 Dose: Not Given Documented By: JEANNE Non-Admin Reason: Patient Refused Senna (Sennosides 8.6 Mg Tablet) 8.6 mg PO DAILY [facility] Last Admin: 01/19/24 08:14 Dose: Not Given Documented By: JEANNE Non-Admin Reason: Patient Refused Sevelamer Carbonate (Sevelamer Carbonate Tablet 800 Mg Tablet) 800 mg PO TIDAC [facility] Last Admin: 01/19/24 07:33 Dose: 800 mg Documented By: JEANNE Sodium Chloride (0.9 % Sodium Chloride Flush 3 Ml Syringe) 3 ml IVFLUSH QSHIFT [facility] Last Admin: 01/19/24 07:33 Dose: 3 ml Documented By: JEANNE Thiamine HCl (Thiamine Hcl 100 Mg Tablet) 100 mg PO DAILY [facility] Last Admin: 01/19/24 07:32 Dose: 100 mg Documented By: JEANNE Trazodone HCl (Trazodone Hcl 100 Mg Tablet) 100 mg PO BEDTIME [facility] Last Admin: 01/18/24 19:52 Dose: 100 mg Documented By: JUANA Labs 01/17/24 09:40 01/17/24 09:40 Assessment and Plan (1) Cellulitis of left leg: Status: Acute Plan 38F PMH significant for?endocarditis, IVDU, CKD 3, hepatitis-C, normocytic anemia, PTSD, ADHD, and bipolar disorder who presented to the ED complaining of lower leg swelling, pain, redness in the setting of IVDU. Left leg cellulitis possible Secondary to IVDU esr 106 and crp 4.96 patient not realiable in allowing labs, will continue rocephin, change vanc to doxy Mood disorder Pt reports feeling very depressed that she is killing herself with her IVDU Presented to the ED in part because of fear that she would if she continued to use in the community Denies current active or passive SI No need for a sitter at this time Care team consult once patient medically cleared for likely inpatient psychiatric hospitalization Continue home mood stabilizers Polysubstance use disorder with IVDU Has been injecting cocaine into legs and hands bilaterally Check tox screen positive for opiates,fentanyl, cocaine. Continue methadone Addiction medicine consult right chest pain due to right sided pna continue rocephin, doxy CKD 3 vs patti Creatinine imrpoving s/p 1 L IVF Monitor BMP Chronic constipation passing bm's Scheduled MiraLax, Colace Hx of seizure disorder: Continue Keppra Full Code DVT Prophylaxis: Lovenox reason for continued hospitalization:iv abx, pain control Quality Stroke Does the patient have a stroke diagnosis?: No VTE Prior VTE?: No VTE Risk Level:: Medical - moderate - high VTE Device Contraindication: Treatment Not Indicated VTE Drug Contraindication: N/A - Med Ordered
[2024-01-19 09:55] LABS: Vancomycin Random 10.7 mcg/mL (15-20)
[2024-01-19] MEDS: Doxycycline Hyclate 100 MG in 0.9 % Sodium Chloride 250 ML 166.67 MG IV (10:28)
[2024-01-19 15:19] VITALS: BP 133/72; PULSE 60; RESP 18; TEMP 36.3; O2SAT 96
[2024-01-19] MEDS: Acetaminophen 325 MG TABLET 650 MG PO (16:41)
[2024-01-19] MEDS: oxyCODONE HCl Immed Release 5 MG TABLET 10 MG PO (17:40)
[2024-01-19] MEDS: cefTRIAXone sodium 1 GM VIAL IVPUSH (21:52)
[2024-01-19] MEDS: Melatonin 3 MG TABLET 6 MG PO (21:56)
[2024-01-19] MEDS: cloNIDine HCL 0.1 MG TABLET PO (21:56)
[2024-01-19] MEDS: traZODone HCL 100 MG TABLET PO (21:56)
[2024-01-19] MEDS: OLANZapine 10 MG TABLET PO (21:57)
[2024-01-19] MEDS: Docusate Sodium 100 MG CAPSULE PO (21:57)
[2024-01-19] MEDS: Doxycycline Hyclate 100 MG in 0.9 % Sodium Chloride 250 ML 125 MG IV (22:04)
[2024-01-20] VITALS: BP 115/61; PULSE 57; RESP 18; TEMP 36.6; O2SAT 93
[2024-01-20] MEDS: HYDROmorphone HCl 1 MG/ML SYRINGE IVPUSH ×6 (02:53→22:41)
[2024-01-20] MEDS: oxyCODONE HCl Immed Release 5 MG TABLET 10 MG PO ×4 (04:49→20:49)
[2024-01-20] MEDS: Omeprazole 20 MG CAPSULE.DR PO (04:49)
--- NOTE | 2024-01-20 05:16 | MHC.PIE ---
p; pt refusing lab this AM. i; dr melendez notified e; will cont to monitor
[2024-01-20 07:13] VITALS: BP 123/80; PULSE 59; RESP 18; TEMP 36.6; O2SAT 96
[2024-01-20] MEDS: Sevelamer Carbonate Tablet 800 MG TABLET PO ×3 (07:43→19:45)
[2024-01-20] MEDS: 0.9 % Sodium Chloride Flush 3 ML SYRINGE IVFLUSH ×2 (07:43→23:52)
[2024-01-20] MEDS: methADONE HCl 20 MG/2 ML ORAL.CONC 125 MG PO (07:44)
[2024-01-20] MEDS: Lactated Ringers 1,000 ML 80 ML IVCONT (08:24)
[2024-01-20] MEDS: buPROPion HCL 75 MG TABLET 150 MG PO (08:47)
[2024-01-20] MEDS: levETIRAcetam 500 MG TABLET PO ×2 (08:48→20:50)
[2024-01-20] MEDS: Multivitamin TABLET 1 TAB PO (08:48)
[2024-01-20] MEDS: clonazePAM 0.5 MG TABLET PO ×2 (08:48→20:50)
[2024-01-20] MEDS: Docusate Sodium 100 MG CAPSULE PO ×2 (08:48→20:50)
[2024-01-20] MEDS: Thiamine HCL 100 MG TABLET PO (08:48)
[2024-01-20] MEDS: Sennosides 8.6 MG TABLET PO (08:48)
[2024-01-20] MEDS: Doxycycline Hyclate 100 MG in 0.9 % Sodium Chloride 250 ML 125 MG IV (08:49)
--- NOTE | 2024-01-20 09:43 | HO.PM.IMPN ---
Subjective Subjective Date of Service: 01/20/24 Interval History: Complaining of diffuse pain Physical Exam Vital Signs: Vital Signs: Last Vital Signs Temp 97.8 F 01/20/24 07:13 Pulse 59 01/20/24 07:13 Resp 18 01/20/24 07:13 BP 123/80 01/20/24 07:13 Pulse Ox 96 01/20/24 07:13 O2 Del Method Room Air 01/20/24 07:13 BMI result Body Mass Index 21.2 EXAM: GENERAL: The patient is irritable VITAL SIGNS:see workflow HEENT: Nonicteric sclerae, PERRLA, EOMI. Oropharynx clear. Moist mucous membranes. Conjunctivae appear well perfused. No thyroid mass. CHEST: Chest wall is nontender. HEART: Regular rate and rhythm without murmurs. LUNGS: Clear to auscultation bilaterally. ABDOMEN: Soft, positive bowel sounds, nontender, no organomegaly.no flank tenderness- distended and resonant SKIN: No rash, no excessive bruising, petechiae, or purpura. NEUROLOGIC: Cranial nerves II-XII intact without motor/sensory deficit. Psych: irritable, agitated Objective Data Active Medications Acetaminophen (Acetaminophen 325 Mg Tablet) 650 mg PO Q6H PRN PRN Reason: Pain, Mild (Pain Scale 1-3), fever or headache Last Admin: 01/19/24 16:41 Dose: 650 mg Documented By: JEANNE Benzonatate (Benzonatate 100 Mg Capsule) 100 mg PO TID PRN PRN Reason: Cough Bupropion HCl (Bupropion Hcl 75 Mg Tablet) 150 mg PO DAILY [facility] Last Admin: 01/20/24 08:47 Dose: 150 mg Documented By: SAQIB Calcium Carbonate (Calcium Carbonate 750 Mg Tab.Chew) 750 mg PO Q4H PRN PRN Reason: Heartburn Ceftriaxone Sodium (Ceftriaxone Sodium 1 Gm Vial) 1 gm IVPUSH Q24H [facility] Last Admin: 01/19/24 21:52 Dose: 1 gm Documented By: JUANA Clonazepam (Clonazepam 0.5 Mg Tablet) 0.5 mg PO BID [facility] Last Admin: 01/20/24 08:48 Dose: 0.5 mg Documented By: SAQIB Clonidine HCl (Clonidine Hcl 0.1 Mg Tablet) 0.1 mg PO BEDTIME [facility]; Protocol Last Admin: 01/19/24 21:56 Dose: 0.1 mg Documented By: JUANA Docusate Sodium (Docusate Sodium 100 Mg Capsule) 100 mg PO BID [facility] Last Admin: 01/20/24 08:48 Dose: 100 mg Documented By: SAQIB Enoxaparin Sodium (Enoxaparin Sodium 40 Mg/0.4 Ml Syringe) 40 mg SUBCUT Q24H [facility] Last Admin: 01/19/24 21:58 Dose: Not Given Documented By: JUANA Non-Admin Reason: Patient Refused Hydromorphone HCl (Hydromorphone Hcl 1 Mg/Ml Syringe) 1 mg IVPUSH Q3H PRN; Protocol PRN Reason: Pain, Moderate(Pain Scale 4-6) Last Admin: 01/20/24 07:43 Dose: 1 mg Documented By: SAQIB Doxycycline Hyclate 100 mg/ (Sodium Chloride) 250 mls @ 166.67 mls/hr IV Q12H [facility] Last Admin: 01/20/24 08:49 Dose: 125 mls/hr Documented By: SAQIB Lactated Ringer's (Lr) 1,000 mls @ 80 mls/hr IVCONT .[id number] [facility] Last Admin: 01/20/24 08:24 Dose: 80 mls/hr Documented By: SAQIB Levetiracetam (Levetiracetam 500 Mg Tablet) 500 mg PO BID [facility] Last Admin: 01/20/24 08:48 Dose: 500 mg Documented By: SAQIB Magnesium Hydroxide (Milk Of Magnesia 30 Ml Oral.Susp) 30 ml PO DAILY PRN PRN Reason: Constipation Melatonin (Melatonin 3 Mg Tablet) 6 mg PO BEDTIME PRN PRN Reason: Insomnia Last Admin: 01/19/24 21:56 Dose: 6 mg Documented By: JUANA Melatonin (Melatonin 3 Mg Tablet) 3 mg PO BEDTIME PRN PRN Reason: Insomnia Methadone HCl (Methadone Hcl 20 Mg/2 Ml Oral.Conc) 125 mg PO DAILY@0800 [facility] Last Admin: 01/20/24 07:44 Dose: 125 mg Documented By: SAQIB Co-signed By: QUAN Multivitamins/Vitamin C (Multivitamin Tablet) 1 tab PO DAILY [facility] Last Admin: 01/20/24 08:48 Dose: 1 tab Documented By: SAQBI Olanzapine (Olanzapine 10 Mg Tablet) 10 mg PO BEDTIME [facility] Last Admin: 01/19/24 21:57 Dose: 10 mg Documented By: JUANA Omeprazole (Omeprazole 20 Mg Capsule.Dr) 20 mg PO DAILY@0630 [facility] Last Admin: 01/20/24 04:49 Dose: 20 mg Documented By: JUANA Oxycodone HCl (Oxycodone Hcl Immed Release 5 Mg Tablet) 10 mg PO Q6H PRN PRN Reason: Pain, Moderate(Pain Scale 4-6) Last Admin: 01/20/24 04:49 Dose: 10 mg Documented By: JUANA Comments: given per pt request Polyethylene Glycol (Polyethylene Glycol 3350 17 Gm Powd.Pack) 17 gm PO DAILY [facility] Last Admin: 01/20/24 08:47 Dose: Not Given Documented By: SAQIB Non-Admin Reason: Patient Refused Senna (Sennosides 8.6 Mg Tablet) 8.6 mg PO DAILY [facility] Last Admin: 01/20/24 08:48 Dose: 8.6 mg Documented By: SAQIB Sevelamer Carbonate (Sevelamer Carbonate Tablet 800 Mg Tablet) 800 mg PO TIDAC [facility] Last Admin: 01/20/24 07:43 Dose: 800 mg Documented By: SAQIB Sodium Chloride (0.9 % Sodium Chloride Flush 3 Ml Syringe) 3 ml IVFLUSH QSHIFT [facility] Last Admin: 01/20/24 07:43 Dose: 3 ml Documented By: SAQIB Thiamine HCl (Thiamine Hcl 100 Mg Tablet) 100 mg PO DAILY [facility] Last Admin: 01/20/24 08:48 Dose: 100 mg Documented By: SAQIB Trazodone HCl (Trazodone Hcl 100 Mg Tablet) 100 mg PO BEDTIME [facility] Last Admin: 01/19/24 21:56 Dose: 100 mg Documented By: JUANA Labs 01/19/24 09:33 01/17/24 09:40 Labs: Laboratory Results - last 24 hr 01/19/24 09:33 MCV 89.0 D MCH 30.2 MCHC 33.9 RDW 14.0 Plt Count 264 MPV 8.9 L Absolute Nucleated RBC 0.000 Nucleated RBC % (auto) 0.0 Random Vancomycin 10.7 L Assessment and Plan (1) Cellulitis of left leg: Status: Acute Plan 38F PMH significant for?endocarditis, IVDU, CKD 3, hepatitis-C, normocytic anemia, PTSD, ADHD, and bipolar disorder who presented to the ED complaining of lower leg swelling, pain, redness in the setting of IVDU. Left leg cellulitis possible Secondary to IVDU esr 106 and crp 4.96, monitor patient not realiable in allowing labs, will continue rocephin, changed vanc to doxy Overall appears improved though continues to complain, cultures negative, we will follow inflammatory markers Mood disorder Pt reports feeling very depressed that she is killing herself with her IVDU Presented to the ED in part because of fear that she would if she continued to use in the community Denies current active or passive SI No need for a sitter at this time Care team consult once patient medically cleared for likely inpatient psychiatric hospitalization Continue home mood stabilizers Polysubstance use disorder with IVDU Has been injecting cocaine into legs and hands bilaterally Check tox screen positive for opiates,fentanyl, cocaine. Continue methadone Addiction medicine right chest pain due to right sided pna continue rocephin, doxy CKD 3 vs patti Creatinine improving s/p 1 L IVF Monitor BMP Chronic constipation passing bm's Scheduled MiraLax, Colace Hx of seizure disorder: Continue Keppra Full Code DVT Prophylaxis: Lovenox reason for continued hospitalization:iv abx, pain control Quality Stroke Does the patient have a stroke diagnosis?: No VTE Prior VTE?: No VTE Risk Level:: Medical - moderate - high VTE Device Contraindication: Treatment Not Indicated VTE Drug Contraindication: N/A - Med Ordered
--- NOTE | 2024-01-20 11:13 | MHC.CM.PN ---
PER MD ROUNDS, PT WILL LIKELY BE MEDICALLY CLEARED THIS WEEKEND DCP: [facility] PENDING CARE TEAM EVAL
[2024-01-20 15:03] VITALS: BP 112/65; PULSE 63; RESP 18; TEMP 36.7; O2SAT 93
[2024-01-20 19:42] VITALS: BP 140/90; PULSE 72; RESP 16; TEMP 36.3; O2SAT 95
[2024-01-20] MEDS: cefTRIAXone sodium 1 GM VIAL IVPUSH (20:47)
[2024-01-20] MEDS: traZODone HCL 100 MG TABLET PO (20:50)
[2024-01-20] MEDS: cloNIDine HCL 0.1 MG TABLET PO (20:50)
[2024-01-20] MEDS: OLANZapine 10 MG TABLET PO (20:50)
[2024-01-20] MEDS: Doxycycline Hyclate 100 MG in 0.9 % Sodium Chloride 250 ML 166.67 MG IV (20:58)
[2024-01-20] MEDS: Enoxaparin Sodium 40 MG/0.4 ML SYRINGE SUBCUT (22:41)
[2024-01-21] VITALS: RESP 16
[2024-01-21] MEDS: Lactated Ringers 1,000 ML 80 ML IVCONT (02:50)
[2024-01-21] MEDS: Omeprazole 20 MG CAPSULE.DR PO (05:14)
[2024-01-21] MEDS: HYDROmorphone HCl 1 MG/ML SYRINGE IVPUSH ×5 (05:14→21:58)
[2024-01-21 07:52] VITALS: BP 139/74; PULSE 59; RESP 17; TEMP 36.6; O2SAT 97
[2024-01-21] MEDS: methADONE HCl 20 MG/2 ML ORAL.CONC 125 MG PO (08:09)
[2024-01-21] MEDS: clonazePAM 0.5 MG TABLET PO ×2 (09:09→20:35)
[2024-01-21] MEDS: levETIRAcetam 500 MG TABLET PO ×2 (09:09→20:35)
[2024-01-21] MEDS: Thiamine HCL 100 MG TABLET PO (09:09)
[2024-01-21] MEDS: buPROPion HCL 75 MG TABLET 150 MG PO (09:09)
[2024-01-21] MEDS: Sevelamer Carbonate Tablet 800 MG TABLET PO ×3 (09:09→16:31)
[2024-01-21] MEDS: Multivitamin TABLET 1 TAB PO (09:09)
[2024-01-21] MEDS: Doxycycline Monohydrate 100 MG CAPSULE PO ×2 (09:50→20:35)
--- NOTE | 2024-01-21 10:38 | P.PNIM_ITS ---
Subjective Subjective Date of Service: 01/21/24 Interval History: Overall improved Physical Exam 2 Vital Signs: Vital Signs: Last Vital Signs Temp 97.8 F 01/21/24 07:52 Pulse 59 01/21/24 07:52 Resp 17 01/21/24 07:52 BP 139/74 01/21/24 07:52 Pulse Ox 97 01/21/24 07:52 O2 Del Method Room Air 01/21/24 07:52 BMI result Body Mass Index 21.2 EXAM: GENERAL: The patient is irritable VITAL SIGNS:see workflow HEENT: Nonicteric sclerae, PERRLA, EOMI. Oropharynx clear. Moist mucous membranes. Conjunctivae appear well perfused. No thyroid mass. CHEST: Chest wall is nontender. HEART: Regular rate and rhythm without murmurs. LUNGS: Clear to auscultation bilaterally. ABDOMEN: Soft, positive bowel sounds, nontender, no organomegaly.no flank tenderness- distended and resonant SKIN: No rash, no excessive bruising, petechiae, or purpura. NEUROLOGIC: Cranial nerves II-XII intact without motor/sensory deficit. Psych: irritable, agitated Objective Data Active Medications Acetaminophen (Acetaminophen 325 Mg Tablet) 650 mg PO Q6H PRN PRN Reason: Pain, Mild (Pain Scale 1-3), fever or headache Last Admin: 01/19/24 16:41 Dose: 650 mg Documented By: JEANNE Benzonatate (Benzonatate 100 Mg Capsule) 100 mg PO TID PRN PRN Reason: Cough Bupropion HCl (Bupropion Hcl 75 Mg Tablet) 150 mg PO DAILY [facility] Last Admin: 01/21/24 09:09 Dose: 150 mg Documented By: RAVEN Calcium Carbonate (Calcium Carbonate 750 Mg Tab.Chew) 750 mg PO Q4H PRN PRN Reason: Heartburn Ceftriaxone Sodium (Ceftriaxone Sodium 1 Gm Vial) 1 gm IVPUSH Q24H [facility] Last Admin: 01/20/24 20:47 Dose: 1 gm Documented By: ZION Clonazepam (Clonazepam 0.5 Mg Tablet) 0.5 mg PO BID [facility] Last Admin: 01/21/24 09:09 Dose: 0.5 mg Documented By: RAVEN Clonidine HCl (Clonidine Hcl 0.1 Mg Tablet) 0.1 mg PO BEDTIME [facility]; Protocol Last Admin: 01/20/24 20:50 Dose: 0.1 mg Documented By: ZION Docusate Sodium (Docusate Sodium 100 Mg Capsule) 100 mg PO BID [facility] Last Admin: 01/21/24 09:12 Dose: Not Given Documented By: RAVEN Non-Admin Reason: Patient Refused Doxycycline Monohydrate (Doxycycline Monohydrate 100 Mg Capsule) 100 mg PO Q12H [facility] Last Admin: 01/21/24 09:50 Dose: 100 mg Documented By: RAVEN Enoxaparin Sodium (Enoxaparin Sodium 40 Mg/0.4 Ml Syringe) 40 mg SUBCUT Q24H [facility] Last Admin: 01/20/24 22:41 Dose: 40 mg Documented By: ZION Hydromorphone HCl (Hydromorphone Hcl 1 Mg/Ml Syringe) 1 mg IVPUSH Q3H PRN; Protocol PRN Reason: Pain, Moderate(Pain Scale 4-6) Last Admin: 01/21/24 08:19 Dose: 1 mg Documented By: RAVEN Lactated Ringer's (Lr) 1,000 mls @ 80 mls/hr IVCONT .[id number] [facility] Last Admin: 01/21/24 09:49 Dose: Not Given Documented By: RAVEN Non-Admin Reason: IV Running Levetiracetam (Levetiracetam 500 Mg Tablet) 500 mg PO BID [facility] Last Admin: 01/21/24 09:09 Dose: 500 mg Documented By: RAVEN Magnesium Hydroxide (Milk Of Magnesia 30 Ml Oral.Susp) 30 ml PO DAILY PRN PRN Reason: Constipation Melatonin (Melatonin 3 Mg Tablet) 6 mg PO BEDTIME PRN PRN Reason: Insomnia Last Admin: 01/19/24 21:56 Dose: 6 mg Documented By: JUANA Melatonin (Melatonin 3 Mg Tablet) 3 mg PO BEDTIME PRN PRN Reason: Insomnia Methadone HCl (Methadone Hcl 20 Mg/2 Ml Oral.Conc) 125 mg PO DAILY@0800 [facility] Last Admin: 01/21/24 08:09 Dose: 125 mg Documented By: RAVEN Co-signed By: LAURI Multivitamins/Vitamin C (Multivitamin Tablet) 1 tab PO DAILY [facility] Last Admin: 01/21/24 09:09 Dose: 1 tab Documented By: RAVEN Olanzapine (Olanzapine 10 Mg Tablet) 10 mg PO BEDTIME [facility] Last Admin: 01/20/24 20:50 Dose: 10 mg Documented By: ZION Omeprazole (Omeprazole 20 Mg Capsule.Dr) 20 mg PO DAILY@0630 [facility] Last Admin: 01/21/24 05:14 Dose: 20 mg Documented By: ZION Oxycodone HCl (Oxycodone Hcl Immed Release 5 Mg Tablet) 10 mg PO Q6H PRN PRN Reason: Pain, Moderate(Pain Scale 4-6) Last Admin: 01/20/24 20:49 Dose: 10 mg Documented By: ZION Polyethylene Glycol (Polyethylene Glycol 3350 17 Gm Powd.Pack) 17 gm PO DAILY [facility] Last Admin: 01/21/24 09:12 Dose: Not Given Documented By: RAVEN Non-Admin Reason: Patient Refused Senna (Sennosides 8.6 Mg Tablet) 8.6 mg PO DAILY [facility] Last Admin: 01/21/24 09:12 Dose: Not Given Documented By: RAVEN Non-Admin Reason: Patient Refused Sevelamer Carbonate (Sevelamer Carbonate Tablet 800 Mg Tablet) 800 mg PO TIDAC [facility] Last Admin: 01/21/24 09:09 Dose: 800 mg Documented By: RAVEN Sodium Chloride (0.9 % Sodium Chloride Flush 3 Ml Syringe) 3 ml IVFLUSH QSHIFT [facility] Last Admin: 01/21/24 08:24 Dose: Not Given Documented By: RAVEN Non-Admin Reason: IV Running Thiamine HCl (Thiamine Hcl 100 Mg Tablet) 100 mg PO DAILY [facility] Last Admin: 01/21/24 09:09 Dose: 100 mg Documented By: RAVEN Trazodone HCl (Trazodone Hcl 100 Mg Tablet) 100 mg PO BEDTIME [facility] Last Admin: 01/20/24 20:50 Dose: 100 mg Documented By: ZION Labs 01/19/24 09:33 01/17/24 09:40 Microbiology Microbiology Results: Microbiology 01/15/24 19:54 Blood Culture - Final Blood - Venous No growth after 5 days. 01/15/24 19:54 Blood Culture - Final Blood - Venous No growth after 5 days. Blood Culture - Final No growth after 5 days. Assessment and Plan (1) Cellulitis of left leg: Status: Acute Plan 38F PMH significant for?endocarditis, IVDU, CKD 3, hepatitis-C, normocytic anemia, PTSD, ADHD, and bipolar disorder who presented to the ED complaining of lower leg swelling, pain, redness in the setting of IVDU. Left leg cellulitis possible Secondary to IVDU esr 106 and crp 4.96, monitor patient not realiable in allowing labs, will continue rocephin, changed vanc to doxy Overall appears improved though continues to complain, cultures negative, we will follow inflammatory markers Mood disorder Pt reports feeling very depressed that she is killing herself with her IVDU Presented to the ED in part because of fear that she would if she continued to use in the community Denies current active or passive SI No need for a sitter at this time Care team consult once patient medically cleared for likely inpatient psychiatric hospitalization Continue home mood stabilizers Polysubstance use disorder with IVDU Has been injecting cocaine into legs and hands bilaterally Check tox screen positive for opiates,fentanyl, cocaine. Continue methadone Addiction medicine right chest pain due to right sided pna continue rocephin, doxy CKD 3 vs patti Creatinine improving s/p 1 L IVF Monitor BMP Chronic constipation passing bm's Scheduled MiraLax, Colace Hx of seizure disorder: Continue Keppra Full Code DVT Prophylaxis: Lovenox reason for continued hospitalization:iv abx, pain control Quality Stroke Does the patient have a stroke diagnosis?: No VTE Prior VTE?: No VTE Risk Level:: Medical - moderate - high VTE Device Contraindication: Treatment Not Indicated VTE Drug Contraindication: N/A - Med Ordered
[2024-01-21] MEDS: oxyCODONE HCl Immed Release 5 MG TABLET 10 MG PO ×2 (11:47→20:35)
[2024-01-21] MEDS: Acetaminophen 325 MG TABLET 650 MG PO (14:48)
[2024-01-21 15:10] VITALS: BP 133/70; PULSE 67; RESP 17; TEMP 36.6; O2SAT 93
[2024-01-21] MEDS: 0.9 % Sodium Chloride Flush 3 ML SYRINGE IVFLUSH ×2 (16:30→22:04)
[2024-01-21] MEDS: Docusate Sodium 100 MG CAPSULE PO (20:34)
[2024-01-21] MEDS: cefTRIAXone sodium 1 GM VIAL IVPUSH (20:34)
[2024-01-21] MEDS: traZODone HCL 100 MG TABLET PO (20:35)
[2024-01-21] MEDS: OLANZapine 10 MG TABLET PO (20:35)
[2024-01-21] MEDS: cloNIDine HCL 0.1 MG TABLET PO (20:35)
[2024-01-21] MEDS: Enoxaparin Sodium 40 MG/0.4 ML SYRINGE SUBCUT (21:59)
[2024-01-21 23:46] VITALS: BP 114/58; PULSE 60; RESP 18; TEMP 36.2; O2SAT 95
[2024-01-22] MEDS: HYDROmorphone HCl 1 MG/ML SYRINGE IVPUSH ×2 (04:31→11:02)
[2024-01-22] MEDS: Omeprazole 20 MG CAPSULE.DR PO (05:52)
[2024-01-22] MEDS: methADONE HCl 20 MG/2 ML ORAL.CONC 125 MG PO (07:39)
[2024-01-22 07:58] VITALS: BP 116/66; PULSE 66; RESP 14; TEMP 36.3; O2SAT 96
--- NOTE | 2024-01-22 08:57 | HO.PM.IMPN ---
Subjective Subjective Date of Service: 01/22/24 Interval History: imrpoved Physical Exam Vital Signs: Vital Signs: Last Vital Signs Temp 97.4 F 01/22/24 07:58 Pulse 66 01/22/24 07:58 Resp 14 01/22/24 07:58 BP 116/66 01/22/24 07:58 Pulse Ox 96 01/22/24 07:58 O2 Del Method Room Air 01/22/24 07:58 BMI result Body Mass Index 21.2 General: AO X 3, no acute distress Resp: CTA bilateral, no accessory muscles used CVS: S1,S2,RRR GI: soft, non tender, non distended Neuro: motor grossly intact, alert Objective Data Active Medications Acetaminophen (Acetaminophen 325 Mg Tablet) 650 mg PO Q6H PRN PRN Reason: Pain, Mild (Pain Scale 1-3), fever or headache Last Admin: 01/21/24 14:48 Dose: 650 mg Documented By: RAVEN Benzonatate (Benzonatate 100 Mg Capsule) 100 mg PO TID PRN PRN Reason: Cough Bupropion HCl (Bupropion Hcl 75 Mg Tablet) 150 mg PO DAILY [facility] Last Admin: 01/21/24 09:09 Dose: 150 mg Documented By: RAVEN Calcium Carbonate (Calcium Carbonate 750 Mg Tab.Chew) 750 mg PO Q4H PRN PRN Reason: Heartburn Ceftriaxone Sodium (Ceftriaxone Sodium 1 Gm Vial) 1 gm IVPUSH Q24H [facility] Last Admin: 01/21/24 20:34 Dose: 1 gm Documented By: ZION Clonazepam (Clonazepam 0.5 Mg Tablet) 0.5 mg PO BID [facility] Last Admin: 01/21/24 20:35 Dose: 0.5 mg Documented By: ZION Clonidine HCl (Clonidine Hcl 0.1 Mg Tablet) 0.1 mg PO BEDTIME [facility]; Protocol Last Admin: 01/21/24 20:35 Dose: 0.1 mg Documented By: ZION Docusate Sodium (Docusate Sodium 100 Mg Capsule) 100 mg PO BID [facility] Last Admin: 01/21/24 20:34 Dose: 100 mg Documented By: ZION Doxycycline Monohydrate (Doxycycline Monohydrate 100 Mg Capsule) 100 mg PO Q12H [facility] Last Admin: 01/21/24 20:35 Dose: 100 mg Documented By: ZION Enoxaparin Sodium (Enoxaparin Sodium 40 Mg/0.4 Ml Syringe) 40 mg SUBCUT Q24H [facility] Last Admin: 01/21/24 21:59 Dose: 40 mg Documented By: ZION Hydromorphone HCl (Hydromorphone Hcl 1 Mg/Ml Syringe) 1 mg IVPUSH Q3H PRN; Protocol PRN Reason: Pain, Severe (Pain Scale 7-10) Last Admin: 01/22/24 04:31 Dose: 1 mg Documented By: ZION Levetiracetam (Levetiracetam 500 Mg Tablet) 500 mg PO BID [facility] Last Admin: 01/21/24 20:35 Dose: 500 mg Documented By: ZION Magnesium Hydroxide (Milk Of Magnesia 30 Ml Oral.Susp) 30 ml PO DAILY PRN PRN Reason: Constipation Melatonin (Melatonin 3 Mg Tablet) 6 mg PO BEDTIME PRN PRN Reason: Insomnia Last Admin: 01/19/24 21:56 Dose: 6 mg Documented By: JUANA Melatonin (Melatonin 3 Mg Tablet) 3 mg PO BEDTIME PRN PRN Reason: Insomnia Methadone HCl (Methadone Hcl 20 Mg/2 Ml Oral.Conc) 125 mg PO DAILY@0800 [facility] Last Admin: 01/22/24 07:39 Dose: 125 mg Documented By: RAVEN Co-signed By: NINA Multivitamins/Vitamin C (Multivitamin Tablet) 1 tab PO DAILY [facility] Last Admin: 01/21/24 09:09 Dose: 1 tab Documented By: RAVEN Olanzapine (Olanzapine 10 Mg Tablet) 10 mg PO BEDTIME [facility] Last Admin: 01/21/24 20:35 Dose: 10 mg Documented By: ZION Omeprazole (Omeprazole 20 Mg Capsule.Dr) 20 mg PO DAILY@0630 [facility] Last Admin: 01/22/24 05:52 Dose: 20 mg Documented By: ZION Oxycodone HCl (Oxycodone Hcl Immed Release 5 Mg Tablet) 10 mg PO Q6H PRN PRN Reason: Pain, Moderate(Pain Scale 4-6) Last Admin: 01/21/24 20:35 Dose: 10 mg Polyethylene Glycol (Polyethylene Glycol 3350 17 Gm Powd.Pack) 17 gm PO DAILY [facility] Last Admin: 01/21/24 09:12 Dose: Not Given Documented By: RAVEN Non-Admin Reason: Patient Refused Senna (Sennosides 8.6 Mg Tablet) 8.6 mg PO DAILY [facility] Last Admin: 01/21/24 09:12 Dose: Not Given Documented By: RAVEN Non-Admin Reason: Patient Refused Sevelamer Carbonate (Sevelamer Carbonate Tablet 800 Mg Tablet) 800 mg PO TIDAC [facility] Last Admin: 01/21/24 16:31 Dose: 800 mg Documented By: RAVEN Sodium Chloride (0.9 % Sodium Chloride Flush 3 Ml Syringe) 3 ml IVFLUSH QSHIFT [facility] Last Admin: 01/21/24 22:04 Dose: 3 ml Documented By: ZION Thiamine HCl (Thiamine Hcl 100 Mg Tablet) 100 mg PO DAILY [facility] Last Admin: 01/21/24 09:09 Dose: 100 mg Documented By: RAVEN Trazodone HCl (Trazodone Hcl 100 Mg Tablet) 100 mg PO BEDTIME [facility] Last Admin: 01/21/24 20:35 Dose: 100 mg Documented By: ZION Labs 01/19/24 09:33 01/17/24 09:40 Assessment and Plan (1) Cellulitis of left leg: Status: Acute Plan 38F PMH significant for?endocarditis, IVDU, CKD 3, hepatitis-C, normocytic anemia, PTSD, ADHD, and bipolar disorder who presented to the ED complaining of lower leg swelling, pain, redness in the setting of IVDU. Left leg cellulitis possible Secondary to IVDU esr 106 and crp 4.96, refused repeat, but overall less ill appearing continue rocephin, doxy, would transition to po on discharge medically cleared, will request care team eval for severe depression Mood disorder Pt reports feeling very depressed that she is killing herself with her IVDU Presented to the ED in part because of fear that she would if she continued to use in the community Denies current active or passive SI No need for a sitter at this time Care team consult as now medically cleared Continue home mood stabilizers Polysubstance use disorder with IVDU Has been injecting cocaine into legs and hands bilaterally Check tox screen positive for opiates,fentanyl, cocaine. Continue methadone Addiction medicine right chest pain due to right sided pna continue rocephin, doxy CKD 3 vs patti Creatinine improved Chronic constipation passing bm's Scheduled MiraLax, Colace Hx of seizure disorder: Continue Keppra Full Code DVT Prophylaxis: Lovenox reason for continued hospitalization: safe dispo Quality Stroke Does the patient have a stroke diagnosis?: No VTE Prior VTE?: No VTE Risk Level:: Medical - moderate - high VTE Device Contraindication: Treatment Not Indicated VTE Drug Contraindication: N/A - Med Ordered
[2024-01-22] MEDS: levETIRAcetam 500 MG TABLET PO ×2 (09:12→21:01)
[2024-01-22] MEDS: Multivitamin TABLET 1 TAB PO (09:12)
[2024-01-22] MEDS: Docusate Sodium 100 MG CAPSULE PO ×2 (09:12→21:01)
[2024-01-22] MEDS: Thiamine HCL 100 MG TABLET PO (09:12)
[2024-01-22] MEDS: Doxycycline Monohydrate 100 MG CAPSULE PO ×2 (09:12→21:01)
[2024-01-22] MEDS: Sevelamer Carbonate Tablet 800 MG TABLET PO ×3 (09:12→15:59)
[2024-01-22] MEDS: buPROPion HCL 75 MG TABLET 150 MG PO (09:12)
[2024-01-22] MEDS: clonazePAM 0.5 MG TABLET PO ×2 (09:13→21:01)
[2024-01-22] MEDS: oxyCODONE HCl Immed Release 5 MG TABLET 10 MG PO ×2 (09:13→15:59)
[2024-01-22] MEDS: 0.9 % Sodium Chloride Flush 3 ML SYRINGE IVFLUSH ×3 (09:14→21:01)
[2024-01-22 11:13] LABS: Alanine Aminotransferase 77 U/L (0-31); Albumin Level 3.8 g/dL (3.5-5.0); Alkaline Phosphatase 90 U/L (39-117); Anion Gap 17 (12-20); Aspartate Amino Transferase 50 U/L (5-31); Bilirubin Direct < 0.2 mg/dL (0.0-0.5); Bilirubin Total 0.2 mg/dL (0.0-1.0); Blood Urea Nitrogen 30 mg/dL (9-16); C Reactive Protein 0.96 mg/dL (< or = 0.50); Carbon Dioxide 26 mmol/L (22-29); Chloride 102 mmol/L (96-108); Creatinine Clr Calc Pharmacy 47.4; Estimated Glomerular Filt Rate 37; Glucose Fasting 82 mg/dL (60-99); Magnesium 1.8 mg/dL (1.6-2.6); Potassium 4.4 mmol/L (3.3-5.1); Sodium 141 mmol/L (135-145); Total Protein 8.7 g/dL (6.5-8.0)
[2024-01-22] MEDS: Acetaminophen 325 MG TABLET 650 MG PO (12:40)
[2024-01-22] MEDS: HYDROmorphone HCl 2 MG TABLET PO ×3 (14:39→21:00)
[2024-01-22 14:50] VITALS: BP 120/70; PULSE 71; RESP 18; TEMP 36.6; O2SAT 97
--- NOTE | 2024-01-22 15:36 | MHC.CARE ---
CARE team assessed pt, recommending IPLOC. Dr Boss and RN consulted
[2024-01-22] MEDS: cefTRIAXone sodium 1 GM VIAL IVPUSH (21:01)
[2024-01-22] MEDS: cloNIDine HCL 0.1 MG TABLET PO (21:01)
[2024-01-22] MEDS: traZODone HCL 100 MG TABLET PO (21:01)
[2024-01-22] MEDS: OLANZapine 10 MG TABLET PO (21:01)
[2024-01-22 23:05] VITALS: BP 116/59; PULSE 66; RESP 14; TEMP 37.1; O2SAT 96
[2024-01-22] MEDS: Enoxaparin Sodium 40 MG/0.4 ML SYRINGE SUBCUT (23:06)
[2024-01-23] MEDS: Omeprazole 20 MG CAPSULE.DR PO (06:11)
[2024-01-23] MEDS: HYDROmorphone HCl 2 MG TABLET PO ×2 (06:13→12:03)
[2024-01-23] MEDS: methADONE HCl 20 MG/2 ML ORAL.CONC 125 MG PO (07:29)
[2024-01-23 07:36] VITALS: BP 104/61; PULSE 61; RESP 16; TEMP 36.4; O2SAT 95
--- NOTE | 2024-01-23 09:15 | HO.PM.IMPN ---
Subjective Subjective Date of Service: 01/23/24 Interval History: imrpoved Physical Exam Vital Signs: Vital Signs: Last Vital Signs Temp 97.5 F 01/23/24 07:36 Pulse 61 01/23/24 07:36 Resp 16 01/23/24 07:36 BP 104/61 01/23/24 07:36 Pulse Ox 95 01/23/24 07:36 O2 Del Method Room Air 01/23/24 07:36 BMI result Body Mass Index 21.2 General: AO X 3, no acute distress Resp: CTA bilateral, no accessory muscles used CVS: S1,S2,RRR GI: soft, non tender, non distended Neuro: motor grossly intact, alert Objective Data Active Medications Acetaminophen (Acetaminophen 325 Mg Tablet) 650 mg PO Q6H PRN PRN Reason: Pain, Mild (Pain Scale 1-3), fever or headache Last Admin: 01/22/24 12:40 Dose: 650 mg Documented By: RAVEN Benzonatate (Benzonatate 100 Mg Capsule) 100 mg PO TID PRN PRN Reason: Cough Bupropion HCl (Bupropion Hcl 75 Mg Tablet) 150 mg PO DAILY [facility] Last Admin: 01/22/24 09:12 Dose: 150 mg Documented By: RAVEN Calcium Carbonate (Calcium Carbonate 750 Mg Tab.Chew) 750 mg PO Q4H PRN PRN Reason: Heartburn Ceftriaxone Sodium (Ceftriaxone Sodium 1 Gm Vial) 1 gm IVPUSH Q24H [facility] Last Admin: 01/22/24 21:01 Dose: 1 gm Documented By: ZION Clonazepam (Clonazepam 0.5 Mg Tablet) 0.5 mg PO BID [facility] Last Admin: 01/22/24 21:01 Dose: 0.5 mg Documented By: ZION Clonidine HCl (Clonidine Hcl 0.1 Mg Tablet) 0.1 mg PO BEDTIME [facility]; Protocol Last Admin: 01/22/24 21:01 Dose: 0.1 mg Documented By: ZION Docusate Sodium (Docusate Sodium 100 Mg Capsule) 100 mg PO BID [facility] Last Admin: 01/22/24 21:01 Dose: 100 mg Documented By: ZION Doxycycline Monohydrate (Doxycycline Monohydrate 100 Mg Capsule) 100 mg PO Q12H [facility] Last Admin: 01/22/24 21:01 Dose: 100 mg Documented By: ZION Enoxaparin Sodium (Enoxaparin Sodium 40 Mg/0.4 Ml Syringe) 40 mg SUBCUT Q24H [facility] Last Admin: 01/22/24 23:06 Dose: 40 mg Documented By: ZION Hydromorphone HCl (Hydromorphone Hcl 2 Mg Tablet) 2 mg PO Q3H PRN PRN Reason: Pain, Severe (Pain Scale 7-10) Last Admin: 01/23/24 06:13 Dose: 2 mg Documented By: ZION Levetiracetam (Levetiracetam 500 Mg Tablet) 500 mg PO BID [facility] Last Admin: 01/22/24 21:01 Dose: 500 mg Documented By: ZION Magnesium Hydroxide (Milk Of Magnesia 30 Ml Oral.Susp) 30 ml PO DAILY PRN PRN Reason: Constipation Melatonin (Melatonin 3 Mg Tablet) 6 mg PO BEDTIME PRN PRN Reason: Insomnia Last Admin: 01/19/24 21:56 Dose: 6 mg Documented By: JUANA Melatonin (Melatonin 3 Mg Tablet) 3 mg PO BEDTIME PRN PRN Reason: Insomnia Methadone HCl (Methadone Hcl 20 Mg/2 Ml Oral.Conc) 125 mg PO DAILY@0800 [facility] Last Admin: 01/23/24 07:29 Dose: 125 mg Documented By: RAVEN Co-signed By: BRITTANY Multivitamins/Vitamin C (Multivitamin Tablet) 1 tab PO DAILY [facility] Last Admin: 01/22/24 09:12 Dose: 1 tab Documented By: RAVEN Olanzapine (Olanzapine 10 Mg Tablet) 10 mg PO BEDTIME [facility] Last Admin: 01/22/24 21:01 Dose: 10 mg Documented By: ZION Omeprazole (Omeprazole 20 Mg Capsule.Dr) 20 mg PO DAILY@0630 [facility] Last Admin: 01/23/24 06:11 Dose: 20 mg Documented By: ZION Oxycodone HCl (Oxycodone Hcl Immed Release 5 Mg Tablet) 10 mg PO Q6H PRN PRN Reason: Pain, Moderate(Pain Scale 4-6) Last Admin: 01/22/24 15:59 Dose: 10 mg Documented By: RAVEN Polyethylene Glycol (Polyethylene Glycol 3350 17 Gm Powd.Pack) 17 gm PO DAILY [facility] Last Admin: 01/22/24 09:11 Dose: Not Given Documented By: RAVEN Non-Admin Reason: Patient Refused Senna (Sennosides 8.6 Mg Tablet) 8.6 mg PO DAILY [facility] Last Admin: 01/22/24 09:11 Dose: Not Given Documented By: RAVEN Non-Admin Reason: Patient Refused Sevelamer Carbonate (Sevelamer Carbonate Tablet 800 Mg Tablet) 800 mg PO TIDAC [facility] Last Admin: 01/22/24 15:59 Dose: 800 mg Documented By: RAVEN Sodium Chloride (0.9 % Sodium Chloride Flush 3 Ml Syringe) 3 ml IVFLUSH QSHIFT [facility] Last Admin: 01/22/24 21:01 Dose: 3 ml Documented By: ZION Thiamine HCl (Thiamine Hcl 100 Mg Tablet) 100 mg PO DAILY [facility] Last Admin: 01/22/24 09:12 Dose: 100 mg Documented By: RAVEN Trazodone HCl (Trazodone Hcl 100 Mg Tablet) 100 mg PO BEDTIME [facility] Last Admin: 01/22/24 21:01 Dose: 100 mg Documented By: ZION Labs 01/19/24 09:33 01/22/24 10:05 Labs: Laboratory Results - last 24 hr 01/22/24 10:05 Hold Purple Top SEE NOTE Anion Gap 17 Estim Creat Clear Calc 47.4 Estimated GFR 37 Fasting Glucose 82 Calcium 10.0 D Magnesium 1.8 Total Bilirubin 0.2 Direct Bilirubin < 0.2 AST 50 H ALT 77 H Alkaline Phosphatase 90 C-Reactive Protein 0.96 H Total Protein 8.7 H Albumin 3.8 Assessment and Plan (1) Cellulitis of left leg: Status: Acute Plan 38F PMH significant for?endocarditis, IVDU, CKD 3, hepatitis-C, normocytic anemia, PTSD, ADHD, and bipolar disorder who presented to the ED complaining of lower leg swelling, pain, redness in the setting of IVDU. Left leg cellulitis possible Secondary to IVDU inflammatory markers improved continue rocephin, doxy, would transition to po on discharge medically cleared, care team recommending inpatient psych admission, bed search in progress Mood disorder Pt reports feeling very depressed that she is killing herself with her IVDU Presented to the ED in part because of fear that she would if she continued to use in the community Denies current active or passive SI No need for a sitter at this time bed search in progress Polysubstance use disorder with IVDU Has been injecting cocaine into legs and hands bilaterally tox screen positive for opiates,fentanyl, cocaine. Continue methadone Addiction medicine right chest pain due to right sided pna continue rocephin, doxy CKD 3 vs patti Creatinine improved Chronic constipation passing bm's Scheduled MiraLax, Colace Hx of seizure disorder: Continue Keppra Full Code DVT Prophylaxis: Lovenox reason for continued hospitalization: safe dispo Quality Stroke Does the patient have a stroke diagnosis?: No VTE Prior VTE?: No VTE Risk Level:: Medical - moderate - high VTE Device Contraindication: Treatment Not Indicated VTE Drug Contraindication: N/A - Med Ordered
[2024-01-23] MEDS: buPROPion HCL 75 MG TABLET 150 MG PO (09:35)
[2024-01-23] MEDS: Multivitamin TABLET 1 TAB PO (09:36)
[2024-01-23] MEDS: levETIRAcetam 500 MG TABLET PO (09:36)
[2024-01-23] MEDS: Docusate Sodium 100 MG CAPSULE PO (09:36)
[2024-01-23] MEDS: Doxycycline Monohydrate 100 MG CAPSULE PO (09:36)
[2024-01-23] MEDS: oxyCODONE HCl Immed Release 5 MG TABLET 10 MG PO ×2 (09:36→15:53)
[2024-01-23] MEDS: clonazePAM 0.5 MG TABLET PO (09:37)
[2024-01-23] MEDS: Thiamine HCL 100 MG TABLET PO (09:37)
[2024-01-23] MEDS: 0.9 % Sodium Chloride Flush 3 ML SYRINGE IVFLUSH (09:40)
[2024-01-23] MEDS: Sevelamer Carbonate Tablet 800 MG TABLET PO ×2 (09:43→12:52)
--- NOTE | 2024-01-23 14:16 | P.DS_ITS ---
DS: Providers Provider Date of Service: 01/23/24 Date of admission: 01/15/24 22:11 Date of discharge: 01/23/24 Primary care physician: None Physician Consults: 01/15/24 22:40 Addiction Medicine Routine Consulting Provider: Addiction Covering Reason for consultation: IVDU 01/17/24 08:37 Consult to Gastroenterology [place]ine [place] [facility] [place] Reason for consultation: abd pain Has provider been notified: No 01/22/24 08:56 Consult to Care Team Routine Comment: Reason for consultation: medically cleared, depression/SI DS: Diagnosis Discharge Diagnosis (1) Cellulitis of left leg: Status: Acute DS: Summary Hospital Course Hospital Course: from initial hpi: 38-year-old female with a PMH significant for?endocarditis, IVDU, CKD 3, he patitis-C, normocytic anemia, PTSD, ADHD, and bipolar disorder who presents to the ED complaining of lower leg swelling, pain, redness in the setting of IVDU. Patient was recently discharged from Psychiatric unit on 01/11?after a 2 week stay. Patient reports she almost immediately began using again upon discharge, injecting ?a lot of cocaine into both lower legs and hands. Earlier today mihir hatch noticed that her left leg was painful and began swelling and turning red. Patient is very tearful during interview and exam, stating that ?I know I am going to if I keep using and ?that is why came in today because I am scared I am going to . Patient reports she feels depressed but denies active or passive SI at this time. Also reports subjective fever and chills, as well as chronic abdominal pain around baseline. Last bowel movement 2-3 days ago. No chest pain/pressure, palpitations. Denies shortness or breath or difficulty breathing. Has been adherent with methadone, but not taking any other home meds. In the ED pt was tachycardic up to 110 and initially hypertensive at 171/109. Labs were significant for ESR of 106, creatinine 1.58, AST 74, ALT 102, and CRP 4.96. No leukocytosis. Normocytic anemia of 8.0/24.6, around baseline. X-ray of left tibia and fibula negative for acute process or osseous changes suggestive of osteomyelitis. EKG demonstrated showed normal sinus rhythm with likely left atrialc enlargement and QT of 503. Pt was treated with vancomycin and ceftriaxone. Pt will be admitted to the hospital for treatment and further evaluation of left leg cellulitis secondary to IVDU. hospital course: Patient was admitted for left leg cellulitis related to IV drug use was treated with ceftriaxone doxycycline and cellulitis and inflammatory markers significantly improved. Course now complete. Was seen by care team who recommended inpatient psychiatry admission to which patient will be discharged. For polysubstance dependence patient was continued on methadone was also being treated with hydromorphone for pain. Patient has right-sided chest pain was due to right-sided pneumonia was treated with pain meds and antibiotics as mentioned above. Patient has mildly elevated creatinine around 1.5, likely new baseline of CKD 3. For chronic constipation was continued on MiraLax and Colace. For history of seizure disorder was continued on Keppra. Time Attestation Discharge Coordination Time (in mins): 33 Quality: Safe Use of Opioids Does Pt have an Active Cancer Diagnosis on the Problem List?: No Quality: Stroke Does the patient have a stroke diagnosis?: No Physical Exam Vital Signs: Vital Signs: Last Vital Signs Temp 97.5 F 01/23/24 07:36 Pulse 61 01/23/24 07:36 Resp 16 01/23/24 07:36 BP 104/61 01/23/24 07:36 Pulse Ox 95 01/23/24 07:36 O2 Del Method Room Air 01/23/24 07:36 BMI result Body Mass Index 21.2 General: AO X 3, no acute distress Resp: CTA bilateral, no accessory muscles used CVS: S1,S2,RRR GI: soft, non tender, non distended Neuro: motor grossly intact, alert Psych: appropriate affect, appropriate insight Discharge Plan Discharge Anticipated Discharge Date/Time: 01/23/24 14:10 Patient Disposition: Xfer Other Discharge Diagnosis: cellultiis Referrals: Physician,None [Primary Care Provider] - 1 Week Discharge Medications: New hydromorphone 2 mg Tablet 2 mg PO Q3H PRN (Reason: Pain, Severe (Pain Scale 7-10)) Qty: 0 0RF Rx Instructions: Partial Fill upon patient request. Continued clonidine HCl 0.1 mg Tablet 0.1 mg PO BEDTIME Qty: 30 0RF Protocol: Hold for SBP< HOLD for SBP < : 90 acetaminophen 325 mg Tablet 650 mg PO Q6H PRN (Reason: Headache/Pain Mild Scale (1-3)) Qty: 60 0RF clonazepam 0.5 mg Tablet 0.5 mg PO BID Qty: 30 0RF olanzapine 10 mg Tablet 10 mg PO BEDTIME Qty: 30 0RF bupropion HCl 75 mg Tablet 150 mg PO DAILY Qty: 60 0RF methadone [Methadose] 10 mg/mL Concentrate 125 mg PO DAILY@0800 Qty: 0 0RF Rx Instructions: Partial Fill upon patient request. melatonin 3 mg Tablet 3 mg PO BEDTIME PRN (Reason: Insomnia) Qty: 30 0RF trazodone 100 mg Tablet 100 mg PO BEDTIME Qty: 30 0RF docusate sodium 100 mg Capsule 100 mg PO BID Qty: 60 0RF multivitamin Tablet 1 tab PO DAILY Qty: 30 0RF sennosides [senna] 8.6 mg Tablet 8.6 mg PO DAILY Qty: 30 0RF polyethylene glycol 3350 17 gram Powder In Packet 17 g PO DAILY Qty: 30 0RF levetiracetam [Keppra] 500 mg tablet 500 mg PO BID 30 Days Qty: 60 0RF thiamine HCl (vitamin B1) 100 mg Tablet 100 mg PO DAILY Qty: 30 0RF sevelamer carbonate 800 mg Tablet 800 mg PO TIDAC Qty: 90 0RF Rx Instructions: must administer with a meal/food (DME) blood pressure monitor Kit See Rx Instructions .Route Qty: 1 0RF Rx Instructions: As directed Discharge Orders: Discharge Order (Routine); Ordered 01/23/24 Ordered By: Mushtaq Boss Diet: Advance to usual diet Activity on Discharge: As tolerated Stand Alone Forms: Patient Portal Discharge page Print Language: Polish Care Plan Goals: recovery Health Concerns: depression, celulitis Plan of Treatment: cellulitis resolved, admit to inpatient psychiatry, conitnue to wean/replace opiates Assessment: see above Patient Instructions: Cellulitis (ED)
--- NOTE | 2024-01-23 14:51 | MHC.CM.PN ---
The Care team bed search successful. Patient will transfer to [facility] [place] this afternoon. She will transport via .
[2024-01-23 15:28] VITALS: BP 106/61; PULSE 65; RESP 16; TEMP 36.2; O2SAT 93
[2024-01-23] MEDS: Acetaminophen 325 MG TABLET 650 MG PO (15:52)
== END 2024-01-23 16:32 | disposition other institution (70) | DRG 383 ==
LOC: HO.ED 23:02 → HO.EDOVER 23:45 → HO.S3 01-16 01:19
PROVIDERS: Internal Medicine; Physician Assistant Medical; Admitting Provider Student in an Organized Health Care Education/Training Program; Emergency Provider Emergency Medicine; Visit Provider Internal Medicine
DX: L03.116 Cellulitis of left lower limb (principal); J18.9 Pneumonia, unspecified organism; F11.20 Opioid dependence, uncomplicated; F43.10 Post-traumatic stress disorder, unspecified; F90.9 Attention-deficit hyperactivity disorder, unspecified type; F19.20 Other psychoactive substance dependence, uncomplicated; F17.210 Nicotine dependence, cigarettes, uncomplicated; N18.30 Chronic kidney disease, stage 3 unspecified; G40.909 Epilepsy, unspecified, not intractable, without status epilepticus; K59.09 Other constipation; Z71.6 Tobacco abuse counseling; Z79.899 Other long term (current) drug therapy
CPT/HCPCS: 36415; 71250; 73590; 80048; 80076; 80202; 80307; 83690; 83735; 84484; 85025; 85027; 85610; 85652; 86140; 86141; 86704; 86706; 86709; 86803; 87040; 87340; 93005; 93306; 99285; J0696; J1171; J1650; J2060; J3370; J7120; Q9957; S9485

== ENCOUNTER → 2024-01-15 17:57 | Outpatient (BNV) | payer MEDICAID, SELFPAY | PROVIDERS: Admitting Provider Student in an Organized Health Care Education/Training Program; Emergency Provider Emergency Medicine; Visit Provider Internal Medicine Cardiovascular Disease | DX: I45.81 Long QT syndrome (principal) | CPT/HCPCS: 93010 ==

== ENCOUNTER 2024-01-15 22:11 | Outpatient (BNV) | payer MEDICAID, SELFPAY | END 2024-01-19 07:00 | PROVIDERS: Admitting Provider Student in an Organized Health Care Education/Training Program; Emergency Provider Emergency Medicine; Visit Provider Internal Medicine Cardiovascular Disease | DX: I36.1 Nonrheumatic tricuspid (valve) insufficiency (principal); I51.7 Cardiomegaly | CPT/HCPCS: 93306 ==

== ENCOUNTER → 2024-01-15 22:11 | Outpatient (BNV) | payer MEDICAID, SELFPAY | PROVIDERS: Admitting Provider Student in an Organized Health Care Education/Training Program; Emergency Provider Emergency Medicine; Visit Provider Student in an Organized Health Care Education/Training Program | DX: L03.116 Cellulitis of left lower limb (principal) | CPT/HCPCS: 99222; 99231; 99232; 99239 ==

== ENCOUNTER → 2024-01-15 22:11 | Outpatient (BNV) | payer MEDICAID, SELFPAY | PROVIDERS: Admitting Provider Student in an Organized Health Care Education/Training Program; Emergency Provider Emergency Medicine; Visit Provider Internal Medicine Gastroenterology | DX: F14.10 Cocaine abuse, uncomplicated (principal) | CPT/HCPCS: 99223 ==

== ENCOUNTER 2024-01-23 16:36 | Inpatient (IN) | payer OTHER, SELFPAY ==
--- NOTE | 2024-01-23 18:07 | HE.PHANOTE ---
Methadone verification Patient last received methadone 125 mg on 01/23/24 @ 0729 while on Med Surg floor.
[2024-01-23 18:16] VITALS: BMI 21.3
--- NOTE | 2024-01-23 18:34 | PC.NURSE ---
Kim was admitted to at 1648 from [facility] on CV for treatment of Bipolar Disorder, PTSD and Polysubstance Use Disorder Stressors include declining physical health, multiple inpatient medical stays. She was most recently inpatient for Left Leg cellulitis brought on by IVDU cocaine in bilateral legs. In addition she has kidney failure, two recent bouts of pneumonia and chronic uncontrolled pain.? On arrival patient is fully oriented but agitated and initially uncooperative yelling about her belongings in decon. Pt did settle and allowed changeover where a vape and a phone were turned in to RN. Mood is depressed. Affect is irritable. Pt denies hallucinations and is not overtly psychotic.? Thought Process is disorganized.? ?She denies ideation, plan or intent to harm self or others. Appetite is good with no? recent wt loss or gain. Sleep is reportedly poor with trouble falling asleep and trouble staying asleep.? Substance Issues include remote hx of opiate use disorder. She denies opiate use since starting methadone. However, pt is prescribed prn dilaudid currently and this morning received percocet in addition to dilaudid on the medical floor.? Pt uses cocaine, reports smoking crack in addition to IV cocaine use.? Her goal of admission is to get her belongings back from decon and leave the hospital. Safety Checks are q 15 minutes.?
[2024-01-23] MEDS: HYDROmorphone HCl 2 MG TABLET PO (19:04)
[2024-01-23 20:00] VITALS: BP 102/60; PULSE 65; RESP 16; TEMP 36.5; O2SAT 98
[2024-01-23] MEDS: levETIRAcetam 500 MG TABLET PO (20:46)
[2024-01-23] MEDS: Docusate Sodium 100 MG CAPSULE PO (20:46)
[2024-01-23] MEDS: clonazePAM 0.5 MG TABLET PO (20:46)
[2024-01-23] MEDS: cloNIDine HCL 0.1 MG TABLET PO (20:46)
[2024-01-23] MEDS: traZODone HCL 100 MG TABLET PO (20:46)
[2024-01-23] MEDS: OLANZapine 10 MG TABLET PO (20:46)
[2024-01-24 07:32] VITALS: BP 89/50; PULSE 63; RESP 16; TEMP 36.6; O2SAT 95
[2024-01-24] MEDS: methADONE HCl 20 MG/2 ML ORAL.CONC 125 MG PO (07:46)
[2024-01-24] MEDS: buPROPion HCL 75 MG TABLET 150 MG PO (08:20)
[2024-01-24] MEDS: Docusate Sodium 100 MG CAPSULE PO ×2 (08:20→20:34)
[2024-01-24] MEDS: Sevelamer Carbonate Tablet 800 MG TABLET PO ×3 (08:20→17:06)
[2024-01-24] MEDS: HYDROmorphone HCl 2 MG TABLET PO ×4 (08:20→20:34)
[2024-01-24] MEDS: Multivitamin TABLET 1 TAB PO (08:21)
[2024-01-24] MEDS: levETIRAcetam 500 MG TABLET PO ×2 (08:21→20:34)
[2024-01-24] MEDS: Thiamine HCL 100 MG TABLET PO (08:21)
[2024-01-24] MEDS: Sennosides 8.6 MG TABLET PO (08:21)
[2024-01-24] MEDS: clonazePAM 0.5 MG TABLET PO ×2 (08:21→20:34)
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
[2024-01-24 11:24] VITALS: BP 108/63; PULSE 83
[2024-01-24 20:00] VITALS: BP 98/58; PULSE 70; RESP 16; TEMP 36.6; O2SAT 95
[2024-01-24] MEDS: traZODone HCL 100 MG TABLET PO (20:34)
[2024-01-24] MEDS: OLANZapine 10 MG TABLET PO (20:34)
[2024-01-24] MEDS: cloNIDine HCL 0.1 MG TABLET PO (20:38)
[2024-01-25] MEDS: HYDROmorphone HCl 2 MG TABLET PO ×4 (06:42→18:05)
[2024-01-25 07:25] VITALS: BP 112/56; PULSE 64; RESP 16; TEMP 36.7; O2SAT 95
[2024-01-25] MEDS: methADONE HCl 20 MG/2 ML ORAL.CONC 125 MG PO (07:58)
[2024-01-25 08:45] LABS: Estimated Average Glucose 82 mg/dL; Hemoglobin A1C 72.1132 umol/L; Hemoglobin A1c % 4.5 % (<6.0); Total Hemoglobin (HGBA1C) 2798.5763 umol/L
[2024-01-25] MEDS: Sevelamer Carbonate Tablet 800 MG TABLET PO ×3 (09:00→16:16)
[2024-01-25] MEDS: clonazePAM 0.5 MG TABLET PO ×2 (09:00→20:21)
[2024-01-25] MEDS: Docusate Sodium 100 MG CAPSULE PO ×2 (09:00→20:21)
[2024-01-25] MEDS: levETIRAcetam 500 MG TABLET PO ×2 (09:00→20:21)
[2024-01-25] MEDS: Thiamine HCL 100 MG TABLET PO (09:00)
[2024-01-25] MEDS: buPROPion HCL 75 MG TABLET 150 MG PO (09:00)
[2024-01-25] MEDS: Sennosides 8.6 MG TABLET PO (09:00)
[2024-01-25] MEDS: Multivitamin TABLET 1 TAB PO (09:00)
--- NOTE | 2024-01-25 09:00 | HO.PSYCHPN ---
Subjective Subjective Date of Service: 01/25/24 Reason For Visit: Psych Subjective Notes: Conditional Voluntary Interim History: Pt slept through the night. She reports only medication missing is adderall, which apparently she was prescribed while on m5 (looks like they did but pt not given rx on discharged as pt was supposed to see OP psychiatrist post discharge). Pt instead relapsed and had leg cellulitis along with endorcarditis and needed medical treatment otherwise she would have of sepsis. We discussed that decision to prescribe controlled substance is difficult as she continues to work on her recovery and her addition has gotten to a point where she has lost control and continues to use despite severe medical consequences of substance use. I explained to pt that I am covering for her primary provider for today but would advised against rx for controlled substances such as adderall and clonazepam. Pt to discuss further with Linh Pace tomorrow. Pt denies SI/HI. No VH/AH. More alert, visible and social with select peers. She reports feeling better... her only worried is uncontrollable ADHD. Medication Compliance: Yes Side effects from medications: No Review of Systems Constitutional: Reports as per HPI Eyes: Reports as per HPI Reports as per HPI Cardiovascular: Reports as per HPI Respiratory: Reports as per HPI Gastrointestinal: Reports as per HPI Musculoskeletal: Reports as per HPI Skin/Breast: Reports as per HPI Reports as per HPI Psychiatric: Reports as per HPI Endocrine: Reports as per HPI Hematologic/Lymphatic: Reports as per HPI Allergic/Immunologic: Reports as per HPI Mental Status Exam Mental Status Exam Narrative: Pt is alert and oriented x 4; behavior is cooperative and calm; dressed in casual attire; mood is described as good, affect congruent and bright, non labile; eye contact appropriate; Speech is normal rate, volume and not pressured; thought process is organized and goal directed; Thought content is on tx; otherwise pertinent to relevant topics and without any delusional content, paranoid ideations or grandiosity; denies SI/HI/AH/VH Diagnostics Vital Signs (24Hr): Vital Signs - 24 hr 01/24/24 11:24 01/24/24 20:00 01/25/24 07:25 Temperature 97.8 F 98.1 F Pulse Rate 83 70 64 Respiratory Rate 16 16 Blood Pressure 108/63 98/58 L 112/56 L Pulse Oximetry 95 95 Oxygen Delivery Method Room Air Room Air BMI result Body Mass Index 21.3 Labs 01/25/24 07:54 Labs: Laboratory Results - last 48 hr 01/25/24 07:54 Estimat Average Glucose 82 Hemoglobin A1c % 4.5 Medications Medications Current Medications Acetaminophen (Acetaminophen 325 Mg Tablet) 650 mg PO Q6H PRN PRN Reason: Headache/Pain Mild Scale (1-3) Acetaminophen (Acetaminophen 325 Mg Tablet) 650 mg PO Q6H PRN PRN Reason: Headache/Pain Mild Scale (1-3) Al Hydroxide/Mg Hydroxide (Magnesium Hydrox/Alum Hydrox 30 Ml Oral.Susp) 30 ml PO Q6H PRN PRN Reason: Heartburn/Nausea Bupropion HCl (Bupropion Hcl 75 Mg Tablet) 150 mg PO DAILY [facility] Last Admin: 01/24/24 08:20 Dose: 150 mg Clonazepam (Clonazepam 0.5 Mg Tablet) 0.5 mg PO BID [facility] Last Admin: 01/24/24 20:34 Dose: 0.5 mg Clonidine HCl (Clonidine Hcl 0.1 Mg Tablet) 0.1 mg PO BEDTIME [facility]; Protocol Last Admin: 01/24/24 20:38 Dose: 0.1 mg Docusate Sodium (Docusate Sodium 100 Mg Capsule) 100 mg PO BID [facility] Last Admin: 01/24/24 20:34 Dose: 100 mg Hydromorphone HCl (Hydromorphone Hcl 2 Mg Tablet) 2 mg PO Q3H PRN PRN Reason: Pain, Severe (Pain Scale 7-10) Last Admin: 01/25/24 06:42 Dose: 2 mg Hydroxyzine HCl (Hydroxyzine Hcl 25 Mg Tablet) 25 mg PO Q6H PRN PRN Reason: Anxiety Levetiracetam (Levetiracetam 500 Mg Tablet) 500 mg PO BID [facility] Last Admin: 01/24/24 20:34 Dose: 500 mg Magnesium Hydroxide (Milk Of Magnesia 30 Ml Oral.Susp) 30 ml PO DAILY PRN PRN Reason: Constipation Melatonin (Melatonin 3 Mg Tablet) 3 mg PO BEDTIME PRN PRN Reason: Insomnia Methadone HCl (Methadone Hcl 20 Mg/2 Ml Oral.Conc) 125 mg PO DAILY@0800 [facility] Last Admin: 01/25/24 07:58 Dose: 125 mg Multivitamins/Vitamin C (Multivitamin Tablet) 1 tab PO DAILY [facility] Last Admin: 11/12/24 08:21 Dose: 1 tab Nicotine (Nicotine 21 Mg Patch.Td24) 21 mg TRANSDERMA DAILY PRN PRN Reason: nicotine cravings Olanzapine (Olanzapine 10 Mg Tablet) 10 mg PO BEDTIME [facility] Last Admin: 01/24/24 20:34 Dose: 10 mg Polyethylene Glycol (Polyethylene Glycol 3350 17 Gm Powd.Pack) 17 gm PO DAILY [facility] Last Admin: 01/24/24 08:23 Dose: Not Given Senna (Sennosides 8.6 Mg Tablet) 8.6 mg PO DAILY [facility] Last Admin: 01/24/24 08:21 Dose: 8.6 mg Sevelamer Carbonate (Sevelamer Carbonate Tablet 800 Mg Tablet) 800 mg PO TIDAC [facility] Last Admin: 01/24/24 17:06 Dose: 800 mg Thiamine HCl (Thiamine Hcl 100 Mg Tablet) 100 mg PO DAILY [facility] Last Admin: 01/24/24 08:21 Dose: 100 mg Trazodone HCl (Trazodone Hcl 50 Mg Tablet) 50 mg PO BEDTIME MRX1 PRN PRN Reason: Insomnia Trazodone HCl (Trazodone Hcl 100 Mg Tablet) 100 mg PO BEDTIME [facility] Last Admin: 01/24/24 20:34 Dose: 100 mg Allergies Allergies Allergy/AdvReac Type Severity Reaction Status Date / Time No Known Allergies Allergy Verified 01/15/24 17:47 [No Known Allergies*] Assessment & Plan Assessment & Plan (1) Bipolar disorder: Status: Acute Code(s): F31.9 - Bipolar disorder, unspecified (2) PTSD (post-traumatic stress disorder): Status: Acute Code(s): F43.10 - Post-traumatic stress disorder, unspecified (3) Cocaine use disorder: Status: Acute Code(s): F14.10 - Cocaine abuse, uncomplicated (4) Opioid use disorder: Status: Acute Code(s): F11.90 - Opioid use, unspecified, uncomplicated Plan Patient is a 38-year-old female with history of bipolar disorder, PTSD, cocaine use disorder, and opiate use disorder who was seen on the medical floor secondary to being admitted for cellulitis resulting from IV drug use where she expressed increased depression. Plan: 01/25/2024- continue tx. note that clonazepam was newly started while on M5, consider not continuing after discharge. Reason for continued inpatient stay Substantial Risk for: inability to function Time Spent With Patient Time: Total time managing care of this patient today ____ minutes.
[2024-01-25 09:12] LABS: Alanine Aminotransferase 57 U/L (0-31); Albumin Level 3.8 g/dL (3.5-5.0); Alkaline Phosphatase 95 U/L (39-117); Anion Gap 17 (12-20); Aspartate Amino Transferase 33 U/L (5-31); Bilirubin Total 0.2 mg/dL (0.0-1.0); Blood Urea Nitrogen 48 mg/dL (9-16); Calcium 9.9 mg/dL (8.4-10.2); Carbon Dioxide 24 mmol/L (22-29); Chloride 102 mmol/L (96-108); Cholesterol 217 mg/dL (<200); Creatinine Clr Calc Pharmacy 51.3; Estimated Glomerular Filt Rate 39; Glucose Fasting 96 mg/dL (60-99); HDL Cholesterol 52 mg/dL (>40); LDL Cholesterol Calculated 123 mg/dL (<100); Potassium 4.5 mmol/L (3.3-5.1); Sodium 138 mmol/L (135-145); Total Protein 8.7 g/dL (6.5-8.0); Triglycerides 210 mg/dL (<150)
[2024-01-25 09:27] LABS: Thyroid Stimulating Hormone 1.77 uIU/mL (0.32-4.0)
[2024-01-25 09:33] LABS: Vitamin B12 570 pg/mL (200-900)
[2024-01-25] MEDS: Acetaminophen 325 MG TABLET 650 MG PO (13:36)
[2024-01-25 20:00] VITALS: BP 102/60; PULSE 67; RESP 12; TEMP 36.6; O2SAT 96
[2024-01-25] MEDS: traZODone HCL 100 MG TABLET PO (20:21)
[2024-01-25] MEDS: cloNIDine HCL 0.1 MG TABLET PO (20:21)
[2024-01-25] MEDS: OLANZapine 10 MG TABLET PO (20:21)
[2024-01-26] MEDS: HYDROmorphone HCl 2 MG TABLET PO ×4 (05:41→20:21)
[2024-01-26 07:00] VITALS: BMI 21.4
[2024-01-26 07:20] VITALS: BP 111/64; PULSE 74; RESP 16; TEMP 36.7; O2SAT 96
[2024-01-26] MEDS: methADONE HCl 20 MG/2 ML ORAL.CONC 125 MG PO (07:33)
[2024-01-26] MEDS: Sennosides 8.6 MG TABLET PO (08:03)
[2024-01-26] MEDS: Sevelamer Carbonate Tablet 800 MG TABLET PO ×3 (08:03→16:41)
[2024-01-26] MEDS: levETIRAcetam 500 MG TABLET PO ×2 (08:03→20:21)
[2024-01-26] MEDS: clonazePAM 0.5 MG TABLET PO ×2 (08:03→20:21)
[2024-01-26] MEDS: Thiamine HCL 100 MG TABLET PO (08:03)
[2024-01-26] MEDS: buPROPion HCL 75 MG TABLET 150 MG PO (08:03)
[2024-01-26] MEDS: Docusate Sodium 100 MG CAPSULE PO ×2 (08:03→20:22)
[2024-01-26] MEDS: Multivitamin TABLET 1 TAB PO (08:03)
--- NOTE | 2024-01-26 09:48 | P.PNPSI_ITS ---
Subjective Subjective Date of Service: 01/26/24 Reason For Visit: Psych Subjective Notes: Conditional Voluntary Interim History: Active on unit, social with peers. attending groups. Patient reports feeling good today; pt stated, I've had a good day. I went to all the groups. I'm trying to participate . Patient discussed desire to remain sober; pt stated, I do want to go to treatment. The last time I used, I didn't even like it . Pt denies SI/HI/VH/AH. Plan is to proceed with Section 35 Medication Compliance: Yes Side effects from medications: No Attending Groups: Yes Review of Systems Constitutional: Reports as per HPI Eyes: Reports as per HPI Reports as per HPI Cardiovascular: Reports as per HPI Respiratory: Reports as per HPI Gastrointestinal: Reports as per HPI Musculoskeletal: Reports as per HPI Skin/Breast: Reports as per HPI Reports as per HPI Psychiatric: Reports as per HPI Endocrine: Reports as per HPI Hematologic/Lymphatic: Reports as per HPI Allergic/Immunologic: Reports as per HPI Mental Status Exam Mental Status Exam Narrative: Pt is alert and oriented; behavior is cooperative and calm; dressed in casual attire; mood is described as good, affect congruent and bright; eye contact appropriate; Speech is normal rate, volume and not pressured; thought process is organized and goal directed; Thought content is on tx; otherwise pertinent to relevant topics and without any delusional content, paranoid ideations or grandiosity; denies SI/HI/AH/VH Diagnostics Vital Signs (24Hr): Vital Signs - 24 hr 01/25/24 20:00 01/26/24 07:20 Temperature 97.8 F 98.1 F Pulse Rate 67 74 Respiratory Rate 12 16 Blood Pressure 102/60 111/64 Pulse Oximetry 96 96 Oxygen Delivery Method Room Air Room Air BMI result Body Mass Index 21.3 Labs 01/25/24 07:54 Labs: Laboratory Results - last 48 hr 01/25/24 07:54 Sodium 138 Potassium 4.5 Chloride 102 Carbon Dioxide 24 Anion Gap 17 BUN 48 H Creatinine 1.49 H Estim Creat Clear Calc 51.3 Estimated GFR 39 Fasting Glucose 96 Estimat Average Glucose 82 Hemoglobin A1c % 4.5 Calcium 9.9 Total Bilirubin 0.2 AST 33 H ALT 57 H Alkaline Phosphatase 95 Total Protein 8.7 H Albumin 3.8 Triglycerides 210 H Cholesterol 217 H LDL Cholesterol, Calc 123 H HDL Cholesterol 52 Vitamin B12 570 TSH 1.77 Medications Medications Current Medications Acetaminophen (Acetaminophen 325 Mg Tablet) 650 mg PO Q6H PRN PRN Reason: Headache/Pain Mild Scale (1-3) Last Admin: 01/25/24 13:36 Dose: 650 mg Acetaminophen (Acetaminophen 325 Mg Tablet) 650 mg PO Q6H PRN PRN Reason: Headache/Pain Mild Scale (1-3) Al Hydroxide/Mg Hydroxide (Magnesium Hydrox/Alum Hydrox 30 Ml Oral.Susp) 30 ml PO Q6H PRN PRN Reason: Heartburn/Nausea Bupropion HCl (Bupropion Hcl 75 Mg Tablet) 150 mg PO DAILY [facility] Last Admin: 01/26/24 08:03 Dose: 150 mg Clonazepam (Clonazepam 0.5 Mg Tablet) 0.5 mg PO BID [facility] Last Admin: 01/26/24 08:03 Dose: 0.5 mg Clonidine HCl (Clonidine Hcl 0.1 Mg Tablet) 0.1 mg PO BEDTIME [facility]; Protocol Last Admin: 01/25/24 20:21 Dose: 0.1 mg Docusate Sodium (Docusate Sodium 100 Mg Capsule) 100 mg PO BID [facility] Last Admin: 01/26/24 08:03 Dose: 100 mg Hydromorphone HCl (Hydromorphone Hcl 2 Mg Tablet) 2 mg PO Q3H PRN PRN Reason: Pain, Severe (Pain Scale 7-10) Last Admin: 01/26/24 05:41 Dose: 2 mg Hydroxyzine HCl (Hydroxyzine Hcl 25 Mg Tablet) 25 mg PO Q6H PRN PRN Reason: Anxiety Levetiracetam (Levetiracetam 500 Mg Tablet) 500 mg PO BID [facility] Last Admin: 01/26/24 08:03 Dose: 500 mg Magnesium Hydroxide (Milk Of Magnesia 30 Ml Oral.Susp) 30 ml PO DAILY PRN PRN Reason: Constipation Melatonin (Melatonin 3 Mg Tablet) 3 mg PO BEDTIME PRN PRN Reason: Insomnia Methadone HCl (Methadone Hcl 20 Mg/2 Ml Oral.Conc) 125 mg PO DAILY@0800 [facility] Last Admin: 01/26/24 07:33 Dose: 125 mg Multivitamins/Vitamin C (Multivitamin Tablet) 1 tab PO DAILY [facility] Last Admin: 01/26/24 08:03 Dose: 1 tab Nicotine (Nicotine 21 Mg Patch.Td24) 21 mg TRANSDERMA DAILY PRN PRN Reason: nicotine cravings Olanzapine (Olanzapine 10 Mg Tablet) 10 mg PO BEDTIME [facility] Last Admin: 01/25/24 20:21 Dose: 10 mg Polyethylene Glycol (Polyethylene Glycol 3350 17 Gm Powd.Pack) 17 gm PO DAILY [facility] Last Admin: 01/26/24 08:03 Dose: Not Given Senna (Sennosides 8.6 Mg Tablet) 8.6 mg PO DAILY [facility] Last Admin: 01/26/24 08:03 Dose: 8.6 mg Sevelamer Carbonate (Sevelamer Carbonate Tablet 800 Mg Tablet) 800 mg PO TIDAC [facility] Last Admin: 01/26/24 08:03 Dose: 800 mg Thiamine HCl (Thiamine Hcl 100 Mg Tablet) 100 mg PO DAILY [facility] Last Admin: 01/26/24 08:03 Dose: 100 mg Trazodone HCl (Trazodone Hcl 50 Mg Tablet) 50 mg PO BEDTIME MRX1 PRN PRN Reason: Insomnia Trazodone HCl (Trazodone Hcl 100 Mg Tablet) 100 mg PO BEDTIME [facility] Last Admin: 01/25/24 20:21 Dose: 100 mg Allergies Allergies Allergy/AdvReac Type Severity Reaction Status Date / Time No Known Allergies Allergy Verified 01/15/24 17:47 [No Known Allergies*] Assessment & Plan Assessment & Plan (1) Bipolar disorder: Status: Acute Code(s): F31.9 - Bipolar disorder, unspecified (2) PTSD (post-traumatic stress disorder): Status: Acute Code(s): F43.10 - Post-traumatic stress disorder, unspecified (3) Cocaine use disorder: Status: Acute Code(s): F14.10 - Cocaine abuse, uncomplicated (4) Opioid use disorder: Status: Acute Code(s): F11.90 - Opioid use, unspecified, uncomplicated Plan Patient is a 38-year-old female with history of bipolar disorder, PTSD, cocaine use disorder, and opiate use disorder who was seen on the medical floor secondary to being admitted for cellulitis resulting from IV drug use where she expressed increased depression. Plan: 01/25/2024- continue tx. note that clonazepam was newly started while on M5, consider not continuing after discharge. 01/25: Active on unit, social with peers. attending groups. Patient reports feeling good today; pt stated, I've had a good day. I went to all the groups. I'm trying to participate . Patient discussed desire to remain sober; pt stated, I do want to go to treatment. The last time I used, I didn't even like it . Pt denies SI/HI/VH/AH. Plan is to proceed with Section 35 Patient educated on: diagnosis, medication risk/benefits and substance abuse Reason for continued inpatient stay Substantial Risk for: med/psych decompensation Time Spent With Patient Time: Total time managing care of this patient today _20___ minutes.
[2024-01-26] MEDS: Acetaminophen 325 MG TABLET 650 MG PO (16:41)
[2024-01-26 20:00] VITALS: BP 108/60; PULSE 64; RESP 16; TEMP 36.6; O2SAT 98
[2024-01-26] MEDS: cloNIDine HCL 0.1 MG TABLET PO (20:21)
[2024-01-26] MEDS: traZODone HCL 100 MG TABLET PO (20:22)
[2024-01-26] MEDS: OLANZapine 10 MG TABLET PO (20:22)
[2024-01-27] MEDS: HYDROmorphone HCl 2 MG TABLET PO ×5 (07:04→22:06)
[2024-01-27 07:33] VITALS: BP 110/74; PULSE 89; RESP 16; TEMP 36.9; O2SAT 98
[2024-01-27] MEDS: methADONE HCl 20 MG/2 ML ORAL.CONC 125 MG PO (07:55)
[2024-01-27] MEDS: levETIRAcetam 500 MG TABLET PO ×2 (08:49→22:08)
[2024-01-27] MEDS: Sevelamer Carbonate Tablet 800 MG TABLET PO ×3 (08:49→16:10)
[2024-01-27] MEDS: buPROPion HCL 75 MG TABLET 150 MG PO (08:49)
[2024-01-27] MEDS: Thiamine HCL 100 MG TABLET PO (08:50)
[2024-01-27] MEDS: Docusate Sodium 100 MG CAPSULE PO ×2 (08:50→22:08)
[2024-01-27] MEDS: Sennosides 8.6 MG TABLET PO (08:50)
[2024-01-27] MEDS: clonazePAM 0.5 MG TABLET PO ×2 (08:50→22:07)
[2024-01-27] MEDS: Multivitamin TABLET 1 TAB PO (08:50)
[2024-01-27] MEDS: Acetaminophen 325 MG TABLET 650 MG PO (12:51)
--- NOTE | 2024-01-27 15:55 | HO.PSYCHPN ---
Subjective Subjective Date of Service: 01/27/24 Reason For Visit: Psych Subjective Notes: Conditional Voluntary Interim History: Patient reports feeling good today; pt stated, I just want to go the right thing. I want to stay sober . Per nursing, pt slept 8 hours last night. social with peers, attending groups. Pt denies SI/HI/VH/AH. Medication Compliance: Yes Side effects from medications: No Attending Groups: Yes Review of Systems Constitutional: Reports as per HPI Eyes: Reports as per HPI Reports as per HPI Cardiovascular: Reports as per HPI Respiratory: Reports as per HPI Gastrointestinal: Reports as per HPI Musculoskeletal: Reports as per HPI Skin/Breast: Reports as per HPI Reports as per HPI Psychiatric: Reports as per HPI Endocrine: Reports as per HPI Hematologic/Lymphatic: Reports as per HPI Allergic/Immunologic: Reports as per HPI Mental Status Exam Mental Status Exam Narrative: Pt is alert and oriented; behavior is cooperative and calm; dressed in casual attire; mood is described as good, ; eye contact appropriate; Speech is normal rate, volume and not pressured; thought process is organized and goal directed; Thought content is on tx; otherwise pertinent to relevant topics and without any delusional content, paranoid ideations or grandiosity; denies SI/HI/AH/VH Diagnostics Vital Signs (24Hr): Vital Signs - 24 hr 01/26/24 20:00 01/27/24 07:33 Temperature 97.8 F 98.4 F Pulse Rate 64 89 Respiratory Rate 16 16 Blood Pressure 108/60 110/74 Pulse Oximetry 98 98 Oxygen Delivery Method Room Air Room Air BMI result Body Mass Index 21.4 Labs 01/25/24 07:54 Medications Medications Current Medications Acetaminophen (Acetaminophen 325 Mg Tablet) 650 mg PO Q6H PRN PRN Reason: Headache/Pain Mild Scale (1-3) Al Hydroxide/Mg Hydroxide (Magnesium Hydrox/Alum Hydrox 30 Ml Oral.Susp) 30 ml PO Q6H PRN PRN Reason: Heartburn/Nausea Bupropion HCl (Bupropion Hcl 75 Mg Tablet) 150 mg PO DAILY [facility] Last Admin: 01/27/24 08:49 Dose: 150 mg Clonazepam (Clonazepam 0.5 Mg Tablet) 0.5 mg PO BID [facility] Last Admin: 01/27/24 08:50 Dose: 0.5 mg Clonidine HCl (Clonidine Hcl 0.1 Mg Tablet) 0.1 mg PO BEDTIME [facility]; Protocol Last Admin: 01/26/24 20:21 Dose: 0.1 mg Docusate Sodium (Docusate Sodium 100 Mg Capsule) 100 mg PO BID [facility] Last Admin: 01/27/24 08:50 Dose: 100 mg Hydromorphone HCl (Hydromorphone Hcl 2 Mg Tablet) 2 mg PO Q3H PRN PRN Reason: Pain, Severe (Pain Scale 7-10) Last Admin: 01/27/24 15:13 Dose: 2 mg Hydroxyzine HCl (Hydroxyzine Hcl 25 Mg Tablet) 25 mg PO Q6H PRN PRN Reason: Anxiety Levetiracetam (Levetiracetam 500 Mg Tablet) 500 mg PO BID [facility] Last Admin: 01/27/24 08:49 Dose: 500 mg Magnesium Hydroxide (Milk Of Magnesia 30 Ml Oral.Susp) 30 ml PO DAILY PRN PRN Reason: Constipation Melatonin (Melatonin 3 Mg Tablet) 3 mg PO BEDTIME PRN PRN Reason: Insomnia Methadone HCl (Methadone Hcl 20 Mg/2 Ml Oral.Conc) 125 mg PO DAILY@0800 [facility] Last Admin: 01/27/24 07:55 Dose: 125 mg Multivitamins/Vitamin C (Multivitamin Tablet) 1 tab PO DAILY [facility] Last Admin: 01/27/24 08:50 Dose: 1 tab Nicotine (Nicotine 21 Mg Patch.Td24) 21 mg TRANSDERMA DAILY PRN PRN Reason: nicotine cravings Olanzapine (Olanzapine 10 Mg Tablet) 10 mg PO BEDTIME [facility] Last Admin: 01/26/24 20:22 Dose: 10 mg Senna (Sennosides 8.6 Mg Tablet) 8.6 mg PO DAILY [facility] Last Admin: 01/27/24 08:50 Dose: 8.6 mg Sevelamer Carbonate (Sevelamer Carbonate Tablet 800 Mg Tablet) 800 mg PO TIDAC [facility] Last Admin: 01/27/24 11:38 Dose: 800 mg Thiamine HCl (Thiamine Hcl 100 Mg Tablet) 100 mg PO DAILY [facility] Last Admin: 01/27/24 08:50 Dose: 100 mg Trazodone HCl (Trazodone Hcl 100 Mg Tablet) 100 mg PO BEDTIME [facility] Last Admin: 01/26/24 20:22 Dose: 100 mg Allergies Allergies Allergy/AdvReac Type Severity Reaction Status Date / Time No Known Allergies Allergy Verified 01/15/24 17:47 [No Known Allergies*] Assessment & Plan Assessment & Plan (1) Bipolar disorder: Status: Acute Code(s): F31.9 - Bipolar disorder, unspecified (2) PTSD (post-traumatic stress disorder): Status: Acute Code(s): F43.10 - Post-traumatic stress disorder, unspecified (3) Cocaine use disorder: Status: Acute Code(s): F14.10 - Cocaine abuse, uncomplicated (4) Opioid use disorder: Status: Acute Code(s): F11.90 - Opioid use, unspecified, uncomplicated Plan Patient is a 38-year-old female with history of bipolar disorder, PTSD, cocaine use disorder, and opiate use disorder who was seen on the medical floor secondary to being admitted for cellulitis resulting from IV drug use where she expressed increased depression. Plan: 01/25/2024- continue tx. note that clonazepam was newly started while on M5, consider not continuing after discharge. 01/25: Active on unit, social with peers. attending groups. Patient reports feeling good today; pt stated, I've had a good day. I went to all the groups. I'm trying to participate . Patient discussed desire to remain sober; pt stated, I do want to go to treatment. The last time I used, I didn't even like it . Pt denies SI/HI/VH/AH. Plan is to proceed with Section 35 01/26: Patient reports feeling good today; pt stated, I just want to go the right thing. I want to stay sober . Per nursing, pt slept 8 hours last night. social with peers, attending groups. Pt denies SI/HI/VH/AH. Continue current tx plan. Patient educated on: diagnosis, medication risk/benefits, substance abuse and therapeutic strategies Reason for continued inpatient stay Substantial Risk for: med/psych decompensation Time Spent With Patient Time: Total time managing care of this patient today _20___ minutes.
--- NOTE | 2024-01-27 19:01 | P.EN_ITS ---
Event Note Date of Service: 01/27/24 Event Note: Patient is a 38-year-old female with multiple recent admissions to both medical floor and inpatient psychiatry. Was recently transferred from medical floor to M3 psych unit on 01/22 after prolonged stay for left leg cellulitis related to IV drug use. Hospitalist consult for reassessment of pain management. Patient was discharged on Dilaudid 2 mg p.o. q.3h p.r.n. for severe pain. Source of patient's pain is rather unclear and vague, generalized: patient herself states pain is in her back, hips, sides, chest, and legs. Reports pain is worsened with movement or laying or sitting still. Spoke to nursing who report patient has been noted to be ambulating freely and without difficulty on the unit, as well as sleeping, eating, and sitting in the common area without complaints. Currently there does not appear to be any medical necessity for pt's pain evelyne men: pt has been treated for pneumonia, constipation, and leg cellulitis over the past month. Would suggest tapering pt's Dilaudid as soon as possible, though will be difficult to do considering pt's hx of IVDU and current high dose of methadone. Would suggest consulting addiction medicine to help create a tapering plan. Time Spent With Patient Time: Total time managing care of this patient today ____ minutes.
[2024-01-27 22:04] VITALS: BP 109/76; PULSE 61; RESP 18; TEMP 36.4; O2SAT 95
[2024-01-27] MEDS: Melatonin 3 MG TABLET PO (22:07)
[2024-01-27] MEDS: cloNIDine HCL 0.1 MG TABLET PO (22:08)
[2024-01-27] MEDS: OLANZapine 10 MG TABLET PO (22:09)
[2024-01-27] MEDS: traZODone HCL 100 MG TABLET PO (22:09)
--- NOTE | 2024-01-27 23:28 | PC.NURSE ---
pain-rated pain 08/21. educated on pain scale but refusing alternative. ''I have a right to have my pain treated, if I don't take it (DILAUDID) my pain will spike up''
[2024-01-28] MEDS: HYDROmorphone HCl 2 MG TABLET PO ×5 (06:58→22:06)
[2024-01-28 07:15] VITALS: BP 111/77; PULSE 74; RESP 16; TEMP 36.4; O2SAT 98
[2024-01-28] MEDS: methADONE HCl 20 MG/2 ML ORAL.CONC 125 MG PO (07:50)
--- NOTE | 2024-01-28 08:14 | P.PNPSI_ITS ---
Subjective Subjective Date of Service: 01/28/24 Reason For Visit: Psych Subjective Notes: Conditional Voluntary Interim History: The nursing staff reported the patient received Dilaudid in the morning as per protocol, no changes in her depression as per her report. The staff has noticed that she had been eating well going to groups and medication compliant. The primary team informed us that we should not prescribe her Adderall. Most likely she is going to be Section 35 tomorrow. On interview the patient denies new symptoms. Mental Status Exam Mental Status Exam Patient Appearance: Well Grooomed and Appropriate Patient Orientation: Person, Place and Situation Level of Consciousness: Awake Patient Behavior: Guarded Mood Description: Calm Affect Description: Constricted Patient Cognition Impaired: Yes Ability to Follow Directions: Good Speech Pattern: Clear Hallucinations: None Delusions: Not Present Thought Process: Distracted Thought Content: positive for Circumstantial Judgement: Fair Diagnostics Vital Signs (24Hr): Vital Signs - 24 hr 01/27/24 22:04 01/28/24 07:15 Temperature 97.5 F 97.6 F Pulse Rate 61 74 Respiratory Rate 18 16 Blood Pressure 109/76 111/77 Pulse Oximetry 95 98 Oxygen Delivery Method Room Air Room Air BMI result Body Mass Index 21.4 Labs 01/25/24 07:54 Medications Medications Current Medications Acetaminophen (Acetaminophen 325 Mg Tablet) 650 mg PO Q6H PRN PRN Reason: Headache/Pain Mild Scale (1-3) Al Hydroxide/Mg Hydroxide (Magnesium Hydrox/Alum Hydrox 30 Ml Oral.Susp) 30 ml PO Q6H PRN PRN Reason: Heartburn/Nausea Bupropion HCl (Bupropion Hcl 75 Mg Tablet) 150 mg PO DAILY [facility] Last Admin: 01/27/24 08:49 Dose: 150 mg Clonazepam (Clonazepam 0.5 Mg Tablet) 0.5 mg PO BID [facility] Last Admin: 01/27/24 22:07 Dose: 0.5 mg Clonidine HCl (Clonidine Hcl 0.1 Mg Tablet) 0.1 mg PO BEDTIME [facility]; Protocol Last Admin: 01/27/24 22:08 Dose: 0.1 mg Docusate Sodium (Docusate Sodium 100 Mg Capsule) 100 mg PO BID [facility] Last Admin: 01/27/24 22:08 Dose: 100 mg Hydromorphone HCl (Hydromorphone Hcl 2 Mg Tablet) 2 mg PO Q3H PRN PRN Reason: Pain, Severe (Pain Scale 7-10) Last Admin: 01/28/24 06:58 Dose: 2 mg Hydroxyzine HCl (Hydroxyzine Hcl 25 Mg Tablet) 25 mg PO Q6H PRN PRN Reason: Anxiety Levetiracetam (Levetiracetam 500 Mg Tablet) 500 mg PO BID [facility] Last Admin: 01/27/24 22:08 Dose: 500 mg Magnesium Hydroxide (Milk Of Magnesia 30 Ml Oral.Susp) 30 ml PO DAILY PRN PRN Reason: Constipation Melatonin (Melatonin 3 Mg Tablet) 3 mg PO BEDTIME PRN PRN Reason: Insomnia Last Admin: 01/27/24 22:07 Dose: 3 mg Methadone HCl (Methadone Hcl 20 Mg/2 Ml Oral.Conc) 125 mg PO DAILY@0800 [facility] Last Admin: 01/28/24 07:50 Dose: 125 mg Multivitamins/Vitamin C (Multivitamin Tablet) 1 tab PO DAILY [facility] Last Admin: 01/27/24 08:50 Dose: 1 tab Nicotine (Nicotine 21 Mg Patch.Td24) 21 mg TRANSDERMA DAILY PRN PRN Reason: nicotine cravings Olanzapine (Olanzapine 10 Mg Tablet) 10 mg PO BEDTIME [facility] Last Admin: 01/27/24 22:09 Dose: 10 mg Senna (Sennosides 8.6 Mg Tablet) 8.6 mg PO DAILY [facility] Last Admin: 01/27/24 08:50 Dose: 8.6 mg Sevelamer Carbonate (Sevelamer Carbonate Tablet 800 Mg Tablet) 800 mg PO TIDAC [facility] Last Admin: 01/27/24 16:10 Dose: 800 mg Thiamine HCl (Thiamine Hcl 100 Mg Tablet) 100 mg PO DAILY [facility] Last Admin: 01/27/24 08:50 Dose: 100 mg Trazodone HCl (Trazodone Hcl 100 Mg Tablet) 100 mg PO BEDTIME [facility] Last Admin: 01/27/24 22:09 Dose: 100 mg Allergies Allergies Allergy/AdvReac Type Severity Reaction Status Date / Time No Known Allergies Allergy Verified 01/15/24 17:47 [No Known Allergies*] Assessment & Plan Assessment & Plan (1) Bipolar disorder: Status: Acute Code(s): F31.9 - Bipolar disorder, unspecified (2) PTSD (post-traumatic stress disorder): Status: Acute Code(s): F43.10 - Post-traumatic stress disorder, unspecified (3) Cocaine use disorder: Status: Acute Code(s): F14.10 - Cocaine abuse, uncomplicated (4) Opioid use disorder: Status: Acute Code(s): F11.90 - Opioid use, unspecified, uncomplicated Plan Patient is a 38-year-old female with history of bipolar disorder, PTSD, cocaine use disorder, and opiate use disorder who was seen on the medical floor secondary to being admitted for cellulitis resulting from IV drug use where she expressed increased depression. Plan: 01/25/2024- continue tx. note that clonazepam was newly started while on M5, consider not continuing after discharge. 01/25: Active on unit, social with peers. attending groups. Patient reports feeling good today; pt stated, I've had a good day. I went to all the groups. I'm trying to participate . Patient discussed desire to remain sober; pt stated, I do want to go to treatment. The last time I used, I didn't even like it . Pt denies SI/HI/VH/AH. Plan is to proceed with Section 35 01/26: Patient reports feeling good today; pt stated, I just want to go the right thing. I want to stay sober . Per nursing, pt slept 8 hours last night. social with peers, attending groups. Pt denies SI/HI/VH/AH. Continue current tx plan. 01/27 no changes in her mental status compliant with treatment. Reason for continued inpatient stay Substantial Risk for: inability to function, rapid decompensation and med/psych decompensation Time Spent With Patient Time: Total time managing care of this patient today __20__ minutes.
[2024-01-28] MEDS: Sennosides 8.6 MG TABLET PO (08:23)
[2024-01-28] MEDS: Multivitamin TABLET 1 TAB PO (08:23)
[2024-01-28] MEDS: buPROPion HCL 75 MG TABLET 150 MG PO (08:23)
[2024-01-28] MEDS: Sevelamer Carbonate Tablet 800 MG TABLET PO ×3 (08:23→16:39)
[2024-01-28] MEDS: Docusate Sodium 100 MG CAPSULE PO ×2 (08:23→22:06)
[2024-01-28] MEDS: levETIRAcetam 500 MG TABLET PO ×2 (08:23→22:07)
[2024-01-28] MEDS: Thiamine HCL 100 MG TABLET PO (08:23)
[2024-01-28] MEDS: clonazePAM 0.5 MG TABLET PO ×2 (08:23→22:05)
[2024-01-28] MEDS: Acetaminophen 325 MG TABLET 650 MG PO (15:35)
[2024-01-28 22:03] VITALS: BP 112/60; PULSE 71; RESP 16; TEMP 36.3; O2SAT 97
[2024-01-28] MEDS: OLANZapine 10 MG TABLET PO (22:05)
[2024-01-28] MEDS: traZODone HCL 100 MG TABLET PO (22:05)
[2024-01-28] MEDS: Melatonin 3 MG TABLET PO (22:06)
[2024-01-28] MEDS: cloNIDine HCL 0.1 MG TABLET PO (22:06)
[2024-01-29] MEDS: HYDROmorphone HCl 2 MG TABLET PO ×4 (05:52→20:46)
[2024-01-29 07:15] VITALS: BP 121/76; PULSE 72; RESP 16; TEMP 36.4; O2SAT 97
[2024-01-29] MEDS: methADONE HCl 20 MG/2 ML ORAL.CONC 125 MG PO (07:41)
--- NOTE | 2024-01-29 07:45 | HO.PSYCHPN ---
Subjective Subjective Date of Service: 01/29/24 Reason For Visit: Psych Subjective Notes: Conditional Voluntary Interim History: The nursing staff reported the patient had a past history of seizures on Keppra. She reports anxiety and depression, she has been med compliant attendant a few groups. The staff has noticed that she is easily relate directable and distracted. She slept 7 hours. On interview, the patient denies new symptoms compliant with treatment. She advocated to restart her Adderall. I explained her the her regular team already inform us not to restart Adderall over the weekend. She stated that she was readmitted before and she should have been seen his regular prescriber who gave her Adderall in the community. I explained her that I am not going to started Adderal today and she should address it tomorrow with the primary team. Mental Status Exam Mental Status Exam Patient Appearance: Appropriate Patient Orientation: Person and Situation Level of Consciousness: Awake and Appropriate Patient Behavior: Guarded and Passive Mood Description: Withdrawn Affect Description: Constricted Patient Cognition Impaired: Yes Ability to Follow Directions: Good Speech Pattern: Clear Hallucinations: None Delusions: Not Present Thought Process: Distracted Thought Content: positive for Deal and positive for Circumstantial Judgement: Fair Diagnostics Vital Signs (24Hr): Vital Signs - 24 hr 01/28/24 22:03 Temperature 97.4 F Pulse Rate 71 Respiratory Rate 16 Blood Pressure 112/60 Pulse Oximetry 97 Oxygen Delivery Method Room Air BMI result Body Mass Index 21.4 Labs 01/25/24 07:54 Medications Medications Current Medications Acetaminophen (Acetaminophen 325 Mg Tablet) 650 mg PO Q6H PRN PRN Reason: Headache/Pain Mild Scale (1-3) Last Admin: 01/28/24 15:35 Dose: 650 mg Al Hydroxide/Mg Hydroxide (Magnesium Hydrox/Alum Hydrox 30 Ml Oral.Susp) 30 ml PO Q6H PRN PRN Reason: Heartburn/Nausea Bupropion HCl (Bupropion Hcl 75 Mg Tablet) 150 mg PO DAILY NAGA Last Admin: 01/28/24 08:23 Dose: 150 mg Clonazepam (Clonazepam 0.5 Mg Tablet) 0.5 mg PO BID NAGA Last Admin: 01/28/24 22:05 Dose: 0.5 mg Clonidine HCl (Clonidine Hcl 0.1 Mg Tablet) 0.1 mg PO BEDTIME NAGA; Protocol Last Admin: 11/16/24 22:06 Dose: 0.1 mg Docusate Sodium (Docusate Sodium 100 Mg Capsule) 100 mg PO BID [facility] Last Admin: 01/28/24 22:06 Dose: 100 mg Hydromorphone HCl (Hydromorphone Hcl 2 Mg Tablet) 2 mg PO Q3H PRN PRN Reason: Pain, Severe (Pain Scale 7-10) Last Admin: 01/29/24 05:52 Dose: 2 mg Hydroxyzine HCl (Hydroxyzine Hcl 25 Mg Tablet) 25 mg PO Q6H PRN PRN Reason: Anxiety Levetiracetam (Levetiracetam 500 Mg Tablet) 500 mg PO BID [facility] Last Admin: 01/28/24 22:07 Dose: 500 mg Magnesium Hydroxide (Milk Of Magnesia 30 Ml Oral.Susp) 30 ml PO DAILY PRN PRN Reason: Constipation Melatonin (Melatonin 3 Mg Tablet) 3 mg PO BEDTIME PRN PRN Reason: Insomnia Last Admin: 01/28/24 22:06 Dose: 3 mg Methadone HCl (Methadone Hcl 20 Mg/2 Ml Oral.Conc) 125 mg PO DAILY@0800 [facility] Last Admin: 01/29/24 07:41 Dose: 125 mg Multivitamins/Vitamin C (Multivitamin Tablet) 1 tab PO DAILY [facility] Last Admin: 01/28/24 08:23 Dose: 1 tab Nicotine (Nicotine 21 Mg Patch.Td24) 21 mg TRANSDERMA DAILY PRN PRN Reason: nicotine cravings Olanzapine (Olanzapine 10 Mg Tablet) 10 mg PO BEDTIME [facility] Last Admin: 01/28/24 22:05 Dose: 10 mg Senna (Sennosides 8.6 Mg Tablet) 8.6 mg PO DAILY [facility] Last Admin: 01/28/24 08:23 Dose: 8.6 mg Sevelamer Carbonate (Sevelamer Carbonate Tablet 800 Mg Tablet) 800 mg PO TIDAC [facility] Last Admin: 01/28/24 16:39 Dose: 800 mg Thiamine HCl (Thiamine Hcl 100 Mg Tablet) 100 mg PO DAILY [facility] Last Admin: 01/28/24 08:23 Dose: 100 mg Trazodone HCl (Trazodone Hcl 100 Mg Tablet) 100 mg PO BEDTIME [facility] Last Admin: 01/28/24 22:05 Dose: 100 mg Allergies Allergies Allergy/AdvReac Type Severity Reaction Status Date / Time No Known Allergies Allergy Verified 01/15/24 17:47 [No Known Allergies*] Assessment & Plan Assessment & Plan (1) Bipolar disorder: Status: Acute Code(s): F31.9 - Bipolar disorder, unspecified (2) PTSD (post-traumatic stress disorder): Status: Acute Code(s): F43.10 - Post-traumatic stress disorder, unspecified (3) Cocaine use disorder: Status: Acute Code(s): F14.10 - Cocaine abuse, uncomplicated (4) Opioid use disorder: Status: Acute Code(s): F11.90 - Opioid use, unspecified, uncomplicated Plan Patient is a 38-year-old female with history of bipolar disorder, PTSD, cocaine use disorder, and opiate use disorder who was seen on the medical floor secondary to being admitted for cellulitis resulting from IV drug use where she expressed increased depression. Plan: 01/25/2024- continue tx. note that clonazepam was newly started while on M5, consider not continuing after discharge. 01/25: Active on unit, social with peers. attending groups. Patient reports feeling good today; pt stated, I've had a good day. I went to all the groups. I'm trying to participate . Patient discussed desire to remain sober; pt stated, I do want to go to treatment. The last time I used, I didn't even like it . Pt denies SI/HI/VH/AH. Plan is to proceed with Section 35 01/26: Patient reports feeling good today; pt stated, I just want to go the right thing. I want to stay sober . Per nursing, pt slept 8 hours last night. social with peers, attending groups. Pt denies SI/HI/VH/AH. Continue current tx plan. 01/27 no changes in her mental status compliant with treatment. 01/28 no new changes in mental status, continue with same treatment. She requested to restart her Adderall but we will defer to the primary team on Tuesday Reason for continued inpatient stay Substantial Risk for: inability to function, rapid decompensation and med/psych decompensation Time Spent With Patient Time: Total time managing care of this patient today __20__ minutes.
[2024-01-29] MEDS: buPROPion HCL 75 MG TABLET 150 MG PO (08:33)
[2024-01-29] MEDS: Multivitamin TABLET 1 TAB PO (08:33)
[2024-01-29] MEDS: levETIRAcetam 500 MG TABLET PO ×2 (08:33→20:43)
[2024-01-29] MEDS: Sevelamer Carbonate Tablet 800 MG TABLET PO ×3 (08:34→16:48)
[2024-01-29] MEDS: clonazePAM 0.5 MG TABLET PO ×2 (08:34→20:43)
[2024-01-29] MEDS: Docusate Sodium 100 MG CAPSULE PO ×2 (08:34→20:44)
[2024-01-29] MEDS: Sennosides 8.6 MG TABLET PO (08:34)
[2024-01-29] MEDS: Thiamine HCL 100 MG TABLET PO (08:34)
[2024-01-29] MEDS: Acetaminophen 325 MG TABLET 650 MG PO (14:28)
[2024-01-29] MEDS: OLANZapine 10 MG TABLET PO (20:44)
[2024-01-29] MEDS: traZODone HCL 100 MG TABLET PO (20:44)
[2024-01-29 20:45] VITALS: BP 118/79; PULSE 79; RESP 18; TEMP 37; O2SAT 96
[2024-01-29] MEDS: cloNIDine HCL 0.1 MG TABLET PO (20:48)
[2024-01-30] MEDS: HYDROmorphone HCl 2 MG TABLET PO ×2 (03:48→09:28)
[2024-01-30] MEDS: methADONE HCl 20 MG/2 ML ORAL.CONC 125 MG PO (07:40)
[2024-01-30 08:00] VITALS: BP 132/61; PULSE 88; RESP 16; TEMP 36.7; O2SAT 98
[2024-01-30] MEDS: Sevelamer Carbonate Tablet 800 MG TABLET PO (08:07)
[2024-01-30] MEDS: buPROPion HCL 75 MG TABLET 150 MG PO (08:08)
[2024-01-30] MEDS: levETIRAcetam 500 MG TABLET PO (08:08)
[2024-01-30] MEDS: Thiamine HCL 100 MG TABLET PO (08:08)
[2024-01-30] MEDS: clonazePAM 0.5 MG TABLET PO (08:09)
[2024-01-30] MEDS: Docusate Sodium 100 MG CAPSULE PO (08:09)
[2024-01-30] MEDS: Multivitamin TABLET 1 TAB PO (08:10)
--- NOTE | 2024-01-30 13:38 | P.DS_ITS ---
DS: Providers Provider Date of Service: 01/30/24 Date of admission: 01/23/24 16:36 Date of discharge: 01/30/24 Primary care physician: Unknown Physician Admitting clinician: Linh Pace Attending physician on admission: Shade Head Consults: 01/27/24 15:54 Consult to Hospitalist Routine Comment: Consulting Provider: Hospitalist Reason For Exam: reevaluate need for dilaudid Q3H 01/27/24 19:28 Addiction Medicine Routine Consulting Provider: Addiction Covering Reason for consultation: Plan to taper from prn Dilaudid Attending physician on discharge: Pierce Cortez Discharging clinician: Linh Pace DS: Diagnosis Discharge Diagnosis (1) Bipolar disorder: Status: Acute (2) PTSD (post-traumatic stress disorder): Status: Acute (3) Cocaine use disorder: Status: Acute (4) Opioid use disorder: Status: Acute DS: Medications Discharge Medications Home Medications: Previous Rx's ?Medication ?Instructions ?Recorded acetaminophen 325 mg tablet 650 mg (2 x 325 mg) PO Q6H PRN 01/11/24 Headache/Pain Mild Scale (1-3) #60 tabs blood pressure monitor #1 ea 01/11/24 bupropion HCl 75 mg tablet 150 mg (2 x 75 mg) PO DAILY #60 01/11/24 tabs clonazepam 0.5 mg tablet 0.5 mg PO BID #30 tabs 01/11/24 clonidine HCl 0.1 mg tablet 0.1 mg PO BEDTIME #30 tabs 01/11/24 docusate sodium 100 mg capsule 100 mg PO BID #60 caps 01/11/24 levetiracetam 500 mg tablet 500 mg PO BID 1 month #60 tabs 01/11/24 (Keppra) melatonin 3 mg tablet 3 mg PO BEDTIME PRN Insomnia #30 01/11/24 tabs methadone 10 mg/mL oral 125 mg (12.5 mL) PO DAILY@0800 #0 01/11/24 concentrate (Methadose) mL multivitamin 1 tab PO DAILY #30 tabs 01/11/24 olanzapine 10 mg tablet 10 mg PO BEDTIME #30 tabs 01/11/24 sennosides 8.6 mg tablet (senna) 8.6 mg PO DAILY #30 tabs 01/11/24 sevelamer carbonate 800 mg tablet 800 mg PO TIDAC #90 tabs 01/11/24 thiamine HCl (vitamin B1) 100 mg 100 mg PO DAILY #30 tabs 01/11/24 tablet trazodone 100 mg tablet 100 mg PO BEDTIME #30 tabs 01/11/24 hydromorphone 2 mg tablet 2 mg PO Q3H PRN Pain, Severe (Pain 01/23/24 Scale 7-10) #0 tabs Mental Status Exam Mental Status Exam Narrative: Pt is alert and oriented; behavior is cooperative; dressed in casual attire; mood is described as good ; eye contact appropriate; Speech is normal rate, volume and not pressured; thought process is organized and goal directed; Thought content is on tx; denies SI/HI/VH/AH. Data Data Completed and Pending Completed studies during hospitalization [Text1]: 01/25/24 07:54 Sodium 138 Potassium 4.5 Chloride 102 Carbon Dioxide 24 Anion Gap 17 BUN 48 H Creatinine 1.49 H Estim Creat Clear Calc 51.3 Estimated GFR 39 Fasting Glucose 96 Estimat Average Glucose 82 Hemoglobin A1c % 4.5 Calcium 9.9 Total Bilirubin 0.2 AST 33 H ALT 57 H Alkaline Phosphatase 95 Total Protein 8.7 H Albumin 3.8 Triglycerides 210 H Cholesterol 217 H LDL Cholesterol, Calc 123 H HDL Cholesterol 52 Vitamin B12 570 TSH 1.77 DS: Summary Hospital Course Hospital Course: Patient is a 38-year-old female with history of bipolar disorder, PTSD, cocaine use disorder, and opiate use disorder who was seen on the medical floor s econdary to being admitted for cellulitis resulting from IV drug use where she expressed increased depression. Per crisis report, patient only was recently discharged from on 01/12/2024. Patient reports she is motivated for treatment. She was staying with a friend and shortly after discharged relapsed. Patient reports using IV cocaine. Patient stated, I can't do this on my own . She reports ongoing depression and diminished self-esteem secondary to ongoing substance use. Patient reports passive SI with no plan. She denies HI/VH/AH. During admission assessment, patient presents alert and oriented x3. Calm and cooperative. Patient stated, I did really well upstairs. They wanted to set me up with a program but I did not go. I went out there in used and came back to the hospital. I need help because I am depressed that I relapsed. I am scared I am going to . I am ready to be sober . Patient denies SI/HI/VH/AH. T/W discussed the possibility of a section 35 with patient; patient reports she would like the evening to think about it. Plan: CV 15 minute safety checks Continue home medications Encourage groups Possible section 35 Discharge planning continue tx. note that clonazepam was newly started while on M5, consider not continuing after discharge. Active on unit, social with peers. attending groups. Patient reports feeling good today; pt stated, I've had a good day. I went to all the groups. I'm trying to participate . Patient discussed desire to remain sober; pt stated, I do want to go to treatment. The last time I used, I didn't even like it . Pt denies SI/HI/VH/AH. Plan is to proceed with Section 35 Patient reports feeling good today; pt stated, I just want to go the right thing. I want to stay sober . Per nursing, pt slept 8 hours last night. social with peers, attending groups. Pt denies SI/HI/VH/AH. Continue current tx plan. no new changes in mental status, continue with same treatment. She requested to restart her Adderall but we will defer to the primary team on Tuesday. Active on unit, social with peers. attending groups. Patient reports feeling good ; focused on sobriety and discharge. Pt stated, I want to stay sober but I'm anxious and need the help .Concerned about pt's compliance with treatment after discharge. denies SI/HI/VH/AH. Pt discharged on Section 35 warrant with [employer]. Time spent discussing smoking cessation with patient: 3 to 10 minutes Status at Discharge Cognitive/behavioral status at discharge: Patient was interviewed prior to discharge and found to be fully oriented and without SI or HI. Patient has insight and demonstrates good judgment in terms of wanting to pursue treatment. Patient has a safety plan that includes presenting to the closest ER or calling 911 if feeling unsafe. Functional status at discharge: independent ambulation Overall status at discharge: patient is back to baseline Time Spent with Patient Time attestation: Total time managing care of this patient today _20___ minutes. Time spent: Less than 30 minutes Discharge Plan Discharge Anticipated Discharge Date/Time: 01/30/24 11:00 Patient Disposition: Xfer Other Discharge Diagnosis: Bipolar d/o, PTSD, opioid use d/o, cocaine use d/o Referrals: [facility] [Provider Group] - 1 Week (Walk in Hours Tuesday through Tuesday 830-4 [facility] has been added to patients chart. Please call [phone] to schedule your follow up appt.) Discharge Medications: Continued clonidine HCl 0.1 mg Tablet 0.1 mg PO BEDTIME Qty: 30 0RF Protocol: Hold for SBP< HOLD for SBP < : 90 acetaminophen 325 mg Tablet 650 mg PO Q6H PRN (Reason: Headache/Pain Mild Scale (1-3)) Qty: 60 0RF clonazepam 0.5 mg Tablet 0.5 mg PO BID Qty: 30 0RF olanzapine 10 mg Tablet 10 mg PO BEDTIME Qty: 30 0RF bupropion HCl 75 mg Tablet 150 mg PO DAILY Qty: 60 0RF methadone [Methadose] 10 mg/mL Concentrate 125 mg PO DAILY@0800 Qty: 0 0RF Rx Instructions: Partial Fill upon patient request. melatonin 3 mg Tablet 3 mg PO BEDTIME PRN (Reason: Insomnia) Qty: 30 0RF trazodone 100 mg Tablet 100 mg PO BEDTIME Qty: 30 0RF docusate sodium 100 mg Capsule 100 mg PO BID Qty: 60 0RF multivitamin Tablet 1 tab PO DAILY Qty: 30 0RF sennosides [senna] 8.6 mg Tablet 8.6 mg PO DAILY Qty: 30 0RF levetiracetam [Keppra] 500 mg tablet 500 mg PO BID 30 Days Qty: 60 0RF thiamine HCl (vitamin B1) 100 mg Tablet 100 mg PO DAILY Qty: 30 0RF sevelamer carbonate 800 mg Tablet 800 mg PO TIDAC Qty: 90 0RF Rx Instructions: must administer with a meal/food (DME) blood pressure monitor Kit See Rx Instructions .Route Qty: 1 0RF Rx Instructions: As directed hydromorphone 2 mg Tablet 2 mg PO Q3H PRN (Reason: Pain, Severe (Pain Scale 7-10)) Qty: 0 0RF Rx Instructions: Partial Fill upon patient request. Discontinued polyethylene glycol 3350 17 gram Powder In Packet 17 g PO DAILY Qty: 30 0RF Discharge Orders: Discharge Order (Routine); Ordered 01/30/24 Ordered By: Linh Pace Diet: Regular diet Activity on Discharge: As tolerated Stand Alone Forms: Patient Portal Discharge page, Community Support Print Language: Tunisian Care Plan Goals: Maintain mood and safe behaviors Take medications as prescribed Continue to pursue sobriety Practice coping skills Continue with outpatient providers and reach out to them as needed Health Concerns: Mood stability and behaviors Sobriety Plan of Treatment: Follow up with your PCP, psychiatric provider and other outpatient providers regarding above concerns Take medications as prescribed Assessment: Patient was interviewed prior to discharge and found to be fully oriented and without SI or HI. Patient has insight and demonstrates good judgment in terms of wanting to pursue treatment. Patient has a safety plan that includes presenting to the closest ER or calling 911 if feeling unsafe. Discharge Date/Time: 01/30/24 11:05
== END 2024-01-30 11:05 | disposition other institution (70) | DRG 753 ==
PROVIDERS: Admitting Provider Social Worker; Responsible Provider Registered Nurse; Visit Provider Psychiatry & Neurology Psychiatry
DX: F31.9 Bipolar disorder, unspecified (principal); F11.90 Opioid use, unspecified, uncomplicated; F14.10 Cocaine abuse, uncomplicated; F17.210 Nicotine dependence, cigarettes, uncomplicated; F43.10 Post-traumatic stress disorder, unspecified; Z71.6 Tobacco abuse counseling; Z79.899 Other long term (current) drug therapy
CPT/HCPCS: 36415; 80053; 80061; 82607; 83036; 84443

== ENCOUNTER → 2024-01-23 16:36 | Outpatient (BNV) | payer OTHER, SELFPAY | PROVIDERS: Admitting Provider Social Worker; Visit Provider Social Worker | DX: F31.4 Bipolar disorder, current episode depressed, severe, without psychotic features (principal); F14.10 Cocaine abuse, uncomplicated; F11.90 Opioid use, unspecified, uncomplicated; F43.11 Post-traumatic stress disorder, acute | CPT/HCPCS: 99231; 99232; 99233 ==